=== PATIENT | male | born 1945 | race Caucasian/White ===

== ENCOUNTER 2024-02-08 08:06 | Outpatient (OUT) | payer OTHER, MEDICARE, SELFPAY ==
--- NOTE | 2024-02-08 08:25 | CT_ITS ---
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 TECHNIQUE: Multi-planar CT images were obtained without and/or with IV contrast as indicated by examination type. Axial, Coronal, and Sagittal images. Dose reduction techniques were achieved by using automated exposure control and/or adjustment of mA and/or kV according to patient size and/or use of iterative reconstruction technique. FINDINGS: LUNGS: No visible pulmonary disease. PLEURA: No mass, effusion, or pneumothorax. VASCULATURE: No abnormality. ROBBY: No mass or adenopathy. MEDIASTINUM: No mass or adenopathy. CARDIAC: Cardiomegaly. No pericardial effusion. AORTA: No aneurysm or dissection. CHEST WALL: No mass or axillary adenopathy. BONES: No bone lesion or fracture. LIMITED ABDOMEN: No suspicious findings Limited images of the upper abdomen. OTHER: Negative. CT/CT chest w con IMPRESSION: 1. No upper mediastinal mass or lymphadenopathy to contribute patient's symptoms. 2. Mild cardiomegaly. 3. Please see corresponding CT soft tissue neck study performed on 02/08/2024. Electronically authenticated by: ROGER TORRES Date: 02/08/2024 11:39
--- NOTE | 2024-02-08 08:25 | CT_ITS ---
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 Axial sections with coronal and sagittal reformats were obtained. Dose reduction techniques were achieved by using automated exposure control and/or adjustment of mA and/or kV according to patient size and/or use of iterative reconstruction technique. FINDINGS: Lymph Nodes/Soft Tissues: No extranodal soft tissue mass, abnormal enhancement, or fat stranding. No enlarged or morphologically abnormal lymph nodes. Nasopharynx: Normal. Suprahyoid Neck: Oropharynx, oral cavity, parapharyngeal, and retropharyngeal spaces are clear and symmetric. Infrahyoid Neck: Hypopharynx and supraglottic area are clear and symmetric. Enlarged right piriform sinus, medialization and thickening of the right aryepiglottic fold, and a dilated right laryngeal ventricle suggest right vocal cord paralysis. No discrete laryngeal mass or abnormal enhancement. Equivocal mild soft tissue fullness of the left vocal cord. Parotid Glands: Normal. Submandibular Glands: Normal. Thyroid: Normal. Orbits: Normal. Paranasal Sinuses: Well-aerated. Mastoid Air Cells: Trace left mastoid effusion. Skull Base: Normal. Thoracic Inlet: Visualized lung apices are clear. Please see dedicated CT chest obtained contemporaneously and reported separately. Vascular Structures: Symmetric and patent. Atherosclerotic calcifications of the carotid artery systems. Musculoskeletal: No acute osseous abnormality. Multilevel cervical spondylotic changes. CT/CT soft tissue neck w con IMPRESSION: 1. Enlarged right piriform sinus, medialization and thickening of the right aryepiglottic fold, and a dilated right laryngeal ventricle suggest right vocal cord paralysis. No discrete laryngeal mass or abnormal enhancement. Equivocal mild soft tissue fullness of the left vocal cord. 2. No discrete extranodal soft tissue mass or lymphadenopathy in the neck. Electronically authenticated by: MARIANNA FUENTES Date: 02/08/2024 11:13
[2024-02-08 08:32] LABS: Estimated GFR (African America >60 (>=60); Estimated GFR (Non-African Ame >60 (>=60)
== END 2024-02-08 08:07 | disposition home or self-care (01) ==
LOC: LAB 08:07
PROVIDERS: Visit Provider Otolaryngology
DX: J38.01 Paralysis of vocal cords and larynx, unilateral (principal)
CPT/HCPCS: 36415; 70491; 71260; 82565; Q9967

== ENCOUNTER 2024-09-19 10:16 | Outpatient (OUT) | payer OTHER, MEDICARE, SELFPAY ==
--- OUTSIDE RECORDS SUMMARY | 2024-09-18 14:23 | XMS_ITS | CCD ---
Author Organization [facility] Informat ion Partnership [facility] Care Team Providers Care Toolroom Attendant Name Role Phone Fahad Arce Attending Provider Almas Tello Primary Care Provider [phone] Chi Espinoza Attending Provider [phone] Chi Espinoza Admit Provider Betty Carter Admit Provider Betty Carter Attending Provider Almas Tello Unavailable Unavailable Unavailable Unavailable Unavailable DR FAHAD ARCE Admitting Unavailable RICHARD, DR MARIE Attending Unavailable OMER, DR AMBRIZ Primary Care Unavailable BRIAN, DR ROGER Wooten Consulting Unavailable RICHARD, DR MARIE Consulting Unavailable OMER, DR AMBRIZ Admitting Unavailable OMER, DR AMBRIZ Attending Unavailable OMER, DR AMBRIZ Primary Care Unavailable OMER, DR AMBRIZ Consulting Unavailable RIZNURISLLA, SAMEH Admitting Unavailable TATAZNURISLLA, SAMEH Attending Unavailable OMER, DR AMBRIZ Primary Care Unavailable TATAZKALLA, SAMEH Admitting Unavailable RIZNURISLLA, SAMEH Attending Unavailable OMER, DR AMBRIZ Primary Care Unavailable RIZNURISLLA, SAMEH Admitting Unavailable RIZRADHAA, SAMEH Attending Unavailable OMER, DR AMBRIZ Primary Care Unavailable Almas Tello Primary Care Unavailab Fahad Diaz II Attending Unavailable Fahad Arce II Referring Unavailable YANETH Wilkinson Attending Unavailable YANETH Wilkinson Referring Unavailable Omer [facility] Unavailab Virginia CHEW, david Tinajero Primary Care Provider Fahad Arce MD Unavailable FAHAD ARCE Attending Unavailable OMER [facility] UnavailAlmas Burris MD Primary Care Provider [phone] SHANTI OLMOS Attending Unavailable PRETTY ALVAREZ Referring Unavaila cosme TELLO [facility] UnavailSHANTI Linares Attending Unavailable OMER DAVID TINAJERO [facility] UnavailSHANTI [place]inares Attending Unavailable OMER [facility] UnavailALMAS Burris Attending Unavailable MIKA ESPINOZA Attending Unavailable PRETTY ALVAREZ Attending Unavailable ALMAS TELLO Referring Unavailable MIKA ESPINOZA Attending Unavailable MIKA ESPINOZA Attending Unavailable MIKA ESPINOZA Attending Unavailable HANG PUENTE Attending Unavailable Unavailable Unavailable Unavailable Medications Current Medications Medication Drug Class(es) Dates Sig (Normalized) Sig (Original) acetaminophen 500 mg oral tablet (2 sources) Start: 12-31-2020 take 500 mg by mouth every four hours Acetaminophen Active 500 MG PO Q4H 100 December 31, 2020 10:54am acetaminophen 325 mg / HYDROcodone bitartrate 5 mg oral tablet (5 sources) Opioid Agonist Start: 12-26-2020 End: 01-01-2021 take 1 tablet by mouth every four hours Hydrocodone-Acetami nophen Active 1 TAB PO Q4H 30 7 December 31, 2020 10:52am [id number] 200 actuat albuterol 0.09 mg/actuat metered dose inhaler (4 sources) beta2-Adrenergic Agonist Start: 12-28-2023 End: 12-27-2024 take 2 puff(s) by inhalation every four hours for wheezing albuterol HFA 90 mcg/act inhaler Indications: COPD with acute exacerbation ([facility]) Inhale 2 puffs every 4 (four) hours if needed for wheezing 18 g 0 12/28/2023 12/27/2024 Active Start: 01-01-2021 Albuterol Sulf ate HFA 108 (90 Base) MCG/ACT Inhalation Aerosol Solution Quantity: 18 Refills: 0 Ordered: 01-Jan-2021 DO Start : 01-Jan-2021 Complete Start: 12-31-2020 take 1 puff(s) by in halation every three hours Albuterol Sulfate (Ventolin Hfa) 90 mcg/actuation Hfa Aerosol Inhaler Active 2 PUFF INHALATION Every three hours 2 December 31, 2020 10:55am amoxicillin 500 mg oral capsule (2 sources) Penicillin-class Antibacterial Start: 10-21-2023 take 4 capsules by mouth every hour amoxicillin (Amoxil) 500 MG capsule Take by mouth See administration instructions TAKE 4 CAPSULES BY MOUTH 1 HOUR PRIOR TO DENTAL APPOINTMENT 0 10/21/2023 Active ascorbic acid 500 mg oral tablet (9 sources) Vitamin C Start: 12-31-2020 Ascorbic Acid (Vitamin C) (Vitamin C) 500 mg Tablet Active 250 MG PO Twice daily 60 December 31, 2020 10:50am Start: 11-03-2020 End: 01-01-2021 take 1 tablet by mouth twice daily Ascorbic Acid (Vitamin C) (Vitamin C) 250 mg Tablet Discontinued 250 MG PO Twice daily November 03, 2020 11:24am January 01, 2021 10:17am chlorhexidine gluconate 1.2 mg/ml mouthwash (6 sources) Start: 12-26-2020 End: 01-01-2021 Chlorhexidine Gluconate Acti ve 15 ML MUCOUS MEM Daily 150 December 31, 2020 10:51am Start: 11-09-2020 Chlorhexidine Gluconate 0.12 % Mouth/Throat Solution Quantity: 473 Refills: 0 Ordered: 09-Nov-2020 DO Start : 09-Nov-2020 Complete cholecalciferol 400 unt oral tablet (9 sources) Vitamin D Start: 12-31-2020 take 1 tablet by mouth once daily Cholecalciferol (Vitamin D3) (Vitamin D3) 10 mcg (400 unit) Tablet Active 10 MCG PO Daily December 31, 2020 10:51am Start: 11-03-2020 End: 01-01-2021 take 1 capsule by mouth once daily Cholecalciferol (Vitamin D3) (Vitamin D3) 10 mcg (400 unit) Capsule Discontinued 10 MCG PO Daily November 03, 2020 11:24am January 01, 2021 10:17am guaiFENesin 20 mg/ml oral solution (2 sources) Start: 12-31-2020 take 200 mg by mouth every four hours Guaifenesin Active 200 MG PO Q4H 150 December 31, 2020 10:55am melatonin 5 mg oral tablet (5 sources) Start: 12-26-2020 End: 01-01-2021 take 5 mg by mouth once daily at bedtime Melatonin Active 5 MG PO Daily at bedtime December 31, 2020 10:52am metoprolol tartrate 25 mg oral tablet (19 sources) beta-Adrenergic Barrett Start: 10-03-2023 metoprolol tartrate (Lopressor) 25 MG tablet Take 12.5 mg by mouth in the morning and 12.5 mg in the evening. 0 10/03/2023 Active Start: 06-21-2021 End: 10-03-2023 take 0.5 tablet by mouth twice daily metoprolol tartrate (Lopressor) 25 mg tablet Indications: Coronary artery disease involving [place] coronary artery of [place] heart without angina pectoris , S/P CABG (coronary artery bypass graft) Take 0.5 tablets (12.5 mg) by mouth 2 times a day. 180 tablet 3 10/03/2023 Active Start: 06-21-2021 take 0.5 tablet by m outh three times daily Metoprolol Tartrate 25 MG Oral Tablet TAKE 1/2 TABLET BY MOUTH THREE TIMES DAILY Quantity: 135 Refills: 3 Ordered: 10-Oct-2022 Fahad Arce MD Start : 21-Jun-2021 Active Start: 12-26-2020 End: 01-01-2021 take 12.5 mg by mouth three times daily Metoprolol Tartrate Active 12.5 MG PO Three times daily 90 December 31, 2020 10:53am niMODipine 30 mg oral capsule (3 sources) Dihydropyridine Calcium Channel Barrett Start: 02-20-2024 End: 03-21-2024 take 1 capsule by mouth three times daily niMODipine (Nimotop) 30 mg capsule Indications: Vocal cord paralysis Take 1 capsule (30 mg) by mouth 3 times a day. 90 capsule 02/20/2024 Active [place]-3 Fatty Acids-Fish Oil (Fish Oil) 340-1,000 mg Capsule (2 sources) Start: 12-31-2020 take 1 capsule by mouth once daily [place]-3 Fatty Acids-Fish Oil (Fish Oil) 340-1,000 mg Capsule Active 1000 MG PO Daily December 31, 2020 10:53am povidone-iodine 0.1 mg/mg topical ointment (10 sources) Antiseptic Start: 12-26-2020 End: 01-01-2021 Povidone-Iodine Active 1 APPLIC TOPICAL PRN December 31, 2020 10:53am Start: 12-26-2020 End: 01-01-2021 Povidone-Iodine Active 1 BENJAMIN LIC TOPICAL Daily December 31, 2020 10:53am pravastatin sodium 40 mg oral tablet (9 sources) HMG-CoA Reductase Inhibitor Start: 11-03-2020 End: 01-01-2021 take 40 mg by mouth once daily at bedtime Pravastatin Active 40 MG PO Daily at bedtime December 31, 2020 10:54am predniSONE 10 mg oral tablet (1 source) Start: 12-28-2023 predniSONE (Deltasone) 10 MG tablet Indications: COPD with acute exacerbation (CMS/HCC) Every 2 day tapering dose; 5,5,4,4,3,3,2,2,1,1, 0.5,0.5 31 tablet 0 12/28/2023 Active rosuvastatin calcium 20 mg oral tablet (14 sources) HMG-CoA Reductase Inhibitor Start: 09-20-2021 End: 10-03-2023 take 1 tablet by mouth once daily rosuvastatin (Crestor) 20 mg tablet Indications: Mixed hyperlipidemia Take 1 tablet (20 mg) by mouth once daily. 90 tablet 3 10/03/2023 Active Sennosides (Senna Lax) 8.6 mg Tablet (2 sources) Start: 12-31-2020 take 2 tablets by mouth once daily Sennosides (Senna Lax) 8.6 mg Tablet Active 17.2 MG PO DAILY@12 60 December 31, 2020 10:56am Spacer/Aero-Holding Chambers (BreatheRite Raghu Spacer Adult) misc (1 source) Start: 12-28-2023 Spacer/Aero-Ho lding Chambers (BreatheRite Raghu Spacer Adult) misc Indications: COPD with acute exacerbation (CMS/HCC) 2 puffs 4 (four) times a day as needed (sob and cough) 1 each 0 12/28/2023 Active thiamine 100 mg oral tablet (5 sources) Start: 12-26-2020 End: 01-01-2021 take 100 mg by mouth twice daily Thiamine Hcl (Vitamin B1) Active 100 MG PO Twice daily 60 December 31, 2020 10:54am zinc gluconate 50 mg oral tablet (2 sources) Start: 12-31-2020 take 50 mg by mouth once daily Zinc Gluconate Active 50 MG PO Daily December 31, 2020 10:54am Completed/Discontinued Medications Medication Drug Class(es) Dates Sig (Normalized) Sig (Original) acetaminophen 325 mg / oxyCODONE hydrochloride 5 mg oral tablet (1 source) Opioid Agonist Start: 03-22-2021 take 1-2 tablets by mouth every four to six hours as needed for pain oxyCODONE-Acetami nophen 5-325 MG Oral Tablet TAKE 1-2 TABLETS EVERY 4-6 HOURS NEEDED FOR SEVERE PAIN Quantity: 60 Refills: 0 Ordered: 22-Mar-2021 DO Start : 22-Mar-2021 Complete ALPRAZolam 0.25 mg oral tablet (2 sources) Benzodiazepine Start: 11-09-2020 ALPRAZolam 0.25 MG Oral Tablet Quantity: 21 Refills: 0 Ordered: 09-Nov-2020 DO Start : 09-Nov-2020 Complete End: 12-28-2023 take 1 tablet by mouth three times daily as needed for anxiety ALPRAZolam (Xanax) 0.25 MG tablet Take 0.25 mg by mouth 3 (three) times a day as needed for anxiety. 0 12/28/2023 Discontinued (Therapy completed) aspirin 81 mg delayed release oral tablet (20 sources) Platelet Aggregation Inhibitor, Nonsteroidal Anti-inflammatory Drug Start: 04-06-2021 take 1 tablet by mouth twice daily Aspirin Adult Low Strength 81 MG Oral Tablet Delayed Release TAKE ONE TABLET BY MOUTH TWICE A DAY Quantity: 28 Refills: 0 Ordered: 06-Apr-2021 DO Start : 06-Apr-2021 Complete Start: 12-26-2020 End: 01-01-2021 take 81 mg by mouth once daily Aspirin Discontinued 81 MG PO Daily December 26, 2020 4:23pm January 01, 2021 10:17am take 1 tablet by carolyn th once daily aspirin 81 mg EC tablet Take 1 tablet (81 mg) by mouth once daily. Active atenolol 25 mg oral tablet (8 sources) beta-Adrenergic Barrett Start: 11-03-2020 End: 12-28-2023 take 25 mg by mouth once daily Atenolol Discontinued 25 MG PO Daily November 03, 2020 11:24am December 26, 2020 12:07pm betamethasone 0.5 mg/ml / clotrimazole 10 mg/ml topical cream (1 source) Azole Antifungal, Corticosteroid Start: 11-05-2020 Clotrimazole-Betamet hasone 1-0.05 % External Cream Quantity: 15 Refills: 0 Ordered: 05-Nov-2020 DO Start : 05-Nov-2020 Complete cefuroxime 500 mg oral tablet (1 source) Cephalosporin Antibacterial Start: 12-20-2023 End: 12-28-2023 take 1 tablet by mouth in the morning cefuroxime (Ceftin) 500 MG tablet Indications: Acute non-recurrent maxillary sinusitis Take 1 tablet (500 mg) by mouth in the morning and 1 tablet (500 mg) before bedtime. Do all this for 10 days. 14 tablet 0 12/20/2023 12/28/2023 Discontinued (Therapy completed) celecoxib 200 mg oral capsule (1 source) Nonsteroidal Anti-inflammatory Drug Start: 03-22-2021 take 1 capsule by mouth twice daily after mealtime Celecoxib 200 MG Oral Capsule TAKE ONE CAPSULE BY MOUTH TWICE A DAY AFTER MEALS Quantity: 60 Refills: 0 Ordered: 22-Mar-2021 DO Start : 22-Mar-2021 Complete cephalexin 500 mg oral capsule (1 source) Cephalosporin Antibacterial Start: 10-05-2023 End: 12-20-2023 take 1 capsule by mouth twice daily cephalexin (Keflex) 500 MG capsule Indications: Basal cell carcinoma (BCC) of right rastafarian region Take 1 capsule, by mouth, bid x 7 days 14 capsule 0 10/05/2023 12/20/2023 Discontinued (Therapy completed) chlordiazePOXIDE hydrochloride 25 mg oral capsule (3 sources) Benzodiazepine Start: 12-26-2020 End: 01-01-2021 take 25 mg by mouth twice daily Chlordiazepoxide Hcl Discontinued 25 MG PO Twice daily December 26, 2020 11:52am January 01, 2021 10:17am chondroitin sulfates 200 mg / glucosamine hydrochloride 250 mg oral tablet (7 sources) Start: 11-03-2020 End: 01-01-2021 take 2 tablets by mouth once daily Glucosamine-Chondroi tin (Osteo Bi-Flex) 250-200 mg Tablet Discontinued 2 TAB PO Daily November 03, 2020 11:24am January 01, 2021 10:17am clopidogrel 75 mg oral tablet (1 source) P2Y12 Platelet Inhibitor End: 12-28-2023 take 1 tablet by mouth in the morning clopidogrel (Plavix) 75 MG tablet Take 75 mg by mouth in the morning. 0 12/28/2023 Discontinued (Therapy completed) docusate sodium 100 mg oral capsule (6 sources) Start: 03-22-2021 take 1 capsule by mouth twice daily Docusate Sodium 100 MG Oral Capsule TAKE ONE CAPSULE BY MOUTH TWICE A DAY Quantity: 20 Refills: 0 Ordered: 22-Mar-2021 DO Start : 22-Mar-2021 Complete Start: 12-26-2020 End: 01-01-2021 take 1 capsule by mouth twice daily Docusate Sodium (Dok) 100 mg Capsule Active 100 MG PO Twice daily 60 December 31, 2020 10:55am DULoxetine 30 mg delayed release oral capsule (1 source) Serotonin and Norepinephrine Reuptake Inhibitor Start: 03-22-2021 take 1 capsule by mouth once daily DULoxetine HCl - 30 MG Oral Capsule Delayed Release Particles TAKE ONE CAPSULE BY MOUTH DAILY Quantity: 30 Refills: 0 Ordered: 22-Mar-2021 DO Start : 22-Mar-2021 Complete famotidine 20 mg oral tablet (6 sources) Histamine-2 Receptor Antagonist Start: 01-01-2021 Famotidine 20 MG Oral Tablet Quantity: 60 Refills: 0 Ordered: 01-Jan-2021 DO Start : 01-Jan-2021 Complete Start: 12-26-2020 End: 01-01-2021 take 20 mg by mouth twice daily Famotidine Active 20 M G PO Twice daily 60 December 31, 2020 10:52am fluticasone propionate 0.05 mg/actuat metered dose nasal spray (1 source) Corticosteroid End: 12-28-2023 take 2 spray(s) nasal route in the morning fluticasone (Flonase) 50 MCG/ACT nasal spray Administer 2 sprays into each nostril in the morning. 0 12/28/2023 Discontinued (Therapy completed) folic acid 1 mg oral tablet (6 sources) Start: 01-01-2021 Folic Acid 1 M G Oral Tablet Quantity: 30 Refills: 0 Ordered: 01-Jan-2021 DO Start : 01-Jan-2021 Complete Start: 12-26-2020 End: 01-01-2021 take 1 mg by mouth once daily Folic Acid Active 1 MG P O Daily December 31, 2020 10:52am Gentle Laxative 5 MG Oral Tablet Delayed Release (1 source) Start: 03-22-2021 take 2 tablets by mouth once daily Gentle Laxative 5 MG Oral Tablet Delayed Release TAKE TWO TABLETS BY MOUTH DAILY Quantity: 25 Refills: 0 Ordered: 22-Mar-2021 DO Start : 22-Mar-2021 Complete glucosamine/fitz dr elvin Fajardo sod (OSTEO BI-FLEX ORAL) (1 source) End: 10-03-2023 take 2 tablets by mouth once daily glucosamine/chond loan Fajardo sod (OSTEO BI-FLEX ORAL) Take 2 tablets by mouth once daily. 0 10/03/2023 Discontinued (Other) 1 ml haloperidol 5 mg/ml injection (3 sources) Typical Antipsychotic Start: 12-26-2020 End: 01-01-2021 inject 2 mg by intramuscular injection every six hours Haloperidol Lactate Discontinued 2 MG IM Q6H 0 December 26, 2020 11:53am January 01, 2021 10:17am heparin sodium, porcine 5000 unt/ml injectable solution (3 sources) Unfractionated Heparin, Anti-coagulant Start: 12-26-2020 End: 01-01-2021 inject 5000 [IU] by subcutaneous injection every twelve hours Heparin (Porcine) Discontinued 5000 UNIT SUBCUT Every 12 hours December 26, 2020 11:53am January 01, 2021 10:17am losartan potassium 25 mg oral tablet (7 sources) Angiotensin 2 Receptor Barrett Start: 11-03-2020 End: 12-26-2020 take 25 mg by mouth once daily Losartan Discontinued 25 MG PO Daily November 03, 2020 11:24am December 26, 2020 12:07pm Nirmatrelvir&Rit onavir 300/100 (Paxlovid, 300/100,) 20 x 150 MG & 10 x 100MG tablet therapy pack (1 source) Start: 11-30-2023 End: 12-20-2023 take 3 tablets by mouth in the morning Nirmatrelvir&Clovis navir 300/100 (Paxlovid, 300/100,) 20 x 150 MG & 10 x 100MG tablet therapy pack Indications: Infection caused by 2019 Novel Coronavirus Take 3 tablets by mouth in the morning and 3 tablets before bedtime. 1 each 0 11/30/2023 12/20/2023 Discontinued (Therapy completed) [place] 8-Vgm-Vyc-Fish Oil (Fish Oil) 1,000 mg (120 mg-180 mg) Capsule (7 sources) Start: 11-03-2020 End: 01-01-2021 take 1 capsule by mouth once daily [place] 2-Ipy-Dey-Fish Oil (Fish Oil) 1,000 mg (120 mg-180 mg) Capsule Discontinued 1 CAP PO Daily November 03, 2020 11:24am January 01, 2021 10:17am Start: 11-03-2020 take 1 capsule by mo [facility] once daily [place] 4-Wbr-Asn-Fish Oil (Fish Oil) 1,000 mg (120 mg-180 mg) Capsule Active 1 CAP PO Daily November 03, 2020 11:24am ondansetron 8 mg disintegrating oral tablet (1 source) Serotonin-3 Receptor Antagonist Start: 03-22-2021 take 1 tablet by mouth every six hours Ondansetron 8 MG Oral Tablet Disintegrating DISSOLVE ONE TABLET BY MOUTH EVERY 6 HOURS Quantity: 20 Refills: 0 Ordered: 22-Mar-2021 DO Start : 22-Mar-2021 Complete Osteo Bi-Flex Joint Shield Oral Tablet (5 sources) take 2 tablets by mouth once daily Osteo Bi-Flex Joint Shield Oral Tablet TAKE 2 TABLET Daily Quantity: 0 Refills: 0 Ordered: 20-Sep-2021 DO Active pantoprazole 20 mg delayed release oral tablet (2 sources) Proton Pump Inhibitor Start: 04-20-2021 take 1 tablet by mouth once daily Pantoprazole Sodium 20 MG Oral Tablet Delayed Release TAKE ONE TABLET BY MOUTH DAILY FOR 14 DAYS Quantity: 14 Refills: 0 Ordered: 20-Apr-2021 DO Start : 20-Apr-2021 Complete Start: 03-22-2021 take 1 tablet by [facility] once daily Pantoprazole Sodium 40 MG Oral Tablet Delayed Release TAKE ONE TABLET BY MOUTH DAILY Quantity: 30 Refills: 0 Ordered: 22-Mar-2021 DO Start : 22-Mar-2021 Complete polyethylene glycol 3350 12303 mg powder for oral solution (1 source) Osmotic Laxative Start: 01-06-2021 take 1 dose by mouth once daily ClearLax 17 GM/SCOOP Oral Powder USE 1 DOSE BY MOUTH DAILY FOR 30 DAYS Quantity: 510 Refills: 0 Ordered: 29-Mar-2021 DO Start : 06-Jan-2021 Complete Zinc (7 sources) Start: 11-03-2020 End: 01-01-2021 take 50 mg by mouth once daily Zinc Discontinued 50 MG PO Daily November 03, 2020 11:24am January 01, 2021 10:17am Start: 11-03-2020 take 50 mg by mouth once daily Zinc Active 50 MG PO Daily November 03, 2020 11:24am ziprasidone 20 mg oral capsule (10 sources) Atypical Antipsychotic Start: 01-01-2021 Ziprasi done HCl - 20 MG Oral Capsule Quantity: 30 Refills: 0 Ordered: 01-Jan-2021 DO Start : 01-Jan-2021 Complete Start: 12-31-2020 take 10 mg by mouth twice vinicius y Ziprasidone Hcl Active 10 MG PO Twice daily January 01, 2021 10:12am Start: 12-26-2020 End: 01-01-2021 take 20 mg by mouth three times daily Ziprasidone Hcl Active 20 MG PO Three times daily December 31, 2020 10:54am Problems Active Problems Problem Classification Problem Date Documented Da te Episodic/Chronic Acute cerebrovascular disease (3 sources) Hematoma of subdural space of neuraxis; Translations: [Subdural hematoma] Chronic Administrative/social admission (4 sources) Other reduced mobility; Translations: [Non-smoker] Episodic Alcohol-related disorders (8 sources) Alcohol dependence with withdrawal, unspecified; Translations: [Alcohol withdrawal syndrome] Chronic Chronic obstructive pulmonary disease and bronchiectasis (10 sources) Chronic obstructive lung disease; Translations: [Chronic obstructive pulmonary disease, unspecified] Onset: 12-19-2023 12-19-2023 Chronic Complications of surgical procedures or medical care (6 sources) Postprocedural respiratory failure; Translations: [Acute postprocedural respiratory failure] Episodic Coronary atherosclerosis and other heart disease (20 sources) Coronary arteriosclerosis; Translations: [Atherosclerotic heart disease of [place] coronary artery without angina pectoris] Onset: 04-15-2021 Chronic Coronary atherosclerosis and other heart disease (17 sources) History of coronary artery bypass grafting; Translations: [Presence of aortocoronary bypass graft] Onset: 01-13-2021 Episodic Deficiency and other anemia (2 sources) Anemia, unspecified; 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] Episodic Deficiency and other anemia (2 sources) Anemia; Translations: [Anemia following surgery] Episodic Diseases of white blood cells (4 sources) Elevated white blood cell count, unspecified; Translations: [Leukocytosis] Chronic Disorders of lipid metabolism (20 sources) Hyperlipidemia; Translations: [Other and unspecified hyperlipidemia] Onset: 04-22-2021 10-03-2023 Chronic Essential hypertension (11 sources) Hypertensive disorder; Translations: [Essential (primary) hypertension] Onset: 04-22-2021 Chronic Hypertension with complications and secondary hypertension (4 sources) Hypertensive chronic kidney disease with stage 1 through stage 4 chronic kidney disease, or unspecified chronic kidney disease; Translations: [HTN CKD W/STAGE 1-4 CKD/UNS CKD] Onset: 12-24-2021 Chronic Malaise and fatigue (4 sources) Lack of stamina; Translations: [Full-term ] Episodic Osteoarthritis (12 sources) Arthritis; Translations: [Unspecified osteoarthritis, unspecified site] Onset: 12-19-2023 12-19-2023 Chronic Other gastrointestinal disorders (2 sources) Dysphagia, unspecified; Translations: [Swallowing disorder] Episodic Other gastrointestinal disorders (2 sources) Dysphagia; Translations: [Dysphagia] Episodic Other lower respiratory disease (2 sources) Cough; Translations: [Cough] Episodic Other lower respiratory disease (2 sources) Cough; Translations: [Cough with frothy sputum] Episodic Other lower respiratory disease (2 sources) Hypoxia; Translations: [Nocturnal hypoxia] Episodic Other nervous system disorders (2 sources) Other acute postprocedural pain; Translations: [Acute postoperative pain of abdomen] Episodic Other nervous system disorders (2 sources) Postoperative pain ; Translations: [Postoperative pain] Episodic Other upper respiratory disease (3 sources) Vocal cord paralysis; Translations: [Paralysis of vocal cords and larynx, unspecified] 02-23-2024 Chronic Other upper respiratory disease (2 sources) Paralysis of vocal cords and larynx, unspecified; Translations: [Paralysis of vocal cords and larynx, unspecified] Onset: 02-20-2024 Chronic Other upper respiratory disease (4 sources) Dysphonia; Translations: [Dysphonia] Onset: 02-20-2024 02-23-2024 Episodic Other upper respiratory disease (1 source) Dysphonia; Translations: [Dysphonia] Onset: 02-20-2024 Episodic Other upper respiratory infections (2 sources) Laryngitis; Translations: [Acute laryngitis] 12-20-2023 Episodic Residual codes; unclassified (2 sources) Idiopathic sleep related nonobstructive alveolar hypoventilation; Translations: [Sleep-related hypoxia] Chronic Residual codes; unclassified (10 sources) H/O: surgery; Translations: [History of brain surgery] Episodic Residual codes; unclassified (5 sources) Disorientation, unspecified; Translations: [Unresponsiveness] Episodic Residual codes; unclassified (3 sources) Delirium; Translations: [Delirium] Episodic Residual codes; unclassified (10 sources) Body mass index 20-24 - normal; Translations: [Body Mass Index between 19-24, adult] Onset: 12-20-2023 12-20-2023 Episodic Screening and history of mental health and substance abuse codes (8 sources) Ex-smoker; Translations: [Personal history of tobacco use] Onset: 04-22-2021 Episodic Comment on above: QUIT 1999; Syncope (6 sources) Syncope; Translations: [Syncope and collapse] Episodic Viral infection (4 sources) Other specified viral infection; Translations: [Severe acute respiratory syndrome coronavirus 2 (SARS-CoV-2) detected] Episodic Past or Other Problems Problem Classification Problem Date Documented Date Episodic/Chronic Conditions associated with dizziness or vertigo (9 sources) Dizziness; Translations: [Dizziness and giddiness] Onset: 10-02-2023 10-02-2023 Episodic Other screening for suspected conditions (not mental disorders or infectious disease) (20 sources) Cardiovascular stress test abnormal; Translations: [Abnormal result of other cardiovascular function study] Onset: 04-22-2021 10-02-2023 Episodic Residual codes; unclassified (6 sources) Other specified postprocedural states; Translations: [History of lingual frenulectomy] Unclassified (4 sources) Onset: 10-03-2023 Resolved: 04-02-2024 10-03-2023 Results Test Name Value Interpretation Reference Range Facility Laryngoscopyon 04-02-2024 Shanti Olmos MD 2023 10:00 AM Laryngoscopy Date/Time: 04/02/2024 9:58 AM Performed by: Shanti Olmos MD Authorized by: Shanti Olmos MD [facility] Work Phone: Laryngoscopyon 02-20-2024 Shanti Olmos MD 02/22 2:39 PM Laryngoscopy Date/Time: 02/20/2024 2:35 PM Performed by: Shanti Olmos MD Authorized by: Shanti Olmos MD [facility] Work Phone: Office Visit (Cardiology)on 09-27-2022 Follow-up visit Diagnoses/Problems Assessed CAD (coronary artery disease) (414.00) (I25.10) Hyperlipidemia (272.4) (E78.5) S/P CABG (coronary artery bypass graft) (V45.81) (Z95.1) History of PTCA (V45.82) (Z98.61) Body mass index (BMI) of 24.0 to 24.9 in adult (V85.1) (Z68.24) Former smoker (V15.82) (Z87.891) QUIT 2000 Orders CAD (coronary artery disease), Hyperlipidemia, S/P CABG (coronary artery bypass graft) Renew: Rosuvastatin Calcium 20 MG Oral Tablet; TAKE 1 TABLET DAILY SocHx: Former smoker Tobacco Use Screening; Status:Complete; Done: 27Sep2022 Patient Instructions Please bring all medicines, vitamins, and herbal supplements with you when you come to the office. Prescriptions will not be filled unless you are compliant with your follow up appointments or have a follow up appointment scheduled as per instruction of your physician. Refills should be requested at the time of your visit Follow up in 1 year. Chief Complaint STAN MCDONALD is being seen for an annual follow-up of. History of Present Illness Patient returns in follow-up of problems as noted. He is doing well. I cannot elicit any manifestations or symptoms of coronary disease such as that that preceded his diagnosis and subsequent PTCA and/or angioplasty. Control of risk factors including lipids and blood pressure is good and because of this we believe all risk factors are not checked. His body mass index is also ideal and he was congratulated on his diet and continued exercise and/or activity level. Current Meds Medication NameInstruction Aspirin 81 MG Oral Tablet Delayed ReleaseTAKE 1 TABLET DAILY. Metoprolol Tartrate 25 MG Oral Tablet1/2 tablet three times daily Rosuvastatin Calcium 20 MG Oral TabletTAKE 1 TABLET DAILY. Allergies Medication No Known Drug Allergies Recorded By: Socorro Mancera; 07/17/2018 11:11:05 AM Social History Problems Alcohol consumption of one to four drinks per day (V69.8) (Z78.9) Daily caffeine consumption, 2-3 servings a day Former smoker (V15.82) (Z87.891) QUIT 1999 No illicit drug use Review of Systems Constitutional: not feeling tired. Eyes: no eyesight problems. ENT: no hearing loss and no nosebleeds. Cardiovascular: no intermittent leg claudication and as noted in HPI. Respiratory: no chronic cough and no shortness of breath. Gastrointestinal: no change in bowel habits and no blood in stools. Genitourinary: no urinary frequency and no hematuria. Skin: no skin rashes. Neurological: no seizures and no frequent falls. Psychiatric: no depression and not suicidal. All other systems have been reviewed and are negative for complaint. Vitals Vital Signs Recorded: 27Sep2022 10:01AM Heart Rate44, L Radial Tuxglqvu368, LUE, Sitting Qxezcsdat39, LUE, Sitting Height5 ft 8 in Bcrofo848 lb BMI Dtcrmmiwlv31.63 kg/m2 BSA Calculated1.87 Tobacco Useb) No PHQ-2 #1. Over the last 2 weeks have you felt down, depressed or hopeless? (If yes, answer PHQ-9 below)No PHQ-2 #2. Over the last 2 weeks have you felt little interest or pleasure in doing things? (If yes, answer PHQ-9 below)No Falls Screening (Age 18+)a) No falls within the last year Physical Exam Constitutional: alert and in no acute distress. Eyes: no erythema, swelling or discharge from the eye . Neck: neck is supple, symmetric, trachea midline, no masses and no thyromegaly . Pulmonary: no increased work of breathing or signs of respiratory distress and lungs clear to auscultation. Cardiovascular: carotid pulses 2+ bilaterally with no bruit , JVP was normal, no thrills , regular rhythm, normal S1 and S2, no murmurs , pedal pulses 2+ bilaterally and no edema . Abdomen: abdomen non-tender, no masses and no hepatomegaly . Skin: skin warm and dry, normal skin turgor . Psychiatric judgment and insight is normal and oriented to person, place and time . Signatures Electronically signed by : Fahad Arce MD; Sep 27 2022 4:12PM EST (Author) Normal [employer] Tobacco Screening.on 022 Adult depression screening assessment No [facility] [employer] [employer] DO Work Phone: Fall risk assessment a) No falls within the last year [facility] DO Work Phone: Tobacco use status CP b) No M [facility] [employer] DO Work Phone: LIPID PROFILEon 12-24-2021 CHOL-HDL RATIO NORM SEE BELOW Normal [facility] Comment on above: Result Comment: 3.3 - 4.4 LOW RISK 4.4 - 7.1 AVERAGE RISK 7.1 - 11.0 MODERATE RISK >11.0 HIGH RISK Performed By: #### L IPID, CMP #### [facility] [address] [place] [address] Dr. Sage Corbett Cholesterol [Mass/Vol] 178 mg/dL Normal <=200 Th [facility] Comment on above: Performed By: #### L IPID, CMP #### [facility] [address] [address] [address] Sage Corbett Cholesterol in HDL [Mass/Vol] 72 mg/dL Normal [facility] Comment on above: Performed By: #### L IPID, CMP #### [facility] [address] [address] [address] Sage Corbett Cholesterol in LDL [Mass/Vol] 90.8 mg/dL Normal [facility] Comment on above: Performed By: #### L IPID, CMP #### [facility] [address] [address] [address] Sage Corbett Cholesterol.total/Tarah sterol in HDL [Mass ratio] 2.5 {ratio} Normal [facility] Comment on above: Performed By: #### L IPID, CMP #### [facility] [address] [address] [address] Sage Corbett HDL NORMAL > or = 60 mg/dl - LO W CARDIOVASCULAR RISK <40 mg/dl - HIGH CARDIOVASCULAR RISK Normal [facility] Comment on above: Performed By: #### L IPID, CMP #### [facility] [address] [place] [address] Dr. Sage Corbett LDL CALC NORMAL SEE BELOW Normal [facility] Comment on above: Result Comment: <100 mg/dl OPTIMAL 100 - 129 mg/dl NEAR OR ABOVE OPTIMAL 130 - 159 mg/dl BORDERLINE HIGH 160 - 189 mg/dl HIGH >190 mg/dl VERY HIGH Performed By: #### L IPID, CMP #### [facility] [address] [place] [address] Dr. Sage Corbett Triglyceride [Mass/Vol] 76 mg/dL Normal <=150 T [facility] Comment on above: Performed By: #### L IPID, CMP #### [facility] [address] [place] [address] Dr. Sage Corbett VLDL CALC 15.2 mg/dL Normal [facility] Comment on above: Performed By: #### L IPID, CMP #### [facility] [address] [place] [address] Dr. Sage Corbett PROF 14(COMP METB)on 022 Albumin [Mass/Vol] 3.9 g/dL Normal 3.5-5.0 [facility] Comment on above: Performed By: #### L IPID, CMP #### [facility] [address] [place] [address] Dr. Sage Corbett Albumin/Globulin [Mass ratio] 1.1 {ratio} Normal [facility] Comment on above: Performed By: #### L IPID, CMP #### [facility] [address] [place] [address] Dr. Sage Corbett ALP [Catalytic activity/Vol] 47 U/L Normal 38-126 [facility] Comment on above: Performed By: #### L IPID, CMP #### [facility] [address] [place] [address] Dr. Sage Corbett ALT [Catalytic activity/Vol] 30 U/L Normal 21-72 [facility] Comment on above: Performed By: #### L IPID, CMP #### [facility] [address] [place] [address] Dr. Sage Corbett Anion gap [Moles/Vol] 11.1 mmol/L Normal Th e [facility] Comment on above: Performed By: #### L IPID, CMP #### [facility] [address] [place] [address] Dr. Sage Corbett AST [Catalytic activity/Vol] 23 U/L Normal 17-59 [facility] Comment on above: Performed By: #### L IPID, CMP #### [facility] [address] [place] [address] Dr. Sage Corbett Bilirubin [Mass/Vol] 0.4 mg/dL Normal 0.2-1.3 [facility] Comment on above: Performed By: #### L IPID, CMP #### [facility] [address] [place] [address] Dr. Sage Corbett Calcium [Mass/Vol] 9.5 mg/dL Normal 8.4-10.2 [facility] Comment on above: Performed By: #### L IPID, CMP #### [facility] [address] [place] [address] Dr. Sage Corbett Chloride [Moles/Vol] 106 mmol/L Normal 98-107 [facility] Comment on above: Performed By: #### L IPID, CMP #### [facility] [address] [place] [address] Dr. Sage Corbett CO2 [Moles/Vol] 28.1 mmol/L Normal 22.0-30.0 [facility] Comment on above: Performed By: #### L IPID, CMP #### [facility] [address] [place] [address] Dr. Sage Corbett Creatinine [Mass/Vol] 0.68 mg/dL Normal 0.66-1.25 [facility] Comment on above: Performed By: #### L IPID, CMP #### [facility] [address] [place] [address] Dr. Sage Corbett EGFR-AF UGANDAN >60 Normal >=60 [facility] Comment on above: Performed By: #### L IPID, CMP #### [facility] [address] [place], [place] [id number] Dr. Sage Corbett EGFR-NON AF UGANDAN >60 Normal >=60 [facility] Comment on above: Performed By: #### L IPID, CMP #### [facility] [address] [place] [address] Dr. Sage Corbett Globulin (S) [Mass/Vol] 3.4 g/dL Normal T [facility] Comment on above: Performed By: #### L IPID, CMP #### [facility] [address] [place] [address] Dr. Sage Corbett Glucose [Mass/Vol] 81 mg/dL Normal 74-106 [facility] Comment on above: Performed By: #### L IPID, CMP #### [facility] [address] [place] [address] Dr. Sage Corbett Potassium [Moles/Vol] 4.2 mmol/L Normal 3.4-5.0 [facility] Comment on above: Performed By: #### L IPID, CMP #### [facility] [address] [place] [address] Dr. Sage Corbett Protein [Mass/Vol] 7.3 g/dL Normal 6.1-8.2 [facility] Comment on above: Performed By: #### L IPID, CMP #### [facility] [address] [place] [address] Dr. Sage Corbett Sodium [Moles/Vol] 141 mmol/L Normal 137-145 [facility] Comment on above: Performed By: #### L IPID, CMP #### [facility] [address] [place] [address] Dr. Sage Corbett Urea nitrogen [Mass/Vol] 14.0 mg/dL Normal 9.0-20.0 [facility] Comment on above: Performed By: #### L IPID, CMP #### [facility] [address] [place] [address] Dr. Sage Corbett Urea nitrogen/Creatinine [Mass ratio] 20.6 mg/mg Normal [facility] Comment on above: Performed By: #### L IPID, CMP #### [facility] [address] [address] [address] Sage Corbett Falls Risk Screeningon 09-20 Fall risk assessment a) No falls within the last year [facility] DO Work Phone: Tobacco use status CPHS b) No M [facility] DO Work Phone: US ABD AORTA SCREENINGon US ABD AORTA SCREENING EXAM: US ABD AORT A SCREENING HISTORY: Atherosclerosis of coronary artery without angina pectoris. TECHNIQUE: Ultrasound was performed of the abdominal aorta. COMPARISON: None. FINDINGS: AORTA: Maximum diameter 3.3 cm; no aneurysm. Moderate plaque throughout without significant stenosis. Duplex Doppler demonstrates normal flow and waveform. OTHER: Maximum diameter of the right and left iliac arteries is 1.5 cm. IMPRESSION: 1. Moderate atherosclerotic disease. 2. No aortic aneurysm. Electronically authenticated by: ROGER TORRES Date: 2021-04-15 10:56 Normal [facility] Coding Summary.on 03-29-2021 Coding Summary. CD:[id number] Gh0bWw +PGhlYWQ+LR8BQRRlT06fnPCxd J3CF6uBPB7OJMWHKIFIZM0YFL7 liAV1YPxbX3AjlgMk RjeyqZHkVI92YVt8QTY4jGfzKL aupQ0htFKxN8t3IxMhPR24bQ54 AOhiANGbPkD3BkSxgqllcGHq Y4prHtReqFJaJjt+PHRhYmxlIH jlGCYfGTpfXNCdMdDbyRsaQK4z Ah5qQWVuYBKagYthkMEhMaSk q4xrGCHqSTknQZ5ayQzdL4GvwI Q9EUUas9w9Rl63rIR+PHRkIHN0 wZxjPOdza755CgNtk5vnDAT6 aJDwZFabZKM8P41zn8O0EOXsUW IvNXU6yBW2nW3eaShtlaxyN4Pw fPElEwW4QMQ9mVCrkP8dmNbg ogmvsG0oGso+P19CGP1FFNAACS 4NEoe4P0IbMdtvsYE+TK21BATt MN11dBDevEOvr4pcgMw0OaIf GXZsBUF0rDccZEjux6UpMGMgO3 4ylQSyf9X9JRGesYcqeZWlEtEc pIM8uJ0oYXjkectgi4gzqzar Upptk9bhhn04hK95P56gGJcrOH WbUJI9CZXaGPOjxRlzbc8fjI5o Ii8+BFqxb2muc1sedGh3DxPc MFVjsaTlbBboFXY1k6DmVa22T6 GcpRxtj8IrJgw9xd19oVCqx2Y8 iYI7ZQugUUWfmW4gLDynWrQ1 OLXxLoZfpT07oGFyPWydRh3xcL zriQstMG4cJJAakbafHAEfjI5q RMAslCMpzRcmQU8eWMPheipi y730NyFxXWE5YTUqpPOwH7ZckI 4nFvSfEDYvRVDqR4KahNNsYHkk Z229MDrwWcV2NUEyajLkT8Cx RPRtxXduPsJ5s8J5Lw8Es7Ccyq ymFXD0WWijCGI7CfOgDjRmVuS9 N2WgSyl0RDRabGtzYP5lZ1Qb KNHgiybmcyudoZD7CQFeXTMaxO 23nANrSCurUe4tw1B4h814ROLz HNDtrQ90Yx9mkWsgAFIduOFS iG2jwaror1syubdhSyVfSYXgAV f7UAx1VBIzrFyxJwHhEPG9AkW9 EBX0dJApkT8hwVzqbdaluG0o Oyc+W20jjL5pYSF4GEW3kvmnDP YxajIqSL10FR71H4FlWlanwUHq bGU+YECzesFmjEibBM4fCcNl o5ugm7PkBPlbG1TsJXOhDUkbHb c3SMXiAGW0kTF2oL0kOBRzYCns y8N8lCM2K1MjbtIije1sw7tt RRHlUJwdA25yxIRns5W8XFKsjF F7AIVghVfzQvGzuC45Tci+PGNv pOmxj4LlOtttu8pes7cgnOp0 DpGzEDIpykFkfAivWIO6k4FhGm 94D00jXHrrSTSgDFZfFRCeEBRd cKanmx3dfD0fXa9+PGNvbCB3 fYR9jP4dMAZwQzA5XOaaM963Vy FjsSXfDrhtz4wca8lvqYm2BmUv LICkvsPedTtuADD0j2RfAf52 W77hHYcqTJOmANAkLPUeBKYttB vqjt1azM3kKd6+KE5zq1uhlo41 qA80bHZ+JAOuUFS7zWmsLYyi WECglB4jCTttOaT2HHQkTvOruZ 69zBJfQLbnBb8hpHmgeBqsEJ6b IJRzvikxs810IjLyu0sbNDTt dHJvMDqsCRM6A34jw6Z8ELZkFU LkIKP4fCP2kR3qhSajjkdxbOBs rAnqoaKevZpmHDfoQFhqV691 IHRvcDsnPlBhdGllbnQgTmFtZT h2F6OeOyw6FUIgvUftZU3ffMJt XKbbDw4enNjrkZtqIW2tMZQg pihwu408YiQpk7qiLEVlbQFpMS xtIDD4T46mw3O3KJUaTFHxOMC8 uIK0eJ8zoLtmwyoqsMNwxTfl qkZmyFavEBvvDAnhX461XHHffU wsBvIwvqSuRBKynEM3CM23QZ15 hDXrd0M3cZC1W7RxGHCflubg xnlhaKJ3THQuMWZeuH65Tj7mkQ elIg2oGAPhRBF8DGBbgNIvN4Mc gH6lKaHrVEHpISBjW9SrxLSn PBygL841CPozOqG1VAMuknHrJ6 EeABFzwBclEkF5j4M1Xe5DK6M0 YB30II03uNKmi3O4xRO1P9Ov SVVbbmfptepwoOL4ITJeIGUlrR 60Rw8enUtxBp0sXGBbOWJ0CWRy hXZvN8DyrC4rKkYsLHItRHDa W0KwqMNdCFvgA238COvcXnJ3EF EkbiZnD0ZtGPSvqJomHqS4k0K2 Hy6NHCd0GZ81TL74iFJoa2Q3 wQV4X0IuVZWtwilhpxpiiRT8YF PuRBGbrK60Up7shSfeGr5oMIQt IIQ5IWMaeBNoR9HliO0kNwKt UKGvWLJcH7UlxUAuXIsxW439LN esIvW3GEXhtfJpU1GsAJRpeVms YvM3n9U5Jc0TRTPsST21GKL0 iPK4ZE31OK43T8KwJtvvrCJvaV U+PHRhYmxlIHdpZHRoPScxMDAl HpSmuTgzAY5yDe3sDPOhYTLm bNyvkILvZxYju8srFQYzYIhzOU 3hhVreF2MxeOQ3SMBfw4x9Mi48 H20xB8DymNY+CKIziTM8sML0 cT1eUuYxXhL4JBtrA990UnTzdB WbXwmms0poq1zrpJi7UlE7VGAp gdMzlSmnVJG1f3VdWs21M59w IHdpZHRoPSIxNSUiIHZhbGlnbj 3zxR6eLe8+LFUiuXW4tTR2qR5n KsEmKsU3DCtfW470VlXlwNYk Bebkz2soq6zmjXu2OuEtESKpkv RgrRcwYZM3t1GwJh55T6EpcCuv o0YlYif5kk35bHQcn1Q9aGO7 Q8PaVMSlczsqcIVvtRbiFR8sRY WwwbiiBXMdcE4pGKVvS9g6KiQa QxL3GBczK3OuwlF5EUUyrKZa QFgiLPE7F89nw9E7YLAqVAOaGM K1fWT3gY7xtZfubvkhuNZhiNwf tiGacQaxOFbkZYktZ036KARu jSgpHDGcqH5vSOBvkNRotIisWD 9hORXiwxbnFkpXL4pVQDxRPous Vg8MBUSZXW71DY50wEVwj6A0 gVL9J3IkIPZzuecdwyyceLJ4OP DlMOFnwZ26kNQgVMjqNw1zm4B7 i555TWThWTSegK16Ns9xpCix CSTtvUJUoB1guysff0arjamcIa NiMWEuUDk2NJv5MQZrrHvbXiPl UEN1NgU4ZOK5qEIzbB4siBpt liiciK5jWmn+ERYgYXWpSOg7Fy wvdGQ+HUXvAOA8vJlzPAscUIRw lU0dXQQlV1q2NzKtAeJ2AMwm M8EhWLVwsuntVy10bV1oCiSkVf R6MLcpK5AkjmM6DCTjrMPoIZkt YJO9J13le9K3NNInPUGtRFZ0 jIG8cA7cjCvsqkgnpYDkxAyiej CbkKntNByyYQsgR972FBDruPmz Pjr5SBzhDOZeKO29EA76rDCf j3V7iWN9T3SbWYWmbftznzxjfP E2ZNJzWZClrA37rIRdCMdgFw5s h6Y8t373QCDsKIEiqX63Ci5x fRuyUVWpjTHOxI1hequso0ubuf skAuAjDYGgHVi9DUe3XFJbiYsw BwDkKOW9CsZ1XRA9pBVmjQ1c jFqranluvJ0lJum+TWFsZTwvdG Q+TMTbIUK8zSniXWcyVPXnfC0q YBMtT1r1NqHxNkZ7OOvpM1Mw YYSckrnmFd06mZ0mJjTdUeU0GV qmQ9QchqM4XHKjhUEzGShiTTR7 I30nt3Z2UXEoFSArNVO6jSZ0 iJ2hbCgdfgfcpJQyvInrusFgwX reJNheFJvtR334SQUryCxhWhvt sAR0mRRojVrfjGL+QR87hs83 E0ScWmntIoc5FNOpCVF9uYS7xO 9vSDOnHNcdy4G8qBD3Q0VgspZu kh8ja8pkLYLnCMcwR99fwXLz b5A3NYEcaMK2EWVciWbsLdQizU 93Oyc+LTIwkUkqj6MvTgchk3yr g1qfjZb2LvTsDTPjboNfkOph XMV4i8DlKq46O50tQBzkOAXeHS WeSTNyFMSehSkoig5skH2jMb5+ IRTagRJ8aWG4dL2oVqOeCoX6 BLbiS401XwJkuUYpKjjva0bvz8 vorFt1GtOxJJLoauDzhAgrJMX6 g2BxMf65T7PyiFuui3YnVlv2 ym99fHNcs2P2tCP7B3CrUMKuyi fkuHJwjRyvIO6oMOOnwvqyPUYj nN8cGUMnE1e4PnNpDzG5BPvd E4UnznJ3SYMdzTSdQMLqdTMYkS 8kdfdig1cltbskEdKlNJJbQHn0 SJy2LBPknTxnEtNuMEQ1WpX1 UXO4nNFirR0scOkqyxqpfU9uIg c+NGy1o9umaPTuOO4miZN3QM19 TZ65fHBge9Q3hWB9Q7GzTZLz vijhywjytWG0TEPgBKItrQ29Or 8fiUhmGm5iMYGmTDS4PLUpjJNm N2HpuE9mIaXzWNXmMIUsB0Bv qFGeTVouX284WIpgQnV1ITYltk VrJ3CbOSQdxPquXrV0s5Y7Cn8I EV48CH79YN58xSZyt4H1hPX9 N2DqLFClbhzxtyrhfKH4QAJqCN BjbG09Hb4xgHfgWp1fSZDdZZJ8 IFQwdNDbJ5AqpP8iWhJdGBWo SDYiX7XaaLNfLVnvB194MMjrMp B7GFPvxnOjX1FqUVOmzVwiMuC2 f7Q6Fa9HRq67UH73LW75eGZz d7O7zHU0W0YmUCOjlwwqqspomA M0CMEeAYTfiW38Zz0adUvkBx6r EOGrUXA8PBVujQMaW5MjpS9t EjYmDMVjBDTgF8FhlVNiMSngH7 73ZMkoOaU1DTLiuvTyU4UsARUh mRudBpW8q7M9Ax5VRYbanhx4 V8RjOsfmxMF+EK92FEVoRO76kD JqqBAck8rkkOu8ZfHtKXRxGSV5 nRpcXAfat0ZiXXAsA08szQCk c2U6 (more content not included)... Normal [facility] IntraOperative Documentson 0 03-26-2021 IntraOperative Documents [id number]:127 Normal [facility] Operative Reporton Operative Report Date of Surgery: 03/22/2021 SURGEON: Lm Espino M.D. OPERATION: Right ultrasound guided single shot adductor canal block ANESTHESIA: 2 mg of Versed PROCEDURE: The patient was interviewed and examined. Anesthetic options for postoperative pain control were discussed in great detail. After a lengthy discussion encompassing risks, benefits and alternatives of the procedure the patient elected to undergo the procedure. In the block room the patient was placed on routine monitors, vitals signs were reviewed, landmarks reviewed and the site was prepped in a sterile fashion. Visualization of the adductor canal was very good and a 21 gauge 100 mg Pajunk needle was advanced with excellent ultrasound visualization and under direct ultrasound visualization 18 cc of a 0.25% Naropin solution was injected in divided doses with frequent aspiration. There were no signs of intraneural or intravascular injection and the patient tolerated the procedure very well. Within several minutes the patient began to show signs and symptoms of successful blockade and the patient was then transported back to the Operating Room and underwent general anesthesia for the planned procedure. Lm Espino M.D. lkr Dictated: 03/26/2021 #[id number] Typed: 03/26/2021 #[id number] cc: Lm Espino M.D. [facility] Comment on above: Result Comment: Elec tronically Signed By: Lm Espino MD\.br\Date and Time Signed: 03/26/21 17:50 EDT Progress Note-Physicianon Progress Note-Physician Patient: STAN STAFFORD Age: 75 years Sex: Male : 1945 Associated Diagnoses: None Author: Lm Espino MD Postoperative Information Post Operative Note: Post Anesthesia Care Unit. Anesthetic utilized: General. Health Status Allergies: Allergic Reactions (All) No Known Allergies Problem list: No problem items selected or recorded. Physical Examination Intake and Output adequate hydration Vital Signs 03/22/2021 10:40 EDT Heart Rate Monitored 91 bpm Respiratory Rate Monitored 13 br/min Systolic Blood Pressure 133 mmHg Diastolic Blood Pressure 66 mmHg Blood Pressure Location Right arm SpO2 94 % 03/22/2021 10:35 EDT Heart Rate Monitored 89 bpm Respiratory Rate Monitored 9 br/min Systolic Blood Pressure 159 mmHg HI Diastolic Blood Pressure 84 mmHg Blood Pressure Location Right arm SpO2 98 % 03/22/2021 10:29 EDT Temperature Temporal Artery 36.3 DegC Heart Rate Monitored 88 bpm Respiratory Rate Monitored 12 br/min Systolic Blood Pressure 160 mmHg HI Diastolic Blood Pressure 85 mmHg Blood Pressure Location Right arm SpO2 98 % Pain assessment: Self-reports no pain. General: Alert and oriented, No acute distress. HENT: Oral mucosa is moist, dentition unchanged. Respiratory: Respirations: Are within normal limits. Pattern: Regular. Cardiovascular: Normal rate. Neurologic: Alert, Oriented. Review / Management Lines and Tubes: Peripheral catheter. ECG interpretation: Within normal limits. Condition: Stable. Assessment Anesthetic outcome No anesthetic complications noted. Adequate pain relief. No Complaint of nausea and vomiting. Plan Transfer/ Discharge: Patient can be discharged from PACU when criteria met, Patient can be discharged from anesthesia care. Condition stable. Normal [facility] Comment on above: Result Comment: Elec tronically Signed By: Srinivas CHEW, Bell.br\Date and Time Signed: 03/25/21 16:51 EDT Auto Diffon 03-23-2021 Basophils/100 WBC (Bld) 0.1 % Normal 0.0-2.[address] [facility] Comment on above: Order Comment: Order Added by Discern Expert. Performed By: #### 2 [id number] ####[facility] [id number] [place] [address] Basophils/Leukocytes Auto (Bld) [Pure # fraction] 0.0 E9/L Normal 0.0-0.2 [facility] Comment on above: Order Comment: Order Added by Discern Expert. Performed By: #### 2 [id number] ####[facility] [id number] [place] [address] Eosinophils/100 WBC (Bld) 0.3 % Normal 0.0-8.0 [facility] Comment on above: Order Comment: Order Added by Discern Expert. Performed By: #### 2 [id number], [id number], 4438452, 7332216, [id number], [id number] ####[facility] [address] [place] [address] Eosinophils/Leukocytes Auto (Bld) [Pure # fraction] 0.0 E9/L Normal 0.0-0.5 [facility] Comment on above: Order Comment: Order Added by Discern Expert. Performed By: #### 2 204297, 8416128, 8283057, 8121230, [id number], [id number] ####[address] [place] [address] Lymphocytes/100 WBC (Bld) 13.5 % Low 14.0-50.0 [facility] Comment on above: Order Comment: Order Added by Discern Expert. Performed By: #### 2 315826, 6223980, 2374777, 6182611, [id number], [id number] ####[facility] [address] [place] [address] Lymphocytes/Leukocytes Auto (Bld) [Pure # fraction] 1.4 E9/L Normal 1.0-4.0 [facility] Comment on above: Order Comment: Order Added by Discern Expert. Performed By: #### 2 663615, 9045842, 4768335, 3538980, 51035792, 6647545 ####[facility] [address] [place] [address] Monocytes/100 WBC (Bld) 14.2 % High 4.0-14.0 [facility] Comment on above: Order Comment: Order Added by Discern Expert. Performed By: #### 2 670647, 7751472, 5734918, 0473409, 82959182, 9461843 ####[facility] [address] [place] [address] Monocytes/Leukocytes Auto (Bld) [Pure # fraction] 1.5 E9/L High 0.2-1.0 [facility] Comment on above: Order Comment: Order Added by Discern Expert. Performed By: #### 2 785220, 9290874, 3291057, 2941649, [id number], 8986816 ####[facility] [address] [place] [address] Neutrophils/100 WBC (Bld) 71.9 % Normal 36.0-75.0 [facility] Comment on above: Order Comment: Order Added by Discern Expert. Performed By: #### 2 274055, 6227992, 9737792, 0286143, 93292845, 6893269 ####[facility] [address] [place] [address] Neutrophils/Leukocytes Auto (Bld) [Pure # fraction] 7.6 E9/L High 2.0-7.5 [facility] Comment on above: Order Comment: Order Added by Discern Expert. Performed By: #### 2 732856, 6639919, 4260018, 6973868, 36496895, 6048802 ####[facility] [address] [place] [address] BUNon 03-23-2021 Urea nitrogen [Mass/Vol] 19 mg/dL Normal 5-21 [facility] Comment on above: Performed By: #### 2 870863, 6594193, 0827327, 1808152, 07794602, 6734058 #### [facility] [address] [place] [address] CBC w/ Auto Diffon Erythrocyte distribution width (RBC) [Ratio] 14.8 % High 10.9-14.2 [facility] Comment on above: Performed By: #### 2 693799, 9635086, 7418031, 5420904, 49747801, 5857065 ####[facility] [address] [place] [address] Hematocrit (Bld) [Volume fraction] 33.0 % Low 37.7-49.0 [facility] Comment on above: Performed By: #### 2 204392, 5814404, 8421479, 9743644, 19546414, 4803265 ####[facility] [address] [place] [address] Hemoglobin (Bld) [Mass/Vol] 11.3 g/dL Low 13.5-17.5 [facility] Comment on above: Performed By: #### 2 251876, 9055475, 2128673, 8859458, 71131993, 2297671 ####[facility] [address] [place] [address] MCH (RBC) [Entitic mass] 30.9 pg Normal 27.0-34.0 [facility] Comment on above: Performed By: #### 2 366397, 6258520, 8984799, 8868753, 43801612, 5695571 ####[facility] [address] [place] [address] MCHC (RBC) [Mass/Vol] 34.2 g/dL Normal 31.4-36.0 [facility] Comment on above: Performed By: #### 2 788607, 9490100, 1959707, 3984064, 57848099, 2869828 ####[facility] [address] [place] 5114857 MCV (RBC) [Entitic vol] 90.4 fL Normal 80.0-100.[address] [facility] Comment on above: Performed By: #### 2 315680, 4659037, 3689195, 1996786, 81310447, 6191458 ####[address] [address] Platelet mean volume (Bld) [Entitic vol] 8.3 fL Normal 6.4-10.8 [facility] Comment on above: Performed By: #### 2 755885, 4245727, 9695757, 0992902, 48403693, 5357820 ####[address] [address] Platelets (Bld) [#/Vol] 193.0 E9/L Normal 150. 0-500. 0 [facility] Comment on above: Performed By: #### 2 466052, 5352527, 9751891, 9717147, 28051831, 9167992 ####[address] [address] RBC (Bld) [#/Vol] 3.7 E12/L Low 4.3-5.9 [facility] Comment on above: Performed By: #### 2 170976, 9406245, 7011291, 5621198, 76364564, 6440904 ####[address] [address] WBC corrected for nucl RBC Auto (Bld) [#/Vol] 10.6 E9/L Normal 4.0-11.0 [facility] Comment on above: Performed By: #### 2 391148, 2684682, 0935259, 7320023, 36367356, 5628559 ####[facility] [address] [place] [address] Consent for Anesthesiaon Consent for Anesthesia [id number]#[id number]:127 Normal [facility] Creatinineon 03-23-2021 Creatinine [Mass/Vol] 0.9 mg/dL Normal 0.5-1.3 [facility] Comment on above: Performed By: #### 2 315227, 9297914, 8384469, 1631898, 35076876, 9014476 #### [facility] [address] [place] [address] Discharge Instructionson Discharge Instructions [id number]#[id number]:127 Normal [facility] Inpatient Clinical Summaryon 03-23-2021 Inpatient Clinical Summary [address] [address] Clinical Summary Person Information: Name: STAN MCDONALD Age: 75 Years : 1945 Sex: Male PCP: ALMAS TELLO MD Marital Status: Race: White Ethnicity: Non- or Language: Cameroonian Visit Id: Visit Reason: RIGHT KNEE OA Speciality: Acuity: Enc Type: Inpatient Med Service: Surgery Arrival: 03/22/2021 05:56:03 Discharge: Dispo Type: Address: [address] [place] [address] [phone] Provider Notes: Diagnosis: 2:HTN (hypertension); 3:HLD (hyperlipidemia); 4:DVT prophylaxis Problems No Problems Documented Smoking Status: Functional Status: Sensory Deficits: History of Falls: Mobility Assistance Prior to Admission: ADLs: Current Level of Assistance for Self-Care/Mobility: Cognitive Status: Allergies No Known Allergies Measurements: Height: Weight: Blood Pressure: 149 mmHg / 72 mmHg BMI: Procedures Arthroplasty of knee (03/22/2021) Immunizations No Immunizations Documented This Visit Final Med List: acetaminophen (Tylenol Extra Strength 500 mg oral tablet) 2 Tablets By Mouth every 6 hours as needed as needed for pain. acetaminophen-oxycodone (Percocet 5 mg-325 mg oral tablet) 1 Tablets By Mouth every 6 hours as needed severe pain. 1-2 tabs PO q4-6 hours prn severe pain. Refills: 0. aspirin (aspirin 81 mg Chew Tab) 1 Tablets By Mouth 2 times a day. Refills: 0. celecoxib (CeleBREX 200 mg Cap) 1 Capsules By Mouth twice a day (after meals). Refills: 0. chondroitin-glucosamine (Osteo Bi-Flex) 2 Tablets By Mouth every day. docusate (Colace 100 mg Cap) 1 Capsules By Mouth 2 times a day. Refills: 0. duloxetine (Cymbalta 30 mg Cap-EC) 1 Capsules By Mouth every day. (do not crush or chew). Refills: 0. metoprolol (Metoprolol tartrate 25 mg Tab) 0.5 Tablets By Mouth 3 times a day. ondansetron (Zofran ODT 8 mg Tab-Dis) 1 Tablets By Mouth every 6 hours. Refills: 0. pantoprazole (Pantoprazole [address] Tab) 1 Tablets By Mouth every day. Refills: 0. pravastatin (pravastatin 40 mg Tab) 1 Tablets By Mouth every day. Care Team Members: Attending Physician: George Bustamante DO Consulting Physician: Kia PAIGE MD Referring Physician: George Bustamante DO Follow up: With: Address: When: George Bustamante [address] [place], [place] [id number] [phone] Business (1) 04/13/2021 10:00 AM Comments: Keep scheduled appointment Patient Education Information: Normal [facility] Inpatient Patient Summaryon 03-23-2021 Inpatient Patient Summary [place] [id number] Patient Discharge Instructions PERSON INFORMATION Name: STAN MCDONALD Date of : 1945 Current Date: 03/23/2021 10:08:55 PHYSICIANS Admitting Physician: George Bustamante DO Primary Care Physician: ALMAS TELLO MD PCP Comment: Discharge Diagnosis: 2:HTN (hypertension); 3:HLD (hyperlipidemia); 4:DVT prophylaxis Condition at Discharge: LORAINELUDASTAN Rinaldi has been given the following list of follow-up instructions, prescriptions, and patient education materials: PATIENT FOLLOW-UP INFORMATION Diet: Regular Discharge Activity: Expect mild pain, Expect minimal amount of drainage and/or bleeding, Activity as tolerated Discharge Restrictions: No driving, Do not operate machinery or tools, Do not make important decisions for 24 hours, Do not drink alcoholic beverages for 24 hours Wound Care Instructions: Remove dressing as instructed Remove Your Dressing In 3 Days Call Your Doctor For: Persistent or heavy bleeding, Temperature above 101.5 degrees, Redness, swelling, or pus at operative site, Severe pain at the operative site, Persistent vomiting IF UNABLE TO CONTACT YOUR PHYSICIAN AND YOU FEEL IT IS AN EMERGENCY, GO TO THE NEAREST EMERGENCY ROOM OR CALL 911 Home Treatment: Devices/Equipment: Cane, Elevated toilet seat, Shower chair, Walker - front wheeled Special Services: Additional Instructions: Discharge Instructions-OUTPT Entered On: 03/22/2021 7:11 EDT Performed On: 03/22/2021 7:09 EDT by George Bustamante DO Discharge Instructions Discharge Diet(s) : Regular Discharge Activity : Expect mild pain, Expect minimal amount of drainage and/or bleeding, Activity as tolerated Discharge Restrictions : No driving, Do not operate machinery or tools, Do not make important decisions for 24 hours, Do not drink alcoholic beverages for 24 hours Call Your Doctor For : Persistent or heavy bleeding, Temperature above 101.5 degrees, Redness, swelling, or pus at operative site, Severe pain at the operative site, Persistent vomiting Wound Care : Remove dressing as instructed Remove Dressing On : 3 Discharge Instructions Freetext : Ice and elevate the right lower extremity feet above the level of heart. Knee immobilizer at night. Dressing will be changed by physical therapy removing the Matt wrap and overlying dressings in 72 hours maintain the adhesive bandage for 7 days postop George Bustamante DO - 03/22/2021 7:09 EDT Primary Care Physician to provide the following pending test results: Follow up: With: Address: When: George Zavaleta Brandon Burroughs, [address] [address] [phone] Business () 04/13/2021 10:00 AM Comments: Keep scheduled appointment In the event that this physician does not participate in your insurance network, please consult with your insurance company to find a nearby participating provider. Comment: ISANJAY ROBERT, have received the attached patient education materials/instructions and have verbalized understanding: Patient Signature __ Date Clinican/Nurse Signature Date HERE ARE THE MEDICATION CHANGES THAT OCCURRED DURING YOUR HOSPITAL STAY New Medications [facility], [address] [facility] [place], [place] [phone], [phone] acetaminophen-oxycodone (Percocet 5 mg-325 mg oral tablet) 1 Tablets By Mouth every 6 hours as needed severe pain. 1-2 tabs PO q4-6 hours prn severe pain. Refills: 0. Last Dose: N ext Dose: celecoxib (CeleBREX 200 mg Cap) 1 Capsules By Mouth twice a day (after meals). Refills: 0. Last Dose: N ext Dose: docusate (Colace 100 mg Cap) 1 Capsules By Mouth 2 times a day. Refills: 0. Last Dose: N ext Dose: duloxetine (Cymbalta 30 mg Cap-EC) 1 Capsules By Mouth every day. (do not crush or chew). Refills: 0. Last Dose: N ext Dose: ondansetron (Zofran ODT 8 mg Tab-Dis) 1 Tablets By Mouth every 6 hours. Refills: 0. Last Dose: N ext Dose: pantoprazole (Pantoprazole [address] Tab) 1 Tablets By Mouth every day. Refills: 0. Last Dose: N ext Dose: Medications to Continue Taking That Have Changed [facility], [address] [place], [place] [phone], [phone] START: aspirin (aspirin 81 mg Chew Tab) 1 Tablets By Mouth 2 times a day. Refills: 0. Last Dose: N ext Dose: Medications to Continue with No Changes Other Medications acetaminophen (Tylenol Extra Strength 500 mg oral tablet) 2 Tablets By Mouth every 6 hours as needed as needed for pain. Last Dose:____ (more content not included)... [facility] Interdisciplinary Note - Carmela paola 03-23-2021 Interdisciplinary Note - Nursing Jennifer RN updated pts spouse Erma Normal [facility] Interdisciplinary Note - Peg n 03-23-2021 Interdisciplinary Note - OT OT six clicks score 24 = HH services. Pt reports ortho 360 following up at home. Pt has all bathroom dme in place at home and is now knowledgeable about adapted techniques and dme to improve I w/ LE self care. DC inpt OT services, no further OT needs a this time. Normal [facility] IntraOperative Documentson 0 03-23-2021 IntraOperative Documents [id number]#[id number]:127 Normal [facility] IntraOperative Documents [id number]#[id number]:127 Normal [facility] Lyteson 03-23-2021 Anion gap [Moles/Vol] 9 mmol/L Normal 6-16 [facility] Comment on above: Performed By: #### 2 742520, 5112889, 4250345, 3681145, 11522998, 9877015 ####[facility] [address] [place] [address] Chloride [Moles/Vol] 104 mmol/L Normal 101-111 [facility] Comment on above: Performed By: #### 2 819509, 3337552, 3133070, 6726072, 82126321, 6513455 ####[facility] [address] [place] [address] CO2 [Moles/Vol] 26 mmol/L Normal 21-31 [facility] Comment on above: Performed By: #### 2 786262, 2771494, 6352010, 1643317, 56759221, 4151969 ####[facility] [address] [place] [address] Potassium [Moles/Vol] 3.9 mmol/L Normal 3.5-5.3 [facility] Comment on above: Performed By: #### 2 002997, 7974662, 3804032, 1240619, 11089078, 3918966 ####[facility] [address] [place] [address] Sodium [Moles/Vol] 135 mmol/L Normal 135-145 [facility] Comment on above: Performed By: #### 2 563154, 0183744, 3224637, 6644871, 13881507, 5309615 ####[facility] [address] [place] [address] Patient Education - Texton 0 03-23-2021 Patient Education - Text Normal [facility] Preoperative Documentson Preoperative Documents [id number]#[id number]:127 Normal [facility] Preoperative Documents [id number]#[id number]:127 Normal [facility] Progress Note-Physicianon Progress Note-Physician Assessment/Plan 75-year-old male with past medical history of hypertension, hyperlipidemia presented for right knee elective surgery by Dr. George Bustamante. Patient tolerated the surgery well and is being seen by hospitalist service for medical management. 1. Osteoarthritis of right knee joint (M17.11: Unilateral primary osteoarthritis, right knee) Postop day #1 Okay for discharge later today Went over patient regarding post discharge planning with pain medication, incentive spirometer, DVT prophylaxis Ordered: Initial IP Consult New/Estab Pt Straight Fwd 40 Min 20623 2. HTN (hypertension) (I10: Essential (primary) hypertension) Continue with metoprolol Ordered: Initial IP Consult New/Estab Pt Straight Fwd 40 Min 38588 3. HLD (hyperlipidemia) (E78.5: Hyperlipidemia, unspecified) Pravastatin 4. DVT prophylaxis (Z29.9: Encounter for prophylactic measures, unspecified) Aspirin 81 mg twice a day for 30 days Orders: albuterol-ipratropium, 3 mL, Soln-Inh, Inhalation, QID PRN Shortness of breath or wheezing, Routine, Start date 03/22/21 12:27:00 EDT Incentive Spirometry Plan discussed with patient at bedside Thank you for allowing us to participate in this patient's care. Please call us with any questions This report was transcribed using voice recognition software. Every effort was made to ensure accuracy, however, inadvertently computerized credit administration specialist mistakes may be present. Estuardo Menendez Hospitalist Subjective Doing well. No significant pain. Talked about post discharge planning with taking incentive spirometer home and DVT prophylaxis Review of Systems No complaints. Pain is well controlled Objective Vitals & Measurements T: 36.7 ?C (Oral) TMIN: 36.5 ?C (Oral) TMAX: 36.7 ?C (Oral) HR: 65(Apical) RR: 16 BP: 149/72 SpO2: 98% Intake & Output This visit (24 hour periods starting at 07:00 EDT) 03/23/21 * 03/22/21 03/21/21 Total Summary Intake mL -- 1,580 115.75 Output mL -- 325 -- Fluid Balance -- 1,255 115.75 Intake (14) Dextrose 5% in Water, cefazolin mL -- 100 -- Generic Diluent, tranexamic acid mL -- 100 115.75 Lactated Ringers Injection mL -- 1,300 -- Lactated Ringers Injection 1,000 mL mL -- 50 -- Oral Intake mL -- -- -- dexamethasone mL -- 1 -- ephedrine mL -- 1 -- fentanyl mL -- 2 -- hydromorphone mL -- 2 -- ketorolac mL -- 3 -- lidocaine mL -- 2 -- midazolam mL -- 2 -- ondansetron mL -- 2 -- propofol mL -- 15 -- Total -- 1,580 115.75 Output (4) EBL Surgery mL -- 5 -- Urine Catheter mL -- 20 -- Urine Count mL -- 100 -- Urine Voided mL -- 200 -- Total -- 325 -- Counts (2) Urine Count -- -- -- Urine Count mL -- 100 -- * This column has not completed the indicated time period. Physical Exam General: alert, no acute distress ENMT: TM's clear, oral mucosa moist, no pharyngeal erythema or exudate Cardiovascular: regular rate and rhythm, normal peripheral perfusion Respiratory: Lungs CTA, respirations non labored Abdomen: Soft, nontender, without rebound or rigidity, positive bowel sounds Extremities: Ice covering the knee joint with a dry dressing Neurological: oriented x 4, LOC appropriate for age, CN II-XII intact, motor strength equal & normal bilaterally, sensation equal & normal bilaterally, speech normal Lab Results WBC: 10.6 E9/L (03/23/21 04:43:00) RBC: 3.7 E12/L Low (03/23/21 04:43:00) Hgb: 11.3 gm/dL Low (03/23/21 04:43:00) Hct: 33 % Low (03/23/21 04:43:00) MCV: 90.4 fL (03/23/21 04:43:00) MCH: 30.9 pg (03/23/21 04:43:00) MCHC: 34.2 gm/dL (03/23/21 04:43:00) RDW: 14.8 % High (03/23/21 04:43:00) Platelet: 193 E9/L (03/23/21 04:43:00) MPV: 8.3 fL (03/23/21 04:43:00) Neutro Auto: 71.9 % (03/23/21 04:43:00) Lymph Auto: 13.5 % Low (03/23/21 04:43:00) Borden Auto: 14.2 % High (03/23/21 04:43:00) Eos Auto: 0.3 % (03/23/21 04:43:00) Basophil Auto: 0.1 % (03/23/21 04:43:00) Neutro Absolute: 7.6 E9/L High (03/23/21 04:43:00) Lymph Absolute: 1.4 E9/L (03/23/21 04:43:00) Borden Absolute: 1.5 E9/L High (03/23/21 04:43:00) Eos Absolute: 0 E9/L (03/23/21 04:43:00) Basophil Absolute: 0 E9/L (03/23/21 04:43:00) BUN: 19 mg/dL (03/23/21 04:43:00) Creatinine: 0.9 mg/dL (03/23/21 04:43:00) eGFR: >60 (03/23/21 04:43:00) eGFR AA: >60 (03/23/21 04:43:00) Sodium Lvl: 135 mmol/L (03/23/21 04:43:00) Potassium Lvl: 3.9 mmol/L (03/23/21 04:43:00) Chloride: 104 mmol/L (03/23/21 04:43:00) CO2: 26 mmol/L (03/23/21 04:43:00) AGAP: 9 mEq/L (03/23/21 04:43:00) Problem List/Past Medical History Ongoing No qualifying data Historical No qualifying data Medications Inpatient aspirin 81 mg Chew Tab, 81 mg= 1 tab(s), Chewed, BIDWM Colace 100 mg Cap, 100 mg= 1 cap(s), Oral, BID Cymbalta 30 mg Cap-DR, 30 mg= 1 cap(s), Oral, Daily Dulcolax 5 mg Tab-EC, 1 (more content not included)... Normal [facility] Comment on above: Result Comment: Elec tronically Signed By: Estuardo MENENDEZ MD\.br\Date and Time Signed: 03/23/21 11:13 EDT Progress Note-Physician Patient: STAN STAFFORD Age: 75 years Sex: Male : 1945 Associated Diagnoses: None Author: George Bustamante DO Subjective Patient reports that his pain is well controlled. He has been happy so far with his recovery. Denies fevers, chills, nausea or vomiting. Denies Chest pain or sob. No other acute complaints. Review of Systems Constitutional: Negative. Respiratory: Negative. Cardiovascular: Negative. Gastrointestinal: Negative. Genitourinary: Negative. Musculoskeletal: see hpi. Neurologic: Negative. Health Status Allergies: Allergic Reactions (Selected) No Known Allergies Current medications: Home Medications (11) Active aspirin 81 mg Chew Tab 81 mg = 1 tab(s), Oral, BID CeleBREX 200 mg Cap 200 mg = 1 cap(s), Oral, BIDPC Colace 100 mg Cap 100 mg = 1 cap(s), Oral, BID Cymbalta 30 mg Cap-EC 30 mg = 1 cap(s), Oral, Daily Metoprolol tartrate 25 mg Tab 12.5 mg = 0.5 tab(s), Oral, TID Osteo Bi-Flex 2 tab(s), Oral, Daily Pantoprazole [address] Tab 40 mg = 1 tab(s), Oral, Daily Percocet 5 mg-325 mg oral tablet 1 tab(s), PRN, Oral, q6hr pravastatin 40 mg Tab 40 mg = 1 tab(s), Oral, Daily Tylenol Extra Strength 500 mg oral tablet 1,000 mg = 2 tab(s), PRN, Oral, q6hr Zofran ODT 8 mg Tab-Dis 8 mg = 1 tab(s), Oral, q6hr , Medications (17) Active Scheduled: (9) acetaminophen 325 mg Tab UD [F] 975 mg 3 tab(s), Oral, q6hr aspirin 81 mg Chew Tab [F] 81 mg 1 tab(s), Chewed, BIDWM ceFAZolin + Dextrose 5% Premix Diluent 50 mL 2 gram 50 mL, IV Piggyback, q8hr docusate sodium 100 mg Cap [F] 100 mg 1 cap(s), Oral, BID DULoxetine 30 mg Cap-DR [F] 30 mg 1 cap(s), Oral, Daily ketorolac 15 mg/mL Inj [F] 15 mg 1 mL, IV Push, q6hr metoprolol 25 mg Tab [F] 12.5 mg 0.5 tab(s), Oral, TID pantoprazole [address] Tab [F] 40 mg 1 tab(s), Oral, Daily pravastatin 40 mg Tab [F] 40 mg 1 tab(s), Oral, Daily Continuous: (1) Lactated Ringers 1,000 mL 1,000 mL, IV, 80 mL/hr PRN: (7) albuterol-ipratropium 2.5 mg-0.5 mg/3 mL SOLN [F] 3 mL, Inhalation, QID bisacodyl 5 mg Oral EC Tab [F] 10 mg 2 tab(s), Oral, Daily magnesium hydroxide 8% Oral Susp 30 mL [F] 30 mL, Oral, BID morphine 2 mg/mL preservative-free SOLN [F] 2 mg 1 mL, IV, q4hr ondansetron 2 mg/mL Inj [F] 4 mg 2 mL, IV Push, q6hr oxyCODONE 5 mg Tab UD [F] 5 mg 1 tab(s), Oral, q4hr oxyCODONE 5 mg Tab UD [F] 10 mg 2 tab(s), Oral, q4hr Problem list: No problem items selected or recorded. Histories Past Medical History: No active or resolved past medical history items have been selected or recorded. Family History: No family history items have been selected or recorded. Procedure history: Arthroplasty of knee ([id number]) on 03/22/2021 at 75 Years. CABG >5 - Coronary artery bypass grafts greater than five ([id number]) on 12/15/2020 at 75 Years. Prostatectomy ([id number]). Hernia repair (95253644). Subdural hematoma evacuation (549624737). Social History Social & Psychosocial Habits Alcohol 03/04/2021 Use: Current Type: Beer, Liquor Frequency: Daily Substance Abuse 03/04/2021 Risk Assessment: Denies Substance Abuse Tobacco 03/04/2021 Risk Assessment: Denies Tobacco Use . Objective Vital Signs (last 24 hrs) Last Charted Temp Oral 36.5 DegC (MAR 22 20:06) Heart Rate Apical 68 bpm (MAR 22 21:29) Resp Rate 10 br/min (MAR 22 11:00) SBP 118 mmHg (MAR 22:) DBP 67 mmHg (MAR 22:) SpO2 99 % (MAR 23 04:15) General: Alert and oriented, No acute distress. Respiratory: regular and unlabored respirations. Cardiovascular: pulses palpable distally, brisk capillary refill. Gastrointestinal: Soft, Non-tender, Non-distended, no rebounding or guarding. Musculoskeletal Dressing clear, dry and intact. Compartments soft and compressible. Calves soft nontender no edema.. Integumentary: Warm. Neurologic: Alert, Oriented, distally neurologically intact. Review / Management Results review: Lab results 03/23/2021 4:43 EDT WBC 10.6 E9/L RBC 3.7 E12/L LOW Hgb 11.3 gm/dL LOW Hct 33.0 % LOW MCV 90.4 fL MCH 30.9 pg MCHC 34.2 gm/dL RDW 14.8 % HI Platelet 193.0 E9/L MPV 8.3 fL Neutro Auto 71.9 % Lymph Auto 13.5 % LOW Borden Auto 14.2 % HI Eos Auto 0.3 % Basophil Auto 0.1 % Neutro Absolute 7.6 E9/L HI Lymph Absolute 1.4 E9/L Borden Absolute 1.5 E9/L HI Eos Absolute 0.0 E9/L Basophil Absolute 0.0 E9/L BUN 19 mg/dL Creatinine 0.9 mg/dL eGFR >60 mL/min/1.73 m2 eGFR AA >60 mL/min/1.73 m2 Sodium Lvl 135 mmol/L Potassium Lvl 3.9 mmol/L Chloride 104 mmol/L CO2 26 mmol/L AGAP 9 mEq/L 03/22/2021 8:21 EDT UA Spec Desc Cano UA Color Yellow UA Clarity Clear UA Spec Grav 1.020 UA pH 6.0 UA Protein Negative UA Glucose Negative UA Ketones Negative UA Bili Negative UA Blood Negative UA Nitrite Negative UA Urobilinogen 0.2 EU/dL UA Leuk Est Negative UA RBC 0-3 /HPF UA Squam Epithelial 0-2 /HPF UA WBC (more content not included)... Normal [facility] Comment on above: Result Comment: Elec tronically Signed By: George Bustamante DO\.br\Date and Time Signed: 03/23/21 07:39 EDT eGFRon 03-23-2021 GFR/1.73 sq M.predicted among blacks MDRD (S/P/Bld) [Vol rate/Area] mL/min/{1.73_m2} Normal >=59 [facility] Comment on above: Order Comment: Order added by Discern Expert. Result Comment: eGFR is race adjusted. AA=. Performed By: #### 2 345751, 4125953, 8765636, 8956430, 51847952, 1729542 ####[facility] [address] [place] [address] GFR/1.73 sq M.predicted among non-blacks MDRD (S/P/Bld) [Vol rate/Area] mL/min/{1.73_m2} Normal >=59 [facility] Comment on above: Order Comment: Order added by Discern Expert. Result Comment: Home Comfort Advisor krzysztof kidney disease could be indicated at eGFR's of less than 60 mL/min/1.73m2. Kidney failure is indicated at less than 15 mL/min/1.73m2. Performed By: #### 2 723219, 8350540, 8091783, 6241482, 35714175, 9244588 ####[facility] [address] [place] [address] ABO/Rhon 03-22-2021 ABO/Rh Negative Invalid Interpretation Code [facility] Comment on above: Performed By: #### 2 358372, [id number], [id number], [id number] ####[facility] [address] [place] [address] ABO/Rh History Checkon 03-22 ABO/Rh History Check Verified Hx Blood Type Normal [facility] Comment on above: Performed By: #### 2 802498, [id number], 07533305, [id number] ####[facility] [address] [place] [address] ABSCon 03-22-2021 ABSC Gel Interp Negative Normal [facility] Comment on above: Performed By: #### 2 095116, 48861802, 14602711, [id number] ####[address] [address] [address] Blood Bank ID#on 03-22-2021 BBID# [id number] Invalid Interpretation Code [facility] Comment on above: Performed By: #### 2 [id number] ####[facility] [address] [place] [address] Blood Bank Slipon 03-22-2021 Blood Bank Slip [id number]:127 Normal [facility] Consent for Procedure/Surger yon 03-22-2021 Consent for Procedure/Surgery [id number]#[id number]:127 Normal [facility] H&P Updateon 03-22-2021 H&P Update [id number]#[id number]:127 Normal [facility] Main OR Intraoperative Recor don 03-22-2021 Main OR Intraoperative Record IntraOp Document Type FT Summary Primary Physician: George Bustamante DO Finalized Date/Time: 03/24/21 14:32:42 Pt. Name: STAN MCDONALD/Sex: 1945 Male Med Rec #: [id number] Physician: George Bustamante DO Financial #: [id number] Pt. Type: I Room/Bed: N318/01 Admit/Disch: 03/22/21 05:56:03 - 03/23/21 11:00:00 Institution: Case Times FT Entry 1 Patient Times In Room 03/22/21 07:34:00 Out Room 03/22/21 10:27:00 Procedure Times Start 03/22/21 08:11:00 Stop 03/22/21 10:23:00 Anesthesia Times Start 03/22/21 07:34:00 Stop 03/22/21 10:27:00 Block Timeout w/ 03/22/21 07:05:00 Anesthesia Last Modified By: Tavia RN, Hafsa Martinez 03/22/21 10:27:04 General Comments: 0703 PATIENT TRANSPORTED VIA CART ALL RAILS UP TO BLOCK ROOM BY CHANDU ROMO. 0705 BLOCK TIMEOUT PERFORMED WITH DR ESPINO AND CHANDU ROMO PRESENT. HR 62 SPO2 98% ON ROOM AIR. 0706 START OF BLOCK. 0711 END OF BLOCK. PATIENT TOLERATED WELL. 0715 PATIENT TRANSPORTED VIA CART ALL RAILS UP BACK TO ASU BY CHANDU ROMO. CHANDU LOZANO 03/24/2021 Chart opened to review and send charges. Tricia MAIL READER. Case Attendance FT Entry 1 Entry 2 Entry 3 Case Attendee Asif Weiss CRNA, DO, Nicholas K. Hills PA-C, Todd D Role Performed Anesthesiologist Surgeon - Primary PA/TRANSMISSION REPAIRER Bakery Worker Time In 03/22/21 07:34:00 03/22/21 07:34:00 03/22/21 07:34:00 Time Out 03/22/21 10:27:00 03/22/21 10:27:00 03/22/21 10:27:00 Procedure KNEE TOTAL KNEE TOTAL KNEE TOTAL ARTHROPLASTY(Right) ARTHROPLASTY(Right) ARTHROPLASTY(Right) Comments DR ESPINO SUPERVISING Last Modified By: Tavia RN, Hafsa Squires RN, Hafsa Maldonado RN 03/22/21 10:27:05 03/22/21 10:27:05 03/22/21 10:27:05 Entry 4 Entry 5 Entry 6 Case Attendee Monique MAIL READER, Wesley Adams MAIL READER, Hafsa Squires RN, Hafsa Martinez Role Performed Scrub - Primary Scrub - Primary Precision Lens Generator - Primary Time In 03/22/21 07:34:00 03/22/21 07:34:00 03/22/21 07:34:00 Time Out 03/22/21 10:27:00 03/22/21 10:27:00 03/22/21 10:27:00 Procedure KNEE TOTAL KNEE TOTAL KNEE TOTAL ARTHROPLASTY(Right) ARTHROPLASTY(Right) ARTHROPLASTY(Right) Comments Last Modified By: Tavia RN, Hafsa Squires RN, Hafsa Maldonado RN 03/22/21 10:27:05 03/22/21 10:27:05 03/22/21 10:27:05 Entry 7 Entry 8 Case Attendee Jan RN, Lona Oliveira MAIL READER, Sergio Pérez Role Performed Staff - Other Staff - Other Time In 03/22/21 07:34:00 03/22/21 07:45:00 Time Out 03/22/21 07:50:00 03/22/21 08:00:00 Procedure KNEE TOTAL KNEE TOTAL ARTHROPLASTY(Right) ARTHROPLASTY(Right) Comments ASSISTING WITH BLOCK ASSISTING WITH START AND START AND OUTSIDE CIRCULATING Last Modified By: Tavia RN, Hafsa Maldonado RN 03/22/21 10:27:05 03/22/21 10:27:05 General Comments: PUSHPA LOZANO, beef tagger Protocols FT Pre-Care Text: Implements protective measures prior to operative or invasive procedure, confirms identity before the operative or invasive procedure, verifies operative procedure, surgical site, and laterality Entry 1 Procedure(s) KNEE TOTAL Patient Identity Birthday, Blood Band, ARTHROPLASTY(Right) Verified (select at ID Band Check, Patient least 2): Participation Consents / H and P Anesthesia Consent, Operative Site Present Verified HandP, Surgery/Procedure Marking Verified Consent, Transfusion Consent Surgical Site Yes Laterality Verified Yes Verified Procedure Verified Yes Correct Patient Yes Position Verified Availability Equipment, Implant, Prep Dry Yes Verified (If Medication Applicable) PreOp Antibiotic Yes Time Out Asif Weiss CRNA, Given Participants George Bustamante DO, Caro GARNER, Destin D, Monique MAIL READER, Wesley WAngie MAIL READER, Tavia De La Rosa RN, Kimberly Y Time Out Complete 03/22/21 08:10:00 Outcomes Met? Yes Last Modified By: Hafsa Squires RN 03/22/21 08:44:18 Post-Care Text: The patient is free from signs and symptoms of injury caused by extraneous objects Allergy Information FT Pre-Care Text: Verifies allergies Entry 1 Allergies Reviewed? Yes Allergies Reviewed Self/Patient With Outcomes Met? Yes Last Modified By: Hafsa Squires RN 03/22/21 08:44:38 Post-Care Text: The patient received appropriate medication(s) safely administered during the perioperative period Surgical Procedures FT Entry 1 Procedure Description Procedure KNEE TOTAL ARTHROPLASTY Modifiers Right Surgeon Description RIGHT KNEE ARTHROPLASTY Primary Procedure Yes Primary Surgeon George Bustamante DO Start 03/22/21 08:11:00 Stop 03/22/21 10:23:00 Anesthesia Type General Surgical Service Orthopedics Wound Class 1 - Clean Last Modified By: Hafsa Squires RN 03/22/21 10:23:40 General Case Data FT Pre-Care Text: Classifies surgical wound, implements aseptic technique, initiates traffic control Entry 1 Case Information OR OR 7 FT Case Level Level 6 W (more content not included)... Normal [facility] Main OR PACU I Recordon 02-26 Main OR PACU I Record PACU Phase I Docum ent Type FT Summary Primary Physician: George Bustamante DO Finalized Date/Time: 03/22/21 11:24:40 Pt. Name: STAN MCDONALD/Sex: 1945 Male Med Rec #: [id number] Physician: George Bustamante DO Financial #: [id number] Pt. Type: I Room/Bed: [place] [address] Admit/Disch: 03/22/21 05:56:03 - Institution: Case Times PACU I FT Pre-Care Text: Identifies barriers to communication and implements measures to provide psychological support Develops individualized plan of care, and ensures continuity of care Maintains patient's dignity and privacy, and maintains patient confidentiality Identifies and reports philosophical, cultural, and spiritual beliefs and values Identifies individual values and wishes concerning care Implements aseptic technique, and administers prescribed antibiotic therapy and immunizing agents as ordered Evaluates postoperative tissue perfusion Implements thermoregulation measures, and monitors body temperature Evaluates postoperative respiratory status Evaluates postoperative cardiac status Evaluates postoperative neurological status Assesses pain control, collaborated in initiating patient-controlled analgesia and implements alternative methods of pain control Verifies allergies, administers prescribed medications and solutions, evaluates response to medications Entry 1 In PACU I 03/22/21 10:29:00 Discharge from PACU 03/22/21 11:05:00 I Outcomes Met? Yes Last Modified By: Mai Gan RN 03/22/21 11:24:17 Post-Care Text: The patient demonstrates knowledge of the expected response to the operative or invasive procedure The patient's care is consistent with the individualized perioperative plan of care The patient's right to privacy is maintained The patient's value system, lifestyle, ethnicity, and culture are considered, respected, and incorporated into the perioperative plan of care The patient participates in decisions affecting his or her perioperative plan of care The patient is free from signs and symptoms of infection The patient has wound/tissue perfusion consistent with or improved from baseline levels established preoperatively The patient is at or returning to normothermia at the conclusion of the immediate postoperative period The patient's respiratory function is consistent with or improved from baseline levels established preoperatively The patient's cardiovascular status is consistent with or improved from baseline levels established preoperatively The patient's cardiovascular status is consistent with or improved from baseline levels established preoperatively The patient demonstrates and/or reports adequate pain control throughout the perioperative period The patient received appropriate medication(s), safely administered during the perioperative period Acuity Level PACU I FT Entry 1 Start Time 03/22/21 10:29:00 Stop Time 03/22/21 11:05:00 Acuity Level Acuity Level I Last Modified By: Mai Gan RN 03/22/21 11:24:36 Finalized By: Mai Gan RN Document Signatures Signed By: Mai Gan RN 03/22/21 11:24 Normal [facility] Main OR Preoperative Recordo n 03-22-2021 Main OR Preoperative Record PreOp Document Type FT Summary Primary Physician: George Bustamante DO Finalized Date/Time: 03/22/21 08:29:04 Pt. Name: STAN MCDONALD/Sex: 1945 Male Med Rec #: [id number] Physician: George Bustamante DO Financial #: [id number] Pt. Type: A Room/Bed: [facility]/ Admit/Disch: 03/22/21 05:56:03 - Institution: Case Times PreOp FT Pre-Care Text: Verifies consent for planned procedure, identifies individual values and wishes concerning care, includes family members in perioperative teaching Entry 1 Patient Times. In Pre Surgery 03/22/21 06:00:00 Out Pre Surgery 03/22/21 07:32:00 Outcomes Met? Yes Last Modified By: Hafsa Squires RN 03/22/21 08:29:00 Post-Care Text: The patient participates in decisions affecting his or her perioperative plan of care Finalized By: Hafsa Squires RN Document Signatures Signed By: Hafsa Squires RN 03/22/21 08:29 Normal [facility] Message from Medicareon 02-26 Message from Medicare [id number]#[id number]:12 7 Normal [facility] Monitor Recordon 03-22-2021 Monitor Record [id number]#[id number]:127 Normal [facility] Operative Reporton Operative Report Patient: STAN MCDONALD Age: 75 years Sex: Male : 1945 Associated Diagnoses: None Author: George Bustamante DO DATE OF PROCEDURE: 03/22/2021 PREOPERATIVE DIAGNOSIS: Degenerative joint disease, right knee secondary osteoarthritis POSTOPERATIVE DIAGNOSIS: Degenerative joint disease, right knee secondary osteoarthritis PROCEDURE: Primary, caliper-measured kinematically aligned, right total knee arthroplasty utilizing the Medacta GMK sphere total knee arthroplasty system and conventional kinematic alignment instrumentation. IMPLANTS: Femur: 4+ Tibia: 5 Patella: 3 Polyethylene Insert: 11 Fixation: Vancomycin 1 g added to Spectrum GV Bone Cement 2 units SURGEON: George Bustamante DO ANESTHESIA: General with abductor canal block PREOPERATIVE ANTIBIOTICS: 2 g Ancef INTRAOPERATIVE INPUTS AND OUTPUTS: Ins: 1. Lactated Ringers: 1200 mL Outs: 1. Estimated Blood Loss: 5 mL 2. Urine Output: 100 mL DRAINS: None INTRAOPERATIVE SOFT TISSUE INJECTION: Standard periarticular cocktail injection was used with Toradol, please see OR nursing notes for specific medications and dosages. TOURNIQUET: 300 mmHg for a total of 91 minutes FINDINGS: Bone/cartilage: Osteophytes were present, bone cysts were present, eburnated bone was present and bone loss was noted. The preoperative alignment was 8.4 degrees of varus Flexion contracture of 15 degrees was present INDICATIONS: This is a 75-year-old male well-known to my outpatient orthopedic practice. The patient has failed previous conservative/nonoperative treatment. Due to the nature of the patient's persistent symptoms, surgery is recommended. The alternatives as well as the risks and benefits of surgery were discussed in detail with the patient. Patient verbalized their understanding of the risks as well as the alternatives to surgery. The patient wished to proceed with operative intervention. A signed and witnessed informed consent was then obtained and placed on the chart. PROCEDURE: Patient Positioning: The patient was taken into the operative suite and placed supine on the operating table. All bony prominences were well-padded and the patient was securely fastened to the bed. After induction of suitable and adequate anesthesia a well-padded tourniquet was placed on the upper thigh of the operative extremity and the patient is positioned supine with operative lower extremity prepped and draped using a standard prep. At this point a surgical pause/timeout was performed with everyone in the room in agreement with the correct patient the correct procedure and the correct side for the procedure. The extremity was exsanguinated and the tourniquet was inflated. Incision Type: A midline incision to the knee was carried out and taken down through the skin and subcutaneous tissues to the level of the extensor mechanism. A medial parapatellar arthrotomy was performed. The medial soft tissue sleeve is elevated directly from the proximal tibia, including excision of the anterior portion of the medial meniscus and elevation of the deep medial collateral and meniscocapsular ligament. The posterior two thirds of the retropatellar fat pad were excised as well. Instruments and Methods: The knee was flexed and access was gained to the intramedullary canal the femur the appropriate kinematic alignment distal femoral resection guide was chosen in position. The position implant cuts were checked with an shelly wing prior to any cuts being made to ensure accuracy. The distal femoral resection was carried out with goal of replacing 9 mm of distal bone and cartilage with 9 mm of metal thickness of the implant. Once the distal cut was made used caliper to carefully measure the resections and made any necessary adjustments to ensure we are replacing same amount of bone and cartilage medially and laterally with her implant which insert ensures a reestablishment of the prearthritic and [place] joint line and joint angle. Attention was then turned the completion of the distal femoral preparation. Sizing accomplished with using a standard posterior condylar sizing jig and the appropriate size 4-in-1 cutting blocks chosen. The rotation the femur is set to match the patient's [place] femoral rotation taking a total of 8 mm of bone and cartilage both posterior medially and posterior laterally. Then a caliper was used to carefully measure the posterior sections and make any necessary adjustments to ensure accurate bone resections and [place] of [place] femoral rotation. The appropriately sized 4-in-1 cutting block was then used to complete the remaining posterior chamfer anterior chamfer and anterior femoral bone cuts. All resected bony fracture were removed. The proximal tibia was then exposed with a posterior and lateral Donte and the medial collateral ligament was protected with a microplasty smooth curve retractor. The extra-medullary tibial cutting guide was then positioned. The goal of the tibia (more content not included)... Normal [facility] Comment on above: Result Comment: Elec tronically Signed By: George Bustamante DO\.br\Date and Time Signed: 03/22/21 10:13 EDT Operative Report Patient: STAN MCDONALD Age: 75 years Sex: Male : 1945 Associated Diagnoses: None Author: George Bustamante DO Postoperative Information Procedure: Right Total Knee Arthroplasty Date/ Time: 03/22/2021 09:58:00 Preoperative Diagnosis: Osteoarthritis of right knee joint (NFB90-RK M17.11, Final, Medical), M17.11. Postoperative Diagnosis: Osteoarthritis of right knee joint (QFR92-ZV M17.11, Final, Medical), M17.11. Performed by: George Bustamante DO. Bakery Worker: Destin Elizondo PA-C Findings: Degenerative osteoarthrosis of the right knee. Specimens Removed: Bone and synovial tissue. Prosthesis: See implant records from nurse notes. . Estimated Blood Loss: 5 ml. Intake and Output: LR 1200 mL, Urine 100 mL. Medications: intra-articular injection please see nursing notes for details. Complications: None. Notes: Tourniquet time 91 minutes 300 mmHg. Anesthesia type: General, adductor canal block. Special techniques: Warming device. Normal [facility] Comment on above: Result Comment: Elec tronically Signed By: George Bustamante DO\.br\Date and Time Signed: 03/22/21 09:59 EDT Outpatient Surgery Discharge Instructionon 03-22-2021 Outpatient Surgery Discharge Instruction [place] [id number] Patient Discharge Instructions PERSON INFORMATION Name: STAN MCDONALD Date of : 1945 Current Date: 03/22/2021 07:11:51 PHYSICIANS Admitting Physician: George Bustamante DO Discharge Diagnosis: Osteoarthritis of right knee STAN MCDONALD has been given the following list of follow-up instructions, prescriptions, and patient education materials: PATIENT FOLLOW-UP INFORMATION Diet: Regular Discharge Activity: Expect mild pain, Expect minimal amount of drainage and/or bleeding, Activity as tolerated Discharge Restrictions: No driving, Do not operate machinery or tools, Do not make important decisions for 24 hours, Do not drink alcoholic beverages for 24 hours Call Your Doctor For: Persistent or heavy bleeding, Temperature above 101.5 degrees, Redness, swelling, or pus at operative site, Severe pain at the operative site, Persistent vomiting Wound Care Instructions: Remove dressing as instructed Remove Your Dressing In 3 Days Additional Instructions: Ice and elevate the right lower extremity feet above the level of heart. Knee immobilizer at night. Dressing will be changed by physical therapy removing the Matt wrap and overlying dressings in 72 hours maintain the adhesive bandage for 7 days postop IF UNABLE TO CONTACT YOUR PHYSICIAN AND YOU FEEL IT IS AN EMERGENCY, GO TO THE NEAREST EMERGENCY ROOM OR CALL 911 SANJAY Harper ROBERT, have received the attached patient education materials/instructions and have verbalized understanding: May we do a follow up call? Yes No I was present when discharge instructions were given ____ Patient Signature _ Date Clinican/Nurse Signature Date Follow up: With: Address: When: George Bustamante [facility] Brandon Burroughs, [address] [address] [phone] Business (1) 04/13/2021 10:00 AM Comments: Keep scheduled appointment Pharmacy Information: You may receive a survey from [employer] asking you to rate your care experience. Your feedback is important and will help us understand what we do well and how we can improve the quality of care we provide to you, your loved ones and our community. It?s an honor to serve you. Thank you for choosing [facility] HERE ARE THE MEDICATION CHANGES THAT OCCURRED DURING YOUR HOSPITAL STAY Medications to Continue with No Changes Other Medications acetaminophen (Tylenol Extra Strength 500 mg oral tablet) 2 Tablets By Mouth every 6 hours as needed as needed for pain. aspirin (aspirin 81 mg Oral EC Tab) 1 Tablets By Mouth every day. chondroitin-glucosamine (Osteo Bi-Flex) 2 Tablets By Mouth every day. metoprolol (metoprolol 25 mg ER Tab) 0.5 Tablets By Mouth 3 times a day. pravastatin (pravastatin 40 mg Tab) 1 Tablets By Mouth every day. PATIENT EDUCATION INFORMATION Instructions: [facility] Outside Recordson 03-22-2021 Outside Records [id number]:127 Normal [facility] Progress Note - Corrugated Fastener Driver on 03-22-2021 Progress Note - Corrugated Fastener Driver CRM spoke with patient and in room. patient is alert and oriented .Patient had rt total knee sx today, states feels good. Patient lives with and has a FWW at home already. Patient verified PCP, insurance and DME. Patient will have Ortho 360 at discharge. patient denies any concerns at this time. Reviewed Medicare rights with patent, he denies any questions and signs form. Patient given copy. discussed anticipate will discharge home tomorrow. Normal [facility] Progress Note-Physicianon Progress Note-Physician Patient: STAN STAFFORD Age: 75 years Sex: Male : 1945 Associated Diagnoses: None Author: George Bustamante DO Subjective Patient reports that his pain is controlled recovery unit. Denies fevers, chills, nausea or vomiting. Denies Chest pain or sob. No other acute complaints. Review of Systems Constitutional: Negative. Respiratory: Negative. Cardiovascular: Negative. Gastrointestinal: Negative. Genitourinary: Negative. Musculoskeletal: see hpi. Neurologic: Negative. Health Status Allergies: Allergic Reactions (Selected) No Known Allergies Current medications: Home Medications (12) Active aspirin 81 mg Chew Tab 81 mg = 1 tab(s), Oral, BID aspirin 81 mg Oral EC Tab 81 mg = 1 tab(s), Oral, Daily CeleBREX 200 mg Cap 200 mg = 1 cap(s), Oral, BIDPC Colace 100 mg Cap 100 mg = 1 cap(s), Oral, BID Cymbalta 30 mg Cap-EC 30 mg = 1 cap(s), Oral, Daily Metoprolol tartrate 25 mg Tab 12.5 mg = 0.5 tab(s), Oral, TID Osteo Bi-Flex 2 tab(s), Oral, Daily Pantoprazole [address] Tab 40 mg = 1 tab(s), Oral, Daily Percocet 5 mg-325 mg oral tablet 1 tab(s), PRN, Oral, q6hr pravastatin 40 mg Tab 40 mg = 1 tab(s), Oral, Daily Tylenol Extra Strength 500 mg oral tablet 1,000 mg = 2 tab(s), PRN, Oral, q6hr Zofran ODT 8 mg Tab-Dis 8 mg = 1 tab(s), Oral, q6hr , Medications (17) Active Scheduled: (9) acetaminophen 325 mg Tab UD [F] 975 mg 3 tab(s), Oral, q6hr aspirin 81 mg Chew Tab [F] 81 mg 1 tab(s), Chewed, BIDWM ceFAZolin + Dextrose 5% Premix Diluent 50 mL 2 gram 50 mL, IV Piggyback, q8hr docusate sodium 100 mg Cap [F] 100 mg 1 cap(s), Oral, BID DULoxetine 30 mg Cap-DR [F] 30 mg 1 cap(s), Oral, Daily ketorolac 15 mg/mL Inj [F] 15 mg 1 mL, IV Push, q6hr metoprolol 25 mg Tab [F] 12.5 mg 0.5 tab(s), Oral, TID pantoprazole [address] Tab [F] 40 mg 1 tab(s), Oral, Daily pravastatin 40 mg Tab [F] 40 mg 1 tab(s), Oral, Daily Continuous: (1) Lactated Ringers 1,000 mL 1,000 mL, IV, 80 mL/hr PRN: (7) albuterol-ipratropium 2.5 mg-0.5 mg/3 mL SOLN [F] 3 mL, Inhalation, QID bisacodyl 5 mg Oral EC Tab [F] 10 mg 2 tab(s), Oral, Daily magnesium hydroxide 8% Oral Susp 30 mL [F] 30 mL, Oral, BID morphine 2 mg/mL preservative-free SOLN [F] 2 mg 1 mL, IV, q4hr ondansetron 2 mg/mL Inj [F] 4 mg 2 mL, IV Push, q6hr oxyCODONE 5 mg Tab UD [F] 5 mg 1 tab(s), Oral, q4hr oxyCODONE 5 mg Tab UD [F] 10 mg 2 tab(s), Oral, q4hr Problem list: No problem items selected or recorded. Histories Past Medical History: No active or resolved past medical history items have been selected or recorded. Family History: No family history items have been selected or recorded. Procedure history: CABG >5 - Coronary artery bypass grafts greater than five ([id number]) on 12/15/2020 at 75 Years. Prostatectomy ([id number]). Hernia repair ([id number]). Subdural hematoma evacuation ([id number]). Social History Social & Psychosocial Habits Alcohol 03/04/2021 Use: Current Type: Beer, Liquor Frequency: Daily Substance Abuse 03/04/2021 Risk Assessment: Denies Substance Abuse Tobacco 03/04/2021 Risk Assessment: Denies Tobacco Use . Objective Vital Signs (last 24 hrs) Last Charted Temp Oral 36.7 DegC (MAR 22 11:23) Heart Rate Apical 68 bpm (MAR 22 06:15) Resp Rate 11 br/min (MAR 22 10:50) SBP H 142mmHg (MAR 22 11:23) DBP 75 mmHg (MAR 22 11:23) SpO2 100 % (MAR 22 11:23) General: Alert and oriented, No acute distress. Respiratory: regular and unlabored respirations. Cardiovascular: pulses palpable distally, brisk capillary refill. Gastrointestinal: Soft, Non-tender, Non-distended, no rebounding or guarding. Musculoskeletal Dressing clear, dry and intact. Compartments soft and compressible. Calves soft nontender no edema.. Integumentary: Warm. Neurologic: Alert, Oriented, distally neurologically intact. Review / Management Results review: Lab results 03/22/2021 8:21 EDT UA Spec Desc [place] UA Color Yellow UA Clarity Clear UA Spec Grav 1.020 UA pH 6.0 UA Protein Negative UA Glucose Negative UA Ketones Negative UA Bili Negative UA Blood Negative UA Nitrite Negative UA Urobilinogen 0.2 EU/dL UA Leuk Est Negative UA RBC 0-3 /HPF UA Squam Epithelial 0-2 /HPF UA WBC 0-5 /HPF 03/22/2021 6:28 EDT ABO/Rh Interp A NEG ABSC Gel Interp Negative . Radiology results: Xrays show postop TKA. Implant in good position, no periprosthetic fractures.. Impression and Plan Impression and Plan Education and Follow-up: Counseled. POD#0 right TKA Pain controlled Return to preop after recovery in PACU SCDs bilateral LE and aspirin 81mg BID prophylaxis ICE to the affected knee and elevate feet above the level of the heart Ancef standard perioperative antibiotic regimen PT/OT WBAT up OOB when medically stable Will be keeping overnight for monitoring his medical progress and pain control Likely DC home tomorrow (more content not included)... Normal [facility] Comment on above: Result Comment: Elec tronically Signed By: George Bustamante DO.br\Date and Time Signed: 03/22/21 12:36 EDT Progress Note-Physician Patient: STAN STAFFORD Age: 75 years Sex: Male : 1945 Associated Diagnoses: None Author: Lm Espino MD Preoperative Information Anesthesia history: Patient History: No personal or Family history of problems with anesthesia. Re-eval prior to induction: Inital eval reviewed: No significant interval change. Review of Systems Constitutional: Negative. Cardiovascular: Cardiovascular risk stratafacation reviewed, 1 FOS without difficulty, No chest pain. Respiratory: No SOB. Hematology/Lymphatics: Negative. Gastrointestinal: Negative. Musculoskeletal: OTHER. Neurologic: Negative. Psychiatric: Negative. Health Status Allergies: Allergic Reactions (Selected) No Known Allergies Current medications: (Selected) Inpatient Medications Ordered Lactated Ringers IV Gracy 1000 mL 1,000 mL: 1,000 mL, IV, 150 mL/hr, Routine, Start date 03/22/21 6:00:00 EDT, 6.7 hour(s), Total volume (mL): 1,000, 73.4 kg, 1.88, m2 cefazolin additive + Premix Dextrose 5% Diluent 50 mL: 2 gram = 50 mL, Soln-IV, IV Piggyback, PREOP, Routine, Start date 03/22/21 6:00:00 EDT, 100 mL/hr, Infuse over 30 minute(s) tranexamic acid additive + premix generic diluent 100 mL: 1,000 mg = 100 mL, Soln-IV, IV Piggyback, PREOP for 1 dose(s), Routine, Start date 03/22/21 6:00:00 EDT, 400 mL/hr, Infuse over 15 minute(s) Documented Medications Documented Osteo Bi-Flex: 2 tab(s), Oral, Daily, Refill(s) 0, Prophylaxis aspirin 81 mg Oral EC Tab: 81 mg = 1 tab(s), Oral, Daily, Refills(s) 0, Blood Thinner metoprolol 25 mg ER Tab: 12.5 mg = 0.5 tab(s), Oral, TID, Refills(s) 0, High blood pressure pravastatin 40 mg Tab: 40 mg = 1 tab(s), Oral, Daily, Refills(s) 0, High cholesterol Problem list: No problem items selected or recorded. Histories Past Medical History: No active or resolved past medical history items have been selected or recorded. Procedure history: CABG >5 - Coronary artery bypass grafts greater than five ([id number]) on 12/15/2020 at 75 Years. Prostatectomy ([id number]). Hernia repair ([id number]). Subdural hematoma evacuation ([id number]). Social History Social & Psychosocial Habits Alcohol 03/04/2021 Use: Current Type: Beer, Liquor Frequency: Daily Substance Abuse 03/04/2021 Risk Assessment: Denies Substance Abuse Tobacco 03/04/2021 Risk Assessment: Denies Tobacco Use . Physical Examination Pain assessment: Self-reports no pain. Airway: Mallampati classification: II (soft palate, fauces, uvula visible). Distance: Adequate. Mouth: Adequate opening. Neck: Full range of motion. Respiratory: Respirations are non-labored. Cardiovascular: Regular rhythm. Neurologic: Alert, Oriented. Review / Management Results review: No qualifying data available . Plan [place] [employer] of Anesthesiologists (ASA) physical status classification: Class III. Anesthetic Preoperative Plan Anesthesia: General. , Regional block for post op pain control.. Anesthetic plan, risks, benefits, and alternatives discussed with the patient and/or family. Patient verbalized understanding. Pt agrees with anesthetic plan and accepts all risks including but not limited to; Bleeding, infection(including Covid-19), nerve injury, dental injury, eye injury, headache, low blood pressure, serious problems with the heart and lungs, allergic reactions, failed block and .. Normal [facility] Comment on above: Result Comment: Elec tronically Signed By: Srinivas CHEW, Lm\.br\Date and Time Signed: 03/22/21 07:51 EDT UA With Cult Reflexon 2020 Bilirubin Ql (U) Negative Normal Negative [facility] Comment on above: Performed By: #### 1 [id number] #### [facility] [address] [place] [address] Clarity (U) CLEAR Normal Clear [facility] Comment on above: Performed By: #### 1 [id number] #### [facility] [address] [place] [address] Color (U) YELLOW Normal Yellow [facility] Comment on above: Performed By: #### 1 [id number] #### [facility] [address] [place] [address] Epithelial cells.squamous LM.HPF (Urine sed) [#/Area] 0-2 Normal 0-2 [facility] Comment on above: Performed By: #### 1 [id number] #### [facility] [address] [place] [address] Glucose Test strip (U) [Mass/Vol] Negative Normal Negative [facility] Comment on above: Performed By: #### 1 [id number] #### [facility] [address] [place] [address] Hemoglobin Ql (U) Negative Normal Negative [facility] Comment on above: Performed By: #### 1 [id number] #### [facility] [address] [place] [address] Ketones (U) [Mass/Vol] Negative Normal Negative [facility] Comment on above: Performed By: #### 1 [id number] #### [facility] [address] [place] [address] [place].plasma/[place]. RBC (Bld) [Mass ratio] 0-3 Normal 0-3 [facility] Comment on above: Performed By: #### 1 [id number] #### [facility] [address] [place] [address] Nitrite Ql (U) Negative Normal Negative [facility] Comment on above: Performed By: #### 1 [id number] #### [facility] [address] [place] [address] pH (U) 6.0 [pH] Invalid Interpretation Code 5.0-9.0 [facility] Comment on above: Performed By: #### 1 [id number] #### [facility] [address] [place] [address] Protein (U) [Mass/Vol] Negative Normal Negative [facility] Comment on above: Performed By: #### 1 [id number] #### [facility] [address] [place] [address] Specific gravity (U) [Rel density] 1.020 Invalid Interpretation Code 1.005-1.03 0 [facility] Comment on above: Performed By: #### 1 [id number] #### [facility] [address] [place] [address] Type of Urine collection method Cano Normal [facility] Comment on above: Performed By: #### 1 [id number] #### [facility] [address] [place] [address] Urobilinogen Qn (U) 0.2 {Kayli'U}/dL Normal 0.0-1.0 [facility] Comment on above: Performed By: #### 1 [id number] #### [facility] [address] [place] [address] WBC Auto Ql (U) Negative Normal Negative [facility] Comment on above: Performed By: #### 1 [id number] #### [facility] [address] [place], [place] [address] WBC LM.HPF (Urine sed) [#/Area] 0-5 Normal 0-5 [facility] Comment on above: Performed By: #### 1 [id number] #### [facility] [address] [place] [address] XR Knee 1 or 2 Views Righton 03-22-2021 XR Knee 1 or 2 Views Right Exam Date/Time: 03/22/2021 10:50 EDT Reason for Exam: Post-op evaluation;Other (please specify) Report IMPRESSION: STATUS POST COMPLETE RIGHT KNEE REPLACEMENT. CLINICAL HISTORY: Post-op evaluation COMPARISON: NONE. FINDINGS: 2 views of the right knee demonstrate the patient to be status post complete joint replacement. The bones are in anatomic alignment. There is no acute fracture or subluxation. There are expected postoperative changes including air in the subcutaneous soft tissues. FINAL REPORT Dictated: 03/22/2021 11:24 am Balaji Hooks MD, V. Signed (Electronic Signature): 03/22/2021 11:24 am Signed by: Balaji Hooks MD, V. Transcribed by: HAROON Technologist: JUAN JOSE [facility] Consent for Procedure/Surger yon 03-19-2021 Consent for Procedure/Surgery [id number]#[id number]:127 [facility] Outside Recordson 03-19-2021 Outside Records [id number]#[id number]:127 [facility] Coding Summary.on 03-09-2021 Coding Summary. 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 However, the narrative phrase printed from the coding software may appear abbreviated, or result in slightly different terminology. Coded By: Tessie Mcrae CphT Date Saved: 03/09/2021 05:57 am [facility] XR bonelength lower extremit yon 03-09-2021 XR bonelength lower extremity [facility] Main [place] [address] [place], [place] [id number] XRay Report Signed Patient: Stan Mcdonald MR#: [id number] : 1945 Acct:[id number] Age/Sex: 75 / M ADM Date: 03/09/21 Loc: ICXD Room: Type: REG CLI Attending Dr: George Bustamante DO Ordering Provider: George Bustamante DO Date of Service: 03/09/21 XR/XR bonelength lower extremity: M17.0 BILAT PRIOMARY OSTEOARTHRITIS Copies to: George Bustamante DO LOWER EXTREMITY BONE LENGTH STUDY - 5 images CLINICAL DATA: Preoperative planning for right knee arthroplasty. Osteoarthritis. COMPARISON: None AP views of the pelvis, femur, knees and tib-fib were obtained. There is also a long cassettes image with visualization from the top of the iliac crest down to the talar dome. The bony structures are intact. No fractures or dislocation are seen. The hip joint spaces are symmetric. There is mild narrowing of the tibiofemoral compartments bilaterally, greater medially. There is mild tibiofemoral marginal spurring on both sides. There is subtle dextroscoliotic curvature and endplate spurring at the lower imaged lumbar spine. There are several hemostasis clips along the pelvic sidewalls bilaterally. There are also hemostasis clips at the medial right lower leg. Atherosclerotic disease is seen. XR/XR bonelength lower extremity IMPRESSION: DEGENERATIVE CHANGES AT THE KNEES. Impression dictated by: Lona Rashid M.D.03/09/2021 11:47 AM Dictation Location: [place] [address] Transcribed By: [facility] 03/09/21 1147 Dictated By: Lona Rashid MD 03/09/21 1138 Signed By: 03/09/21 1147 [facility] Pre-Certification Formon Pre-Certification Form [id number]#[id number]:127 Normal [facility] Outside Radiologyon 03-05-20 Outside Radiology [id number]#[id number]:127 Normal [facility] ABO/Rh Retypeon 03-04-2021 ABO/Rh Retype Interp Negative Invalid Interpretation Code [facility] Comment on above: Performed By: #### 1 [id number] ####[facility] [address] [place] [address] BUNon 03-04-2021 Urea nitrogen [Mass/Vol] 16 mg/dL Normal 5-21 [facility] Comment on above: Performed By: #### 2 099445, 3041881, 27250557, 5137195, 9314560, 5987261 ####[facility] [address] [place] [address] CBC w/Indiceson 03-04-2021 Erythrocyte distribution width (RBC) [Ratio] 14.8 % High 10.9-14.2 [facility] Comment on above: Performed By: #### 2 888292, 8514599, 20100782, 4296382, 3309460, 3665795 ####[facility] [address] [place] [address] Hematocrit (Bld) [Volume fraction] 40.0 % Normal 37.7-49.0 [facility] Comment on above: Performed By: #### 2 415265, 8542920, 96211407, 9292222, 0881081, 5408104 ####[facility] [address] [place] [address] Hemoglobin (Bld) [Mass/Vol] 13.2 g/dL Low 13.5-17.5 [facility] Comment on above: Performed By: #### 2 828961, 3376178, 18075707, 2896134, 1483678, 7576885 ####[address] [address] MCH (RBC) [Entitic mass] 30.0 pg Normal 27.0-34.0 [facility] Comment on above: Performed By: #### 2 438942, 4310532, 97428491, 4531854, 0292098, 7727403 ####[place] [address] [place] [address] MCHC (RBC) [Mass/Vol] 32.9 g/dL Normal 31.4-36.0 [facility] Comment on above: Performed By: #### 2 791863, 9092046, 90562545, 0361076, 3013503, 0924223 ####[facility] [address] [place] [address] MCV (RBC) [Entitic vol] 91.2 fL Normal 80.0-100.[address] [facility] Comment on above: Performed By: #### 2 626790, 4997100, 25740982, 9045930, 9168326, 8377976 ####[facility] [address] [place] [address] Platelet mean volume (Bld) [Entitic vol] 8.5 fL Normal 6.4-10.8 [facility] Comment on above: Performed By: #### 2 562357, 1846025, 74832271, 7768709, 0933563, 4643063 ####[place] [address] [place] [address] Platelets (Bld) [#/Vol] 197.0 E9/L Normal 150. 0-500. 0 [facility] Comment on above: Performed By: #### 2 472633, 6300460, 38259504, 3859528, 7009089, 0971938 ####[address] [address] RBC (Bld) [#/Vol] 4.4 E12/L Normal 4.3-5.9 [facility] Comment on above: Performed By: #### 2 873568, 1343114, 76005347, 3602511, 1163422, 0976131 ####[address] [address] WBC corrected for nucl RBC Auto (Bld) [#/Vol] 7.3 E9/L Normal 4.0-11.0 [facility] Comment on above: Performed By: #### 2 798001, 3677171, 65334059, 7185033, 7534845, 5295006 ####[place] [place] [address] Consent for Treatmenton 0 Consent for Treatment [id number]#[id number]:127 Normal [facility] Creatinineon 03-04-2021 Creatinine [Mass/Vol] 0.8 mg/dL Normal 0.5-1.3 [facility] Comment on above: Performed By: #### 2 330372, 3378080, 71332925, 5133322, 7738283, 6234144 ####[facility] [address] [place] [address] Glucoseon 03-04-2021 Glucose [Mass/Vol] 103 mg/dL Normal 55-199 [facility] Comment on above: Performed By: #### 2 677109, 0190153, 00949395, 1966036, 1359090, 0807641 ####[facility] [address] [place] [address] Lyteson 03-04-2021 Anion gap [Moles/Vol] 11 mmol/L Normal 6-16 [facility] Comment on above: Performed By: #### 2 962183, 6118163, 54538483, 6276127, 6950463, 9099234 ####[facility] [address] [place] [address] Chloride [Moles/Vol] 104 mmol/L Normal 101-111 [facility] Comment on above: Performed By: #### 2 404346, 2964170, 16834172, 1907771, 3262234, 8384099 ####[facility] [address] [place] [address] CO2 [Moles/Vol] 26 mmol/L Normal 21-31 [facility] Comment on above: Performed By: #### 2 228353, 5492557, 75564670, 9672340, 9152750, 5949078 ####[facility] [address] [place] [address] Potassium [Moles/Vol] 4.1 mmol/L Normal 3.5-5.3 [facility] Comment on above: Performed By: #### 2 966064, 5720071, 69904956, 5246705, 9329540, 1596310 ####[facility] [address] [place] [address] Sodium [Moles/Vol] 137 mmol/L Normal 135-145 [facility] Comment on above: Performed By: #### 2 699719, 5663815, 99248897, 4486226, 9841020, 5860456 ####[facility] [address] [place] [address] eGFRon 03-04-2021 GFR/1.73 sq M.predicted among blacks MDRD (S/P/Bld) [Vol rate/Area] mL/min/{1.73_m2} Normal >=59 [facility] Comment on above: Order Comment: Order added by Discern Expert. Result Comment: eGFR is race adjusted. AA=. Performed By: #### 2 375300, 7828789, 58482345, 3291032, 0716945, 5081262 ####[facility] [address] [place] [address] GFR/1.73 sq M.predicted among non-blacks MDRD (S/P/Bld) [Vol rate/Area] mL/min/{1.73_m2} Normal >=59 [facility] Comment on above: Order Comment: Order added by Discern Expert. Result Comment: Home Comfort Advisor krzysztof kidney disease could be indicated at eGFR's of less than 60 mL/min/1.73m2. Kidney failure is indicated at less than 15 mL/min/1.73m2. Performed By: #### 2 937394, 6935289, 60530184, 1282526, 4129334, 4721881 ####[facility] [address] [place] [address] Physician Orderon 02-22-2021 Physician Order [id number]#[id number]:127 Normal [facility] Automated basophil %on 01-07 Basophils/100 WBC (Bld) 0.1 % [facility] Automated basophil counton 0 01-07-2021 Basophils (Bld) [#/Vol] 0.0 10*3/uL 0.0-0.2 [facility] Automated blood lymphocyte c ount (number/volume)on 01-07-2021 Lymphocytes (Bld) [#/Vol] 1.3 10*3/uL 1.00-4.8 [facility] Automated blood lymphocyte c ount as percentage of total leukocyteson 01-07-2021 Lymphocytes/100 WBC (Bld) 12.1 % [facility] Automated blood monocyte cou nton 01-07-2021 Monocytes (Bld) [#/Vol] 1.3 10*3/uL 0.0-0.8 [facility] Automated blood platelet cou nt (count/volume)on 01-07-2021 Platelets (Bld) [#/Vol] 332 10*3/uL 150-450 [facility] Automated blood platelet darrius n volume measurementon 01-07-2021 Platelet mean volume (Bld) [Entitic vol] 8.0 fL 6.6-10.1 [facility] Automated eosinophil %on Eosinophils/100 WBC (Bld) 1.6 % [facility] Automated eosinophil counton 01-07-2021 Eosinophils (Bld) [#/Vol] 0.2 10*3/uL 0.0-0.45 [facility] Automated erythrocyte distri bution width ratioon 01-07-2021 Erythrocyte distribution width (RBC) [Ratio] 15.3 % 12.0-14.8 [facility] Automated erythrocyte mean c orpuscular hemoglobin (mass per erythrocyte)on 01-07-2021 MCH (RBC) [Entitic mass] 31.8 pg 27.5-35.2 [facility] Automated erythrocyte mean c orpuscular hemoglobin concentration measurement (mass/volon 01-07-2021 MCHC (RBC) [Mass/Vol] 34.5 g/dL 32.5-35.6 [facility] Automated erythrocyte mean c orpuscular volumeon 01-07-2021 MCV (RBC) [Entitic vol] 92.2 fL 83.5-101 [facility] Automated monocyte %on 01-07 Monocytes/100 WBC (Bld) 12.1 % [facility] Automated neutrophil %on Neutrophils/100 WBC (Bld) 74.1 % [facility] Blood erythrocytes automated count (number/volume)on 01-07-2021 RBC (Bld) [#/Vol] 3.77 10*6/uL 3.90-5.60 [facility] Blood hemoglobin measurement (mass/volume)on 01-07-2021 Hemoglobin (Bld) [Mass/Vol] 12.0 g/dL 13.0-17.0 [facility] Blood leukocytes automated c ount (number/volume)on 01-07-2021 WBC (Bld) [#/Vol] 10.6 10*3/uL 4.1-10.5 [facility] Blood neutrophil count by au tomated method (number/volume)on 01-07-2021 Neutrophils (Bld) [#/Vol] 7.9 10*3/uL 1.8-7.7 [facility] Estimated glomerular filtrat ion rate (GFR) non- Americanon 01-07-2021 GFR/1.73 sq M predicted among non-blacks MDRD (S/P/Bld) [Vol rate/Area] mL/min/{1.73_m2} [facility] Hematocrit [Volume Fraction] of Blood by Automated counton 01-07-2021 Hematocrit (Bld) [Volume fraction] 34.8 % 38.8-50.0 [facility] Metabolic Panelon 01-07-2021 Magnesium [Mass/Vol] 1.8 mg/dL 1.6-2.6 [facility] Otheron 01-07-2021 GFR/1.73 sq M.predicted MDRD (S/P/Bld) [Vol rate/Area] mL/min/{1.73_m2} [facility] Comment on above: GFR estimated refere nce range: According to KDOQI guidelines, <60 ml/min/1.73m2 is sufficient to diagnose a patient with chronic kidney disease. Nucleated RBC/100 WBC (Bld) [Ratio] 0.1 % 0-0.5 [facility] Creatinine Clearance (Chem N/A [facility] Serum or plasma calcium jordan urement (mass/volume)on 01-07-2021 Calcium [Mass/Vol] 9.8 mg/dL 8.2-10.2 [facility] Serum or plasma chloride darrius surement (moles/volume)on 01-07-2021 Chloride [Moles/Vol] 97 mmol/L 95-114 [facility] Serum or plasma creatinine m easurement with calculation of estimated glomerular filtron 01-07-2021 Creatinine [Mass/Vol] 0.67 mg/dL 0.64-1.27 [facility] Serum or plasma glucose jordan urement (mass/volume)on 01-07-2021 Glucose [Mass/Vol] 109 mg/dL 70-100 [facility] Comment on above: ADA recommended refe rence rangeRandom Glucose Reference Range is dependent on time and content of last meal. Glucose of more than 200 mg/dL in a nonstressed, ambulatory subject supports the diagnosis of Diabetes Mellitus. Serum or plasma potassium me asurement (moles/volume)on 01-07-2021 Potassium [Moles/Vol] 4.5 mmol/L 3.5-5.1 [facility] Serum or plasma sodium measu rement (moles/volume)on 01-07-2021 Sodium [Moles/Vol] 134 mmol/L 136-146 [facility] Serum or plasma total carbon dioxide measurement (moles/volume)on 01-07-2021 CO2 [Moles/Vol] 25.7 mmol/L 22.0-30.0 [facility] Serum or plasma urea nitroge n measurement (mass/volume)on 01-07-2021 Urea nitrogen [Mass/Vol] 11 mg/dL 9-23 [facility] Automated basophil %on 01-01 Basophils/100 WBC (Bld) 1.2 % [facility] Automated basophil counton 0 01-01-2021 Basophils (Bld) [#/Vol] 0.1 10*3/uL 0.0-0.2 [facility] Automated blood lymphocyte c ount (number/volume)on 01-01-2021 Lymphocytes (Bld) [#/Vol] 1.4 10*3/uL 1.00-4.8 [facility] Automated blood lymphocyte c ount as percentage of total leukocyteson 01-01-2021 Lymphocytes/100 WBC (Bld) 17.5 % [facility] Automated blood monocyte cou nton 01-01-2021 Monocytes (Bld) [#/Vol] 0.9 10*3/uL 0.0-0.8 [facility] Automated blood platelet cou nt (count/volume)on 01-01-2021 Platelets (Bld) [#/Vol] 384 10*3/uL 150-450 [facility] Automated blood platelet darrius n volume measurementon 01-01-2021 Platelet mean volume (Bld) [Entitic vol] 8.4 fL 6.6-10.1 [facility] Automated eosinophil %on Eosinophils/100 WBC (Bld) 3.6 % [facility] Automated eosinophil counton 01-01-2021 Eosinophils (Bld) [#/Vol] 0.3 10*3/uL 0.0-0.45 [facility] Automated erythrocyte distri bution width ratioon 01-01-2021 Erythrocyte distribution width (RBC) [Ratio] 15.4 % 12.0-14.8 [facility] Automated erythrocyte mean c orpuscular hemoglobin (mass per erythrocyte)on 01-01-2021 MCH (RBC) [Entitic mass] 31.1 pg 27.5-35.2 [facility] Automated erythrocyte mean c orpuscular hemoglobin concentration measurement (mass/volon 01-01-2021 MCHC (RBC) [Mass/Vol] 33.6 g/dL 32.5-35.6 [facility] Automated erythrocyte mean c orpuscular volumeon 01-01-2021 MCV (RBC) [Entitic vol] 92.4 fL 83.5-101 [facility] Automated monocyte %on 01-01 Monocytes/100 WBC (Bld) 11.7 % [facility] Automated neutrophil %on Neutrophils/100 WBC (Bld) 66.0 % [facility] Blood erythrocytes automated count (number/volume)on 01-01-2021 RBC (Bld) [#/Vol] 3.14 10*6/uL 3.90-5.60 [facility] Blood hemoglobin measurement (mass/volume)on 01-01-2021 Hemoglobin (Bld) [Mass/Vol] 9.8 g/dL 13.0-17.0 [facility] Blood leukocytes automated c ount (number/volume)on 01-01-2021 WBC (Bld) [#/Vol] 8.0 10*3/uL 4.5-11.0 [facility] Blood neutrophil count by au tomated method (number/volume)on 01-01-2021 Neutrophils (Bld) [#/Vol] 5.3 10*3/uL 1.8-7.7 [facility] [place] Estimated glomerular filtrat ion rate (GFR) non- Americanon 01-01-2021 GFR/1.73 sq M predicted among non-blacks MDRD (S/P/Bld) [Vol rate/Area] mL/min/{1.73_m2} [facility] [place] Hematocrit [Volume Fraction] of Blood by Automated counton 01-01-2021 Hematocrit (Bld) [Volume fraction] 29.0 % 38.8-50.0 [facility] [place] Metabolic Panelon 01-01-2021 Magnesium [Mass/Vol] 2.0 mg/dL 1.6-2.6 [facility] Otheron 01-01-2021 GFR/1.73 sq M.predicted MDRD (S/P/Bld) [Vol rate/Area] mL/min/{1.73_m2} [facility] [place] Comment on above: GFR estimated refere nce range: According to KDOQI guidelines, <60 ml/min/1.73m2 is sufficient to diagnose a patient with chronic kidney disease. Nucleated RBC/100 WBC (Bld) [Ratio] 0.0 % 0-0.5 [facility] [place] [facility] Creatinine Clearance (Chem 79.78 [facility] [place] Serum or plasma calcium jordan urement (mass/volume)on 01-01-2021 Calcium [Mass/Vol] 9.0 mg/dL 8.2-10.2 [facility] Serum or plasma chloride darrius surement (moles/volume)on 01-01-2021 Chloride [Moles/Vol] 106 mmol/L 95-114 [facility] Serum or plasma creatinine m easurement with calculation of estimated glomerular filtron 01-01-2021 Creatinine [Mass/Vol] 0.71 mg/dL 0.64-1.27 [facility] Serum or plasma glucose jordan urement (mass/volume)on 01-01-2021 Glucose [Mass/Vol] 88 mg/dL 70-100 [facility] Comment on above: ADA recommended refe rence rangeRandom Glucose Reference Range is dependent on time and content of last meal. Glucose of more than 200 mg/dL in a nonstressed, ambulatory subject supports the diagnosis of Diabetes Mellitus. Serum or plasma potassium me asurement (moles/volume)on 01-01-2021 Potassium [Moles/Vol] 3.8 mmol/L 3.5-5.1 [facility] Serum or plasma sodium measu rement (moles/volume)on 01-01-2021 Sodium [Moles/Vol] 140 mmol/L 136-146 [facility] Serum or plasma total carbon dioxide measurement (moles/volume)on 01-01-2021 CO2 [Moles/Vol] 25.6 mmol/L 22.0-30.0 [facility] Serum or plasma urea nitroge n measurement (mass/volume)on 01-01-2021 Urea nitrogen [Mass/Vol] 14 mg/dL 9-23 [facility] [place] Albumin [Mass/volume] in Ser um or Plasmaon 12-27-2020 Albumin [Mass/Vol] 3.4 g/dL 3.2-5.5 [facility] Automated erythrocytes count in urine sediment (number/area)on 12-27-2020 RBC Auto (Urine sed) [#/Area] 3-4 [HPF] [facility] [place] Automated leukocytes count i n urine sediment (number/area)on 12-27-2020 WBC Auto (Urine sed) [#/Area] 0-1 [HPF] [facility] [place] Automated urine color determ inationon 12-27-2020 Color (U) Yellow Yellow [facility] [place] Blood anisocytosis detection on 12-27-2020 Anisocytosis Ql (Bld) Slight [facility] Folate [Mass/volume] in Seru m or Plasmaon 12-27-2020 Folate [Mass/Vol] 13.2 ng/mL [facility] Comment on above: Folate reference ran ge: >5.9 ng/mlThe WHO technical consultation on folate and vitamin [id number] has determined that folate concentrations lessthan 4 ng/ml are considered deficient. Hematologyon 12-27-2020 Platelets (Bld) [#/Vol] Normal Normal [facility] Otheron 12-27-2020 Cobalamin (Vitamin B12) [Mass/Vol] 535 pg/mL 180-914 [facility] [place] Platelet Morphology Comment Normal Normal [facility] [place] Protein [Mass/volume] in Ser um or Plasmaon 12-27-2020 Protein [Mass/Vol] 6.1 g/dL 6.1-7.9 [facility] RBC morphologyon 12-27-2020 RBC morphology finding Nom (Bld) N/A [facility] [place] Serum globulin measurement b y calculation (mass/volume)on 12-27-2020 Globulin (S) [Mass/Vol] 2.7 g/dL [facility] Serum or plasma alanine clark otransferase measurement without P-5'-P (enzymatic activion 12-27-2020 ALT No additional P-5'-P [Catalytic activity/Vol] 38 U/L 10-60 [facility] [place] Serum or plasma albumin/glob ulin mass ratioon 12-27-2020 Albumin/Globulin [Mass ratio] 1.3 {ratio} [facility] [place] Serum or plasma alkaline matt sphatase measurement (enzymatic activity/volume)on 12-27-2020 ALP [Catalytic activity/Vol] 62 U/L 32-92 [facility] [place] Serum or plasma aspartate am inotransferase measurement (enzymatic activity/volume)on 12-27-2020 AST [Catalytic activity/Vol] 30 U/L 10-42 [facility] [place] Serum or plasma prealbumin m easurement (mass/volume)on 12-27-2020 Prealbumin [Mass/Vol] 17.2 mg/dL 18.0-38.0 [facility] Serum or plasma total biliru bin measurement (mass/volume)on 12-27-2020 Bilirubin [Mass/Vol] 1.0 mg/dL 0.3-1.2 [facility] Specific gravity of Urine by Automated test stripon 12-27-2020 Specific gravity (U) [Rel density] 1.019 1.001-1.03 0 [facility] [place] Squamous epithelial cells de tection in urine sediment by light microscopyon 12-27-2020 Epithelial cells.squamous LM Ql (Urine sed) 0-1 [HPF] [facility] [place] Urinalysison 12-27-2020 Hyaline casts LM Ql (Urine sed) 0-8 [LPF] [facility] [place] Urine bacteria detection by automated methodon 12-27-2020 Bacteria Auto Ql (U) None seen None Seen [facility] Urine clarity by refractomet ry automatedon 12-27-2020 Clarity Refractometry automated (U) Clear Clear [facility] [place] Urine glucose measurement by automated test strip (mass/volume)on 12-27-2020 Glucose Auto test strip (U) [Mass/Vol] Normal mg/dL Normal [facility] [place] Urine hemoglobin detection b y automated test stripon 12-27-2020 Hemoglobin Auto test strip Ql (U) Negative Negative [facility] [place] Urine ketones measurement by automated test strip (mass/volume)on 12-27-2020 Ketones (U) [Mass/Vol] Trace Negative [facility] Urine leukocyte esterase det ection by automated test stripon 12-27-2020 Leukocyte esterase Auto test strip Ql (U) 1+ Negative [facility] [place] Urine nitrite detection by t est stripon 12-27-2020 Nitrite Ql (U) Negative Negative [facility] [place] Urine pH measurement by auto mated test stripon 12-27-2020 pH (U) 7.5 [pH] 5.0-9.0 [facility] [place] Urine protein measurement by automated test strip (mass/volume)on 12-27-2020 Protein (U) [Mass/Vol] Negative Negative [facility] Urine total bilirubin detect ion by test stripon 12-27-2020 Bilirubin Ql (U) Negative Negative [facility] Urine urobilinogen measureme nt by automated test strip (mass/volume)on 12-27-2020 Urobilinogen (U) [Mass/Vol] Normal mg/dL Normal [facility] [place] Automated basophil %on 12-26 Basophils/100 WBC (Bld) 0.4 % [facility] Automated basophil counton 0 12-26-2020 Basophils (Bld) [#/Vol] 0.0 10*3/uL 0.0-0.2 [facility] [place] Automated blood lymphocyte c ount (number/volume)on 12-26-2020 Lymphocytes (Bld) [#/Vol] 1.6 10*3/uL 1.00-4.8 [facility] [place] Automated blood lymphocyte c ount as percentage of total leukocyteson 12-26-2020 Lymphocytes/100 WBC (Bld) 16.1 % [facility] [place] Automated blood monocyte cou nton 12-26-2020 Monocytes (Bld) [#/Vol] 1.3 10*3/uL 0.0-0.8 [facility] [place] Automated blood platelet cou nt (count/volume)on 12-26-2020 Platelets (Bld) [#/Vol] 353 10*3/uL 150-450 [facility] [place] Automated blood platelet darrius n volume measurementon 12-26-2020 Platelet mean volume (Bld) [Entitic vol] 7.9 fL 6.6-10.1 [facility] [place] Automated eosinophil %on Eosinophils/100 WBC (Bld) 4.1 % [facility] [place] Automated eosinophil counton 12-26-2020 Eosinophils (Bld) [#/Vol] 0.4 10*3/uL 0.0-0.45 [facility] [place] Automated erythrocyte distri bution width ratioon 12-26-2020 Erythrocyte distribution width (RBC) [Ratio] 15.3 % 12.0-14.8 [facility] [place] Automated erythrocyte mean c orpuscular hemoglobin (mass per erythrocyte)on 12-26-2020 MCH (RBC) [Entitic mass] 30.6 pg 27.5-35.2 [facility] [place] Automated erythrocyte mean c orpuscular hemoglobin concentration measurement (mass/volon 12-26-2020 MCHC (RBC) [Mass/Vol] 33.3 g/dL 32.5-35.6 [facility] Automated erythrocyte mean c orpuscular volumeon 12-26-2020 MCV (RBC) [Entitic vol] 92.0 fL 83.5-101 [facility] Automated monocyte %on 12-26 Monocytes/100 WBC (Bld) 13.1 % [facility] Automated neutrophil %on Neutrophils/100 WBC (Bld) 66.3 % [facility] [place] Blood erythrocytes automated count (number/volume)on 12-26-2020 RBC (Bld) [#/Vol] 3.35 10*6/uL 3.90-5.60 [facility] Blood hemoglobin measurement (mass/volume)on 12-26-2020 Hemoglobin (Bld) [Mass/Vol] 10.3 g/dL 13.0-17.0 [facility] [place] Blood leukocytes automated c ount (number/volume)on 12-26-2020 WBC (Bld) [#/Vol] 9.7 10*3/uL 4.1-10.5 [facility] Blood neutrophil count by au tomated method (number/volume)on 12-26-2020 Neutrophils (Bld) [#/Vol] 6.4 10*3/uL 1.8-7.7 [facility] [place] Estimated glomerular filtrat ion rate (GFR) non- Americanon 12-26-2020 GFR/1.73 sq M predicted among non-blacks MDRD (S/P/Bld) [Vol rate/Area] mL/min/{1.73_m2} [facility] [place] Hematocrit [Volume Fraction] of Blood by Automated counton 12-26-2020 Hematocrit (Bld) [Volume fraction] 30.8 % 38.8-50.0 [facility] [place] Metabolic Panelon 12-26-2020 Magnesium [Mass/Vol] 2.4 mg/dL 1.6-2.6 [facility] Otheron 12-26-2020 GFR/1.73 sq M.predicted MDRD (S/P/Bld) [Vol rate/Area] mL/min/{1.73_m2} [facility] [place] Comment on above: GFR estimated refere nce range: According to KDOQI guidelines, <60 ml/min/1.73m2 is sufficient to diagnose a patient with chronic kidney disease. Nucleated RBC/100 WBC (Bld) [Ratio] 0.0 % 0-0.5 [facility] [place] [facility] Creatinine Clearance (Chem 76.23 [facility] [place] Serum or plasma calcium jordan urement (mass/volume)on 12-26-2020 Calcium [Mass/Vol] 8.9 mg/dL 8.2-10.2 [facility] Serum or plasma chloride darrius surement (moles/volume)on 12-26-2020 Chloride [Moles/Vol] 103 mmol/L 95-114 [facility] Serum or plasma creatinine m easurement with calculation of estimated glomerular filtron 12-26-2020 Creatinine [Mass/Vol] 0.81 mg/dL 0.64-1.27 [facility] Serum or plasma glucose jordan urement (mass/volume)on 12-26-2020 Glucose [Mass/Vol] 109 mg/dL 70-100 [facility] Comment on above: ADA recommended refe rence rangeRandom Glucose Reference Range is dependent on time and content of last meal. Glucose of more than 200 mg/dL in a nonstressed, ambulatory subject supports the diagnosis of Diabetes Mellitus. Serum or plasma potassium me asurement (moles/volume)on 12-26-2020 Potassium [Moles/Vol] 4.0 mmol/L 3.5-5.1 [facility] Serum or plasma sodium measu rement (moles/volume)on 12-26-2020 Sodium [Moles/Vol] 139 mmol/L 136-146 [facility] Serum or plasma total carbon dioxide measurement (moles/volume)on 12-26-2020 CO2 [Moles/Vol] 26.6 mmol/L 22.0-30.0 [facility] Serum or plasma urea nitroge n measurement (mass/volume)on 12-26-2020 Urea nitrogen [Mass/Vol] 11 mg/dL 9-23 [facility] [place] Blood thiamine measurement ( moles/volume)on 12-24-2020 Thiamine (Bld) [Moles/Vol] 80.0 nmol/L [facility] [place] Comment on above: Performed at: [address] [id number] Director: Genesis David MD, Phone: [phone] Body fluid albumin measureme nt (mass/volume)on 12-24-2020 Albumin (Body fld) [Mass/Vol] 3.4 g/dL 3.2-5.5 [facility] [place] Capillary blood glucose jordan urement by glucometer (mass/volume)on 12-24-2020 Glucose [Mass/Vol] 94 mg/dL [facility] Comment on above: Random Glucose Refer ence Range is dependent on time and content of last meal. Glucose of more than 200 mg/dL in a nonstressed, ambulatory subject supports the diagnosis of Diabetes Mellitus. Folate [Mass/volume] in Seru m or Plasmaon 12-24-2020 Folate [Mass/Vol] 7.9 ng/mL [facility] Comment on above: Folate reference ran ge: >5.9 ng/mlThe WHO technical consultation on folate and vitamin [id number] has determined that folate concentrations lessthan 4 ng/ml are considered deficient. Metabolic Panelon 12-24-2020 Glucose [Mass/Vol] Glu2: cleaned meter [facility] [place] Otheron 12-24-2020 Cobalamin (Vitamin B12) [Mass/Vol] 443 pg/mL 180-914 [facility] [place] Protein [Mass/volume] in Ser um or Plasmaon 12-24-2020 Protein [Mass/Vol] 6.2 g/dL 6.1-7.9 [facility] Serum globulin measurement b y calculation (mass/volume)on 12-24-2020 Globulin (S) [Mass/Vol] 2.8 g/dL [facility] Serum or plasma alanine clark otransferase measurement without P-5'-P (enzymatic activion 12-24-2020 ALT No additional P-5'-P [Catalytic activity/Vol] 38 U/L 10-60 [facility] [place] Serum or plasma albumin/glob ulin mass ratioon 12-24-2020 Albumin/Globulin [Mass ratio] 1.2 {ratio} [facility] [place] Serum or plasma alkaline matt sphatase measurement (enzymatic activity/volume)on 12-24-2020 ALP [Catalytic activity/Vol] 51 U/L 32-92 [facility] [place] Serum or plasma aspartate am inotransferase measurement (enzymatic activity/volume)on 12-24-2020 AST [Catalytic activity/Vol] 43 U/L 10-42 [facility] [place] Serum or plasma thyroid stim ulating hormone (TSH) measurement by high sensitivity meton 12-24-2020 TSH Qn 3.59 u[iU]/mL 0.45-5.33 [facility] [place] Serum or plasma total biliru bin measurement (mass/volume)on 12-24-2020 Bilirubin [Mass/Vol] 0.8 mg/dL 0.3-1.2 [facility] Monocyte %on 12-18-2020 Monocytes/100 WBC (Bld) 19 umol/L 11-35 [facility] Creatine kinase [Enzymatic a ctivity/volume] in Serum or Plasmaon 12-17-2020 CK [Catalytic activity/Vol] 1788 U/L 22-269 [facility] [place] Otheron 12-17-2020 Arterial Blood Base Excess 2.5 mmol/L -3.0-3.0 [facility] [place] Arterial Blood HCO3 26.0 mmol/L 23.0-29.0 [facility] Arterial Blood Oxygen Content 6.3 mmol/L 6.6-9.7 [facility] [place] Arterial Blood Oxygen Saturation 98.8 % 95.0-100.0 [facility] [place] Arterial Blood Partial Pressure CO2 35.7 mm[Hg] 35.0-45.0 [facility] [place] Arterial Blood Partial Pressure O2 143.5 mm[Hg] 80.0-100.0 [facility] [place] Arterial Blood pH 7.48 7.35-7.45 [facility] Arterial Blood Total CO2 27.1 mmol/L 23.0-27.0 [facility] [place] Blood Gas Critical Value See comment [facility] [place] Comment on above: Critical Value mckinley d on: 12/17/2020 at 04:21 Blood Gas PEEP 5 cmH2O [facility] [place] Blood Gas Sample Site Artline [facility] Blood Gas Set Respiration Rate 14 [facility] [place] Blood Gas Tidal Volume 500 mL [facility] FiO2 40 % [facility] [place] Phosphate [Mass/volume] in S brandee or Plasmaon 12-17-2020 Phosphate [Mass/Vol] 4.1 mg/dL 2.5-4.6 [facility] Serum or plasma creatine kin ase MB (CKMB)/total creatine kinase (CK) ratio by calculaon 12-17-2020 CK.MB Calc [Catalytic fraction] 2.5 0.00-2.50 [facility] [place] Serum or plasma creatine kin ase MB measurement (mass/volume)on 12-17-2020 CK.MB [Mass/Vol] 45.2 ng/mL 0.6-6.3 [facility] Activated partial thrombopla stin time (aPTT) in platelet poor plasma by coagulation aon 12-16-2020 aPTT Coag (PPP) [Time] 32.6 s 23.0-35.0 [facility] Alpha angle parameter of thr omboelastogram (TEG)on 12-16-2020 Clot angle TEG (Bld) [Angle] 48.4 deg 53-72 [facility] [place] Arterial blood standard base excess determination by calculationon 12-16-2020 Base excess standard Calc (BldA) [Moles/Vol] 3 mmol/L -2-3 [facility] Blood activated clotting anuja e by coagulation assayon 12-16-2020 ACT Coag (Bld) 103 s 90-139 [facility] [place] Comment on above: Reference Range: 90- 139 (Non-heparinized) Blood carbon dioxide, total measurement by calculation (moles/volume)on 12-16-2020 CO2 Calc (Bld) [Moles/Vol] 28 mmol/L 23-29 [facility] [place] Blood coagulation index dete rmination by thromboelastographyon 12-16-2020 Coagulation index TEG Qn (Bld) -11.4 -3.0-3.0 [facility] [place] Blood hemoglobin measurement by calculation (mass/volume)on 12-16-2020 Hemoglobin (Bld) [Mass/Vol] 9.5 g/dL 12.0-17.[address] [facility] [place] [address] biopsyon 12-16-2020 Hematocrit (Bld) [Volume fraction] 28.0 % 38.0-51.0 [facility] [place] Capillary blood glucose jordan urement by glucometer (mass/volume)on 12-16-2020 Glucose [Mass/Vol] 108 mg/dL 70-105 [facility] Determination of maximum amp litude of thromboelastography curveon 01-20-2021 Maximum clot firmness TEG (Bld) [Length] 53.7 mm 50-70 [facility] [place] Fibrinogen measurement in pl atelet poor plasma by coagulation assay (mass/volume)on 12-16-2020 Fibrinogen Coag (PPP) [Mass/Vol] 157 mg/dL 150-400 [facility] [place] Hematologyon 12-16-2020 PT Coag (PPP) [Time] 16.9 s 9.0-12.9 [facility] Monocyte %on 12-16-2020 Monocytes/100 WBC (Bld) 40.6 mm[Hg] 35-51 [facility] [place] Monocytes/100 WBC (Bld) 468 mm[Hg] 80-105 [facility] Platelet poor plasma interna tional normalized ratio (INR) by coagulation assay (relaton 12-16-2020 INR Coag (PPP) [Relative time] 1.5 {INR} [facility] [place] Comment on above: INR Therapeutic Rang e A) Pre- and Peroperative OAT started two weeks before surgery. NOT HIP SURGERY: 1.5 - 2.5 HIP SURGERY: 2 - 3B) Primary and secondary prevention of venous THROMBOSIS: 2 - 3C) Active venous thrombosis, pulmonary embolismand prevention of recurrent venous thrombosis: 2 - 3D) Prevention of arterial thromboembolismincluding patients with mechanical heart valves: 3 - 4.5 R time measurement by thromb oelastography (TEG)on 12-16-2020 Clotting time TEG (Bld) 19.5 min 5-10 [facility] Clotting time TEG (Bld) 3.1 min 1-3 [facility] Whole blood bicarbonate jordan urementon 12-16-2020 HCO3 (Bld) [Moles/Vol] 27.0 mmol/L 22.0-28.0 [facility] Whole blood ionized calcium measurement (moles/volume)on 12-16-2020 Calcium.ionized (Bld) [Moles/Vol] 1140 mmol/L 1.12-1.32 [facility] [place] Whole blood oxygen saturatio n measurementon 12-16-2020 Oxygen saturation in Blood 100 % 95-98 [facility] [place] Comment on above: Reference ranges ref lect baseline specimens only Whole blood pHon 12-16-2020 pH (Bld) 7.431 Units 7.31-7.45 [facility] [place] Whole blood potassium measur ementon 12-16-2020 Potassium [Moles/Vol] 3.7 mmol/L 3.5-4.9 [facility] Whole blood sodium measureme nton 12-16-2020 Sodium [Moles/Vol] 140 mmol/L 138-146 [facility] Activated partial thrombopla stin time (aPTT) in platelet poor plasma by coagulation aon 12-14-2020 aPTT Coag (PPP) [Time] 28.7 s 23.0-35.0 [facility] Automated basophil %on 12-14 Basophils/100 WBC (Bld) 0.2 % [facility] Automated basophil counton 0 12-14-2020 Basophils (Bld) [#/Vol] 0.0 10*3/uL 0.0-0.2 [facility] [place] Automated blood lymphocyte c ount (number/volume)on 12-14-2020 Lymphocytes (Bld) [#/Vol] 1.6 10*3/uL 1.00-4.8 [facility] [place] Automated blood lymphocyte c ount as percentage of total leukocyteson 12-14-2020 Lymphocytes/100 WBC (Bld) 17.4 % [facility] [place] Automated blood monocyte cou nton 12-14-2020 Monocytes (Bld) [#/Vol] 0.9 10*3/uL 0.0-0.8 [facility] [place] Automated blood platelet cou nt (count/volume)on 12-14-2020 Platelets (Bld) [#/Vol] 208 10*3/uL 150-450 [facility] [place] Automated blood platelet darrius n volume measurementon 12-14-2020 Platelet mean volume (Bld) [Entitic vol] 7.8 fL 6.6-10.1 [facility] [place] Automated eosinophil %on Eosinophils/100 WBC (Bld) 1.3 % [facility] [place] Automated eosinophil counton 12-14-2020 Eosinophils (Bld) [#/Vol] 0.1 10*3/uL 0.0-0.45 [facility] [place] Automated erythrocyte distri bution width ratioon 12-14-2020 Erythrocyte distribution width (RBC) [Ratio] 13.7 % 12.0-14.8 [facility] [place] Automated erythrocyte mean c orpuscular hemoglobin (mass per erythrocyte)on 12-14-2020 MCH (RBC) [Entitic mass] 32.0 pg 27.5-35.2 [facility] [place] Automated erythrocyte mean c orpuscular hemoglobin concentration measurement (mass/volon 12-14-2020 MCHC (RBC) [Mass/Vol] 33.9 g/dL 32.5-35.6 [facility] Automated erythrocyte mean c orpuscular volumeon 12-14-2020 MCV (RBC) [Entitic vol] 94.4 fL 83.5-101 [facility] Automated monocyte %on 12-14 Monocytes/100 WBC (Bld) 9.9 % [facility] Automated neutrophil %on Neutrophils/100 WBC (Bld) 71.2 % [facility] [place] Automated urine color determ inationon 12-14-2020 Color (U) Yellow Yellow [facility] [place] Blood erythrocytes automated count (number/volume)on 12-14-2020 RBC (Bld) [#/Vol] 4.17 10*6/uL 3.90-5.60 [facility] Blood hemoglobin measurement (mass/volume)on 12-14-2020 Hemoglobin (Bld) [Mass/Vol] 13.3 g/dL 13.0-17.0 [facility] [place] Blood leukocytes automated c ount (number/volume)on 12-14-2020 WBC (Bld) [#/Vol] 9.0 10*3/uL 4.5-11.0 [facility] Blood neutrophil count by au tomated method (number/volume)on 12-14-2020 Neutrophils (Bld) [#/Vol] 6.5 10*3/uL 1.8-7.7 [facility] [place] Body fluid albumin measureme nt (mass/volume)on 12-14-2020 Albumin (Body fld) [Mass/Vol] 4.6 g/dL 3.2-5.5 [facility] [place] Estimated glomerular filtrat ion rate (GFR) non- Americanon 12-14-2020 GFR/1.73 sq M predicted among non-blacks MDRD (S/P/Bld) [Vol rate/Area] mL/min/{1.73_m2} [facility] [place] Fibrinogen measurement in pl atelet poor plasma by coagulation assay (mass/volume)on 12-14-2020 Fibrinogen Coag (PPP) [Mass/Vol] 218 mg/dL 150-400 [facility] [place] Hematocrit [Volume Fraction] of Blood by Automated counton 12-14-2020 Hematocrit (Bld) [Volume fraction] 39.4 % 38.8-50.0 [facility] [place] Hematologyon 12-14-2020 PT Coag (PPP) [Time] 10.7 s 9.0-12.9 [facility] Otheron 12-14-2020 GFR/1.73 sq M.predicted MDRD (S/P/Bld) [Vol rate/Area] mL/min/{1.73_m2} [facility] [place] Comment on above: GFR estimated refere nce range: According to KDOQI guidelines, <60 ml/min/1.73m2 is sufficient to diagnose a patient with chronic kidney disease. Nucleated RBC/100 WBC (Bld) [Ratio] 0.1 % 0-0.5 [facility] [place] [facility] Creatinine Clearance (Chem N/A [facility] [place] Platelet poor plasma interna tional normalized ratio (INR) by coagulation assay (relaton 12-14-2020 INR Coag (PPP) [Relative time] 1.0 {INR} [facility] [place] Comment on above: INR Therapeutic Rang e A) Pre- and Peroperative OAT started two weeks before surgery. NOT HIP SURGERY: 1.5 - 2.5 HIP SURGERY: 2 - 3B) Primary and secondary prevention of venous THROMBOSIS: 2 - 3C) Active venous thrombosis, pulmonary embolismand prevention of recurrent venous thrombosis: 2 - 3D) Prevention of arterial thromboembolismincluding patients with mechanical heart valves: 3 - 4.5 Protein [Mass/volume] in Ser um or Plasmaon 12-14-2020 Protein [Mass/Vol] 7.2 g/dL 6.1-7.9 [facility] Serum globulin measurement b y calculation (mass/volume)on 12-14-2020 Globulin (S) [Mass/Vol] 2.6 g/dL [facility] Serum or plasma alanine clark otransferase measurement without P-5'-P (enzymatic activion 12-14-2020 ALT No additional P-5'-P [Catalytic activity/Vol] 20 U/L 10-60 [facility] [place] Serum or plasma albumin/glob ulin mass ratioon 12-14-2020 Albumin/Globulin [Mass ratio] 1.8 {ratio} [facility] [place] Serum or plasma alkaline matt sphatase measurement (enzymatic activity/volume)on 12-14-2020 ALP [Catalytic activity/Vol] 45 U/L 32-92 [facility] [place] Serum or plasma aspartate am inotransferase measurement (enzymatic activity/volume)on 12-14-2020 AST [Catalytic activity/Vol] 25 U/L 10-42 [facility] Serum or plasma calcium jordan urement (mass/volume)on 12-14-2020 Calcium [Mass/Vol] 9.9 mg/dL 8.2-10.2 [facility] Serum or plasma chloride darrius surement (moles/volume)on 12-14-2020 Chloride [Moles/Vol] 95 mmol/L 95-114 [facility] Serum or plasma creatinine m easurement with calculation of estimated glomerular filtron 12-14-2020 Creatinine [Mass/Vol] 0.78 mg/dL 0.64-1.27 [facility] Serum or plasma glucose jordan urement (mass/volume)on 12-14-2020 Glucose [Mass/Vol] 90 mg/dL 70-100 [facility] Comment on above: ADA recommended refe rence rangeRandom Glucose Reference Range is dependent on time and content of last meal. Glucose of more than 200 mg/dL in a nonstressed, ambulatory subject supports the diagnosis of Diabetes Mellitus. Serum or plasma potassium me asurement (moles/volume)on 12-14-2020 Potassium [Moles/Vol] 4.3 mmol/L 3.5-5.1 [facility] Serum or plasma sodium measu rement (moles/volume)on 12-14-2020 Sodium [Moles/Vol] 136 mmol/L 136-146 [facility] Serum or plasma total biliru bin measurement (mass/volume)on 12-14-2020 Bilirubin [Mass/Vol] 0.7 mg/dL 0.3-1.2 [facility] Serum or plasma total carbon dioxide measurement (moles/volume)on 12-14-2020 CO2 [Moles/Vol] 26.4 mmol/L 22.0-30.0 [facility] Serum or plasma urea nitroge n measurement (mass/volume)on 12-14-2020 Urea nitrogen [Mass/Vol] 15 mg/dL 9-23 [facility] Specific gravity of Urine by Automated test stripon 12-14-2020 Specific gravity (U) [Rel density] 1.011 1.001-1.03 0 [facility] Urine clarity by refractomet ry automatedon 12-14-2020 Clarity Refractometry automated (U) Clear Clear [facility] Urine culture routineon 11-27 Bacteria identified Cx Nom (U) No Growth 2 Days [facility] Urine glucose measurement by automated test strip (mass/volume)on 12-14-2020 Glucose Auto test strip (U) [Mass/Vol] Normal mg/dL Normal [facility] Urine hemoglobin detection b y automated test stripon 12-14-2020 Hemoglobin Auto test strip Ql (U) Negative Negative [facility] Urine ketones measurement by automated test strip (mass/volume)on 12-14-2020 Ketones (U) [Mass/Vol] Negative Negative [facility] Urine leukocyte esterase det ection by automated test stripon 12-14-2020 Leukocyte esterase Auto test strip Ql (U) Negative Negative [facility] Urine nitrite detection by t est stripon 12-14-2020 Nitrite Ql (U) Negative Negative [facility] Urine pH measurement by auto mated test stripon 12-14-2020 pH (U) 7.0 [pH] 5.0-9.0 [facility] Urine protein measurement by automated test strip (mass/volume)on 12-14-2020 Protein (U) [Mass/Vol] Negative Negative [facility] Urine total bilirubin detect ion by test stripon 12-14-2020 Bilirubin Ql (U) Negative Negative [facility] Urine urobilinogen measureme nt by automated test strip (mass/volume)on 12-14-2020 Urobilinogen (U) [Mass/Vol] Normal mg/dL Normal [facility] COVID-19 Positive/Negativeon 11-26-2020 COVID-19 Positive/Negative Positive Negative [facility] Comment on above: Testing for SARS-CoV -2 by RT-PCRThis test was developed and its performance characteristics determined by [employer] ([employer]) and validated at the [facility]. This test has not been FDA cleared or approved. This test has been authorized by FDA under an Emergency Use Authorization (EUA). This test has been validated in accordance with the FDA's Guidance Document (Policy for Diagnostics Testing in Laboratories Certified to Perform High Complexity Testing under CLIA prior to Emergency Use Authorization for Coronavirus Disease-2019 during the Public Health Emergency) issued on February 27, 2020. This test is only authorized for the duration of time the declaration that circumstances exist justifying the authorization of the emergency use of in vitro diagnostic tests for detection of SARS-CoV-2 virus and/or diagnosis of COVID-19 infection under section 564(b)(1) of the Act, 21 U.S.C. 360bbb-3(b)(1), unless the authorization is terminated or revoked sooner. Otheron 11-26-2020 Coronavirus 2019 PCR Interp N/A [facility] Urine culture routineon 10-28 Bacteria identified Cx Nom (U) No Growth 2 Days [facility] Activated partial thrombopla stin time (aPTT) in platelet poor plasma by coagulation aon 11-17-2020 aPTT Coag (PPP) [Time] 25.9 s 23.0-35.0 Fi relaReplaced by [facility] Albumin [Mass/volume] in Ser um or Plasmaon 11-17-2020 Albumin [Mass/Vol] 4.3 g/dL 3.2-5.5 [facility] Automated basophil %on 11-17 Basophils/100 WBC (Bld) 0.4 % [facility] Automated basophil counton 1 01-18-2020 Basophils (Bld) [#/Vol] 0.0 10*3/uL 0.0-0.2 [facility] Automated blood lymphocyte c ount (number/volume)on 11-17-2020 Lymphocytes (Bld) [#/Vol] 1.3 10*3/uL 1.00-4.8 [facility] Automated blood lymphocyte c ount as percentage of total leukocyteson 11-17-2020 Lymphocytes/100 WBC (Bld) 17.5 % [facility] Automated blood monocyte cou nton 11-17-2020 Monocytes (Bld) [#/Vol] 0.8 10*3/uL 0.0-0.8 [facility] Automated blood platelet cou nt (count/volume)on 11-17-2020 Platelets (Bld) [#/Vol] 182 10*3/uL 150-450 [facility] Automated blood platelet darrius n volume measurementon 11-17-2020 Platelet mean volume (Bld) [Entitic vol] 8.1 fL 6.6-10.1 [facility] Automated eosinophil %on Eosinophils/100 WBC (Bld) 2.0 % [facility] Automated eosinophil counton 11-17-2020 Eosinophils (Bld) [#/Vol] 0.1 10*3/uL 0.0-0.45 [facility] Automated erythrocyte distri bution width ratioon 11-17-2020 Erythrocyte distribution width (RBC) [Ratio] 13.8 % 12.0-14.8 [facility] Automated erythrocyte mean c orpuscular hemoglobin (mass per erythrocyte)on 11-17-2020 MCH (RBC) [Entitic mass] 32.9 pg 27.5-35.2 [facility] Automated erythrocyte mean c orpuscular hemoglobin concentration measurement (mass/volon 11-17-2020 MCHC (RBC) [Mass/Vol] 34.7 g/dL 32.5-35.6 [facility] Automated erythrocyte mean c orpuscular volumeon 11-17-2020 MCV (RBC) [Entitic vol] 94.9 fL 83.5-101 [facility] Automated erythrocytes count in urine sediment (number/area)on 11-17-2020 RBC Auto (Urine sed) [#/Area] 3-4 [HPF] [facility] Automated leukocytes count i n urine sediment (number/area)on 11-17-2020 WBC Auto (Urine sed) [#/Area] 1-2 [HPF] [facility] Automated monocyte %on 11-17 Monocytes/100 WBC (Bld) 11.5 % [facility] Automated neutrophil %on Neutrophils/100 WBC (Bld) 68.6 % [facility] Automated urine color determ inationon 11-17-2020 Color (U) Yellow Yellow [facility] Automated urine hyaline cast s count (number/volume)on 11-17-2020 Hyaline casts Auto (U) [#/Vol] 50-100 [LPF] [facility] Blood erythrocytes automated count (number/volume)on 11-17-2020 RBC (Bld) [#/Vol] 3.99 10*6/uL 3.90-5.60 [facility] Blood hemoglobin measurement (mass/volume)on 11-17-2020 Hemoglobin (Bld) [Mass/Vol] 13.1 g/dL 13.0-17.0 [facility] Blood leukocytes automated c ount (number/volume)on 11-17-2020 WBC (Bld) [#/Vol] 7.3 10*3/uL 4.1-10.5 [facility] Blood neutrophil count by au tomated method (number/volume)on 11-17-2020 Neutrophils (Bld) [#/Vol] 5.0 10*3/uL 1.8-7.7 [facility] COVID-19 Positive/Negativeon 11-17-2020 COVID-19 Positive/Negative Negative Negative [facility] Comment on above: Testing for SARS-CoV -2 by RT-PCRThis test was developed and its performance characteristics determined by [employer] and validated at the [facility]. This test has not been FDA cleared or approved. This test has been authorized by FDA under an Emergency Use Authorization (EUA). This test has been validated in accordance with the FDA's Guidance Document (Policy for Diagnostics Testing in Laboratories Certified to Perform High Complexity Testing under CLIA prior to Emergency Use Authorization for Coronavirus Disease-2019 during the Public Health Emergency) issued on February 27, 2020. This test is only authorized for the duration of time the declaration that circumstances exist justifying the authorization of the emergency use of in vitro diagnostic tests for detection of SARS-CoV-2 virus and/or diagnosis of COVID-19 infection under section 564(b)(1) of the Act, 21 U.S.C. 360bbb-3(b)(1), unless the authorization is terminated or revoked sooner. Casts typing in urine sedime nt by light microscopyon 11-17-2020 Casts LM Nom (Urine sed) None seen [LPF] None Seen [facility] Estimated glomerular filtrat ion rate (GFR) non- Americanon 11-17-2020 GFR/1.73 sq M predicted among non-blacks MDRD (S/P/Bld) [Vol rate/Area] mL/min/{1.73_m2} [facility] Fibrinogen measurement in pl atelet poor plasma by coagulation assay (mass/volume)on 11-17-2020 Fibrinogen Coag (PPP) [Mass/Vol] 197 mg/dL 150-400 [facility] Hematocrit [Volume Fraction] of Blood by Automated counton 11-17-2020 Hematocrit (Bld) [Volume fraction] 37.9 % 38.8-50.0 [facility] Hematologyon 11-17-2020 PT Coag (PPP) [Time] 10.4 s 9.0-12.9 [facility] Otheron 11-17-2020 GFR/1.73 sq M.predicted MDRD (S/P/Bld) [Vol rate/Area] mL/min/{1.73_m2} [facility] Comment on above: GFR estimated refere nce range: According to KDOQI guidelines, <60 ml/min/1.73m2 is sufficient to diagnose a patient with chronic kidney disease. Nucleated RBC/100 WBC (Bld) [Ratio] 0.1 % 0-0.5 [facility] Creatinine Clearance (Chem N/A [facility] Coronavirus 2019 PCR Interp N/A [facility] Platelet poor plasma interna tional normalized ratio (INR) by coagulation assay (relaton 11-17-2020 INR Coag (PPP) [Relative time] 0.9 {INR} [facility] Comment on above: INR Therapeutic Rang e A) Pre- and Peroperative OAT started two weeks before surgery. NOT HIP SURGERY: 1.5 - 2.5 HIP SURGERY: 2 - 3B) Primary and secondary prevention of venous THROMBOSIS: 2 - 3C) Active venous thrombosis, pulmonary embolismand prevention of recurrent venous thrombosis: 2 - 3D) Prevention of arterial thromboembolismincluding patients with mechanical heart valves: 3 - 4.5 Protein [Mass/volume] in Ser um or Plasmaon 11-17-2020 Protein [Mass/Vol] 6.7 g/dL 6.1-7.9 [facility] Serum globulin measurement b y calculation (mass/volume)on 11-17-2020 Globulin (S) [Mass/Vol] 2.4 g/dL [facility] Serum or plasma alanine clark otransferase measurement without P-5'-P (enzymatic activion 11-17-2020 ALT No additional P-5'-P [Catalytic activity/Vol] 22 U/L 10-60 [facility] Serum or plasma albumin/glob ulin mass ratioon 11-17-2020 Albumin/Globulin [Mass ratio] 1.8 {ratio} [facility] Serum or plasma alkaline matt sphatase measurement (enzymatic activity/volume)on 11-17-2020 ALP [Catalytic activity/Vol] 47 U/L 32-92 [facility] Serum or plasma aspartate am inotransferase measurement (enzymatic activity/volume)on 11-17-2020 AST [Catalytic activity/Vol] 25 U/L 10-42 [facility] Serum or plasma calcium jordan urement (mass/volume)on 11-17-2020 Calcium [Mass/Vol] 10.0 mg/dL 8.2-10.2 [facility] Serum or plasma chloride darrius surement (moles/volume)on 11-17-2020 Chloride [Moles/Vol] 99 mmol/L 95-114 [facility] Serum or plasma creatinine m easurement with calculation of estimated glomerular filtron 11-17-2020 Creatinine [Mass/Vol] 0.97 mg/dL 0.64-1.27 [facility] Serum or plasma glucose jordan urement (mass/volume)on 11-17-2020 Glucose [Mass/Vol] 95 mg/dL 70-100 [facility] Comment on above: ADA recommended refe rence rangeRandom Glucose Reference Range is dependent on time and content of last meal. Glucose of more than 200 mg/dL in a nonstressed, ambulatory subject supports the diagnosis of Diabetes Mellitus. Serum or plasma potassium me asurement (moles/volume)on 11-17-2020 Potassium [Moles/Vol] 4.3 mmol/L 3.5-5.1 [facility] Serum or plasma sodium measu rement (moles/volume)on 11-17-2020 Sodium [Moles/Vol] 136 mmol/L 136-146 [facility] Serum or plasma total biliru bin measurement (mass/volume)on 11-17-2020 Bilirubin [Mass/Vol] 0.8 mg/dL 0.3-1.2 [facility] Serum or plasma total carbon dioxide measurement (moles/volume)on 11-17-2020 CO2 [Moles/Vol] 24.0 mmol/L 22.0-30.0 [facility] Serum or plasma urea nitroge n measurement (mass/volume)on 11-17-2020 Urea nitrogen [Mass/Vol] 17 mg/dL 08-19 [facility] Specific gravity of Urine by Automated test stripon 11-17-2020 Specific gravity (U) [Rel density] 1.019 1.001-1.03 0 [facility] Squamous epithelial cells de tection in urine sediment by light microscopyon 11-17-2020 Epithelial cells.squamous LM Ql (Urine sed) 0-1 [HPF] [facility] Urine bacteria detection by automated methodon 11-17-2020 Bacteria Auto Ql (U) None seen None Seen [facility] Urine clarity by refractomet ry automatedon 11-17-2020 Clarity Refractometry automated (U) Clear Clear [facility] Urine culture routineon 10-28 Bacteria identified Cx Nom (U) 2 Days [facility] Urine glucose measurement by automated test strip (mass/volume)on 11-17-2020 Glucose Auto test strip (U) [Mass/Vol] Normal mg/dL Normal [facility] Urine hemoglobin detection b y automated test stripon 11-17-2020 Hemoglobin Auto test strip Ql (U) Negative Negative [facility] Urine ketones measurement by automated test strip (mass/volume)on 11-17-2020 Ketones (U) [Mass/Vol] Trace Negative [facility] Urine leukocyte esterase det ection by automated test stripon 11-17-2020 Leukocyte esterase Auto test strip Ql (U) Negative Negative [facility] Urine nitrite detection by t est stripon 11-17-2020 Nitrite Ql (U) Negative Negative [facility] Urine pH measurement by auto mated test stripon 11-17-2020 pH (U) 5.5 [pH] 5.0-9.0 [facility] Urine protein measurement by automated test strip (mass/volume)on 11-17-2020 Protein (U) [Mass/Vol] Trace mg/dL Negative [facility] Urine total bilirubin detect ion by test stripon 11-17-2020 Bilirubin Ql (U) Negative Negative [facility] Urine urobilinogen measureme nt by automated test strip (mass/volume)on 11-17-2020 Urobilinogen (U) [Mass/Vol] Normal mg/dL Normal [facility] Activated partial thrombopla stin time (aPTT) in platelet poor plasma by coagulation aon 11-03-2020 aPTT Coag (PPP) [Time] 26.1 s 23.0-35.0 Fi relaReplaced by [facility] Automated basophil %on 11-03 Basophils/100 WBC (Bld) 0.7 % [facility] Automated basophil counton 1 01-04-2020 Basophils (Bld) [#/Vol] 0.1 10*3/uL 0.0-0.2 [facility] Automated blood lymphocyte c ount (number/volume)on 11-03-2020 Lymphocytes (Bld) [#/Vol] 1.5 10*3/uL 1.00-4.8 [facility] Automated blood lymphocyte c ount as percentage of total leukocyteson 11-03-2020 Lymphocytes/100 WBC (Bld) 22.6 % [facility] Automated blood monocyte cou nton 11-03-2020 Monocytes (Bld) [#/Vol] 0.8 10*3/uL 0.0-0.8 [facility] Automated blood platelet cou nt (count/volume)on 11-03-2020 Platelets (Bld) [#/Vol] 196 10*3/uL 150-450 [facility] Automated blood platelet darrius n volume measurementon 11-03-2020 Platelet mean volume (Bld) [Entitic vol] 8.0 fL 6.6-10.1 [facility] Automated eosinophil %on Eosinophils/100 WBC (Bld) 3.1 % [facility] Automated eosinophil counton 11-03-2020 Eosinophils (Bld) [#/Vol] 0.2 10*3/uL 0.0-0.45 [facility] Automated erythrocyte distri bution width ratioon 11-03-2020 Erythrocyte distribution width (RBC) [Ratio] 13.6 % 12.0-14.8 [facility] Automated erythrocyte mean c orpuscular hemoglobin (mass per erythrocyte)on 11-03-2020 MCH (RBC) [Entitic mass] 32.1 pg 27.5-35.2 [facility] Automated erythrocyte mean c orpuscular hemoglobin concentration measurement (mass/volon 11-03-2020 MCHC (RBC) [Mass/Vol] 33.8 g/dL 32.5-35.6 [facility] Automated erythrocyte mean c orpuscular volumeon 11-03-2020 MCV (RBC) [Entitic vol] 95.1 fL 83.5-101 [facility] Automated monocyte %on 11-03 Monocytes/100 WBC (Bld) 11.2 % [facility] Automated neutrophil %on Neutrophils/100 WBC (Bld) 62.4 % [facility] Blood erythrocytes automated count (number/volume)on 11-03-2020 RBC (Bld) [#/Vol] 4.24 10*6/uL 3.90-5.60 [facility] Blood hemoglobin measurement (mass/volume)on 11-03-2020 Hemoglobin (Bld) [Mass/Vol] 13.6 g/dL 13.0-17.0 [facility] Blood leukocytes automated c ount (number/volume)on 11-03-2020 WBC (Bld) [#/Vol] 6.9 10*3/uL 4.1-10.5 [facility] Blood neutrophil count by au tomated method (number/volume)on 11-03-2020 Neutrophils (Bld) [#/Vol] 4.3 10*3/uL 1.8-7.7 [facility] Cholesterol [Mass/volume] in Serum or Plasmaon 11-03-2020 Cholesterol [Mass/Vol] 249 mg/dL 140-200 [facility] Comment on above: Chol less than 200 m g/dl low riskChol 201-239 mg/dl borderline riskChol 240 mg/dl and greater high risk Cholesterol in LDL [Mass/vol ume] in Serum or Plasma by calculationon 11-03-2020 Cholesterol in LDL [Mass/Vol] 152 mg/dL 0-100 [facility] Comment on above: LDL ATP III CLASSIFI CATIONLDL less than 100 mg/dL OptimalLDL 100-129 mg/dL Near or above optimalLDL 130-159 mg/dL Borderline highLDL 160-189 mg/dL HighLDL greater than 189 mg/dL Very high Cholesterol in VLDL [Mass/vo lume] in Serum or Plasma by calculationon 11-03-2020 Cholesterol in VLDL [Mass/Vol] 13 mg/dL [facility] Estimated glomerular filtrat ion rate (GFR) non- Americanon 11-03-2020 GFR/1.73 sq M predicted among non-blacks MDRD (S/P/Bld) [Vol rate/Area] mL/min/{1.73_m2} [facility] Hematocrit [Volume Fraction] of Blood by Automated counton 11-03-2020 Hematocrit (Bld) [Volume fraction] 40.3 % 38.8-50.0 [facility] Hematologyon 11-03-2020 PT Coag (PPP) [Time] 11.2 s 9.0-12.9 [facility] Otheron 11-03-2020 GFR/1.73 sq M.predicted MDRD (S/P/Bld) [Vol rate/Area] mL/min/{1.73_m2} [facility] Comment on above: GFR estimated refere nce range: According to KDOQI guidelines, <60 ml/min/1.73m2 is sufficient to diagnose a patient with chronic kidney disease. Nucleated RBC/100 WBC (Bld) [Ratio] 0.0 % 0-0.5 [facility] Creatinine Clearance (Chem 78.38 [facility] Platelet poor plasma interna tional normalized ratio (INR) by coagulation assay (relaton 11-03-2020 INR Coag (PPP) [Relative time] 1.0 {INR} [facility] Comment on above: INR Therapeutic Rang e A) Pre- and Peroperative OAT started two weeks before surgery. NOT HIP SURGERY: 1.5 - 2.5 HIP SURGERY: 2 - 3B) Primary and secondary prevention of venous THROMBOSIS: 2 - 3C) Active venous thrombosis, pulmonary embolismand prevention of recurrent venous thrombosis: 2 - 3D) Prevention of arterial thromboembolismincluding patients with mechanical heart valves: 3 - 4.5 Serum or plasma chloride darrius surement (moles/volume)on 11-03-2020 Chloride [Moles/Vol] 102 mmol/L 95-114 [facility] Serum or plasma creatinine m easurement with calculation of estimated glomerular filtron 11-03-2020 Creatinine [Mass/Vol] 0.68 mg/dL 0.64-1.27 [facility] Serum or plasma high density lipoprotein (HDL) cholesterol measurementon 11-03-2020 Cholesterol in HDL [Mass/Vol] 83 mg/dL 29-71 [facility] Comment on above: HDL CHOL ATP-III CLA SSIFICATION Cardiovascular RiskHDL > or equal to 60 mg/dL LOWHDL < 40 mg/dL HIGH Serum or plasma potassium me asurement (moles/volume)on 11-03-2020 Potassium [Moles/Vol] 3.8 mmol/L 3.5-5.1 [facility] Serum or plasma sodium measu rement (moles/volume)on 11-03-2020 Sodium [Moles/Vol] 138 mmol/L 136-146 [facility] Serum or plasma total carbon dioxide measurement (moles/volume)on 11-03-2020 CO2 [Moles/Vol] 22.4 mmol/L 22.0-30.0 [facility] Serum or plasma total choles terol/high density lipoprotein (HDL) cholesterol mass romy 11-03-2020 Cholesterol.total/Tarah sterol in HDL [Mass ratio] 3.0 {ratio} [facility] Serum or plasma urea nitroge n measurement (mass/volume)on 11-03-2020 Urea nitrogen [Mass/Vol] 12 mg/dL 9- [facility] Triglyceride [Mass/volume] i n Serum or Plasmaon 11-03-2020 Triglyceride [Mass/Vol] 68 mg/dL 35-149 [facility] Comment on above: TRIG ATP III CLASSIF ICATIONTRIG less than 150 mg/dL NormalTRIG 150-199 mg/dL Borderline highTRIG 200-500 mg/dL High TRIG greater than 500 mg/dL Very highStandard traceable to the Center for Disease Conrtrol and Prevention (CDC) test method. [facility] CARDIAC STRESS/REST ([facility]OUIE CARDIAL PERFUSION/MIBI)on 10-27-2020 [facility] C[facility] STRESS/REST (MYOCARDIAL PERFUSION/MIBI) Patient Name: STAN MCDONALD STUDY: MYOCARDIAL PERFUSION STRESS TEST WITH LEXISCAN Performing facility: [facility], [address] [place] [address], [address], [place] [address] [facility] Provider: WP ARCE PCP: Dr. Taurus ZABALA SURGEON: DR Kraig POTTER Supervising provider: WP ARCE INDICATION: HX PTCA CAD HYPER LIPID Pre-operative risk assessment for KNEE scheduled at [facility] on [facility]. HISTORY: Gender: M; Age: 74 y/o ; Height: 172.72 cm; Weight: 75.7355222 kg. HTN High Cholesterol; CAD RBBB Family HX CAD; Quit smoking REMOTE years ago. PTCA on 2008. COMPARISON: Previous nuclear testing completed at [facility]. ACCESSION NUMBER(S): [id number] ORDERING CLINICIAN: FAHAD ARCE TECHNIQUE: ONE DAY protocol. Stress injection: Date:10/27/2020, 32.2 mCi of Myoview IV 20 seconds after rapid injection of Lexiscan. Rest injection: Date: 10/27/2020, 10.6 mCi of Myoview IV at rest. The patient had a rapid injection of 0.4 mg of Lexiscan IV over 10 seconds. Imaging was performed by gated tomographic technique. Reason for Lexiscan: hip/knee pain STRESS TEST DATA: Resting heart rate was 66 BPM. Resting blood pressure was 172/90 mmHg. Peak blood pressure was 140/82 mmHg. Peak heart rate was 75 BPM. TEST TERMINATED DUE TO: Protocol completed FINDINGS: STRESS TEST RESULTS: Resting electrocardiogram revealed normal sinus rhythm with right bundle branch block. There were no significant ischemic ECG changes or dysrhythmias. The patient did not have chest pains/symptoms during procedure. There was a normal recovery phase. IMAGING RESULTS: Image quality was good. Rest and stress tomographic images were reviewed and revealed abnormal perfusion. There was evidence of perfusion abnormality with small area of mild/moderate/severe which is reversible on rest images consistent with inferolateral ischemia. There was no evidence of myocardial infarction. There was not left ventricular dilatation with stress. Overall left ventricular systolic function appeared to be normal. With normal wall motion. LVEF was 67%. TID is 1.04 and is normal. There were evidence of inferolateral attenuation artifact. IMPRESSION: Abnormal Lexiscan Myoview cardiac perfusion stress test. Mild inferolateral myocardial ischemia by perfusion imaging. No myocardial infarction by perfusion imaging. Normal left ventricular systolic function. Left ventricular ejection fraction 67 %. No change when compared to prior study 10 years earlier. Electronically signed by: ROB MERCHANT MD Normal [facility] CARDIAC STRESS/REST INJE CTIONon 10-27-2020 [facility] CARDIAC STRESS/REST INJECTION Patient Name: STAN MCDONALD STUDY: MYOCARDIAL PERFUSION STRESS TEST WITH LEXISCAN Performing facility: [facility], [address] [place] [address], [address], [address] Provider: WP ARCE PCP: Dr. Taurus ZABALA SURGEON: DR Kraig POTTER Supervising provider: WP ARCE INDICATION: HX PTCA CAD HYPER LIPID Pre-operative risk assessment for KNEE scheduled at [facility] on [facility]. HISTORY: Gender: M; Age: 74 y/o ; Height: 172.72 cm; Weight: 75.9293224 kg. HTN High Cholesterol; CAD RBBB Family HX CAD; Quit smoking REMOTE years ago. PTCA on 2008. COMPARISON: Previous nuclear testing completed at [facility]. ACCESSION NUMBER(S): [id number] ORDERING CLINICIAN: FAHAD ARCE TECHNIQUE: ONE DAY protocol. Stress injection: Date:10/27/2020, 32.2 mCi of Myoview IV 20 seconds after rapid injection of Lexiscan. Rest injection: Date: 10/27/2020, 10.6 mCi of Myoview IV at rest. The patient had a rapid injection of 0.4 mg of Lexiscan IV over 10 seconds. Imaging was performed by gated tomographic technique. Reason for Lexiscan: hip/knee pain STRESS TEST DATA: Resting heart rate was 66 BPM. Resting blood pressure was 172/90 mmHg. Peak blood pressure was 140/82 mmHg. Peak heart rate was 75 BPM. TEST TERMINATED DUE TO: Protocol completed FINDINGS: STRESS TEST RESULTS: Resting electrocardiogram revealed normal sinus rhythm with right bundle branch block. There were no significant ischemic ECG changes or dysrhythmias. The patient did not have chest pains/symptoms during procedure. There was a normal recovery phase. IMAGING RESULTS: Image quality was good. Rest and stress tomographic images were reviewed and revealed abnormal perfusion. There was evidence of perfusion abnormality with small area of mild/moderate/severe which is reversible on rest images consistent with inferolateral ischemia. There was no evidence of myocardial infarction. There was not left ventricular dilatation with stress. Overall left ventricular systolic function appeared to be normal. With normal wall motion. LVEF was 67%. TID is 1.04 and is normal. There were evidence of inferolateral attenuation artifact. IMPRESSION: Abnormal Lexiscan Myoview cardiac perfusion stress test. Mild inferolateral myocardial ischemia by perfusion imaging. No myocardial infarction by perfusion imaging. Normal left ventricular systolic function. Left ventricular ejection fraction 67 %. No change when compared to prior study 10 years earlier. Electronically signed by: ROB MERCHANT MD [facility] PART 2 STRESS OR REST (N O CHARGE)on 10-27-2020 [facility] PART 2 STRESS OR REST (NO CHARGE) Patient Name: STAN MCDONALD STUDY: MYOCARDIAL PERFUSION STRESS TEST WITH LEXISCAN Performing facility: [facility], [address] [place] [address], [address], [address] Provider: WP ARCE PCP: Dr. Taurus ZABALA SURGEON: DR Kraig POTTER Supervising provider: WP ARCE INDICATION: HX PTCA CAD HYPER LIPID Pre-operative risk assessment for KNEE scheduled at [facility] on [facility]. HISTORY: Gender: M; Age: 74 y/o ; Height: 172.72 cm; Weight: 75.5127498 kg. HTN High Cholesterol; CAD RBBB Family HX CAD; Quit smoking REMOTE years ago. PTCA on 2008. COMPARISON: Previous nuclear testing completed at [facility]. ACCESSION NUMBER(S): [id number] ORDERING CLINICIAN: FAHAD ARCE TECHNIQUE: ONE DAY protocol. Stress injection: Date:10/27/2020, 32.2 mCi of Myoview IV 20 seconds after rapid injection of Lexiscan. Rest injection: Date: 10/27/2020, 10.6 mCi of Myoview IV at rest. The patient had a rapid injection of 0.4 mg of Lexiscan IV over 10 seconds. Imaging was performed by gated tomographic technique. Reason for Lexiscan: hip/knee pain STRESS TEST DATA: Resting heart rate was 66 BPM. Resting blood pressure was 172/90 mmHg. Peak blood pressure was 140/82 mmHg. Peak heart rate was 75 BPM. TEST TERMINATED DUE TO: Protocol completed FINDINGS: STRESS TEST RESULTS: Resting electrocardiogram revealed normal sinus rhythm with right bundle branch block. There were no significant ischemic ECG changes or dysrhythmias. The patient did not have chest pains/symptoms during procedure. There was a normal recovery phase. IMAGING RESULTS: Image quality was good. Rest and stress tomographic images were reviewed and revealed abnormal perfusion. There was evidence of perfusion abnormality with small area of mild/moderate/severe which is reversible on rest images consistent with inferolateral ischemia. There was no evidence of myocardial infarction. There was not left ventricular dilatation with stress. Overall left ventricular systolic function appeared to be normal. With normal wall motion. LVEF was 67%. TID is 1.04 and is normal. There were evidence of inferolateral attenuation artifact. IMPRESSION: Abnormal Lexiscan Myoview cardiac perfusion stress test. Mild inferolateral myocardial ischemia by perfusion imaging. No myocardial infarction by perfusion imaging. Normal left ventricular systolic function. Left ventricular ejection fraction 67 %. No change when compared to prior study 10 years earlier. Electronically signed by: ROB MERCHANT MD [facility] Vital Signs Date Time Vital Sign Value Performing Clinician Facility 04-02-2024 09:34-0400 Body height 172.7 cm Shanti Olmos MD Work Phone: [facility] 04-02-2024 09:34-0400 Body mass index (BMI) [Ratio] 23.73 kg/m2 Shanti Olmos MD Work Phone: [facility] 04-02-2024 09:34-0400 Body temperature 96.6 [degF] Shanti Olmos MD Work Phone: [facility] 04-02-2024 09:34-0400 Body weight 70.8 kg Shanti Olmos MD Work Phone: [facility] 02-20-2024 09:17-0400 Body height 172.7 cm Shanti Olmos MD Work Phone: [facility] 02-20-2024 09:17-0400 Body mass index (BMI) [Ratio] 23.72 kg/m2 Shanti Olmos MD Work Phone: [facility] 02-20-2024 09:17-0400 Body temperature 96.4 [degF] Shanti Olmos MD Work Phone: [facility] 02-20-2024 09:17-0400 Body weight 70.76 kg Shanti Olmos MD Work Phone: [facility] 12-20-2023 15:01-0500 Body height 172.7 cm Almas Tello MD Work Phone: [facility] 12-20-2023 15:01-0500 Body mass index (BMI) [Ratio] 23.57 kg/m2 Almas Tello MD Work Phone: [facility] 12-20-2023 15:01-0500 Body weight 70.31 kg Almas Tello MD Work Phone: [facility] 10-03-2023 09:40-0500 Body height 172.7 cm Fahad Arce MD Work Phone: [facility] 10-03-2023 09:40-0500 Body mass index (BMI) [Ratio] 23.84 kg/m2 Fahad Arce MD Work Phone: [facility] 10-03-2023 09:40-0500 Body weight 71.12 kg Fahad Arce MD Work Phone: [facility] 10-03-2023 09:40-0500 Diastolic blood pressure 88 mm[Hg] Fahad Arce MD Work Phone: [facility] 10-03-2023 09:40-0500 Heart rate 52 /min Fahad Arce MD Work Phone: [facility] 10-03-2023 09:40-0500 Systolic blood pressure 142 mm[Hg] Fahad Arce MD Work Phone: [facility] 09-27-2022 10:01-0400 Body height 172.72 cm Almas Tello Work Phone: [facility] DO Work Phone: 09-27-2022 10:01-0400 Body mass index (BMI) [Ratio] 24.63 kg/m2 Almas Tello Work Phone: [facility] DO Work Phone: 09-27-2022 10:01-0400 Body surface area Derived from formula 1.87 m2 Almas Tello Work Phone: [facility] DO Work Phone: 09-27-2022 10:01-0400 Body weight 73.48 kg Almas Tello Work Phone: [facility] DO Work Phone: 09-27-2022 10:01-0400 Diastolic blood pressure 60 mm[Hg] Almas Tello Work Phone: [facility] DO Work Phone: 09-27-2022 10:01-0400 Heart rate 44 /min Almas Tello Work Phone: [facility] DO Work Phone: 09-27-2022 10:01-0400 Systolic blood pressure 138 mm[Hg] Almas Tello Work Phone: [facility] DO Work Phone: 11-17-2021 13:51-0500 Body height 172.72 cm Almas Tello Work Phone: [facility] DO Work Phone: 11-17-2021 13:51-0500 Body mass index (BMI) [Ratio] 24.78 kg/m2 Almas Deanyer Work Phone: [facility] DO Work Phone: 11-17-2021 13:51-0500 Body surface area Derived from formula 1.87 m2 Eddavid Deanyer Work Phone: [facility] DO Work Phone: 11-17-2021 13:51-0500 Body weight 73.94 kg Eddavid Deanyer Work Phone: [facility] DO Work Phone: 11-17-2021 13:51-0500 Diastolic blood pressure 84 mm[Hg] Almas Deanyer Work Phone: [facility] DO Work Phone: 11-17-2021 13:51-0500 Heart rate 56 /min Eddavid Deanyer Work Phone: [facility] DO Work Phone: 11-17-2021 13:51-0500 Systolic blood pressure 172 mm[Hg] Almas Deanyer Work Phone: [facility] DO Work Phone: 11-17-2021 13:45-0500 Body height 20.32 cm Almas Deanyer Work Phone: [facility] DO Work Phone: 11-17-2021 13:45-0500 Body mass index (BMI) [Ratio] 1790.67 kg/m2 Almas Deanyer Work Phone: [facility] DO Work Phone: 11-17-2021 13:45-0500 Body surface area Derived from formula 0.4 m2 Eddavid Deanyer Work Phone: [facility] DO Work Phone: 11-17-2021 13:45-0500 Body weight 73.94 kg Eddavid J Hemeyer Work Phone: [facility] DO Work Phone: 11-17-2021 13:45-0500 Diastolic blood pressure 84 mm[Hg] Edward J Hemeyer Work Phone: [facility] DO Work Phone: 11-17-2021 13:45-0500 Heart rate 56 /min Edward J Hemeyer Work Phone: [facility] DO Work Phone: 11-17-2021 13:45-0500 Systolic blood pressure 172 mm[Hg] Edward J Hemeyer Work Phone: [facility] DO Work Phone: 11-17-2021 13:40-0500 Diastolic blood pressure 78 mm[Hg] Edward J Hemeyer Work Phone: [facility] DO Work Phone: 11-17-2021 13:40-0500 Diastolic blood pressure 84 mm[Hg] Edward J Hemeyer Work Phone: [facility] DO Work Phone: 11-17-2021 13:40-0500 Diastolic blood pressure 76 mm[Hg] Edward J Hemeyer Work Phone: [facility] DO Work Phone: 11-17-2021 13:40-0500 Systolic blood pressure 162 mm[Hg] Edward J Hemeyer Work Phone: [facility] DO Work Phone: 11-17-2021 13:40-0500 Systolic blood pressure 172 mm[Hg] Almas Deanyer Work Phone: [facility] DO Work Phone: 11-17-2021 13:40-0500 56 1 Almas Deanyer Work Phone: [facility] DO Work Phone: Comment on above: PUL[employer]Ly PUL[employer]Sit 09-20-2021 08:24-0400 Body height 172.72 cm Eddavid Deanyer Work Phone: [facility] DO Work Phone: 09-20-2021 08:24-0400 Body mass index (BMI) [Ratio] 24.94 kg/m2 Almas Deanyer Work Phone: [facility] DO Work Phone: 09-20-2021 08:24-0400 Body surface area Derived from formula 1.88 m2 Almas Deanyer Work Phone: [facility] DO Work Phone: 09-20-2021 08:24-0400 Body weight 74.39 kg Almas Deanyer Work Phone: [facility] DO Work Phone: 09-20-2021 08:24-0400 Diastolic blood pressure 60 mm[Hg] Eddavid Ruiz Hemeyer Work Phone: [facility] DO Work Phone: 09-20-2021 08:24-0400 Heart rate 52 /min Almas Ruiz Hemeyer Work Phone: [facility] DO Work Phone: 09-20-2021 08:24-0400 Systolic blood pressure 130 mm[Hg] Eddavid Ruiz Hemeyer Work Phone: -[facility] DO Work Phone: 01-01-2021 11:21-0500 Body Temperature 98.1 [degF] [facility] 01-01-2021 11:21-0500 Pulse (Heart Rate) 79 /min [facility] 01-01-2021 11:21-0500 Pulse Oximetry 96 % [facility] 01-01-2021 11:21-0500 Respiratory Rate 16 /min [facility] 01-01-2021 04:24-0500 BP Diastolic 80 mm[Hg] [facility] 01-01-2021 04:24-0500 BP Systolic 147 mm[Hg] [facility] 12-28-2020 12:10-0500 Height 175.[address] [facility] 12-27-2020 04:15-0500 Body weight 75.[address] [facility] 12-26-2020 16:15-0500 BMI (Body Mass Index) 24.9 kg/m2 [facility] 12-26-2020 11:46-0500 Pulse (Heart Rate) 101 /min [facility] 12-26-2020 11:46-0500 Respiratory Rate 20 /min [facility] 12-26-2020 11:21-0500 Body Temperature 98.3 [degF] [facility] 12-26-2020 11:21-0500 BP Diastolic 76 mm[Hg] [facility] 12-26-2020 11:21-0500 BP Systolic 146 mm[Hg] [facility] 12-26-2020 11:21-0500 Pulse Oximetry 93 % [facility] 12-26-2020 05:46-0500 Body weight 76.[address] [facility] 12-24-2020 12:05-0500 Height 172.72 cm [facility] 12-17-2020 20:00-0500 Inhaled oxygen concentration 30 % [facility] 12-16-2020 11:47-0500 BMI (Body Mass Index) 25 kg/m2 [facility] 11-03-2020 15:18-0500 BP Diastolic 90 mm[Hg] [facility] 11-03-2020 15:18-0500 BP Systolic 156 mm[Hg] [facility] 11-03-2020 15:18-0500 Pulse (Heart Rate) 62 /min [facility] 11-03-2020 15:18-0500 Pulse Oximetry 100 % [facility] 11-03-2020 15:18-0500 Respiratory Rate 18 /min [facility] 11-03-2020 11:11-0500 BMI (Body Mass Index) 25.4 kg/m2 [facility] 11-03-2020 11:11-0500 Body Temperature 97.9 [degF] [facility] 11-03-2020 11:11-0500 Body weight 75.74 kg [facility] 11-03-2020 11:11-0500 Height 172.72 cm [facility] Encounters Encounter Date Encounter Type Care Provider Facility Start: 08-08-2024 End: 08-08-2024 ambulatory HANG PUENTE Not Available Start: 07-16-2024 End: 07-16-2024 ambulatory MIKA A PETITTI Not Available Start: 05-28-2024 End: 05-28-2024 ambulatory MIKA A PETITTI Not Available Start: 04-02-2024 End: 04-02-2024 ambulatory MIKA A PETITTI Not Available Start: 04-02-2024 End: 04-03-2024 ambulatory SHANTI OLMOS [facility] Start: 04-02-2024 End: 04-02-2024 Office outpatient visit 25 minutes Shanti Olmos MD Work Phone: [facility] Comment on above: Dysphonia (Primary D x); Vocal cord paralysis Start: 03-05-2024 End: 03-05-2024 Phys/qhp telephone evaluation 21-30 min Shanti Olmos MD Work Phone: [facility] Comment on above: Dysphonia (Primary D x); Vocal cord paralysis Start: 03-05-2024 End: 03-06-2024 ambulatory SHANTI OLMOS [facility] Start: 02-20-2024 End: 02-21-2024 ambulatory SHANTI OLMOS [facility] Start: 02-20-2024 End: 02-20-2024 Office outpatient new 45 minutes Shanti Olmos MD Work Phone: [facility] Comment on above: Dysphonia (Primary D x); Vocal cord paralysis Start: 01-24-2024 End: 01-24-2024 ambulatory PRETTY PORRASGentry Not Available Start: 12-28-2023 Telephone encounter February Xochitl JEFFERSS S Comment on above: Care Coordination Start: 12-20-2023 End: 12-20-2023 Office outpatient visit 15 minutes Almas Tello MD Work Phone: [facility] Comment on above: Acute non-recurrent maxillary sinusitis (Primary Dx); Laryngitis; Body mass index (BMI) 23.0-23.9, adult Start: 12-20-2023 End: 12-20-2023 ambulatory ALMAS TELLO Not Available Start: 10-12-2023 End: 10-12-2023 ambulatory MIKA ESPINOZA Not Available Start: 10-03-2023 End: 10-03-2023 ambulatory FAHAD ARCE [facility] Start: 10-03-2023 End: 10-03-2023 Office outpatient visit 25 minutes Fahad Arce MD Work Phone: [facility] Comment on above: Coronary artery dise ase involving [place] coronary artery of [place] heart without angina pectoris (Primary Dx); History of PTCA; S/P CABG (coronary artery bypass graft); Mixed hyperlipidemia Start: 10-10-2022 Rx Renewal Eddavid Draper er Work Phone: [facility] DO Work Phone: Start: 09-27-2022 Office outpatient vi sit 25 minutes Eddavid Tello Work Phone: [facility] DO Work Phone: Start: 09-27-2022 ambulatory Almas Deaneda Facility: Start: 12-24-2021 End: 12-25-[address] ALMAS TELLO Facility:[facility] Start: 11-17-2021 EKG, Provider: JESSICA BARTHOLOMEW BARIATRIC PROGRAM COORDINATOR 1,[id number], Status: Pen, Time: 1:30 PM Almas Deaneda Work Phone: [facility] DO Work Phone: Start: 11-17-2021 NURSEVST, Provider: JESSICA BARTHOLOMEW BARIATRIC PROGRAM COORDINATOR 1,[id number], Status: Pen, Time: 1:15 PM Eddavid Ruiz Omer Work Phone: [facility] DO Work Phone: Start: 11-17-2021 Office outpatient vi sit 5 minutes Eddavid Tello Work Phone: [facility] DO Work Phone: Start: 11-17-2021 ambulatory SOCIAL SCIENCE PROFESSOR Barbara Wilkinson Sharon y: Start: 11-16-2021 Patient encounter procedure Eddavid Tello Work Phone: [facility] DO Work Phone: Start: 10-11-2021 Rx Renewal Eddavid Deany er Work Phone: [facility] DO Work Phone: Start: 09-20-2021 Office outpatient vi sit 25 minutes Edward J Hemeyer Work Phone: -[facility] DO Work Phone: Start: 04-15-2021 End: 04-16-[address] FAHAD ARCE Facility:[facility] Start: 01-13-2021 End: 07-14-2021 ambulatory BETTY MCGEENURISJAMIE Facility:[facility] Start: 01-07-2021 End: 01-07-2021 Patient encounter procedure Fahad Arce -[facility] Start: 01-07-2021 [facility] Start: 12-26-2020 End: 01-01-2021 Evaluation and management of inpatient Fahad Arce -5 [facility] Start: 12-16-2020 End: 12-26-2020 Evaluation and management of inpatient Fahad Arce -4 [facility] Start: 12-14-2020 End: 12-14-2020 Patient encounter procedure Fahad Arce -Electrodiagnostics Start: 11-26-2020 End: 11-26-2020 Patient encounter procedure Fahad Arce -Pre-Surgical Testing Start: 11-23-2020 End: 11-23-2020 Patient encounter procedure Fahad Arce -Lab [facility] Start: 11-17-2020 End: 11-17-2020 Patient encounter procedure Fahad Arce -Pre-Surgical Testing Start: 11-03-2020 End: 11-03-2020 Admission to day surgery Fahad Arce -Encephalographer Procedures Date Procedure Procedure Detail Performing Clinician Start: 04-02-2024 LARYNGOSCOPY SHANTI OLMOS Start: 04-02-2024 ONCBCN CLINIC APPOINTMENT REQUEST SHANTI OLMOS Start: 04-02-2024 LARYNGOSCOPY Shanti Olmos MD Work Phone: Start: 02-20-2024 LARYNGOSCOPY SHANTI OLMOS Start: 02-20-2024 LARYNGOSCOPY Shanti Olmos MD Work Phone: Start: 10-02-2023 History of coronary artery bypass grafting S/P CABG (coronary artery bypass graft) Fahad Arce MD Work Phone: Start: 10-02-2023 History of percutaneous transluminal coronary angioplasty History of PTCA Fahad Arce MD Work Phone: Start: 01-07-2021 Plain chest X-ray Fahad Beytim Start: 01-01-2021 Plain chest X-ray Fahad Beytim Start: 12-31-2020 Plain chest X-ray Fahad Beytim Start: 12-28-2020 Plain chest X-ray Fahad Beytim Start: 12-27-2020 Plain chest X-ray Fahad Beytim Start: 12-26-2020 Plain chest X-ray Fahad Anguianopb Start: 12-25-2020 Plain chest X-ray Fahad Beytim Start: 12-24-2020 Plain chest X-ray Fahad Beytim Start: 12-23-2020 Plain chest X-ray Fahad Beytim Start: 12-22-2020 Plain chest X-ray Fahad Beytim Start: 12-21-2020 End: 12-21-2020 Plain chest X-ray Fahad Beytim Start: 12-20-2020 End: 12-20-2020 Plain chest X-ray Fahad Anguianopb Start: 12-19-2020 Plain chest X-ray Fahad Beytim Start: 12-18-2020 Plain chest X-ray Fahad Beytim Start: 12-17-2020 Plain chest X-ray Fahad Beytim Start: 12-16-2020 Plain chest X-ray Fahad Beytim Start: 12-16-2020 Coronary artery bypass graft Fahad cortezmichael Start: 12-16-2020 CT head/brain wo con Fahad Beytim Start: 12-14-2020 Bacteria identified Cx Nom (U) Fahad Pérez Olivia Start: 12-14-2020 Urine culture Fahad Anguianopb Start: 12-14-2020 Plain chest X-ray Fahad Anguianopb Start: 11-23-2020 Bacteria identified Cx Nom (U) Fahad Pérez Olivia Start: 11-23-2020 Urine culture Fahad Silviopb Start: 11-17-2020 Bacteria identified Cx Nom (U) Fahad Pérez Olivia Start: 11-17-2020 Urine culture Fahad Anguianopb Start: 11-17-2020 CT chest wo con Fahad Beytim Start: 11-17-2020 Doppler ultrasonography of bilateral carotid arteries Fahad Silviopb Start: 11-17-2020 Plain chest X-ray Fahad Silviopb Start: 11-17-2020 Pulse volume recorder pneumoplethysmography Fahad Arce Start: 11-17-2020 Ultrasound peripheral vascular flow study Fahad Arce Start: 11-03-2020 CL LHC & COR Angio Fahad Arce Cardiac catheterization Edwa maximo Ruiz Dianneeda Work Phone: [facility] Almas Tello Work Phone: Coronary artery bypass graft Almas Tello Work Phone: Hernia repair Almas Draper er Work Phone: History of coronary artery bypass grafting S/P CABG (coronary artery bypass graft) Almas Tello Work Phone: History of coronary artery bypass grafting S/P CABG (coronary artery bypass graft) Fahad Arce MD Work Phone: History of percutane ous transluminal coronary angioplasty History of PTCA Almas Tello Work Phone: History of percutane ous transluminal coronary angioplasty History of PTCA Fahad Arce MD Work Phone: Operation on brain Almas Tello Work Phone: Procedure on prostate Almas Ruiz Dianneeda Work Phone: Plan of Treatment Date Care Activity Detail Author Start: 10-01-2024 End: 10-01-2024 Patient encounter procedure 10/01/2024 9:50 AM EST Office Visit [facility] [address] [facility] [address] [place] [address] Fahad Arce MD [address] [facility] [address] [place] [address] [facility] Start: 07-28-2024 Influenza vaccination Influenza Vaccine (Season Ended) [facility] Start: 04-02-2024 End: 04-02-2024 Patient encounter procedure 04/02/2024 9:30 AM EDT Office Visit [facility] [address] [facility] [address] [place] [address] [place] [address] Department [place] [address] [facility] Start: 03-05-2024 End: 03-05-2024 Telemedicine consultation with patient 03/05/2024 3:30 PM EDT Telemedicine [facility] [address] [facility] [address] [place] [address] [place] [address] [address] Department [place] [address] [facility] Start: 02-20-2024 End: 02-20-2024 Patient encounter procedure 02/20/2024 9:15 AM EDT Office Visit [facility] [address] [place] [address] Mika Espinoza MD [address] [place] [address] [facility] Start: 10-03-2023 FUV, Provider: Fahad Arce, Status: Pen, Time: 9:30 AM FUV, Provider: Fahad Arce, Status: Pen, Time: 9:[address] [facility] DO Work Phone: Start: 07-28-2023 COVID-19 Vaccine ( season) COVID-19 Vaccine ( season) [facility] Start: 07-28-2023 Influenza vaccination Influenza Vaccine (#1) [facility] Start: 09-27-2022 FUV, Provider: Fahad Arce, Status: Pen, Time: 9:40 AM FUV, Provider: Fahad Arce, Status: Pen, Time: 9:[address] [facility] DO Work Phone: Start: 10-08-2021 Pneumococcal Vaccine: 65+ Years (2 - PCV) Pneumococcal Vaccine: 65+ Years (2 - PCV) [facility] Start: 10-08-2021 Pneumococcal Vaccine: 65+ Years (2 of 2 - PCV) Pneumococcal Vaccine: 65+ Years (2 of 2 - PCV) [facility] Start: 04-22-2021 COVID-19 Vaccine (3 - Pfizer series) COVID-19 Vaccine (3 - Pfizer series) [facility] Start: 2005 RSV patients and/or patients aged 60+ years (1 - 1-dose 60+ series) RSV patients and/or patients aged 60+ years (1 - 1-dose 60+ series) [facility] Start: 1995 Zoster Vaccines (1 of 2) Zoster Vaccines (1 of 2) [facility] Start: 1967 DTaP/Tdap/Td Vaccines (1 - Tdap) DTaP/Tdap/Td Vaccines (1 - Tdap) [facility] Start: 1963 Hepatitis C screening Hepatitis C Screening [facility] Start: 1945 Lipid panel Lipid Panel [facility] Start: 1945 Yearly Adult Physical Yearly Adult Physical [facility] Patient Education Soft Diet (DC) Abuse of Alcohol (DC) CABG (Coronary Artery Bypass Graft) (DC) [facility] Patient referral [facility] Immunizations Immunization Date Immunization Notes Care Provider Fa cilibradly 09-09-2022 Seasonal trivalent influenza vaccine, adjuvanted, preservative free Almas Tello Work Phone: [facility] 250 DO Work Phone: 09-09-2022 influenza virus vacc ine, unspecified formulation Fahad Arce MD Work Phone: [facility] Work Phone: 09-14-2021 Seasonal trivalent influenza vaccine, adjuvanted, preservative free Almas Tello Work Phone: [facility] 250 DO Work Phone: 02-25-2021 [employer] COVI D-19 Vacc 30 MCG/0.3ML Intramuscular Suspension Almas Ruiz Omer Work Phone: [facility] 250 DO Work Phone: 02-04-2021 Pfizer-BioNTech COVI D-19 Vacc 30 MCG/0.3ML Intramuscular Suspension Almas Ruiz Dianneyer Work Phone: [facility] 250 DO Work Phone: 10-08-2020 pneumococcal polysaccharide vaccine, 23 valsue Arce MD Work Phone: [facility] Work Phone: 10-02-2020 pneumococcal polysaccharide vaccine, 23 valent Almas Ruiz Dianneyer Work Phone: [facility] 250 DO Work Phone: 08-21-2020 Seasonal trivalent influenza vaccine, adjuvanted, preservative free Almas Ruiz Dianneyer Work Phone: [place] [id number] DO Work Phone: 07-28-2020 influenza, seasonal, injectable Almas Joseph Dianneyer Work Phone: [place] [address] DO Work Phone: Payers Date Payer Category Payer Medicare [id number] 2008 Managed Care HMO (unspecified) [employer]ET[employer] AETNA [id number] 2008-Present [address] [place] [address] HMO [id number] 2008 Private Health Insurance AETNA Scotty [facility] [id number] 2008-Present [address] [place] [address] [id number] 1959 Medicare [id number] 1959 [facility] Health Insurance [facility] [id number] 1945 Unknown [id number] 2.16.840.1.913111.3.579. 2.593 1945 Unknown [id number] 2.16.840.1.767071.3.579. 2.593 1945 Unknown [id number] 2.16.840.1.189383.3.579. 2.593 1945 Unknown [id number] 2.16.840.1.425047.3.579. 2.593 1945 Unknown [id number] 2.16.840.1.357004.3.579. 2.593 1945 Unknown [id number] 2.16.840.1.492996.3.579. 2.356 1945 Unknown [id number] 2.16.840.1.002686.3.579. 2.356 1945 Unknown [id number] 2.16.840.1.598043.3.579. 2.1244 1945 Unknown [id number] 2.16.840.1.212579.3.579. 2.1245 1945 Unknown [id number] 2.16.840.1.309743.3.579. 2.1245 1945 Unknown [id number] 2.16.840.1.469443.3.579. 2.1245 1945 Unknown [id number] 2.16.840.1.470496.3.579. 2.1259 1945 Unknown [id number] 2.16.840.1.005119.3.579. 2.1259 1945 Unknown [id number] 2.16.840.1.655990.3.579. 2.1259 1945 Unknown [id number] 2.16.840.1.557122.3.579. 2.1259 1945 Unknown [id number] 2.16.840.1.002464.3.579. 2.1259 1945 Unknown [id number] 2.16.840.1.808384.3.579. 2.1259 1945 Unknown [id number] 2.16.840.1.800679.3.579. 2.1259 Self-pay Self Pay [id number] Unknown [employer] Social History Date Type Detail Facility Start: 11-17-2020 End: 10-03-2023 Tobacco smoking status NHIS Ex-smoker (finding) [facility] Start: 1945 Sex Assigned At Male [facility] Start: 10-03-2023 End: 04-02-2024 Alcohol consumption of one to four drinks per day Alcohol consumption of one to four drinks per day [facility] Comment on above: QUIT 1999; History of tobacco use Current smoker [facility] Work Phone: History of tobacco use Cigarette Smoker [facility] Work Phone: Start: 10-03-2023 End: 10-12-2023 Tobacco use and exposure Smokeless tobacco non-user [facility] Work Phone: Start: 10-03-2023 End: 04-02-2024 Alcohol intake Current drinker of alcohol (finding) [facility] Work Phone: Start: 10-03-2023 End: 04-02-2024 Tobacco use panel [facility] Start: 1945 Sex Assigned At Not on file [facility] Work Phone: Start: 09-23-2023 End: 04-02-2024 Exposure to SARS-CoV-2 (event) Not sure [facility] History of tobacco use Passive smoker [facility] Start: 08-09-2023 Alcohol Comment caffeine:3-4 c ups per day [facility] Start: 02-24-2024 End: 03-05-2024 Exposure to SARS-CoV-2 (event) Unable to assess [facility] Goals Date Patient Goal Desired Activity /State Functional Status Date Assessment Result Facility 01-01-2021 Functional status Patient at Baseline [facility] 12-26-2020 Functional status Patient is Pro gressing Toward Baseline [facility] Mental Status Date Assessment Result Facility 01-01-2021 Cognitive function Cognitive Sta tus Patient at Baseline [facility] 12-26-2020 Cognitive function Cognitive Sta tus Patient is Progressing Toward Baseline [facility] Clinical Notes 03-19-2021 to 04-02-2024 Shanti Olmos MD - 04/02/2024 9:30 AM Marcelo Olmos MD - 03/05/2024 3:30 PM Marcelo Olmos MD - 02/20/2024 9:30 AM EDTTelephone Encounter - Almas Tello MD - 12/28/2023 4:28 PM EST Note Date & Type Note Facility 04-02-2024 History of Present illness Narrative Associated Order(s): Laryngoscopy Post-Procedure Diagnose(s): Vocal cord paralysis; Dysphonia Patient: Stan Mcdonald Date of : 1945 Sex: male Age: 78 y.o. Date of Service: 04/02/2024 ASSESSMENT AND PLAN I discussed the findings with Stan Mcdonald and have recommended the followin. 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 CT 01/2024 without masses or lesions. We discussed injection but this would likely narrow his airway given his contralateral hypomobility, so I do not recommend it at this time. - follow-up in person re-examination in 4 months CHIEF COMPLAINT Chief Complaint Patient presents with Follow-up HISTORY OF PRESENT ILLNESS Stan Mcdonald is a very kind 78 y.o. 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 The patient has a history of COPD, CAD s/p CABG. Hoarse since COVID infection in November. Last seen in office 02/20/24, recommended to consider nimodipine, which he decided not to start. He feels as though his voice may be a little better. No coughing or choking. Swallowing well. No dyspnea ADDITIONAL HISTORY Past Medical History He has no past medical history on file. Surgical History He has a past surgical history that includes Other surgical history (07/17/2018); Other surgical history (08/12/2021); Other surgical history (08/12/2021); Other surgical history (08/12/2021); Other surgical history (08/12/2021); and Other surgical history (08/12/2021). Social History He reports that he has quit smoking. His smoking use included cigarettes. He has never used smokeless tobacco. He reports current alcohol use. He reports that he does not use drugs. Allergies Patient has no known allergies. Family History Family History Problem Relation Name Age of Onset COPD Father REVIEW OF SYSTEMS All 10 systems were reviewed and negative except for above. PHYSICAL EXAM ENT Physical Exam GENERAL: Well-nourished and developed, alert and appropriate, no distress, voice [id number] RESPIRATORY: Breathing quietly, no stridor EYES: Pupils reactive, sclera clear, external ocular muscles intact, no nystagmus. EARS: Pinnae normal. External auditory canals clear and tympanic membranes intact. NOSE: No anterior lesions, masses or polyps. ORAL CAVITY/OROPHARYNX: Buccal mucosa is moist without lesions or masses, tongue midline and palate elevates symmetrically. NECK: Soft. There is no lymphadenopathy or thyromegaly. NEUROLOGIC: Cranial nerves II-XII grossly intact. Last Recorded Vitals Temperature 35.9 C (96.6 F), height 1.727 m (5' 8 ), weight 70.8 kg (156 lb 1.4 oz). RESULTS Patient Reported Outcome Measures N/A Laboratory, Radiology, and Pathology I personally reviewed the following results, with the following interpretation: CT neck with contrast, CT chest from 02/08/24 -no visualized masses or lesions -right arytenoid prolapse PROCEDURES Laryngoscopy Date/Time: 04/02/2024 9:58 AM Performed by: Shanti Olmos MD Authorized by: Shanti Olmos MD Flexible Fiberoptic Laryngoscopy Patient failed a mirror exam due to limitations of equipment and the need for laryngoscopy to assess laryngeal anatomy and function PREOPERATIVE DIAGNOSIS: dysphonia, vocal fold paralysis POSTOPERATIVE DIAGNOSIS: Same PROCEDURE: Transnasal videolaryngoscopy ANESTHESIA: Topical COMPLICATIONS: None SPECIMENS: None PROCEDURE IN DETAIL: The patient was brought into the endoscopy suite, placed in the upright position. The nasal cavity was topically decongested anesthetized. The distal chip video laryngoscope was passed through the nasal cavity. The nasal cavity and nasopharynx were within normal limits except noted below. The following findings on laryngoscopy were noted: Tongue Base: no masses or lesions Left vocal fold mobility: hypomobile Right vocal fold mobility: immobile, right arytenoid prolapse Glottal closure: complete Laryngeal muscle tension: abnormal Symmetry: symmetric Vocal fold free edge: no masses or lesions Other: mild pooled secretions left pyriform The patient tolerated the procedure well. ------ Shanti Olmos MD, MAEd [employer] [facility] Department of Otolaryngology - Head and Neck Surgery [facility] The total time I spent in care of this patient today (excluding time spent on other billable services) is as follows: Time Spent Prep time on day of patient encounter: 5 minutes Time spent directly with patient, family or caregiver: 15 minutes Additional Time Spent on Patient Care Activities: 5 minutes Documentation Time: 5 minutes Other Time Spent: 0 minutes Total: 30 minutes documented in this encounter [facility] Work Phone: 03-05-2024 History of Present illness Narrative Patient: Stan Mcdonald Date of : 1945 Sex: male Age: 78 y.o. Date of Service: 03/05/2024 ASSESSMENT AND PLAN I discussed the findings with Stan Mcdonald and have recommended the followin. 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 We discussed injection but this would likely narrow his airway given his contralateral hypomobility, so I do not recommend it at this time. We had discussed trialing nimodipine, which he picked up but did not start secondary to concern about side effects. Given that his voice feels improved, I do not feel like there is an urgent need to start the medication. He would like to consider. - if he does take the medication, check blood pressures daily and please call my office to set up a phone visit in 1 week after starting to assess tolerance and consider uptitrating to 60mg TID - follow-up in person re-examination in 3 months CHIEF COMPLAINT Follow-up dysphonia HISTORY OF PRESENT ILLNESS Stan Mcdonald is a very kind 78 y.o. 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 The patient has a history of COPD, CAD s/p CABG. Hoarse since COVID infection in November, . ADDITIONAL HISTORY Past Medical History He has no past medical history on file. Surgical History He has a past surgical history that includes Other surgical history (07/17/2018); Other surgical history (08/12/2021); Other surgical history (08/12/2021); Other surgical history (08/12/2021); Other surgical history (08/12/2021); and Other surgical history (08/12/2021). Social History He reports that he has quit smoking. His smoking use included cigarettes. He has never used smokeless tobacco. He reports current alcohol use. He reports that he does not use drugs. Allergies Patient has no known allergies. Family History Family History Problem Relation Name Age of Onset COPD Father REVIEW OF SYSTEMS All 10 systems were reviewed and negative except for above. PHYSICAL EXAM ENT Physical Exam GENERAL: Well-nourished and developed, alert and appropriate, no distress, voice [id number] RESPIRATORY: Breathing quietly, no stridor Last Recorded Vitals There were no vitals taken for this visit. RESULTS Patient Reported Outcome Measures N/A Laboratory, Radiology, and Pathology I personally reviewed the following results, with the following interpretation: CT neck with contrast, CT chest from 02/08/24 -no visualized masses or lesions -right arytenoid prolapse PROCEDURES Procedures none ------ Shanti Olmos MD, MAEd [employer] [facility] Department of Otolaryngology - Head and Neck Surgery [facility] The total time I spent in care of this patient today (excluding time spent on other billable services) is as follows: Time Spent Prep time on day of patient encounter: 10 minutes Time spent directly with patient, family or caregiver: 15 minutes Additional Time Spent on Patient Care Activities: 5 minutes Documentation Time: 10 minutes Other Time Spent: 0 minutes Total: 40 minutes documented in this encounter [facility] Work Phone: 02-20-2024 History of Present illness Narrative Associated Order(s): Laryngoscopy Post-Procedure Diagnose(s): Vocal cord paralysis; Dysphonia Patient: Stan Mcdonald Date of : 1945 Sex: male Age: 78 y.o. Date of Service: 02/20/2024 ASSESSMENT AND PLAN I discussed the findings with Stan Mcdonald and have recommended the followin. 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 We discussed injection but this would likely narrow his airway given his contralateral hypomobility, so I do not recommend it at this time. - will trial nimodipine 30 TID, patient to check BPs at home and stop medication if too low or if symptomatic - virtual follow up in 1 week to assess tolerance to medications, consider uptitrating to 60mg TID - re-examination in 3 months CHIEF COMPLAINT Chief Complaint Patient presents with Dysphonia HISTORY OF PRESENT ILLNESS Stan Mcdonald is a 78 y.o. male referred by Dr. Alvarez, Pretty Oswald* for evaluation of dysphonia and vocal fold paralysis. The patient has a history of COPD, CAD s/p CABG. Hoarse since COVID infection in November, which did not require hospitalization. Saw Dr. Alvarez and found to have right vocal fold immobility. CT ordered showed no neoplastic mass, however some fullness along the right ventricle suspicious for vocal cord paresis. He says since he had covid, he has had voice changes that have not changed, but over the last few weeks he is noting improvement. He reports no coughing when eating or drinking, dyspnea, dysphagia, unexplained weight loss, or chronic cough. He does not have neck pain or vocal fatigue. No recent intubations. ADDITIONAL HISTORY Past Medical History He has no past medical history on file. Surgical History He has a past surgical history that includes Other surgical history (07/17/2018); Other surgical history (08/12/2021); Other surgical history (08/12/2021); Other surgical history (08/12/2021); Other surgical history (08/12/2021); and Other surgical history (08/12/2021). Social History He reports that he has quit smoking. His smoking use included cigarettes. He has never used smokeless tobacco. He reports current alcohol use. He reports that he does not use drugs. Allergies Patient has no known allergies. Family History Family History Problem Relation Name Age of Onset COPD Father REVIEW OF SYSTEMS All 10 systems were reviewed and negative except for above. PHYSICAL EXAM ENT Physical Exam GENERAL: Well-nourished and developed, alert and appropriate, no distress, voice [id number] RESPIRATORY: Breathing quietly, mild stridor on deep inspiration HEAD: Normocephalic atraumatic NEURO: CN 2-12 grossly intact and symmetric bilaterally FACE: Symmetric, no masses or lesions EYES: Pupils reactive, sclera clear, external ocular muscles intact, no nystagmus. EARS: Pinnae normal. External auditory canals with some cerumen and tympanic membranes intact. NOSE: No anterior lesions, masses or polyps. ORAL CAVITY/OROPHARYNX: Buccal mucosa is moist without lesions or masses, tongue midline and palate elevates symmetrically. Tongue mobility intact. NECK: Soft. There is no lymphadenopathy or thyromegaly. NEUROLOGIC: Cranial nerves II-XII grossly intact. Last Recorded Vitals Temperature 35.8 C (96.4 F), height 1.727 m (5' 8 ), weight 70.8 kg (156 lb). RESULTS Patient Reported Outcome Measures N/A Laboratory, Radiology, and Pathology I personally reviewed the following results, with the following interpretation: CT neck with contrast, CT chest from 02/08/24 -no visualized masses or lesions -right arytenoid prolapse PROCEDURES Laryngoscopy Date/Time: 02/20/2024 2:35 PM Performed by: Shanti Olmos MD Authorized by: Shanti Olmos MD Procedure Note: Flexible Nasolaryngoscopy Verbal informed consent was obtained from the patient/patient's guardian. 4% lidocaine mixed with phenylephrine was prepared and dripped into the nose. It was placed in the right nares. Following an appropriate amount of time to allow for adequate anesthesia, a flexible fiberoptic nasolaryngoscope was placed into the patient's right naris. The nasal cavity, nasopharynx, oropharynx, hypopharynx, and all endolaryngeal structures were visualized and were normal except as listed below. Significant findings included: -no visualized masses or lesions -right vocal cord immobile in the paramedian position with arytenoid prolapse and hooding -left vocal fold hypomobility, but with good tone ------ Shanti Olmos MD, MAEd [employer] [facility] Department of Otolaryngology - Head and Neck Surgery [facility] The total time I spent in care of this patient today (excluding time spent on other billable services) is as follows: Time Spent Prep time on day of patient encounter: 10 minutes Time spent directly with patient, family or caregiver: 20 minutes Additional Time Spent on Patient Care Activities: 5 minutes Documentation Time: 10 minutes Other Time Spent: 0 minutes Total: 45 minutes I saw and evaluated the patient, participating in the nobles elements of the service. I discussed the findings, assessment and plan with the resident and agree with resident s findings and plan as documented in the resident s note. I was present and actively participated for the entirety of the procedure(s). documented in this encounter [facility] Work Phone: 12-28-2023 Telephone encounter Note I did see him informally. His voice is somewhat raspy but easily heard. Auscultation of the lungs demonstrated some diffuse decreased but symmetrical breath sounds. Breath sounds some cells were significantly coarse in nature. No rhonchi or rales were appreciated. He is speaking full sentences and there is no increased work of breathing. Exacerbation of COPD I did discuss with him and he has had the previous COPD diagnosis. We're going to treat him with prednisone and albuterol. I discussed with him how to use the spacer and if he wasn't sure at the pharmacy to ask the pharmacist to demonstrate. He is to contact us back if he is not better after treatment. [facility] 12-28-2023 Miscellaneous Notes I did see him informally. His voice is somewhat raspy but easily heard. Auscultation of the lungs demonstrated some diffuse decreased but symmetrical breath sounds. Breath sounds some cells were significantly coarse in nature. No rhonchi or rales were appreciated. He is speaking full sentences and there is no increased work of breathing. Exacerbation of COPD I did discuss with him and he has had the previous COPD diagnosis. We're going to treat him with prednisone and albuterol. I discussed with him how to use the spacer and if he wasn't sure at the pharmacy to ask the pharmacist to demonstrate. He is to contact us back if he is not better after treatment. He is going to come up here in about 20 minutes. I'll leave note open in case you need it to rx Pt called and stated in VM he wanted to know if he could talk to . He states the antibiotic he put him on has helped some but not much and he wanted to know what to do from here. documented in this encounter [facility] 12-28-2023 Telephone encounter Note He is going to come up here in about 20 minutes. I'll leave note open in case you need it to rx [facility] 12-28-2023 Telephone encounter Note Pt called and stated in VM he wanted to know if he could talk to [facility]. He states the antibiotic he put him on has helped some but not much and he wanted to know what to do from here. [facility] 12-20-2023 History of Present illness Narrative Patient ID: Stan Mcdonald is a 78 y.o. male who presents for: Upper Respiratory Infection Patient complains of symptoms of a URI, laryngitis . Symptoms include laryngitis . Onset of symptoms was 2 weeks ago, and has been stable since that time. Treatment to date: none. He states he had Covid back at the beginning of the year and this had started shortly after. Review of Systems Constitutional: Negative for chills and fever. HENT: Positive for congestion and voice change. Negative for ear pain, sinus pressure, sinus pain, sore throat and trouble swallowing. Respiratory: Negative for cough, shortness of breath and wheezing. Neurological: Negative for light-headedness and headaches. Objective In general the patient is pleasant and in no acute distress. Bilateral ears, canals are within normal limits. TMs are transparent and somewhat retracted. No fluid layer. Bilateral nares demonstrate inflamed mucosa. Mildly tender over the maxillary sinuses Oropharynx has moist mucosa there is no specific evidence of thrush. There is mild erythema of the pharynx. The patient has a soft and raspy voice. There is some grayish postnasal drip. Shoddy bilateral anterior cervical adenopathy. No signs of respiratory distress. Patient is speaking full sentences. There are symmetrical breath sounds. No rhonchi or rales are appreciated. No wheezes. Skin is warm and dry No Known Allergies Current Outpatient Medications Medication Instructions ALPRAZolam (XANAX) 0.25 mg, Oral, 3 times daily PRN amoxicillin (Amoxil) 500 MG capsule Oral, See admin instructions, TAKE 4 CAPSULES BY MOUTH 1 HOUR PRIOR TO DENTAL APPOINTMENT aspirin 81 mg, Oral, Daily RT atenolol (TENORMIN) 25 mg, Oral, Daily clopidogrel (PLAVIX) 75 mg, Oral, Daily fluticasone (Flonase) 50 MCG/ACT nasal spray 2 sprays, Each Nostril, Daily metoprolol tartrate (LOPRESSOR) 12.5 mg, Oral, 2 times daily rosuvastatin (CRESTOR) 20 mg, Oral, Daily RT Assessment/Plan Diagnoses and all orders for this visit: Acute non-recurrent maxillary sinusitis Acute problem. I suspect this is a secondary bacterial infection from when he was sick previously. I suspect the postnasal drip is creating some inflammation of the vocal cords causing the laryngitis. We have mutually agreed to trial of treatment for the sinusitis. He understands that the laryngitis with then theoretically over several weeks improve. Laryngitis Acute problem. Treatment of above, salt water gargles and saline nasal rinses, and voice rest. Body mass index (BMI) 23.0-23.9, adult documented in this encounter [facility] 10-03-2023 History of Present illness Narrative Subjective Stan Mcdonald is a 77 y.o. male Chief Complaint Annual Exam [place] Patient returns in follow-up of problems as noted. He is doing well. He has none of the symptoms of coronary disease that preceded his previous diagnosis and revascularization by surgery and/or PTCA. He is doing well in all regards. Risk factor modification was discussed in detail and he is happy to continue to comply with medical therapy as before. The merits of diet and weight loss were advocated. Review of Systems All other systems reviewed and are negative. Visit Vitals BP 142/88 (BP Location: Right arm, Patient Position: Sitting) Pulse 52 Ht 1.727 m (5' 8 ) Wt 71.1 kg (156 lb 12.8 oz) BMI 23.84 kg/m Smoking Status Former BSA 1.85 m Objective Physical Exam Constitutional: Appearance: Normal appearance. He is normal weight. HENT: Nose: Nose normal. Neck: Vascular: No carotid bruit. Cardiovascular: Rate and Rhythm: Normal rate. Pulses: Normal pulses. Heart sounds: Normal heart sounds. Pulmonary: Effort: Pulmonary effort is normal. Abdominal: General: Bowel sounds are normal. Palpations: Abdomen is soft. Genitourinary: Rectum: Normal. Musculoskeletal: General: Normal range of motion. Cervical back: Normal range of motion. Right lower leg: No edema. Left lower leg: No edema. Skin: General: Skin is warm and dry. Neurological: General: No focal deficit present. Mental Status: He is alert. Psychiatric: Mood and Affect: Mood normal. Behavior: Behavior normal. Thought Content: Thought content normal. Judgment: Judgment normal. Current Medications Current Outpatient Medications: aspirin 81 mg EC tablet, Take 1 tablet (81 mg) by mouth once daily., Disp: , Rfl: metoprolol tartrate (Lopressor) 25 mg tablet, Take 0.5 tablets (12.5 mg) by mouth 2 times a day., Disp: , Rfl: rosuvastatin (Crestor) 20 mg tablet, Take 1 tablet (20 mg) by mouth once daily., Disp: , Rfl: Assessment/Plan 1. Coronary artery disease involving [place] coronary artery of [place] heart without angina pectoris Asymptomatic ever since revascularization. No signs symptoms or manifestations of progression. Surgery was several years ago and he is stable. 2. History of PTCA No recurrence of coronary symptomatology since revascularization 3. S/P CABG (coronary artery bypass graft) As above 4. Mixed hyperlipidemia Well-controlled on current therapy. documented in this encounter [facility] Work Phone: 10-03-2023 Instructions Jesus Evans MA - 10/03/2023 9:30 AM EST Please bring all medicines, vitamins, and herbal supplements with you when you come to the office. Prescriptions will not be filled unless you are compliant with your follow up appointments or have a follow up appointment scheduled as per instruction of your physician. Refills should be requested at the time of your visit. documented in this encounter [facility] Work Phone: 03-23-2021 Note Rounds at this time with CRM Dr Kimberli Mayer. Patient is alert & involved in plan of care. Labs & diagnostics reviewed. Contact information provided with white board updated. Patient will discharge home with [facility] & he has a FWW at home already. From home with family who can transport at discharge. Anticipated discharge home 03/23 pending therapy evaluations. CRM to follow. [facility] Comment on above: Result Comment: Elec tronically Signed By: Shayy SCHOFIELD, Leyla Fajardo\.br\Date and Time Signed: 03/23/21 09:24 EDT 03-22-2021 Note PT Evaluation comple dora with an AMPAC score of 17/24. Pt functioning at a CGA level and able to ambulate 32 feet with FWW. Will follow daily. Will provide recommendation on POD # 1 [facility] 03-22-2021 Note Reason for Consultat ion Medical management History of Present Illness 75-year-old male with past medical history of hypertension, hyperlipidemia presented for right knee elective surgery by Dr. George Bustamante. Patient tolerated the surgery well and is being seen by hospitalist service for medical management. Review of Systems Constitutional: no fever, no chills, no sweats, no weakness Respiratory: no shortness of breath, no cough, no orthopnea, no wheezing Cardiovascular: no chest pain, no palpitations, no edema Additional ROS info: Except as noted in the above Review of Systems and in the History of Present Illness all other systems have been reviewed and are negative or noncontributory Physical Exam Vitals & Measurements T: 36.7 ?C (Oral) TMIN: 36.3 ?C (Temporal Artery) TMAX: 36.7 ?C (Oral) HR: 70(Monitored) RR: 20 BP: 142/75 SpO2: 100% General: alert, no acute distress ENMT: TM's clear, oral mucosa moist, no pharyngeal erythema or exudate Cardiovascular: regular rate and rhythm, normal peripheral perfusion Respiratory: Lungs CTA, respirations non labored Abdomen: Soft, nontender, without rebound or rigidity, positive bowel sounds Extremities: Right knee joint replacement with ice packing and dressing noted. Neurological: oriented x 4, LOC appropriate for age, CN II-XII intact, motor strength equal & normal bilaterally, sensation equal & normal bilaterally, speech normal Images XR Knee 1 or 2 Views Right 03/22/21 11:27:25 IMPRESSION: STATUS POST COMPLETE RIGHT KNEE REPLACEMENT. CLINICAL HISTORY: Post-op evaluation COMPARISON: NONE. FINDINGS: 2 views of the right knee demonstrate the patient to be status post complete joint replacement. The bones are in anatomic alignment. There is no acute fracture or subluxation. There are expected postoperative changes including air in the subcutaneous soft tissues. Signed By: Balaji Hooks MD, V. Assessment/Plan 75-year-old male with past medical history of hypertension, hyperlipidemia presented for right knee elective surgery by Dr. George Bustamante. Patient tolerated the surgery well and is being seen by hospitalist service for medical management. 1. Osteoarthritis of right knee joint (M17.11: Unilateral primary osteoarthritis, right knee) Postop day #0 Management as per orthopedic surgeon Talked about side effects of narcotics with patient and educated on prevention of pneumonia, constipation, opioid overdose Incentive spirometry Breathing treatment PT OT DVT prophylaxis as per orthopedic surgeon 2. HTN (hypertension) (I10: Essential (primary) hypertension) Continue with metoprolol 3. HLD (hyperlipidemia) (E78.5: Hyperlipidemia, unspecified) Pravastatin 4. DVT prophylaxis (Z29.9: Encounter for prophylactic measures, unspecified) As per orthopedic surgeon Orders: albuterol-ipratropium, 3 mL, Soln-Inh, Inhalation, QID PRN Shortness of breath or wheezing, Routine, Start date 03/22/21 12:27:00 EDT Incentive Spirometry Plan discussed with patient at bedside along with significant other. Thank you for allowing us to participate in this patient's care. Please call us with any questions. This report was transcribed using voice recognition software. Every effort was made to ensure accuracy, however, inadvertently computerized credit administration specialist mistakes may be present. Estuardo Menendez Hospitalist Problem List/Past Medical History Ongoing No qualifying data Historical No qualifying data Procedure/Surgical History CABG >5 - Coronary artery bypass grafts greater than five (12/15/2020), Hernia repair, Prostatectomy, Subdural hematoma evacuation. Medications Inpatient acetaminophen 325 mg Tab, 975 mg= 3 tab(s), Oral, q6hr aspirin 81 mg Chew Tab, 81 mg= 1 tab(s), Chewed, BIDWM cefazolin additive + Premix Dextrose 5% Diluent 50 mL Colace 100 mg Cap, 100 mg= 1 cap(s), Oral, BID Cymbalta 30 mg Cap-DR, 30 mg= 1 cap(s), Oral, Daily Dulcolax 5 mg Tab-EC, 10 mg= 2 tab(s), Oral, Daily, PRN DuoNeb 2.5 mg-0.5 mg/3 mL Soln-Inh, 3 mL, Inhalation, QID, PRN ketorolac 15 mg/mL Inj, 15 mg= 1 mL, IV Push, q6hr Lactated Ringers IV Gracy 1000 mL 1,000 mL, 1000 mL, IV Metoprolol tartrate 25 mg Tab, 12.5 mg= 0.5 tab(s), Oral, TID Milk of Magnesia 8% Susp-Oral, 30 mL, Oral, BID, PRN morphine 2 mg/mL Inj, 2 mg= 1 mL, IV, q4hr, PRN oxyCODONE 5 mg Tab, 5 mg= 1 tab(s), Oral, q4hr, PRN oxyCODONE 5 mg Tab, 10 mg= 2 tab(s), Oral, q4hr, PRN Pantoprazole [address] Tab, 40 mg= 1 tab(s), Oral, Daily pravastatin 40 mg Tab, 40 mg= 1 tab(s), Oral, Daily Zofran 4 mg/2 mL Injection, 4 mg= 2 mL, IV Push, q6hr, PRN Home aspirin 81 mg Chew Tab, 81 mg= 1 tab(s), Oral, BID aspirin 81 mg Oral EC Tab, 81 mg= 1 tab(s), Oral, Daily CeleBREX 200 mg Cap, 200 mg= 1 cap(s), Oral, BIDPC Colace 100 mg Cap, 100 mg= 1 cap(s), Oral, BID Cymbalta 30 mg Cap-EC, 30 mg= 1 cap(s), Oral, Daily Metoprolol tartrate 25 mg Tab, 12.5 mg= 0.5 tab(s), Oral, TID Osteo Bi-Flex, 2 (more content not included)... [facility] Comment on above: Result Comment: Elec tronically Signed By: Estuardo MENENDEZ MD\.cyndy\Date and Time Signed: 03/22/21 12:31 EDT 03-19-2021 Note [id number] [facility] Evaluation note Diagnosis Coronary artery disease involving [place] coronary artery of [place] heart without angina pectoris- Primary History of PTCA Postsurgical percutaneous transluminal coronary angioplasty status S/P CABG (coronary artery bypass graft) Postsurgical aortocoronary bypass status Mixed hyperlipidemia documented in this encounter [facility] Work Phone: Evaluation note* Diagnosis Acute non-recurrent maxillary sinusitis- Primary Laryngitis Acute laryngitis, without mention of obstruction Body mass index (BMI) 23.0-23.9, adult [facility] Diagnosis Dysphonia- Primary Vocal cord paralysis Unspecified paralysis of vocal cords or larynx documented in this encounter [facility] Work Phone: Evaluation note* Diagnosis Dysphonia- Primary Vocal cord paralysis Unspecified paralysis of vocal cords or larynx documented in this encounter [facility] Work Phone: Evaluation note* Diagnosis Dysphonia- Primary Vocal cord paralysis Unspecified paralysis of vocal cords or larynx documented in this encounter [facility] Work Phone: History of Present illness NarrativePatient returns in follow-up of problems as noted. He is done well. He eventually underwent his orthopedic procedure with another provider, Dr. Bustamante. He had no cardiac problems perioperatively. He has no angina CHF or arrhythmia symptomatology. We discussed, though, the significant coronary disease that occurred despite his compliance with therapy. He is a non-smoker nondiabetic with normotensive status. The only area for improvement would be improvement of lipid management. Because of thiswe recommend changing from pravastatin to rosuvastatin and labs in several months. I propose follow-up in a year unless he has symptoms problems or we have difficulties with lipid management. The merits of diet lifestyle modification and weight maintenance were discussed.-[facility] [address] DO Work Phone: History of Present illness NarrativePatient returns in follow-up of problems as noted. He is doing well. I cannot elicit any manifestations or symptoms of coronary disease such as that that preceded his diagnosis and subsequent PTCA and/or angioplasty. Control of risk factors including lipids and blood pressure is good and because ofthis we believe all risk factors are not checked. His body mass index is also ideal and he was congr atulated on his diet and continued exercise and/or activity level.-[facility] [address] DO Work Phone: Reason for referral (narrative)* Consultation (Routine) - Authorized Specialty Diagnoses / Procedures Referred By Contac t Referred To Contact Cardiology Diagnoses Coronary artery disease involving [place] coronary artery of [place] heart without angina pectoris History of PTCA S/P CABG (coronary artery bypass graft) Procedures Follow Up In Cardiology Fahad Arce MD [address] [place] [address], [address] [address] Fahad Arce MD [address] [place] [address], [address] [address] Referral ID Status Reason Start Date Expiration Date V isits Requested Visits Authorized [id number] Authorized 10/03/2023 10/02/2024 1 1 [facility] Work Phone: Summary Purpose Family History No Family History Records Found Relationship Condition Age at Onset Recorded Date/T fazal father Pulmonary emphysema Unknown Myocardial infarction Unknown brother Atrial fibrillation Unknown Relationship Condition Age at Onset Recorded Date/T fazal father Pulmonary emphysema Unknown Myocardial infarction Unknown brother Atrial fibrillation Unknown Not Specified Myocardial infarction Unknown Unknown Family Member Name Dates Details Family history of chronic ob structive pulmonary disease: Father(V17.6, Z82.5) Status:Active Unknown Family Member Name Dates Details Family history of chronic ob structive pulmonary disease: Father(V17.6, Z82.5) Status:Active Unknown Family Member Name Dates Details Family history of chronic ob structive pulmonary disease: Father(V17.6, Z82.5) Status:Active Unknown Family Member Name Dates Details Family history of chronic ob structive pulmonary disease: Father(V17.6, Z82.5) Status:Active Unknown Family Member Name Dates Details Family history of chronic ob structive pulmonary disease: Father(V17.6, Z82.5) Status:Active Unknown Family Member Name Dates Details Family history of chronic ob structive pulmonary disease: Father(V17.6, Z82.5) Status:Active Unknown Family Member Name Dates Details Family history of chronic ob structive pulmonary disease: Father(V17.6, Z82.5) Status:Active Advance Directives No Advanced Directives Records Found Advance Directive Response Recorded Date/ Time Advance Directives No October 29, 2020 9:34am Documents on File Type Date Recorded 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 Advance Directives and Living Will 01/25/2022 2016-02-23 Power Of Health Specialist Advance Directives and Living Will 01/25/2022 2016-02-23 Living Wi ll Chief Complaint and Reason for Visit Chief Complaint CAD,POS,Chest pain,A bnormal stress Coronary Artery Disease Chief Complaint CAD,POS,Chest pain,A bnormal stress Coronary Artery Disease pre cabg Chief Complaint CAD,POS,Chest pain,A bnormal stress Coronary Artery Disease pre cabg add on Chief Complaint CAD,POS,Chest pain,A bnormal stress Coronary Artery Disease pre cabg add on Coronary Artery Disease Coronary Artery Disease Reason for Visit Abnormal stress test Alcohol withdrawal Arthritis CAD (coronary artery disease) COPD (chronic obstructive pulmonary disease) Delirium H/O brain surgery History of prostate surgery HTN (hypertension) Respiratory failure, post-operative S/P CABG x 6 Syncope Chief Complaint CAD,POS,Chest pain,A bnormal stress Coronary Artery Disease pre cabg add on Coronary Artery Disease Coronary Artery Disease CABG Reason for Visit Abnormal stress test Alcohol withdrawal CAD (coronary artery disease) Delirium H/O brain surgery History of prostate surgery Respiratory failure, post-operative S/P CABG x 6 Syncope Arthritis COPD (chronic obstructive pulmonary disease) HTN (hypertension) Alcohol withdrawal CAD (coronary artery disease) Cough Delirium Dysphagia Impaired endurance Impaired mobility and ADLs Lab test positive for detection of COVID-19 virus Leukocytosis Nocturnal hypoxia Postoperative anemia Postoperative pain S/P CABG x 6 Arthritis COPD (chronic obstructive pulmonary disease) HTN (hypertension) Chief Complaint CAD,POS,Chest pain,A bnormal stress Coronary Artery Disease pre cabg add on Coronary Artery Disease Coronary Artery Disease CABG s/p CABG Reason for Visit Abnormal stress test Alcohol withdrawal CAD (coronary artery disease) Delirium H/O brain surgery History of prostate surgery Respiratory failure, post-operative S/P CABG x 6 Syncope Arthritis COPD (chronic obstructive pulmonary disease) HTN (hypertension) Alcohol withdrawal CAD (coronary artery disease) Cough Delirium Dysphagia Impaired endurance Impaired mobility and ADLs Lab test positive for detection of COVID-19 virus Leukocytosis Nocturnal hypoxia Postoperative anemia Postoperative pain S/P CABG x 6 Arthritis COPD (chronic obstructive pulmonary disease) HTN (hypertension) Chief Complaint CAD,POS,Chest pain,A bnormal stress Coronary Artery Disease pre cabg add on Coronary Artery Disease Assessments Diagnosis Onset Date Resolution Status Abnormal stress test acute Alcohol withdrawal acute Arthritis acute CAD (coronary artery disease) acute COPD (chronic obstructive pulmonary disease) acute Delirium acute H/O brain surgery acute History of prostate surgery acute HTN (hypertension) acute Respiratory failure, post-operative acute S/P CABG x 6 acute Syncope acute Diagnosis Onset Date Resolution Status Abnormal stress test acute Alcohol withdrawal acute CAD (coronary artery disease) acute Delirium acute H/O brain surgery acute History of prostate surgery acute Respiratory failure, post-operative acute S/P CABG x 6 acute Syncope acute Arthritis chronic COPD (chronic obstructive pulmonary disease) chronic HTN (hypertension) chronic Cough acute Dysphagia acute Impaired endurance acute Impaired mobility and ADLs a cute Lab test positive for detection of COVID-19 virus acute Leukocytosis acute Nocturnal hypoxia acute Postoperative anemia acute Postoperative pain acute Discharge Instructions Additional Instructions No lifting over 5-10 lbs. No driving. Daily betasept shower followed by dressing of sternum with Betadine ointment. Dress legs with sterile 4x4 gauze. Continue peredex TID. Patient had syncopal episode. Maintain fall precautions and caution with starting antihypertensive. Psychiatry or hospitalist to wean encephalopathy medications (Geodon, PRN IM Haldol, PO Librium). Monday and Monday; CBC, BMP, Mag, Chest x-ray PA and Lateral. Additional Instructions -Full Code -Activity: ambulate as tolerated, may shower, no lifting over 5-10 pounds, no driving. -Diet: Dental soft solids, chopped meats, thin liquids. -Follow feeding strategies: sitting upright 90 degrees, chin tuck, effortful swallow, alternate liquids/solids, no straws, throat clear and re-swallow -Take pills whole one at a time with applesauce -Boost supplement three times a day -Per the psychiatrist physician, continue with the Geodon 10mg PO twice daily until your upcoming follow up appointment with your Primary Care Provider, who will then determine if you can stop or taper this medication further at that time. Chief Complaint STAN MCDONALD is being seen for a 4-6M month follow-up of.* Patient here for blood pressure check order by Barbara Franco NP due to dizziness. Patient phoned into office that he has been occasionally having dizziness. No other cardiac complaints. Verbally reviewed medications with patients. BP discussed with Mray SCHOFIELD prior to discharge. * to Dr. Fahad Arce MD for review * to Barbara Franco NP for review. * Patient here for blood pressure check order by Barbara Franco NP due to dizziness. Patient phoned into office that he has been occasionally having dizziness. No other cardiac complaints. Verbally reviewed medications with patients. BP discussed with Mary SCHOFIELD prior to discharge. * to Dr. Fahad Arce MD for review * to Barbara Franco NP for review. STAN MCDONALD is being seen for an annual follow-up of. Reason for Referral Specialty Diagnoses / Procedures Referred By [place] [employer] Referred To Contact Diagnoses Vocal cord paralysis Dysphonia [place] [address] Department [place] [address] Referral ID Status Reason Start Date Expiration Date V isits Requested Visits Authorized [id number] Pending Review 02/23/2024 02/22/2025 1 1 Referral ID Status Reason Start Date Expiration Date V isits Requested Visits Authorized [id number] Pending Review 04/02/2024 04/02/2025 1 1 Additional Source Comments (unrecognized sect ion and content) No Status Records FoundNo Status Records FoundNo Status Records FoundNo Status Records FoundNo Status Records FoundNo Status Records FoundNo Status Records FoundNo Status Records FoundNo Status Records Found INFORMATION SOURCE (unrecogn ized section and content) DATE CREATED AUTHOR 10/28/2020 [facility] DATE CREATED AUTHOR AUTHOR'S ORGANIZ ATION 03/29/2021 [facility] DATE CREATED AUTHOR AUTHOR'S ORGANIZ ATION 12/29/2021 Pernell Feng [facility] DATE CREATED AUTHOR AUTHOR'S ORGANIZ ATION 01/20/2022 [facility] DATE CREATED AUTHOR AUTHOR'S ORGANIZ ATION 09/28/2022 [facility] DATE CREATED AUTHOR AUTHOR'S ORGANIZ ATION 09/28/2022 [facility] DATE CREATED AUTHOR AUTHOR'S ORGANIZ ATION 10/04/2023 [facility] DATE CREATED AUTHOR AUTHOR'S ORGANIZ ATION 04/08/2024 [facility] DATE CREATED AUTHOR AUTHOR'S ORGANIZ ATION 08/10/2024 [facility] EPIC Reason for Visit (unrecogniz ed section and content) Reason Comments Annual Exam 1yr Reason Onset Date Comments Care Coordination 12/28/2023 Reason Comments Dysphonia Reason Comments Follow-up Care Teams (unrecognized sec tion and content) Toolroom Attendant Relationship Specialty Start Date End Date Almas Tello MD [address] [place] [address] PCP - General 10/27/20 Fahad Arce MD [address] [facility] [address] [place] [address] PCP - MSSP ACO Attributed Provider 11/27/22 Toolroom Attendant Relationship Specialty Start Date End Date Almas Tello MD [address] [place] [address] (Fax) PCP - General Family Medicine 04/04/23 Toolroom Attendant Relationship Specialty Start Date End Date Almas Tello MD [address] [place] [address] (Fax) PCP - General Family Medicine 04/04/23 Toolroom Attendant Relationship Specialty Start Date End Date Almas Tello MD [address] [place] [address] PCP - General 10/27/20 Toolroom Attendant Relationship Specialty Start Date End Date Almas Tello MD [address] [place] [address] PCP - General 10/27/20 Toolroom Attendant Relationship Specialty Start Date End Date Almas Tello MD [address] [place] [address] PCP - General 10/27/20 FOR RECORDS PERTAINING TO PATIENTS WHO ARE OR HAVE BEEN ENROLLED IN A CHEMICAL DEPENDENCY/SUBSTANCEABUSE PROGRAM, SOME INFORMATION MAY BE OMITTED. This clinical summary was aggregated from multiple sources. Caution should be exercised in using it in the provision of clinical care. This summary normalizes information from multiple sources, and as a consequence, information in this document may materially change the coding, format and clinical context of patient data. In addition, data may be omitted in some cases. CLINICAL DECISIONS SHOULD BE BASED ON THE PRIMARY CLINICAL RECORDS. [facility] [employer] [facility]. provides no warranty or guarantee of the accuracy or completeness of information in this document.
[2024-09-19 08:21] LABS: Basophils Percent Auto 0.4 % (0.2-2.0); Eosinophils Absolute Auto 0.2 10^3/uL (0.0-0.7); Eosinophils Percent Auto 2.7 % (0.9-7.0); Hematocrit 40.2 % (42.0-54.0); Hemoglobin 13.4 g/dL (14.0-18.0); Immature Granulocytes Abs Auto 0.06 10^3/uL (0.00-0.03); Immature Granulocytes Pct Auto 0.7 % (0.0-0.5); Lymphocytes Percent Auto 24.1 % (20.5-60.0); Mean Corpuscular HGB Conc 33.3 g/dL (29.9-35.2); Mean Corpuscular Hemoglobin 31.5 pg (25.9-34.0); Mean Corpuscular Volume 94.6 fL (80.0-94.0); Mean Platelet Volume 9.4 fL (9.5-13.5); Monocytes Absolute Auto 1.1 10^3/uL (0.3-0.8); Monocytes Percent Auto 13.2 % (1.7-12.0); Neutrophils Absolute Auto 4.8 10^3/uL (1.4-6.5); Neutrophils Percent Auto 58.9 % (43.0-75.0); Platelet Count 219 10^3/uL (150-450); Red Blood Count 4.25 10^6/uL (4.70-6.10); Red Cell Distribution Width 14.4 % (11.0-15.0); White Blood Count 8.1 10^3/uL (4.0-11.0)
[2024-09-19 09:04] LABS: Alanine Aminotransferase 18 U/L (16-63); Albumin Globulin Ratio 0.9; Albumin Level 3.5 g/dL (3.4-5.0); Alkaline Phosphatase 59 U/L (46-116); Anion Gap 14.5; Aspartate Amino Transferase 22 U/L (15-37); Bilirubin Total 0.4 mg/dL (0.2-1.0); Calcium 9.2 mg/dL (8.5-10.1); Carbon Dioxide 29.9 mmol/L (21.0-32.0); Chloride 101 mmol/L (98-107); Chol HDL Ratio 2.9; Cholesterol 258 mg/dL (<=200); Estimated GFR (African America >60 (>=60 mL/min/1.73m^2); Estimated GFR (Non-African Ame >60 (>=60 mL/min/1.73m^2); Globulin 3.7 g/dL; Glucose 78 mg/dL (74-106); HDL Cholesterol 90 mg/dL (40-60); Potassium 4.4 mmol/L (3.5-5.1); Sodium 141 mmol/L (136-145); Total Protein 7.2 g/dL (6.4-8.2); Triglycerides 97 mg/dL (<=150); VLDL CHOLESTEROL 19.4 mg/dL
--- OUTSIDE RECORDS SUMMARY | 2024-09-24 10:30 | XMS_ITS | CCD ---
Author Organization [facility] ion [facility] Care Team Providers Care Plumbing Engineer Name Role Phone Fahad Arce Attending Provider Almas Tello Primary Care Provider Chi Espinoza Attending Provider [phone] Chi Espinoza Admit Provider Betty Carter Admit Provider Betty Carter Attending Provider Almas Tello Unavailable Unavailable Unavailable Unavailable Unavailable DR FAHAD ARCE Admitting Unavailable YAZMIN, DR MARIE Attending Unavailable OMER, DR AMBRIZ Primary Care Unavailable BRIAN, DR ROGER Wooten Consulting Unavailable YAZMIN, DR MARIE Consulting Unavailable OMER, DR AMBRIZ Admitting Unavailable OMER, DR AMBRIZ Attending Unavailable OMER, DR AMBRIZ Primary Care Unavailable OMER, DR AMBRIZ Consulting Unavailable RIZKALLA, SAMEH Admitting Unavailable RIZKALLA, SAMEH Attending Unavailable OMER, DR AMBRIZ Primary Care Unavailable RIZKALLA, SAMEH Admitting Unavailable RIZKALLA, SAMEH Attending Unavailable OMER, DR AMBRIZ Primary Care Unavailable RIZKALLA, SAMEH Admitting Unavailable RIZKALLA, SAMEH Attending Unavailable OMER, DR AMBRIZ Primary Care Unavailable Almas Tello Primary Care Unavailab Fahad Diaz II Attending Unavailable Fahad Arce II Referring Unavailable YANETH Wilkinson Attending Unavailable YANETH Wilkinson Referring Unavailable Almas Tello Primary Care UnavailAlmas Burris MD Primary Care Provider Fahad Arce MD Unavailable [phone] FAHAD ARCE Attending Unavailable ALMAS TELLO [facility] Care UnavailAlmas Burris MD Primary Care Provider [phone] SHANTI OLMOS Attending Unavailable PRETTY ALVAREZ Referring Unavaila ble OMER DAVID REIS [facility] Unavailab SHANTI Mckeon Attending Unavailable ALMAS TELLO [facility] Care Unavailab SHANTI Mckeon Attending Unavailable ALMAS TELLO [facility] Care UnavailALMAS Burris Attending Unavailable MIKA ESPINOZA Attending Unavailable PRETTY ALVAREZ Attending Unavailable ALMAS TELLO Referring Unavailable PETMIKA DELGADO Attending Unavailable MIKA ESPINOZA Attending Unavailable MIKA ESPINOZA Attending Unavailable HANG PUENTE Attending Unavailable Mika Espinoza MD Unavailable Jennifer Arce MD Unavailable Almas Tello MD Unavailable Unavailable Unavailable Unavailable Medications Current Medications [...] Q4H 30 7 December 31, 2020 10:52am [id number] actuat albuterol 0.09 mg/actuat metered dose inhaler (5 sources) beta2-Adrenergic Agonist Start: 12-28-2023 End: 12-27-2024 take 2 puff(s) by inhalation every four hours for wheezing albuterol HFA 90 mcg/act inhaler Indications: COPD with acute exacerbation ([facility]) Inhale 2 puffs every 4 (four) hours if needed for wheezing 18 g 12/28/2023 12/27/2024 Active Start: 01-01-2021 Albuterol Sulf [...] 2020 10:55am amoxicillin 500 mg oral capsule (3 sources) Penicillin-class Antibacterial Start: 10-21-2023 take 4 capsules by mouth every hour amoxicillin (Amoxil) 500 MG capsule Take by mouth See administration instructions TAKE 4 CAPSULES BY MOUTH 1 HOUR PRIOR TO DENTAL APPOINTMENT 10/21/2023 Active ascorbic acid 500 mg oral [...] unit) Tablet Active 10 MCG PO Daily 30 December 31, 2020 10:51am Start: 11-03-2020 End: 01-01-2021 take 1 capsule by mouth once daily Cholecalciferol (Vitamin D3) (Vitamin D3) 10 mcg (400 unit) Capsule Discontinued 10 MCG PO Daily November 03, 2020 11:24am January 01, 2021 10:17am fluorouracil 50 mg/ml topical cream (1 source) Nucleoside Metabolic Inhibitor Start: 04-02-2024 fluorouracil (Efudex) 5 % cream Indications: Actinic keratosis Apply to directed areas on the scalp and sides of face twice a day x 14 days. Dispense 30 day supply but only use for 14 days. 40 g 04/02/2024 Active guaiFENesin 20 mg/ml oral solution (2 sources) [...] 10:52am metoprolol tartrate 25 mg oral tablet (20 sources) beta-Adrenergic Barrett Start: 10-03-2023 metoprolol tartrate (Lopressor) 25 MG tablet Take 12.5 mg by mouth in the morning and 12.5 mg in the evening. 10/03/2023 Active Start: 06-21-2021 End: 10-03-2023 take 0.5 tablet by mouth twice daily metoprolol tartrate (Lopressor) 25 mg tablet Indications: Coronary artery disease involving [place] coronary artery of [place] heart without angina pectoris , S/P CABG [...] Dihydropyridine Calcium Channel Barrett Start: 02-20-2024 End: 04-25-2024 take 1 capsule by mouth three times daily niMODipine (Nimotop) 30 mg capsule Indications: Vocal cord paralysis Take 1 capsule (30 mg) by mouth 3 times a day. 90 capsule 02/20/2024 Active Chamberlain-3 Fatty Acids-Fish Oil (Fish Oil) 340-1,000 mg Capsule (2 sources) Start: 12-31-2020 take 1 capsule by mouth once daily Chamberlain-3 Fatty Acids-Fish Oil (Fish Oil) 340-1,000 mg [...] 2020 10:54am predniSONE 10 mg oral tablet (2 sources) Start: 12-28-2023 predniSONE (Deltasone) 10 MG tablet Indications: COPD with acute exacerbation (CMS/HCC) Every 2 day tapering dose; 5,5,4,4,3,3,2,2,1,1 ,0.5,0.5 31 tablet 12/28/2023 Active rosuvastatin calcium 20 mg oral tablet (15 sources) HMG-CoA Reductase Inhibitor Start: 09-20-2021 End: 10-03-2023 take 1 tablet by mouth in the morning rosuvastatin (Crestor) 20 MG tablet Take 20 mg by mouth in the morning. 10/03/2023 Active Sennosides (Senna Lax) 8.6 mg Tablet (2 sources) Start: 12-31-2020 take 2 tablets by mouth once daily Sennosides (Senna Lax) 8.6 mg Tablet Active 17.2 MG PO DAILY@12 60 December 31, 2020 10:56am Spacer/Aero-Holding Chambers (BreatheRite Raghu Spacer Adult) misc (2 sources) Start: 12-28-2023 Spacer/Aero-Ho lding Chambers (BreatheRite Raghu Spacer Adult) misc Indications: COPD with acute exacerbation (CMS/HCC) 2 puffs 4 (four) times a day as needed (sob and cough) 1 each 12/28/2023 Active Start: 12-28-2023 Spacer/Aero-Ho lding Chambers (BreatheRite Raghu Spacer Adult) misc Indications: COPD with acute exacerbation (CMS/HCC) 2 puffs 4 (four) times a day as needed (sob and cough) 1 each 0 12/28/2023 Active thiamine 100 mg oral tablet (5 sources) Start: 12-26-2020 End: 01-01-2021 take 100 mg by mouth twice daily Thiamine Hcl (Vitamin B1) Active 100 MG PO Twice daily December 31, 2020 10:54am zinc gluconate 50 [...] 2021 10:17am take 1 tablet by carolyn once daily aspirin 81 mg EC tablet [...] Indications: Basal cell carcinoma (BCC) of right episcopalian region Take 1 capsule, by mouth, bid x 7 days 14 capsule 0 10/05/2023 12/20/2023 Discontinued (Therapy completed) chlordiazePOXIDE hydrochloride 25 mg oral capsule (3 sources) Benzodiazepine Start: 12-26-2020 End: 01-01-2021 take 25 mg by mouth twice daily Chlordiazepoxide Hcl Discontinued 25 MG PO Twice daily 30 December 26, 2020 11:52am January 01, 2021 [...] Capsule Active 100 MG PO Twice daily December 31, 2020 10:55am DULoxetine 30 mg [...] Active 20 M G PO Twice daily December 31, 2020 10:52am fluticasone propionate 0.05 [...] Start : 22-Mar-2021 Complete glucosamine/fitz dr elvin A sod (OSTEO BI-FLEX ORAL) (1 source) End: 10-03-2023 take 2 tablets by mouth once daily glucosamine/chond r elvin A sod (OSTEO BI-FLEX ORAL) Take 2 tablets [...] each 0 11/30/2023 12/20/2023 Discontinued (Therapy completed) Chamberlain 5-Ynt-Jnj-Fish Oil (Fish Oil) 1,000 mg (120 mg-180 mg) Capsule (7 sources) Start: 11-03-2020 End: 01-01-2021 take 1 capsule by mouth once daily Chamberlain 2-Msu-Zhk-Fish Oil (Fish Oil) 1,000 mg (120 mg-180 mg) Capsule Discontinued 1 CAP PO Daily November 03, 2020 11:24am January 01, 2021 10:17am Start: 11-03-2020 take 1 capsule by [facility] once daily Chamberlain 0-Zlu-Zkg-Fish Oil (Fish Oil) 1,000 mg (120 mg-180 [...] Complete Start: 03-22-2021 take 1 tablet by carolyn th once daily Pantoprazole Sodium 40 MG Oral Tablet Delayed Release TAKE ONE TABLET BY MOUTH DAILY Quantity: 30 Refills: 0 Ordered: 22-Mar-2021 DO Start : 22-Mar-2021 Complete polyethylene glycol 3350 48518 mg powder for oral solution (1 source) [...] Chronic Chronic obstructive pulmonary disease and bronchiectasis (11 sources) Chronic obstructive lung disease; Translations: [Chronic obstructive pulmonary disease, unspecified] Onset: 12-19-2023 12-19-2023 Chronic Complications of surgical procedures or medical care (6 sources) Postprocedural respiratory failure; Translations: [Acute postprocedural respiratory failure] Episodic Coronary atherosclerosis and other heart disease (20 sources) Coronary arteriosclerosis; Translations: [Atherosclerotic heart disease of [place] coronary artery without angina pectoris] Onset: 04-15-2021 [...] of stamina; Translations: [Full-term ] Episodic Osteoarthritis (13 sources) Arthritis; Translations: [Unspecified osteoarthritis, unspecified site] [...] unclassified (3 sources) Delirium; Translations: [Delirium] Episodic Screening and history of mental health [...] Onset: 04-22-2021 10-02-2023 Episodic Residual codes; unclassified (11 sources) Body mass index 20-24 - normal; Translations: [Body Mass Index between 19-24, adult] Onset: 12-20-2023 12-20-2023 Episodic Residual codes; unclassified (6 sources) Other specified postprocedural states; Translations: [History of lingual frenulectomy] Unclassified (4 sources) Onset: 10-03-2023 Resolved: 04-02-2024 10-03-2023 Results Test Name Value Interpretation Reference Range Facility ALL CBC WITH AUTO DIFFon BASOPHILS ABSOLUTE AUTO 0 [facility] Basophils/100 WBC (Bld) 0.4 % 0.2 - 2.0 % [facility] Eosinophils/100 WBC (Bld) 2.7 % 0.9 - 7.0 % [facility] Erythrocyte distribution width (RBC) [Ratio] 14.4 % 11.0 - 15.0 % [facility] Hematocrit (Bld) [Volume fraction] 40.2 % Low 42.0 - 54.0 % [facility] Hemoglobin (Bld) [Mass/Vol] 13.4 g/dL Low 14.0 - 18.0 g/dL [facility] IMMATURE GRANULOCYTES ABS AUTO 0.06 High [facility] Immature granulocytes/100 WBC (Bld) 0.7 % High 0.0 - 0.5 % [facility] Interpretation and review of laboratory results Abnormal [facility] LYMPHOCYTES ABSOLUTE AUTO 2 [facility] Lymphocytes/100 WBC (Bld) 24.1 % 20.5 - 60.0 % [facility] MCH (RBC) [Entitic mass] 31.5 pg 25.9 - 34.0 pg [facility] MCHC (RBC) [Mass/Vol] 33.3 g/dL 29.9 - 35.2 g/dL [facility] MCV (RBC) [Entitic vol] 94.6 fL High 80.0 - 94.0 fL [facility] MONOCYTES ABSOLUTE AUTO 1.1 High N [facility] Monocytes/100 WBC (Bld) 13.2 % High 1.7 - 12.0 % [facility] NEUTROPHILS ABSOLUTE AUTO 4.8 [facility] Neutrophils/100 WBC (Bld) 58.9 % 43.0 - 75.0 % [facility] Platelet mean volume (Bld) [Entitic vol] 9.4 fL Low 9.5 - 13.5 fL [facility] TB EO # 0.2 [facility] PLT 219 [facility] RBC 4.25 Low [facility] TBH WBC 8.1 [facility] ALL LIPID PROFILE (FASTING)o n 09-19-2024 CHOL HDL RATIO 2.9 [facility] Comment on above: 3.3 - 4.4 LOW RISK 4.4 - 7.1 AVERAGE RISK 7.1 - 11.0 MODERATE RISK >11.0 HIGH RISK Cholesterol [Mass/Vol] 258 mg/dL High NINF - 200 mg/dL [facility] Cholesterol in HDL [Mass/Vol] 90 mg/dL High 40 - 60 mg/dL [facility] Comment on above: > or =60 mg/dl - LOW CARDIOVASCULAR RISK <40 mg/dl - HIGH CARDIOVASCULAR RISK Interpretation and review of laboratory results Abnormal [facility] Magnesium [Mass/Vol] 149 mg/dL [facility] Comment on above: <100 mg/dl OPTIMAL 100-129 mg/dl NEAR OR ABOVE OPTIMAL 130-159 mg/dl BORDERLINE HIGH 160-189 mg/dl HIGH >190 mg/dl VERY HIGH Magnesium [Mass/Vol] 19.4 mg/dL [facility] Triglyceride [Mass/Vol] 97 mg/dL NINF - 150 mg/dL [facility] CMP (CMP) (FOR REMOTE FH C USE)on 09-19-2024 Albumin [Mass/Vol] 3.5 g/dL 3.4 - 5.0 g/dL [facility] ALBUMIN GLOBULIN RATIO 0.9 [facility] ALP [Catalytic activity/Vol] 59 U/L 46 - 116 U/L [facility] ALT [Catalytic activity/Vol] 18 U/L 16 - 63 U/L [facility] Anion gap [Moles/Vol] 14.5 mmol/L NO [facility] AST [Catalytic activity/Vol] 22 U/L 15 - 37 U/L [facility] Bilirubin [Mass/Vol] 0.4 mg/dL 0.2 - 1 .0 mg/dL [facility] Calcium [Mass/Vol] 9.2 mg/dL 8.5 - 10. 1 mg/dL [facility] Chloride [Moles/Vol] 101 mmol/L 98 - 10 7 mmol/L [facility] CO2 [Moles/Vol] 29.9 mmol/L 21.0 - 32.0 mmol/L [facility] Creatinine [Mass/Vol] 0.92 mg/dL 0.70 - 1.30 mg/dL [facility] GFR/1.73 sq M.predicted CKD-EPI (S/P/Bld) [Vol rate/Area] >60 >=60 mL/min/1.7 3m 2 [facility] Globulin (S) [Mass/Vol] 3.7 g/dL N [facility] Glucose [Mass/Vol] 78 mg/dL 74 - 106 mg/dL [facility] Potassium [Moles/Vol] 4.4 mmol/L 3.5 - 5.1 mmol/L [facility] Protein [Mass/Vol] 7.2 g/dL 6.4 - 8.2 g/dL [facility] Sodium [Moles/Vol] 141 mmol/L 136 - 145 mmol/L [facility] TBH EGFR-NON AF BOLIVIAN >60 >=60 mL/min/1.7 3m 2 [facility] Urea nitrogen [Mass/Vol] 11 mg/dL 7.0 - 18.0 mg/dL [facility] Urea nitrogen/Creatinine [Mass ratio] 12 mg/mg [facility] No Panel Informationon 09-19 [facility] Laryngoscopyon 04-02-2024 Shanti Olmos MD 2023 10:00 AM Laryngoscopy Date/Time: 04/02/2024 9:58 AM Performed by: Shanti Olmos MD Authorized by: Shanti Olmos MD [facility] Work Phone: Laryngoscopyon 02-20-2024 Shanti Olmos MD 02/22 2:39 PM Laryngoscopy Date/Time: 02/20/2024 2:35 PM Performed by: Shanti Olmos MD Authorized by: Shanti Olmos MD [facility] Work Phone: Office Visit (Cardiology)on 09-27-2022 Follow-up visit Diagnoses/Problems Assessed CAD (coronary artery disease) (414.00) (I25.10) Hyperlipidemia (272.4) (E78.5) S/P CABG (coronary artery bypass graft) (V45.81) (Z95.1) History of PTCA (V45.82) (Z98.61) Body mass index (BMI) of 24.0 to 24.9 in adult (V85.1) (Z68.24) Former smoker (V15.82) (Z87.891) QUIT 1999 Orders CAD (coronary artery disease), Hyperlipidemia, S/P [...] Recorded: 27Sep2022 10:01AM Heart Rate44, L Radial Ybngsohk592, LUE, Sitting Tfltbpvwp52, LUE, Sitting Height5 ft 8 in Ciujnw253 lb BMI Kmhhreepcq49.63 kg/m2 BSA Calculated1.87 Tobacco Useb) No PHQ-2 [...] Sep 27 2022 4:12PM EST (Author) Normal [employer] Tobacco Screening.on 022 Adult depression screening assessment No [facility] [employer] 250 DO Work Phone: Fall risk assessment a) No falls within the last year [facility] [employer] 250 DO Work Phone: Tobacco use status [facility] b) No [facility] [employer] 250 DO Work Phone: LIPID PROFILEon 12-24-2021 CHOL-HDL RATIO NORM SEE BELOW Normal [facility] Comment on above: Result Comment: 3.3 - 4.4 LOW RISK 4.4 - 7.1 AVERAGE RISK 7.1 - 11.0 MODERATE RISK >11.0 HIGH RISK Performed By: #### L IPID, CMP #### [facility] [address] [address] [address] Sage Corbett Cholesterol [Mass/Vol] 178 mg/dL Normal <=200 Th [facility] Comment on above: Performed By: #### L IPID, CMP #### [facility] [address] [address] [address] Sage Corbett Cholesterol in HDL [Mass/Vol] 72 mg/dL Normal [facility] Comment on above: Performed By: #### L IPID, CMP #### [facility] [address] [address] [address] Sage Corbett Cholesterol in LDL [Mass/Vol] 90.8 mg/dL Normal [facility] Comment on above: Performed By: #### L IPID, CMP #### [facility] [address] [address] [address] Sage Corbett Cholesterol.total/Tarah sterol in HDL [Mass ratio] 2.5 {ratio} Normal [facility] Comment on above: Performed By: #### L IPID, CMP #### [facility] [address] [address] [address] Sage Corbett HDL NORMAL > or = 60 mg/dl - LO W CARDIOVASCULAR RISK <40 mg/dl - HIGH CARDIOVASCULAR RISK Normal [facility] Comment on above: Performed By: #### L IPID, CMP #### [facility] [address] [place] [address] Dr. Sage Corbett LDL CALC NORMAL SEE BELOW Normal [facility] Comment on above: Result Comment: <100 mg/dl OPTIMAL 100 - 129 mg/dl NEAR OR ABOVE OPTIMAL 130 - 159 mg/dl BORDERLINE HIGH 160 - 189 mg/dl HIGH >190 mg/dl VERY HIGH Performed By: #### L IPID, CMP #### [facility] [address] [place] [address] Dr. Sage Corbett Triglyceride [Mass/Vol] 76 mg/dL Normal <=[address] [facility] Comment on above: Performed By: #### L IPID, CMP #### [facility] [address] [address] [address] Sage Corbett VLDL CALC 15.2 mg/dL Normal [facility] Comment on above: Performed By: #### L IPID, CMP #### [facility] [address] [place] [address] Dr. Sage Corbett PROF 14(COMP METB)on 022 Albumin [Mass/Vol] 3.9 g/dL Normal 3.5-5.0 [facility] Comment on above: Performed By: #### L IPID, CMP #### [facility] [address] [place] [address] Dr. Sage Corbett Albumin/Globulin [Mass ratio] 1.1 {ratio} Normal [facility] Comment on above: Performed By: #### L IPID, CMP #### [facility] [address] [place] [address] Dr. Sage Corbett ALP [Catalytic activity/Vol] 47 U/L Normal 38-126 [facility] Comment on above: Performed By: #### L IPID, CMP #### [facility] [address] [place] [address] Dr. Sage Corbett ALT [Catalytic activity/Vol] 30 U/L Normal 21-72 [facility] Comment on above: Performed By: #### L IPID, CMP #### [facility] [address] [place] [address] Dr. Sage Corbett Anion gap [Moles/Vol] 11.1 mmol/L Normal [facility] Comment on above: Performed By: #### L IPID, CMP #### [facility] [address] [place] [address] Dr. Sage Corbett AST [Catalytic activity/Vol] 23 U/L Normal 17-59 [facility] Comment on above: Performed By: #### L IPID, CMP #### [facility] [address] [place] [address] Dr. Sage Corbett Bilirubin [Mass/Vol] 0.4 mg/dL Normal 0.2-1.3 [facility] Comment on above: Performed By: #### L IPID, CMP #### [facility] [address] [place] [address] Dr. Sage Corbett Calcium [Mass/Vol] 9.5 mg/dL Normal 8.4-10.2 [facility] Comment on above: Performed By: #### L IPID, CMP #### [facility] [address] [place] [address] Dr. Sage Corbett Chloride [Moles/Vol] 106 mmol/L Normal 98-107 [facility] Comment on above: Performed By: #### L IPID, CMP #### [facility] [address] [place] [address] Dr. Sage Corbett CO2 [Moles/Vol] 28.1 mmol/L Normal 22.0-30.0 [facility] Comment on above: Performed By: #### L IPID, CMP #### [facility] [address] [place] [address] Dr. Sage Corbett Creatinine [Mass/Vol] 0.68 mg/dL Normal 0.66-1.25 [facility] Comment on above: Performed By: #### L IPID, CMP #### [facility] [address] [place] [address] Dr. Sage Corbett EGFR-AF BOLIVIAN >60 Normal >=60 [facility] Comment on above: Performed By: #### L IPID, CMP #### [facility] [address] [place] [address] Dr. Sage Corbett EGFR-NON AF BOLIVIAN >60 Normal >=60 [facility] Comment on above: Performed By: #### L IPID, CMP #### [facility] [address] [place] [address] Dr. Sage Corbett Globulin (S) [Mass/Vol] 3.4 g/dL Normal [facility] Comment on above: Performed By: #### L IPID, CMP #### [facility] [address] [place] [address] Dr. Sage Corbett Glucose [Mass/Vol] 81 mg/dL Normal 74-106 [facility] Comment on above: Performed By: #### L IPID, CMP #### [facility] [address] [place] [address] Dr. Sage Corbett Potassium [Moles/Vol] 4.2 mmol/L Normal 3.4-5.0 [facility] Comment on above: Performed By: #### L IPID, CMP #### [facility] [address] [address] [address] Sage Corbett Protein [Mass/Vol] 7.3 g/dL Normal 6.1-8.2 [facility] Comment on above: Performed By: #### L IPID, CMP #### [facility] [address] [address] [address] Sage Corbett Sodium [Moles/Vol] 141 mmol/L Normal 137-145 [facility] Comment on above: Performed By: #### L IPID, CMP #### [facility] [address] [place] [address] Dr. Sage Corbett Urea nitrogen [Mass/Vol] 14.0 mg/dL Normal 9.0-20.0 [facility] Comment on above: Performed By: #### L IPID, CMP #### [facility] [address] [place] [address] Dr. Sage Corbett Urea nitrogen/Creatinine [Mass ratio] 20.6 mg/mg Normal [facility] Comment on above: Performed By: #### L IPID, CMP #### [facility] [address] [place] [address] Dr. Sage Corbett Falls Risk Screeningon 09-20 Fall risk assessment a) No falls within the last year [facility] Work Phone: Tobacco use status [facility] b) [facility] Work [facility]: US ABD AORTA [...] by: ROGER TORRES Date: 2021-04-15 10:56 Normal [facility] Coding Summary.on 03-29-2021 Coding Summary. [id number] Gh0bWw +PGhlYWQ+AI3VGFLqQ31pfFScx H8KY6mEVK6IRFBAWTGKDY0UQI6 bmKS7NQiqO4SgbaDx UqwdkTWxEM62KBy5LFU8eEndVK bwuI1mpXTzX9h5DqJtNU73vV35 PFuyVEZwFjK1IsKxgryumTWh L5hqLrBemFGkMuz+PHRhYmxlIH ogYDNkRMjyTEYjKvLlwPbvHX0f Gu5mFHDxABQzvIwhhZMqDcKr b9yrPUTbIOgeJZ8qoRveP8TyzC Q0OOJew4y1Ks98gKF+PHRkIHN0 kArnIOlio929RaDav6pbHNS8 qZFpAMpsIFB9Q57mp8R7WBJeFZ HaTUP8bYB2cO0iiXsawwyfM3Xc hFNySdN4PLM3pUGrrD8syUkv wameoL2pMie+N92ZTI0SDFJQSH 0QBmz7O0PfRxoapOU+YX82XFZb FA51qEKikFAgt4mfsGm6NvLq HJKeTUM9xDsoQCgbx3QqFUBpW8 7ijSNzm1Y3KZBvwToxcYXyLmIu iPX5xP3rRTymdiirr7zuvsvb Bzlfh3ahia80zV63A24dIDroOJ WgFFI7EWHfANIzrCupwh9xcO9u Ii8+EXmhm6ief4bcuXl5StXy CJKzajTvkLrpSPY1u4OjVb54P3 QadJhfr3LkWdr2zk93fSLdt3P3 lJE9KZidLTEdkP5xTJolBiB4 PLInJbVdmS79vNOmLGvlXd8vuH shyPdqJQ8cTGWeeqclZNFqvI2x DDLxaCCvvZmzAF3cCMZkwppp u176UvEuAVX3YILyyWCzW3ExaM 4gUaHkGFAsPABhZ0UmgDZkJMqo Y459BGmwRnF2PNXuojMiD8Vc VOTvlUfsEqZ2e6F0Gk0Ky8Smkt veELG9VDcdJII9WoGiPoPqCwB0 O5SjYcf2ZIYuuDapSS4yC7Bm TRWdmplpoyyvtOC9LSOtFJFxtO 59rLMqRWjgKg7gb4A7u754LGNj SWEvoT30Ad9goOynDCXgcINC dR1twrhmv6tkszvmHmMsXEZwLB f7MZh7AVEaqGxmLkQfFXW0BsI2 XYJ0tGXyfC3wmEzvswsvjN1i Oyc+J52rdG9dRPJ4ZVX7wcrlDQ EuzeTtSI44HF02D0QjQdvejZTs bGU+DYBaimBryRqoTK9tFgCz o2fuw5DcLRxdA4YxEWJwZJohRq w6MTXrYAC9dPK0aD4oLWLqSAmr d9U2vHJ9G3ZscwJffz7fs1sj MOQjIHljA60lgDInl9G8ATSdkA J8YYUnzTkgJgWzlS42Bzz+PGNv aAlum4XkDbuve8goc8xpgLn0 VhVsVNUldgLyyIelZQR0n5ExIl 74R96tBYhuFTJmEMYjZZRxZBCp hOrnwp6tpZ9oQj9+PGNvbCB3 uFP5aY2tMLLfBkP4QXcdO297Uc RbyQDeAlgxl9hnz9lkoVm9DnFu SUBgeyWfhCllGGK8b0IjYb14 Y25fYCqaPVAtSZUhMGUnMGYtvY htfo2vkF6yBa6+KV2pi9xaxj59 yR12aJL+DPYbGGB7sSlyYXaj CTTfoX6uYVegStN8SUIlUyQdrT 06eZTkQBxwLr6gaQvoeExyAC8e CQYmvrxaa982BoYcm8umLJRs kLRwYUvqUAG4G34ca4Q8LVLlCE IzVPF3zEY3rP7llAeeowgypDWp eMutxiJexHttUKkyAVqfP294 IHRvcDsnPlBhdGllbnQgTmFtZT q1B4TfLix1FVImxDyvTD3svXLj ADfsZx3rrWxcmFiqYW7pOQQw nfvpp207PbWjs4dtFEKopAEqVB peDZN7W90zo9K4NGObVBWfXWV4 uWZ0hP0hdAbgqopbyWUjcCci ixQgpHfiPQoqUKvqF294OBKhjD qfXxSqqkNgEUOitEH4VU89XL31 sAEpj1M4wVE4I2UsTGQuytmt belanRS9OYIjOBEqoG18Ad6lrS lmEr1fDUYgISA7FVGndAAcU5Jf zP0jObKmJQYbVMBlX7LvsLXy EEzmB528QJyoEzR7BOLbbvUuY7 OgVRRddQuqTjC8d3K8Ji3OM5X9 UG11XA01yUKjp0L9uKG6C3Cw LTPoanruqlbsrEJ0NHQoDWCvfU 93Km2vvBacGw5dNKMqUKD7ZHIm vCXgW7FnyV0oSpCiGLAqOJPe L3HcwOFzYFaiW386KPofJqK9WV ZjqtFfM4UySGWdvXtlEvT2d3P9 Xx5LBSy3FJ00AO30oKQsb7Y7 cIP6G2QkTTXbnadbafafxYD2VK WlPTNtmX90Iu8qmUbsEi6cEMFl YLO5WYOvuMZiM2QiyQ5aLyIu KOKkAYTbL2YeaFSrTQufO774XM wcJtI6VROixcXnF3DcHGUohUek UoN1r4P5Qs8BMOHmLM62SGO6 vHS3NK21GB60L3LxYwzgwRRmnA U+PHRhYmxlIHdpZHRoPScxMDAl QyDzfRgeEB5zVk9gJJUoYDCw bWrmgBUfYlQzr5pnWIJbAFisEY 8spTryW4LczSW3VWAie7z5Ht59 Z91lC3SodST+ZYCkjMU9fUY1 oI6fNpIvLrD7ROwjS919PvGxlG YzFgcfk5qkj3rrkAa5YdJ8PBBk zgWytSqrLYF3o0SgOa28O96g IHdpZHRoPSIxNSUiIHZhbGlnbj 7gpG7eOe1+ONSksUL5sRQ2uB9a AuRxVvA9YToaF383ZqVwzQGt Kizyx9vnn8tkdPp8HtAmDRLjno TzjRxoWUV2l4JdYe65Y6IshQty a7XkRdl2wa41hCHbx6B1dKQ8 N7BgREUqkxxliSGmuMrzLA4rWI XcflzcYNDgeG6qQGSvS0g7SoSo NhU6OOqxQ0EdfnA3BKGrmJCc IYwrGBO4R87so6F6JPNiMIJxOF B5jWV1zQ2afAcocprgsTVknRwk ibDrvSgpIPizRPxqX202ZZVm eZjuXOIxiV8kMJOmkXLqzIzcKH 7sBPUipnmaLopGA3kITGoUDwvy Am0NIXZKNI91ZG50rKNzg6G4 wIR3J3YuDVRjeqwwktcxfUB9YM TnZQTwdS11bOLcTRsdBa7si1S7 i245NOEvCIAboO13Oz3zhShs TEHdoMKGzL8nentzm5apcguhGb VwOINtFKb1XEi0TOQiuUlzCaCu LRP1NaP0SFK9iMNzwT3keYqa ntqhvZ1nNle+PRGrUUDpCYy4Zr wvdGQ+URXfINR2nHcmRLibOQSe jX6xZLVnX0h7JeZpRwU0RMgv Y4QfFASqqishWz45vR4wAcQkSh T1AIdoV5VgmdI5LVIzmERkSFqt MPZ8J24oy3X9IRMjTMXcPMZ8 aYD2wQ4zmWyqrfzwtFGjdPtpvv HwyZueQWhvFNmfX173HXOnzYap Rmh9NZwcJSSmPQ55TJ38yHBy w5Y5nKO0O5JaNHAholzdcziclC J8WAUxOXSuuA38gVVeQLimXe0x t1Y9j742JVHrPFHujT40Rk9n jXkuKMXybIOVbY0smehjt4rrpu kvAtZdDPHcJLj2YDi2RYZkyZhz BmBaSWB1CvM4GRM5iAGeqS1j fZhgqaiukB6sRkq+TWFsZTwvdG Q+UQZeSIO9sZnzBBktDDLhiR9v RYWyB9y9OhNrCiR2MLlrR1Eg XAWegqutBq57cT5hJqHaDtI8NM sfD8BrbdC5NULeuHWzXNoaULF3 E11eo7X8CVWnSJEuPVB0zYT1 yD3ldAjmlvrqpIAhxBeakdGhlY csBOcnSVrmQ045SFBsvXnmVvme gOY7hZApuUognGI+MU56rk35 L2QkAdywDtg9PGHdJDB5xWH0iZ 1gQKThVYjaq2H3tKV0Q4FyqfXh ib8dk5fdGVRqPSjhX15vcVKe q0M8BNZxgGK6ZJDlkFbjDbPwiF 93Oyc+GYMrwNspz1OsXjjxp4wa z3gbbUu8NoEiEBSlodKlkNxv LSR8h9HlBs96B59nYFsnYCVgDO UvORIhXEDlbUcoov2ezF3kFm6+ LSVjkSH9vFT8iU1rPjFrWiM8 ELhvG536AcObeILbWryxr0lqx7 nucLn0KwJlWMFqruCplNqqHNH0 h4VwQm47H5FjhBcfo4WrVzv5 ks09oLMly4W0eSC2F8XnOEOulc mpmLHagAafEL4xDGMojtluWMCg uK9oTTIfZ7d6PaVzStU2QExu H6JsivI6XKBcwTAeDNFpeMVCbW 4ffhnom7tkqsjwQoFfJXOnAZr1 JWg7ZWPavFfqTtPgCJT0DuM4 VRS7eWReoY5lyOxuqluuaV9mLz c+FKp1q6obnVQvUH6hqKL5JI39 FX37jLGmu8F7hHV1Z5JnWFRl pbsezqcneFU7RICjGWDvsE60Va 3xzUfkVd2yKVZdRQT8ROLtkBLa K7ByzA6gItYtJYGfSNGzH5Vx vPKvAJwjM804BUdqFyU4ULTssr XrA0QtADTayOmxRnZ5w4O9Xz9B TX67AB52HT63uEZty1K1bER3 E7QzYLBobfflkktcgUX0MGUcVL QlpL69Ti8ujXjmQb4tJOScDIX2 FZOnfURuK4LouX0tIlYuBCWn LEDsK0IizTFzQEfnU245DWigAb Y6CNRsmrTdZ5QsZALtfIfjWnD1 x8G0Yd9NJp39NG39YD18pYWx j7V7uYY1A5ZoZIOlrvdmgxheqV V9DLGlGXUbyK32Oh7tjYndVe6e ELFdLNZ0VHAhyEXfE1VqxK7i DgZpKFUqOTBqR4QqzZVeOVhjP8 29URdqJhJ8QMWqdqCxA7YqMTSo qLwbDbG1y3T8Zh1OKXqitmj3 N0UtUofwzXK+YD33PMOsIB46jW GyhITch3ejfGk3MfGyRRSzNIL7 tVsiZSsxd2XwIFQwR79dsJNy c2U6 (more content not included)... Normal [facility] IntraOperative Documentson 0 03-26-2021 IntraOperative Documents [id number]#[id number]:127 [facility] Operative Reporton Operative Report Date of Surgery: [...] for the planned procedure. Lm Espino M.D. ezekiel Dictated: 03/26/2021 #[id number] Typed: 03/26/2021 #[id number] cc: Lm Espion M.D. [facility] Comment on above: Result Comment: Elec tronically Signed By: Srinivas CHEW, Lm\.br\Date and Time Signed: 03/26/21 17:50 EDT Progress [...] discharged from anesthesia care. Condition stable. Normal [facility] Comment on above: Result Comment: Elec tronically Signed By: Srinivas CHEW, Lm\.br\Date and Time Signed: 03/25/21 16:51 EDT Auto Diffon 03-23-2021 Basophils/100 WBC (Bld) 0.1 % Normal 0.0-2.0 [facility] Comment on above: Order Comment: Order Added by Discern Expert. Performed By: #### 2 425096, 5857282, 4558275, 0803689, 32191960, 5600666 ####[address] [address] Basophils/Leukocytes Auto (Bld) [Pure # fraction] 0.0 E9/L Normal 0.0-0.2 [facility] Comment on above: Order Comment: Order Added by Discern Expert. Performed By: #### 2 143863, 7179643, 4432419, 3069729, 56918952, 2410416 ####[address] [address] Eosinophils/100 WBC (Bld) 0.3 % Normal 0.0-8.0 [facility] Comment on above: Order Comment: Order Added by Discern Expert. Performed By: #### 2 753054, 4911634, 9342698, 6089568, 48117139, 0604689 ####[address] [address] Eosinophils/Leukocytes Auto (Bld) [Pure # fraction] 0.0 E9/L Normal 0.0-0.5 [facility] Comment on above: Order Comment: Order Added by Discern Expert. Performed By: #### 2 760555, 7909405, 6554571, 2361572, 63542474, 8069335 ####[address] [address] Lymphocytes/100 WBC (Bld) 13.5 % Low 14.0-50.0 [facility] Comment on above: Order Comment: Order Added by Discern Expert. Performed By: #### 2 443688, 1019059, 1718423, 1076735, 02913715, 7019601 ####[place] [address] [place] [address] Lymphocytes/Leukocytes Auto (Bld) [Pure # fraction] 1.4 E9/L Normal 1.0-4.0 [facility] Comment on above: Order Comment: Order Added by Discern Expert. Performed By: #### 2 825618, 2414775, 1408849, 2194825, 22089018, 8540376 ####[address] [address] Monocytes/100 WBC (Bld) 14.2 % High 4.0-14.0 [facility] Comment on above: Order Comment: Order Added by Discern Expert. Performed By: #### 2 244556, 8623873, 9096789, 0581348, 21828271, 4219898 ####[facility] [address] [place] [address] Monocytes/Leukocytes Auto (Bld) [Pure # fraction] 1.5 E9/L High 0.2-1.0 [facility] Comment on above: Order Comment: Order Added by Discern Expert. Performed By: #### 2 437256, 4526637, 4282488, 9233524, 83417995, 3324893 ####[facility] [address] [place] [address] Neutrophils/100 WBC (Bld) 71.9 % Normal 36.0-75.0 [facility] Comment on above: Order Comment: Order Added by Discern Expert. Performed By: #### 2 872012, 9127743, 2585100, 3541743, 26623363, 2138030 ####[facility] [address] [place] [address] Neutrophils/Leukocytes Auto (Bld) [Pure # fraction] 7.6 E9/L High 2.0-7.5 [facility] Comment on above: Order Comment: Order Added by Discern Expert. Performed By: #### 2 053865, 5268169, 9382663, 5402800, 04818284, 6136888 ####[facility] [address] [place] [address] BUNon 03-23-2021 Urea nitrogen [Mass/Vol] 19 mg/dL Normal 5-21 [facility] Comment on above: Performed By: #### 2 880381, 3771668, 2118425, 8535840, 26026769, 9038492 #### [facility] [address] [place] [address] CBC w/ Auto Diffon Erythrocyte distribution width (RBC) [Ratio] 14.8 % High 10.9-14.2 [facility] Comment on above: Performed By: #### 2 898560, 4701406, 2464883, 7303799, 71891571, 0460469 ####[address] [place] [address] Hematocrit (Bld) [Volume fraction] 33.0 % Low 37.7-49.0 [facility] Comment on above: Performed By: #### 2 807097, 8727128, 7948913, 3319232, 01910793, 5436729 ####[address] [place] [address] Hemoglobin (Bld) [Mass/Vol] 11.3 g/dL Low 13.5-17.5 [facility] Comment on above: Performed By: #### 2 047485, 2090276, 7155227, 8500083, 84826319, 5301459 ####[place] [address] MCH (RBC) [Entitic mass] 30.9 pg Normal 27.0-34.0 [facility] Comment on above: Performed By: #### 2 379453, 0014058, 5666927, 6685631, 85831380, 2664251 ####[address] [address] MCHC (RBC) [Mass/Vol] 34.2 g/dL Normal 31.4-36.0 [facility] Comment on above: Performed By: #### 2 329920, 1342779, 1266985, 6625325, 03253323, 2074476 ####[address] [address] MCV (RBC) [Entitic vol] 90.4 fL Normal 80.0-100.0 [facility] Comment on above: Performed By: #### 2 231367, 1726158, 3338307, 2534226, 21370686, 9958122 ####[address] [place] [address] Platelet mean volume (Bld) [Entitic vol] 8.3 fL Normal 6.4-10.8 [facility] Comment on above: Performed By: #### 2 821495, 9234677, 9964951, 2561094, 25197639, 5129795 ####[facility] [address] [place] [address] Platelets (Bld) [#/Vol] 193.0 E9/L Normal 150. 0-500. 0 [facility] Comment on above: Performed By: #### 2 358915, 7179290, 4251890, 9655523, 77239008, 1801827 ####[address] [address] RBC (Bld) [#/Vol] 3.7 E12/L Low 4.3-5.9 [facility] Comment on above: Performed By: #### 2 578616, 5508018, 0414600, 1845979, 24231798, 6394300 ####[facility] [address] [place] [address] WBC corrected for nucl RBC Auto (Bld) [#/Vol] 10.6 E9/L Normal 4.0-11.0 [facility] Comment on above: Performed By: #### 2 134332, 7437582, 5436888, 0427508, 14292618, 8513669 ####[address] [place] [address] Consent for Anesthesiaon Consent for Anesthesia [id number]#1.00CD:127 Normal [facility] Creatinineon 03-23-2021 Creatinine [Mass/Vol] 0.9 mg/dL Normal 0.5-1.3 [facility] Comment on above: Performed By: #### 2 083798, 0351625, 4043054, 1050342, 79976266, 2650839 #### [facility] [address] [place] [address] Discharge Instructionson Discharge Instructions [id number]#1.00CD:127 Normal [facility] Inpatient Clinical Summaryon 03-23-2021 Inpatient Clinical Summary [address] [address] Clinical Summary Person Information: Name: STAN MCDONALD Age: 75 Years : 1945 Sex: Male PCP: ALMAS TELLO MD Marital Status: Race: White Ethnicity: Non- or Language: Chilean Visit Id: Visit Reason: RIGHT KNEE OA Speciality: Acuity: Enc Type: Inpatient Med Service: Surgery Arrival: 03/22/2021 05:56:03 Discharge: Dispo Type: Address: [address] [place] [id number] Provider Notes: Diagnosis: 2:HTN (hypertension); 3:HLD (hyperlipidemia); [...] Follow up: With: Address: When: George Bustamante [address] [place], [place] [id number] [phone] [facility] (1) 04/13/2021 10:00 AM Comments: Keep scheduled appointment Patient Education Information: Normal [facility] Inpatient Patient Summaryon 03-23-2021 Inpatient Patient Summary [place] [id number] Patient Discharge Instructions PERSON INFORMATION Name: STAN MCDONALD Date of : 1945 Current Date: 03/23/2021 10:08:55 PHYSICIANS Admitting Physician: George Bustamante DO Primary Care Physician: ALMAS TELLO MD PCP Comment: Discharge Diagnosis: 2:HTN (hypertension); 3:HLD (hyperlipidemia); 4:DVT prophylaxis Condition at Discharge: STAN MCDONALD has been given the following [...] results: Follow up: With: Address: When: George Bustamante [address] [place] [phone] Business (1) 04/13/2021 10:00 AM Comments: Keep scheduled appointment In the event that this physician does not participate in your insurance network, please consult with your insurance company to find a nearby participating provider. Comment: SANJAY Harper ROBERT, have received the attached patient education materials/instructions and have verbalized understanding: Patient Signature __ Date Clinican/Nurse Signature Date HERE ARE THE MEDICATION CHANGES THAT OCCURRED DURING YOUR HOSPITAL STAY New Medications [facility], [address] [facility] [place], [place] [phone], [phone] acetaminophen-oxycodone (Percocet 5 mg-325 mg oral tablet) [...] Have Changed [facility], [address] [facility] [place] [phone], [phone] START: aspirin (aspirin 81 mg Chew Tab) 1 Tablets By Mouth 2 times a day. Refills: 0. Last Dose: N ext Dose: Medications to Continue with No Changes Other Medications acetaminophen (Tylenol Extra Strength 500 mg oral tablet) 2 Tablets By Mouth every 6 hours as needed as needed for pain. Last Dose:____ (more content not included)... [facility] Interdisciplinary Note - Carmela singon 03-23-2021 Interdisciplinary Note - Nursing Jennifer SCHOFIELD updated pts spouse Erma Normal [facility] Interdisciplinary Note - Peg n 03-23-2021 Interdisciplinary Note - OT OT six clicks score = HH services. Pt reports ortho 360 following up at home. Pt has all bathroom dme in place at home and is now knowledgeable about adapted techniques and dme to improve I w/ LE self care. DC inpt OT services, no further OT needs a this time. Normal [facility] IntraOperative Documentson 0 03-23-2021 IntraOperative Documents [id number]#1.00CD:127 [facility] IntraOperative Documents [id number]#1.00CD:127 [facility] Lyteson 03-23-2021 Anion gap [Moles/Vol] 9 mmol/L Normal 6-16 [facility] Comment on above: Performed By: #### 2 897374, 0142196, 8030182, 9475839, 43131335, 0435747 ####[facility] [address] [place] [address] Chloride [Moles/Vol] 104 mmol/L Normal 101-111 [facility] Comment on above: Performed By: #### 2 267409, 9180522, 7135442, 3413642, 67560201, 3632164 ####[facility] [address] [place] [address] CO2 [Moles/Vol] 26 mmol/L Normal 21-31 [facility] Comment on above: Performed By: #### 2 303113, 2813739, 0107359, 5045770, 54595378, 0583131 ####[facility] [address] [place] [address] Potassium [Moles/Vol] 3.9 mmol/L Normal 3.5-5.3 [facility] Comment on above: Performed By: #### 2 472134, 3675241, 9279411, 3494012, 49068342, 2936825 ####[facility] [address] [place] [address] Sodium [Moles/Vol] 135 mmol/L Normal 135-145 [facility] Comment on above: Performed By: #### 2 096116, 3042631, 5115581, 2745649, 99278671, 1554011 ####[facility] [address] [place] [address] Patient Education - Texton 0 03-23-2021 Patient Education - Text Normal [facility] Preoperative Documentson Preoperative Documents [id number]#1.00CD:127 Normal [facility] Preoperative Documents [id number]#1.00CD:127 Normal [facility] Progress Note-Physicianon Progress Note-Physician Assessment/Plan 75-year-old [...] Consult New/Estab Pt Straight Fwd 40 Min 09096 2. HTN (hypertension) (I10: Essential (primary) hypertension) Continue with metoprolol Ordered: Initial IP Consult New/Estab Pt Straight Fwd 40 Min 92554 3. HLD (hyperlipidemia) (E78.5: Hyperlipidemia, unspecified) Pravastatin [...] made to ensure accuracy, however, inadvertently computerized office agent mistakes may be present. Estuardo Menendez Hospitalist [...] Lymph Auto: 13.5 % Low (03/23/21 04:43:00) Carroll Auto: 14.2 % High (03/23/21 04:43:00) Eos Auto: 0.3 % (03/23/21 04:43:00) Basophil Auto: 0.1 % (03/23/21 04:43:00) Neutro Absolute: 7.6 E9/L High (03/23/21 04:43:00) Lymph Absolute: 1.4 E9/L (03/23/21 04:43:00) Carroll Absolute: 1.5 E9/L High (03/23/21 04:43:00) Eos [...] Tab-EC, 1 (more content not included)... Normal [facility] Comment on above: Result Comment: Elec [...] or recorded. Procedure history: Arthroplasty of knee (90403220) on 03/22/2021 at 75 Years. CABG >5 - Coronary artery bypass grafts greater than five (864972605) on 12/15/2020 at 75 Years. Prostatectomy (488920177). Hernia repair (99794267). Subdural hematoma evacuation (811376723). Social History Social & Psychosocial Habits Alcohol [...] (MAR 22 11:00) SBP 118 mmHg (MAR 22 20:06) DBP 67 mmHg (MAR 22 20:06) SpO2 99 % (MAR 23 04:15) General: [...] 71.9 % Lymph Auto 13.5 % LOW Carroll Auto 14.2 % HI Eos Auto 0.3 % Basophil Auto 0.1 % Neutro Absolute 7.6 E9/L HI Lymph Absolute 1.4 E9/L Carroll Absolute 1.5 E9/L HI Eos Absolute 0.0 [...] UA WBC (more content not included)... Normal [facility] Comment on above: Result Comment: Elec tronically Signed By: George Bustamante DO.cyndy\Date and Time Signed: 03/23/21 07:39 EDT eGFRon 03-23-2021 GFR/1.73 sq M.predicted among blacks MDRD (S/P/Bld) [Vol rate/Area] mL/min/{1.73_m2} Normal >=59 [facility] Comment on above: Order Comment: Order added by Discern Expert. Result Comment: eGFR is race adjusted. AA=. Performed By: #### 2 892456, 7511379, 7974615, 3359989, 13756427, 0187855 ####[facility] [address] [place] [address] GFR/1.73 sq M.predicted among non-blacks MDRD (S/P/Bld) [Vol rate/Area] mL/min/{1.73_m2} Normal >=59 [facility] Comment on above: Order Comment: Order added by Discern Expert. 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 Kidney failure is indicated at less than 15 mL/min/1.73m2. Performed By: #### 2 088163, 3715353, 6073382, 4653662, 46124596, 3021825 ####[facility] [address] [place] [address] ABO/Rhon 03-22-2021 ABO/Rh Negative Invalid Interpretation Code [facility] Comment on above: Performed By: #### 2 852605, 98756885, 49171682, 18911526 ####[facility] [address] [place] [address] ABO/Rh History Checkon 03-22 ABO/Rh History Check Verified Hx Blood Type Normal [facility] Comment on above: Performed By: #### 2 575548, 98039478, 00100853, 15647112 ####[facility] [address] [place] [address] ABSCon 03-22-2021 ABSC Gel Interp Negative Normal [facility] Comment on above: Performed By: #### 2 086796, 43947794, 92077317, 12398607 ####[facility] [address] [place] [address] Blood Bank ID#on 03-22-2021 BBID# [id number] Invalid Interpretation Code [facility] Comment on above: Performed By: #### 2 953537, 21188529, 76396601, 27875943 ####[facility] [address] [place] [address] Blood Bank Slipon 03-22-2021 Blood Bank Slip [id number]#1.00CD:127 Normal [facility] Consent for Procedure/Surger yon 03-22-2021 Consent for Procedure/Surgery [id number]#1.00CD:127 Normal [facility] H&P Updateon 03-22-2021 H&P Update [id number]#1.00CD:127 Normal [facility] Main OR Intraoperative Recor don 03-22-2021 Main OR Intraoperative Record IntraOp Document Type FT Summary Primary Physician: George Bustamante DO Finalized Date/Time: 03/24/21 14:32:42 Pt. Name: STAN MCDONALD/Sex: 1945 Male Med Rec #: [id number] Physician: George Bustamante DO Financial #: [id number] Pt. Type: I Room/Bed: [place] [address] Admit/Disch: 03/22/21 05:56:03 - 03/23/21 11:00:00 Institution: Case Times FT Entry 1 Patient Times In Room 03/22/21 07:34:00 Out Room 03/22/21 10:27:00 Procedure Times Start 03/22/21 08:11:00 Stop 03/22/21 10:23:00 Anesthesia Times Start 03/22/21 07:34:00 Stop 03/22/21 10:27:00 Block Timeout w/ 03/22/21 07:05:00 Anesthesia Last Modified By: Tavia SCHOFIELD, Hafsa Martinez 03/22/21 10:27:04 General Comments: 0703 [...] opened to review and send charges. Tricia CARDIOLOGY PHYSICIAN. Case Attendance FT Entry 1 Entry 2 Entry 3 Case Attendee Abhishek CAMPOS, Asif Bustamante DO, George Elizondo PA-C, Destin Malcolm Role Performed Anesthesiologist Surgeon - Primary PA/SOCIAL WORK CASE MANAGER Tube Handler Time In 03/22/21 07:34:00 03/22/21 07:34:00 03/22/21 07:34:00 Time Out 03/22/21 10:27:00 03/22/21 10:27:00 03/22/21 10:27:00 Procedure KNEE TOTAL KNEE TOTAL KNEE TOTAL ARTHROPLASTY(Right) ARTHROPLASTY(Right) ARTHROPLASTY(Right) Comments DR ESPINO SUPERVISING Last Modified By: Tavia RN, Hafsa Squires RN, Hafsa Maldonaod RN 03/22/21 10:27:05 03/22/21 10:27:05 03/22/21 10:27:05 Entry 4 Entry 5 Entry 6 Case Attendee Monique CARDIOLOGY PHYSICIAN, Wesley Adams CARDIOLOGY PHYSICIAN, Hafsa Saavedra RN Role Performed Scrub - Primary Scrub - Primary Platform Material Handler Manager - Primary Time In 03/22/21 07:34:00 03/22/21 07:34:00 03/22/21 07:34:00 Time Out 03/22/21 10:27:00 03/22/21 10:27:00 03/22/21 10:27:00 Procedure KNEE TOTAL KNEE TOTAL KNEE TOTAL ARTHROPLASTY(Right) ARTHROPLASTY(Right) ARTHROPLASTY(Right) Comments Last Modified By: Tavia RN, Hafsa Squires RN, Hafsa Maldonado RN 03/22/21 10:27:05 03/22/21 10:27:05 03/22/21 10:27:05 Entry 7 Entry 8 Case Attendee Jan RN, Lona Oliveira CARDIOLOGY PHYSICIAN, Sergio Pérez Role Performed Staff - Other Staff - Other Time In 03/22/21 07:34:00 03/22/21 07:45:00 Time Out 03/22/21 07:50:00 03/22/21 08:00:00 Procedure KNEE TOTAL KNEE TOTAL ARTHROPLASTY(Right) ARTHROPLASTY(Right) Comments ASSISTING WITH BLOCK ASSISTING WITH START AND START AND OUTSIDE CIRCULATING Last Modified By: Hafsa Squires RN, RN, Kimberly Y 03/22/21 10:27:05 03/22/21 10:27:05 General Comments: PUSHPA LOZANO RN Perioperative Protocols FT Pre-Care Text: Implements protective measures [...] Participants George Bustamante DO, Caro GARNER, Destin Malcolm, Monique CARDIOLOGY PHYSICIAN, Wesley W, Angie CARDIOLOGY PHYSICIAN, Tavia De La Rosa RN, Kimberly Y [...] 6 W (more content not included)... Normal [facility] Main OR PACU I Recordon 04 Main OR PACU I Record PACU Phase I Docum ent Type FT Summary Primary Physician: George Bustamante DO Finalized Date/Time: 03/22/21 11:24:40 Pt. Name: LORAINERADHASTAN/Sex: 1945 Male Med Rec #: [id number] Physician: George Bustamante DO Financial #: [id number] Pt. Type: I Room/Bed: [place] [address] Admit/Disch: 03/22/21 05:56:03 - Institution: Case Times [...] Signed By: Mai Gan RN 03/22/21 11:24 [employer] Main OR Preoperative Recordo n 03-22-2021 Main OR Preoperative Record PreOp Document Type FT Summary Primary Physician: George Bustamante DO Finalized Date/Time: 03/22/21 08:29:04 Pt. Name: SANJAYSTAN/Sex: 1945 Male Med Rec #: [id number] Physician: George Bustamante DO Financial #: [id number] Pt. Type: A Room/Bed: [place] [address] Admit/Disch: 03/22/21 05:56:03 - Institution: Case Times [...] Squires RN Document Signatures Signed By: Hafsa Suqires RN 03/22/21 08:29 Normal [facility] Message from Medicareon 02-26 Message from Medicare [id number]#[id number]:12 7 Normal [facility] Monitor Recordon 03-22-2021 Monitor Record [id number]#[id number]:127 Normal [facility] Operative Reporton Operative Report Patient: STAN MCDONALD Age: 75 years Sex: Male : 1945 Associated Diagnoses: None Author: George Bustamante DO DATE OF PROCEDURE: 03/22/2021 PREOPERATIVE DIAGNOSIS: Degenerative joint disease, right knee secondary osteoarthritis POSTOPERATIVE DIAGNOSIS: Degenerative joint disease, right knee secondary osteoarthritis PROCEDURE: Primary, caliper-measured kinematically aligned, right total knee arthroplasty utilizing the [place] ShnergleK sphere total knee arthroplasty system and conventional [...] ensures a reestablishment of the prearthritic and [place] joint line and joint angle. Attention was then turned the completion of the distal femoral preparation. Sizing accomplished with using a standard posterior condylar sizing jig and the appropriate size 4-in-1 cutting blocks chosen. The rotation the femur is set to match the patient's [place] femoral rotation taking a total of 8 mm of bone and cartilage both posterior medially and posterior laterally. Then a caliper was used to carefully measure the posterior sections and make any necessary adjustments to ensure accurate bone resections and taoism of [place] femoral rotation. The appropriately sized 4-in-1 cutting [...] the tibia (more content not included)... Normal [facility] Comment on above: Result Comment: Elec tronically Signed By: George Bustamante DO\.br\Date and Time Signed: 03/22/21 10:13 EDT Operative Report Patient: STAN MCDONALD Age: 75 years Sex: Male : 1945 Associated Diagnoses: None Author: George Bustamante DO Postoperative Information Procedure: Right Total Knee Arthroplasty Date/ Time: 03/22/2021 09:58:00 Preoperative Diagnosis: Osteoarthritis of right knee joint (WEQ07-KJ M17.11, Final, Medical), M17.11. Postoperative Diagnosis: Osteoarthritis of right knee joint (CBI41-SW M17.11, Final, Medical), M17.11. Performed by: George Bustamante DO. Tube Handler: Destin Elizondo PA-C. Findings: Degenerative osteoarthrosis of the right knee. [...] canal block. Special techniques: Warming device. Normal [facility] Comment on above: Result Comment: Elec tronically Signed By: George Bustamante DO\.br\Date and Time Signed: 03/22/21 09:59 EDT Outpatient Surgery Discharge Instructionon 03-22-2021 Outpatient Surgery Discharge Instruction [place] [id number] Patient Discharge Instructions PERSON INFORMATION Name: STAN [...] Date Follow up: With: Address: When: George Burroughs[phone] [facility] (1) 04/13/2021 10:00 AM Comments: Keep scheduled appointment Pharmacy Information: You may receive a survey from [employer] asking you to rate your care experience. Your feedback is important and will help us understand what we do well and how we can improve the quality of care we provide to you, your loved ones and our community. It?s an honor to serve you. Thank you for choosing [facility] HERE ARE THE MEDICATION CHANGES THAT OCCURRED [...] Mouth every day. PATIENT EDUCATION INFORMATION Instructions: Normal [facility] Outside Recordson 03-22-2021 Outside Records [id number]#[id number]:127 Normal [facility] Progress Note - Skidder Runner on 03-22-2021 Progress Note - Skidder Runner CRM spoke with patient and in room. [...] discussed anticipate will discharge home tomorrow. Normal [facility] Progress Note-Physicianon Progress Note-Physician Patient: STAN [...] Coronary artery bypass grafts greater than five ([id number]) on 12/15/2020 at 75 Years. Prostatectomy ([id number]). Hernia repair ([id number]). Subdural hematoma evacuation ([id number]). Social History Social & Psychosocial Habits Alcohol [...] home tomorrow (more content not included)... Normal [facility] Comment on above: Result Comment: Elec tronically Signed By: George Bustamante DO\.cyndy\Date and Time Signed: 03/22/21 12:36 EDT Progress [...] Coronary artery bypass grafts greater than five ([id number]) on 12/15/2020 at 75 Years. Prostatectomy (587096681). Hernia repair (08118679). Subdural hematoma evacuation (472637963). Social History Social & Psychosocial Habits Alcohol [...] review: No qualifying data available . Plan [place] [employer] Anesthesiologists (ASA) physical status classification: [...] allergic reactions, failed block and .. Normal [facility] Comment on above: Result Comment: Elec tronically Signed By: Srinivas CHEW, Lm\.br\Date and Time Signed: 03/22/21 07:51 EDT UA With Cult Reflexon 2020 Bilirubin Ql (U) Negative Normal Negative [facility] Comment on above: Performed By: #### 1 [id number] #### [facility] Laboratory [address] [place] [address] Clarity (U) CLEAR Normal Clear [facility] Comment on above: Performed By: #### 1 [id number] #### [facility] [address] [place] [address] Color (U) YELLOW Normal Yellow [facility] Comment on above: Performed By: #### 1 [id number] #### [facility] [address] [place] [address] Epithelial cells.squamous LM.HPF (Urine sed) [#/Area] 0-2 Normal 0-2 [facility] Comment on above: Performed By: #### 1 [id number] #### [facility] [address] [place] [address] Glucose Test strip (U) [Mass/Vol] Negative Normal Negative [facility] Comment on above: Performed By: #### 1 [id number] #### [facility] [address] [place] [address] Hemoglobin Ql (U) Negative Normal Negative [facility] Comment on above: Performed By: #### 1 [id number] #### [facility] [address] [place] [address] Ketones (U) [Mass/Vol] Negative Normal Negative [facility] Comment on above: Performed By: #### 1 [id number] #### [facility] [address] [place] [address] [place].plasma/[place]. RBC (Bld) [Mass ratio] 0-3 Normal 0-3 [facility] Comment on above: Performed By: #### 1 [id number] #### [facility] [address] [place] [address] Nitrite Ql (U) Negative Normal Negative [facility] Comment on above: Performed By: #### 1 [id number] #### [facility] [address] [place] [address] pH (U) 6.0 [pH] Invalid Interpretation Code 5.0-9.0 [facility] Comment on above: Performed By: #### 1 [id number] #### [facility] [address] [place] [address] Protein (U) [Mass/Vol] Negative Normal Negative [facility] Comment on above: Performed By: #### 1 [id number] #### [facility] [address] [place] [address] Specific gravity (U) [Rel density] 1.020 Invalid Interpretation Code 1.005-1.03 0 [facility] Comment on above: Performed By: #### 1 [id number] #### [facility] [address] [place] [address] Type of Urine collection method Cano Normal [facility] Comment on above: Performed By: #### 1 [id number] #### [facility] [address] [place] [address] Urobilinogen Qn (U) 0.2 {Kayli'U}/dL Normal 0.0-1.0 [facility] Comment on above: Performed By: #### 1 [id number] #### [facility] [address] [place] [address] WBC Auto Ql (U) Negative Normal Negative [facility] Comment on above: Performed By: #### 1 [id number] #### [facility] [address] [place] [address] WBC LM.HPF (Urine sed) [#/Area] 0-5 Normal 0-5 [facility] Comment on above: Performed By: #### 1 [id number] #### [facility] [address] [place] [address] XR Knee 1 or 2 Views Righton [...] V. Transcribed by: HAROON Technologist: JUAN JOSE Normal [facility] Consent for Procedure/Surger yon 03-19-2021 Consent for Procedure/Surgery [id number]#[id number]:127 Normal [facility] Outside Recordson 03-19-2021 Outside Records [id number]#[id number]:127 Normal [facility] Coding Summary.on 03-09-2021 Coding Summary. 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 [...] Mcrae CphT Date Saved: 03/09/2021 05:57 am Normal [facility] XR bonelength lower extremit yon 03-09-2021 XR bonelength lower extremity [facility] [place] [address] XRay Report Signed Patient: Stan Mcdonald MR#: [id number] : 1945 Acct:[id number] Age/Sex: 75 / M ADM Date: 03/09/21 Loc: ICXD Room: Type: [facility] Attending Dr: George Bustamante DO Ordering Provider: [...] Lona Rashid M.D.03/09/2021 11:47 AM Dictation Location: [place] [address] Transcribed By: [facility] 03/09/21 1147 Dictated By: Lona Rashid MD 03/09/21 1138 Signed By: 03/09/21 1147 Normal [facility] Pre-Certification Formon Pre-Certification Form [id number]#[id number]:127 Normal [facility] Outside Radiologyon 03-05-20 Outside Radiology [id number]#[id number]:127 Normal [facility] ABO/Rh Retypeon 03-04-2021 ABO/Rh Retype Interp Negative Invalid Interpretation Code [facility] Comment on above: Performed By: #### 1 [id number] ####[facility] [address] [place] [address] BUNon 03-04-2021 Urea nitrogen [Mass/Vol] 16 mg/dL Normal 5-21 [facility] Comment on above: Performed By: #### 2 537188, 9814199, 63227605, 2018041, 8570277, 1895573 ####[facility] [address] [place] [address] CBC w/Indiceson 03-04-2021 Erythrocyte distribution width (RBC) [Ratio] 14.8 % High 10.9-14.2 [facility] Comment on above: Performed By: #### 2 325741, 0779499, 76645080, 2270314, 3408272, 3639844 ####[facility] [address] [place] [address] Hematocrit (Bld) [Volume fraction] 40.0 % Normal 37.7-49.0 [facility] Comment on above: Performed By: #### 2 344674, 1711051, 48312160, 8592499, 8418340, 6757559 ####[facility] [address] [place] [address] Hemoglobin (Bld) [Mass/Vol] 13.2 g/dL Low 13.5-17.5 [facility] Comment on above: Performed By: #### 2 636928, 3346764, 09203514, 1267778, 1603082, 7102414 ####[place] [address] [place] [address] MCH (RBC) [Entitic mass] 30.0 pg Normal 27.0-34.0 [facility] Comment on above: Performed By: #### 2 012686, 5565920, 34580957, 4172643, 0428424, 7760752 ####[place] 7663057 MCHC (RBC) [Mass/Vol] 32.9 g/dL Normal 31.4-36.0 [facility] Comment on above: Performed By: #### 2 938365, 4401022, 41745067, 2226100, 6434692, 4476701 ####[address] [address] MCV (RBC) [Entitic vol] 91.2 fL Normal 80.0-100.0 F [facility] Comment on above: Performed By: #### 2 815287, 7603811, 22395167, 3679344, 5744659, 6517538 ####[address] [address] Platelet mean volume (Bld) [Entitic vol] 8.5 fL Normal 6.4-10.8 [facility] Comment on above: Performed By: #### 2 622918, 2035228, 47825108, 6509025, 5331025, 4768682 ####[address] [place] [address] Platelets (Bld) [#/Vol] 197.0 E9/L Normal 150. 0-500. 0 [facility] Comment on above: Performed By: #### 2 917567, 6008366, 57702417, 6987897, 4866719, 0605646 ####[facility] [address] [place] [address] RBC (Bld) [#/Vol] 4.4 E12/L Normal 4.3-5.9 [facility] Comment on above: Performed By: #### 2 044457, 3159844, 90587226, 1276284, 8697301, 7471945 ####[address] [address] WBC corrected for nucl RBC Auto (Bld) [#/Vol] 7.3 E9/L Normal 4.0-11.0 [facility] Comment on above: Performed By: #### 2 907560, 5841594, 07680842, 9248495, 2211252, 8391284 ####[address] [address] Consent for Treatmenton Consent for Treatment [id number]#1.00CD:127 Normal [facility] Creatinineon 03-04-2021 Creatinine [Mass/Vol] 0.8 mg/dL Normal 0.5-1.3 [facility] Comment on above: Performed By: #### 2 581024, 1629694, 46278445, 0776880, 1096957, 8387991 ####[address] [address] Glucoseon 03-04-2021 Glucose [Mass/Vol] 103 mg/dL Normal 55-199 [facility] Comment on above: Performed By: #### 2 790685, 3073191, 65112797, 0303026, 5468371, 5348970 ####[facility] [address] [place] [address] Lyteson 03-04-2021 Anion gap [Moles/Vol] 11 mmol/L Normal 6-16 [facility] Comment on above: Performed By: #### 2 467748, 4456694, 07884795, 5559177, 0435937, 6652057 ####[facility] [address] [place] [address] Chloride [Moles/Vol] 104 mmol/L Normal 101-111 [facility] Comment on above: Performed By: #### 2 567448, 6188896, 10711127, 1492726, 9234722, 4308838 ####[facility] [address] [place] [address] CO2 [Moles/Vol] 26 mmol/L Normal 21-31 [facility] Comment on above: Performed By: #### 2 072070, 0820924, 85362900, 0388045, 0546139, 7770972 ####[facility] [address] [place] [address] Potassium [Moles/Vol] 4.1 mmol/L Normal 3.5-5.3 [facility] Comment on above: Performed By: #### 2 994128, 8779259, 16800283, 5402505, 2464636, 7239792 ####[facility] [address] [place] [address] Sodium [Moles/Vol] 137 mmol/L Normal 135-145 [facility] Comment on above: Performed By: #### 2 389101, 9127563, 70868648, 0271471, 6698403, 2131710 ####[facility] [address] [place] [address] eGFRon 03-04-2021 GFR/1.73 sq M.predicted among blacks MDRD (S/P/Bld) [Vol rate/Area] mL/min/{1.73_m2} Normal >=59 [facility] Comment on above: Order Comment: Order added by Discern Expert. Result Comment: eGFR is race adjusted. AA=. Performed By: #### 2 819890, 0773836, 55423325, 3383214, 7941784, 3280740 ####[facility] [address] [place] [address] GFR/1.73 sq M.predicted among non-blacks MDRD (S/P/Bld) [Vol rate/Area] mL/min/{1.73_m2} Normal >=59 [facility] Comment on above: Order Comment: Order added by Discern Expert. 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 Kidney failure is indicated at less than 15 mL/min/1.73m2. Performed By: #### 2 403638, 0094161, 14913411, 2923598, 6434045, 5149169 ####[facility] [address] [place] [address] Physician Orderon 02-22-2021 Physician Order [id number]#[id number]:127 Normal [facility] Automated basophil %on 01-07 Basophils/100 WBC (Bld) 0.1 % F [facility] Automated basophil counton 0 01-07-2021 Basophils (Bld) [#/Vol] 0.0 10*3/uL 0.0-0.2 [facility] Automated blood lymphocyte c ount (number/volume)on 01-07-2021 Lymphocytes (Bld) [#/Vol] 1.3 10*3/uL 1.00-4.8 [facility] Automated blood lymphocyte c ount as percentage of total leukocyteson 01-07-2021 Lymphocytes/100 WBC (Bld) 12.1 % [facility] Automated blood monocyte cou nton 01-07-2021 Monocytes (Bld) [#/Vol] 1.3 10*3/uL 0.0-0.8 [facility] Automated blood platelet cou nt (count/volume)on 01-07-2021 Platelets (Bld) [#/Vol] 332 10*3/uL 150-450 [facility] Automated blood platelet darrius n volume measurementon 01-07-2021 Platelet mean volume (Bld) [Entitic vol] 8.0 fL 6.6-10.1 [facility] Automated eosinophil %on Eosinophils/100 WBC (Bld) 1.6 % [facility] Automated eosinophil counton 01-07-2021 Eosinophils (Bld) [#/Vol] 0.2 10*3/uL 0.0-0.45 [facility] Automated erythrocyte distri bution width ratioon 01-07-2021 Erythrocyte distribution width (RBC) [Ratio] 15.3 % 12.0-14.8 [facility] Automated erythrocyte mean c orpuscular hemoglobin (mass per erythrocyte)on 01-07-2021 MCH (RBC) [Entitic mass] 31.8 pg 27.5-35.2 [facility] Automated erythrocyte mean c orpuscular hemoglobin concentration measurement (mass/volon 01-07-2021 MCHC (RBC) [Mass/Vol] 34.5 g/dL 32.5-35.6 [facility] Automated erythrocyte mean c orpuscular volumeon 01-07-2021 MCV (RBC) [Entitic vol] 92.2 fL 83.5-101 F [facility] Automated monocyte %on 01-07 Monocytes/100 WBC (Bld) 12.1 % F [facility] Automated neutrophil %on Neutrophils/100 WBC (Bld) 74.1 % [facility] Blood erythrocytes automated count (number/volume)on 01-07-2021 RBC (Bld) [#/Vol] 3.77 10*6/uL 3.90-5.60 [facility] Blood hemoglobin measurement (mass/volume)on 01-07-2021 Hemoglobin (Bld) [Mass/Vol] 12.0 g/dL 13.0-17.0 [facility] Blood leukocytes automated c ount (number/volume)on 01-07-2021 WBC (Bld) [#/Vol] 10.6 10*3/uL 4.1-10.5 [facility] Blood neutrophil count by au tomated method (number/volume)on 01-07-2021 Neutrophils (Bld) [#/Vol] 7.9 10*3/uL 1.8-7.7 [facility] Estimated glomerular filtrat ion rate (GFR) non- Americanon 01-07-2021 GFR/1.73 sq M predicted among non-blacks MDRD (S/P/Bld) [Vol rate/Area] mL/min/{1.73_m2} [facility] Hematocrit [Volume Fraction] of Blood by Automated counton 01-07-2021 Hematocrit (Bld) [Volume fraction] 34.8 % 38.8-50.0 [facility] Metabolic Panelon 01-07-2021 Magnesium [Mass/Vol] 1.8 mg/dL 1.6-2.6 [facility] Otheron 01-07-2021 GFR/1.73 sq M.predicted MDRD (S/P/Bld) [Vol rate/Area] mL/min/{1.73_m2} [facility] Comment on above: GFR estimated refere nce range: According to KDOQI guidelines, <60 ml/min/1.73m2 is sufficient to diagnose a patient with chronic kidney disease. Nucleated RBC/100 WBC (Bld) [Ratio] 0.1 % 0-0.5 [facility] Creatinine Clearance (Chem N/A [facility] Serum or plasma calcium jordan urement (mass/volume)on 01-07-2021 Calcium [Mass/Vol] 9.8 mg/dL 8.2-10.2 [facility] Serum or plasma chloride darrius surement (moles/volume)on 01-07-2021 Chloride [Moles/Vol] 97 mmol/L 95-114 [facility] Serum or plasma creatinine m easurement with calculation of estimated glomerular filtron 01-07-2021 Creatinine [Mass/Vol] 0.67 mg/dL 0.64-1.27 [facility] Serum or plasma glucose jordan urement (mass/volume)on 01-07-2021 Glucose [Mass/Vol] 109 mg/dL 70-100 [facility] Comment on above: ADA recommended refe rence rangeRandom Glucose Reference Range is dependent on time and content of last meal. Glucose of more than 200 mg/dL in a nonstressed, ambulatory subject supports the diagnosis of Diabetes Mellitus. Serum or plasma potassium me asurement (moles/volume)on 01-07-2021 Potassium [Moles/Vol] 4.5 mmol/L 3.5-5.1 [facility] Serum or plasma sodium measu rement (moles/volume)on 01-07-2021 Sodium [Moles/Vol] 134 mmol/L 136-146 [facility] Serum or plasma total carbon dioxide measurement (moles/volume)on 01-07-2021 CO2 [Moles/Vol] 25.7 mmol/L 22.0-30.[address] [facility] Serum or plasma urea nitroge n measurement (mass/volume)on 01-07-2021 Urea nitrogen [Mass/Vol] 11 mg/dL 9- [facility] Automated basophil %on 01-01 Basophils/100 WBC (Bld) 1.2 % [facility] Automated basophil counton 0 01-01-2021 Basophils (Bld) [#/Vol] 0.1 10*3/uL 0.0-0.2 [facility] Automated blood lymphocyte c ount (number/volume)on 01-01-2021 Lymphocytes (Bld) [#/Vol] 1.4 10*3/uL 1.00-4.8 [facility] Automated blood lymphocyte c ount as percentage of total leukocyteson 01-01-2021 Lymphocytes/100 WBC (Bld) 17.5 % [facility] Automated blood monocyte cou nton 01-01-2021 Monocytes (Bld) [#/Vol] 0.9 10*3/uL 0.0-0.8 [facility] Automated blood platelet cou nt (count/volume)on 01-01-2021 Platelets (Bld) [#/Vol] 384 10*3/uL 150-450 [facility] Automated blood platelet darrius n volume measurementon 01-01-2021 Platelet mean volume (Bld) [Entitic vol] 8.4 fL 6.6-10.1 [facility] Automated eosinophil %on Eosinophils/100 WBC (Bld) 3.6 % [facility] Automated eosinophil counton 01-01-2021 Eosinophils (Bld) [#/Vol] 0.3 10*3/uL 0.0-0.45 [facility] Automated erythrocyte distri bution width ratioon 01-01-2021 Erythrocyte distribution width (RBC) [Ratio] 15.4 % 12.0-14.8 [facility] Automated erythrocyte mean c orpuscular hemoglobin (mass per erythrocyte)on 01-01-2021 MCH (RBC) [Entitic mass] 31.1 pg 27.5-35.2 [facility] Automated erythrocyte mean c orpuscular hemoglobin concentration measurement (mass/volon 01-01-2021 MCHC (RBC) [Mass/Vol] 33.6 g/dL 32.5-35.6 [facility] Automated erythrocyte mean c orpuscular volumeon 01-01-2021 MCV (RBC) [Entitic vol] 92.4 fL 83.5-101 F [facility] Automated monocyte %on 01-01 Monocytes/100 WBC (Bld) 11.7 % F [facility] Automated neutrophil %on Neutrophils/100 WBC (Bld) 66.0 % [facility] Blood erythrocytes automated count (number/volume)on 01-01-2021 RBC (Bld) [#/Vol] 3.14 10*6/uL 3.90-5.60 [facility] Blood hemoglobin measurement (mass/volume)on 01-01-2021 Hemoglobin (Bld) [Mass/Vol] 9.8 g/dL 13.0-17.0 [facility] Blood leukocytes automated c ount (number/volume)on 01-01-2021 WBC (Bld) [#/Vol] 8.0 10*3/uL 4.5-11.0 [facility] Blood neutrophil count by au tomated method (number/volume)on 01-01-2021 Neutrophils (Bld) [#/Vol] 5.3 10*3/uL 1.8-7.7 [facility] Estimated glomerular filtrat ion rate (GFR) non- Americanon 01-01-2021 GFR/1.73 sq M predicted among non-blacks MDRD (S/P/Bld) [Vol rate/Area] mL/min/{1.73_m2} [facility] Hematocrit [Volume Fraction] of Blood by Automated counton 01-01-2021 Hematocrit (Bld) [Volume fraction] 29.0 % 38.8-50.0 [facility] Metabolic Panelon 01-01-2021 Magnesium [Mass/Vol] 2.0 mg/dL 1.6-2.6 [facility] Otheron 01-01-2021 GFR/1.73 sq M.predicted MDRD (S/P/Bld) [Vol rate/Area] mL/min/{1.73_m2} [facility] Comment on above: GFR estimated refere nce range: According to KDOQI guidelines, <60 ml/min/1.73m2 is sufficient to diagnose a patient with chronic kidney disease. Nucleated RBC/100 WBC (Bld) [Ratio] 0.0 % 0-0.5 [facility] Creatinine Clearance (Chem 79.78 [facility] Serum or plasma calcium jordan urement (mass/volume)on 01-01-2021 Calcium [Mass/Vol] 9.0 mg/dL 8.2-10.2 [facility] Serum or plasma chloride darrius surement (moles/volume)on 01-01-2021 Chloride [Moles/Vol] 106 mmol/L 95-114 [facility] Serum or plasma creatinine m easurement with calculation of estimated glomerular filtron 01-01-2021 Creatinine [Mass/Vol] 0.71 mg/dL 0.64-1.27 [facility] Serum or plasma glucose jordan urement (mass/volume)on 01-01-2021 Glucose [Mass/Vol] 88 mg/dL 70-100 [facility] Comment on above: ADA recommended refe rence rangeRandom Glucose Reference Range is dependent on time and content of last meal. Glucose of more than 200 mg/dL in a nonstressed, ambulatory subject supports the diagnosis of Diabetes Mellitus. Serum or plasma potassium me asurement (moles/volume)on 01-01-2021 Potassium [Moles/Vol] 3.8 mmol/L 3.5-5.1 [facility] Serum or plasma sodium measu rement (moles/volume)on 01-01-2021 Sodium [Moles/Vol] 140 mmol/L 136-146 [facility] Serum or plasma total carbon dioxide measurement (moles/volume)on 01-01-2021 CO2 [Moles/Vol] 25.6 mmol/L 22.0-30.[address] [facility] Serum or plasma urea nitroge n measurement (mass/volume)on 01-01-2021 Urea nitrogen [Mass/Vol] 14 mg/dL 9-23 [facility] Albumin [Mass/volume] in Ser um or Plasmaon 12-27-2020 Albumin [Mass/Vol] 3.4 g/dL 3.2-5.5 [facility] Automated erythrocytes count in urine sediment (number/area)on 12-27-2020 RBC Auto (Urine sed) [#/Area] 3-4 [HPF] [facility] Automated leukocytes count i n urine sediment (number/area)on 12-27-2020 WBC Auto (Urine sed) [#/Area] 0-1 [HPF] [facility] Automated urine color determ inationon 12-27-2020 Color (U) Yellow Yellow [facility] Blood anisocytosis detection on 12-27-2020 Anisocytosis Ql (Bld) Slight [facility] Folate [Mass/volume] in Seru m or Plasmaon 12-27-2020 Folate [Mass/Vol] 13.2 ng/mL [facility] Comment on above: Folate reference ran ge: >5.9 ng/mlThe WHO technical consultation on folate and vitamin [id number] has determined that folate concentrations lessthan 4 ng/ml are considered deficient. Hematologyon 12-27-2020 Platelets (Bld) [#/Vol] Normal Normal F [facility] Otheron 12-27-2020 Cobalamin (Vitamin B12) [Mass/Vol] 535 pg/mL 180-914 [facility] Platelet Morphology Comment Normal Normal [facility] Protein [Mass/volume] in Ser um or Plasmaon 12-27-2020 Protein [Mass/Vol] 6.1 g/dL 6.1-7.9 [facility] RBC morphologyon 12-27-2020 RBC morphology finding Nom (Bld) N/A [facility] Serum globulin measurement b y calculation (mass/volume)on 12-27-2020 Globulin (S) [Mass/Vol] 2.7 g/dL [facility] Serum or plasma alanine clark otransferase measurement without P-5'-P (enzymatic activion 12-27-2020 ALT No additional P-5'-P [Catalytic activity/Vol] 38 U/L 10-60 [facility] Serum or plasma albumin/glob ulin mass ratioon 12-27-2020 Albumin/Globulin [Mass ratio] 1.3 {ratio} [facility] Serum or plasma alkaline matt sphatase measurement (enzymatic activity/volume)on 12-27-2020 ALP [Catalytic activity/Vol] 62 U/L 32-92 [facility] Serum or plasma aspartate am inotransferase measurement (enzymatic activity/volume)on 12-27-2020 AST [Catalytic activity/Vol] 30 U/L 10-42 [facility] Serum or plasma prealbumin m easurement (mass/volume)on 12-27-2020 Prealbumin [Mass/Vol] 17.2 mg/dL 18.0-38.0 [facility] Serum or plasma total biliru bin measurement (mass/volume)on 12-27-2020 Bilirubin [Mass/Vol] 1.0 mg/dL 0.3-1.2 [facility] Specific gravity of Urine by Automated test stripon 12-27-2020 Specific gravity (U) [Rel density] 1.019 1.001-1.03 0 [facility] Squamous epithelial cells de tection in urine sediment by light microscopyon 12-27-2020 Epithelial cells.squamous LM Ql (Urine sed) 0-1 [HPF] [facility] Urinalysison 12-27-2020 Hyaline casts LM Ql (Urine sed) 0-8 [LPF] [facility] Urine bacteria detection by automated methodon 12-27-2020 Bacteria Auto Ql (U) None seen None Seen [facility] Urine clarity by refractomet ry automatedon 12-27-2020 Clarity Refractometry automated (U) Clear Clear [facility] Urine glucose measurement by automated test strip (mass/volume)on 12-27-2020 Glucose Auto test strip (U) [Mass/Vol] Normal mg/dL Normal [facility] Urine hemoglobin detection b y automated test stripon 12-27-2020 Hemoglobin Auto test strip Ql (U) Negative Negative [facility] Urine ketones measurement by automated test strip (mass/volume)on 12-27-2020 Ketones (U) [Mass/Vol] Trace Negative [facility] Urine leukocyte esterase det ection by automated test stripon 12-27-2020 Leukocyte esterase Auto test strip Ql (U) 1+ Negative [facility] Urine nitrite detection by t est stripon 12-27-2020 Nitrite Ql (U) Negative Negative [facility] Urine pH measurement by auto mated test stripon 12-27-2020 pH (U) 7.5 [pH] 5.0-9.0 [facility] Urine protein measurement by automated test strip (mass/volume)on 12-27-2020 Protein (U) [Mass/Vol] Negative Negative [facility] Urine total bilirubin detect ion by test stripon 12-27-2020 Bilirubin Ql (U) Negative Negative [facility] Urine urobilinogen measureme nt by automated test strip (mass/volume)on 12-27-2020 Urobilinogen (U) [Mass/Vol] Normal mg/dL Normal [facility] Automated basophil %on 12-26 Basophils/100 WBC (Bld) 0.4 % [facility] Automated basophil counton 0 12-26-2020 Basophils (Bld) [#/Vol] 0.0 10*3/uL 0.0-0.2 [facility] Automated blood lymphocyte c ount (number/volume)on 12-26-2020 Lymphocytes (Bld) [#/Vol] 1.6 10*3/uL 1.00-4.8 [facility] Automated blood lymphocyte c ount as percentage of total leukocyteson 12-26-2020 Lymphocytes/100 WBC (Bld) 16.1 % [facility] Automated blood monocyte cou nton 12-26-2020 Monocytes (Bld) [#/Vol] 1.3 10*3/uL 0.0-0.8 [facility] Automated blood platelet cou nt (count/volume)on 12-26-2020 Platelets (Bld) [#/Vol] 353 10*3/uL 150-450 [facility] Automated blood platelet darrius n volume measurementon 12-26-2020 Platelet mean volume (Bld) [Entitic vol] 7.9 fL 6.6-10.1 [facility] Automated eosinophil %on Eosinophils/100 WBC (Bld) 4.1 % [facility] Automated eosinophil counton 12-26-2020 Eosinophils (Bld) [#/Vol] 0.4 10*3/uL 0.0-0.45 [facility] Automated erythrocyte distri bution width ratioon 12-26-2020 Erythrocyte distribution width (RBC) [Ratio] 15.3 % 12.0-14.8 [facility] Automated erythrocyte mean c orpuscular hemoglobin (mass per erythrocyte)on 12-26-2020 MCH (RBC) [Entitic mass] 30.6 pg 27.5-35.2 [facility] Automated erythrocyte mean c orpuscular hemoglobin concentration measurement (mass/volon 12-26-2020 MCHC (RBC) [Mass/Vol] 33.3 g/dL 32.5-35.6 [facility] Automated erythrocyte mean c orpuscular volumeon 12-26-2020 MCV (RBC) [Entitic vol] 92.0 fL 83.5-101 [facility] Automated monocyte %on 12-26 Monocytes/100 WBC (Bld) 13.1 % [facility] Automated neutrophil %on Neutrophils/100 WBC (Bld) 66.3 % [facility] Blood erythrocytes automated count (number/volume)on 12-26-2020 RBC (Bld) [#/Vol] 3.35 10*6/uL 3.90-5.60 [facility] Blood hemoglobin measurement (mass/volume)on 12-26-2020 Hemoglobin (Bld) [Mass/Vol] 10.3 g/dL 13.0-17.0 [facility] Blood leukocytes automated c ount (number/volume)on 12-26-2020 WBC (Bld) [#/Vol] 9.7 10*3/uL 4.1-10.5 [facility] Blood neutrophil count by au tomated method (number/volume)on 12-26-2020 Neutrophils (Bld) [#/Vol] 6.4 10*3/uL 1.8-7.7 [facility] Estimated glomerular filtrat ion rate (GFR) non- Americanon 12-26-2020 GFR/1.73 sq M predicted among non-blacks MDRD (S/P/Bld) [Vol rate/Area] mL/min/{1.73_m2} [facility] Hematocrit [Volume Fraction] of Blood by Automated counton 12-26-2020 Hematocrit (Bld) [Volume fraction] 30.8 % 38.8-50.0 [facility] Metabolic Panelon 12-26-2020 Magnesium [Mass/Vol] 2.4 mg/dL 1.6-2.6 [facility] Otheron 12-26-2020 GFR/1.73 sq M.predicted MDRD (S/P/Bld) [Vol rate/Area] mL/min/{1.73_m2} [facility] Comment on above: GFR estimated refere nce range: According to KDOQI guidelines, <60 ml/min/1.73m2 is sufficient to diagnose a patient with chronic kidney disease. Nucleated RBC/100 WBC (Bld) [Ratio] 0.0 % 0-0.5 [facility] Creatinine Clearance (Chem 76.23 [facility] Serum or plasma calcium jordan urement (mass/volume)on 12-26-2020 Calcium [Mass/Vol] 8.9 mg/dL 8.2-10.2 [facility] Serum or plasma chloride darrius surement (moles/volume)on 12-26-2020 Chloride [Moles/Vol] 103 mmol/L 95-114 [facility] Serum or plasma creatinine m easurement with calculation of estimated glomerular filtron 12-26-2020 Creatinine [Mass/Vol] 0.81 mg/dL 0.64-1.27 [facility] Serum or plasma glucose jordan urement (mass/volume)on 12-26-2020 Glucose [Mass/Vol] 109 mg/dL 70-100 [facility] Comment on above: ADA recommended refe rence rangeRandom Glucose Reference Range is dependent on time and content of last meal. Glucose of more than 200 mg/dL in a nonstressed, ambulatory subject supports the diagnosis of Diabetes Mellitus. Serum or plasma potassium me asurement (moles/volume)on 12-26-2020 Potassium [Moles/Vol] 4.0 mmol/L 3.5-5.1 [facility] Serum or plasma sodium measu rement (moles/volume)on 12-26-2020 Sodium [Moles/Vol] 139 mmol/L 136-146 [facility] Serum or plasma total carbon dioxide measurement (moles/volume)on 12-26-2020 CO2 [Moles/Vol] 26.6 mmol/L 22.0-30.[address] [facility] Serum or plasma urea nitroge n measurement (mass/volume)on 12-26-2020 Urea nitrogen [Mass/Vol] 11 mg/dL 9-23 [facility] Blood thiamine measurement ( moles/volume)on 12-24-2020 Thiamine (Bld) [Moles/Vol] 80.0 nmol/L [facility] Comment on above: Performed at: [employer] [facility] [address] [employer] [id number] Director: Genesis David MD, Phone: [phone] Body fluid albumin measureme nt (mass/volume)on 12-24-2020 Albumin (Body fld) [Mass/Vol] 3.4 g/dL 3.2-5.5 [facility] Capillary blood glucose jordan urement by glucometer (mass/volume)on 12-24-2020 Glucose [Mass/Vol] 94 mg/dL [facility] Comment on above: Random Glucose Refer ence Range is dependent on time and content of last meal. Glucose of more than 200 mg/dL in a nonstressed, ambulatory subject supports the diagnosis of Diabetes Mellitus. Folate [Mass/volume] in Seru m or Plasmaon 12-24-2020 Folate [Mass/Vol] 7.9 ng/mL [facility] Comment on above: Folate reference ran ge: >5.9 ng/mlThe WHO technical consultation on folate and vitamin [id number] has determined that folate concentrations lessthan 4 ng/ml are considered deficient. Metabolic Panelon 12-24-2020 Glucose [Mass/Vol] Glu2: cleaned meter [facility] Otheron 12-24-2020 Cobalamin (Vitamin B12) [Mass/Vol] 443 pg/mL 180-914 [facility] Protein [Mass/volume] in Ser um or Plasmaon 12-24-2020 Protein [Mass/Vol] 6.2 g/dL 6.1-7.9 [facility] Serum globulin measurement b y calculation (mass/volume)on 12-24-2020 Globulin (S) [Mass/Vol] 2.8 g/dL [facility] Serum or plasma alanine clark otransferase measurement without P-5'-P (enzymatic activion 12-24-2020 ALT No additional P-5'-P [Catalytic activity/Vol] 38 U/L 10-60 [facility] Serum or plasma albumin/glob ulin mass ratioon 12-24-2020 Albumin/Globulin [Mass ratio] 1.2 {ratio} [facility] Serum or plasma alkaline matt sphatase measurement (enzymatic activity/volume)on 12-24-2020 ALP [Catalytic activity/Vol] 51 U/L 32-92 [facility] Serum or plasma aspartate am inotransferase measurement (enzymatic activity/volume)on 12-24-2020 AST [Catalytic activity/Vol] 43 U/L 10-42 [facility] Serum or plasma thyroid stim ulating hormone (TSH) measurement by high sensitivity meton 12-24-2020 TSH Qn 3.59 u[iU]/mL 0.45-5.33 [facility] Serum or plasma total biliru bin measurement (mass/volume)on 12-24-2020 Bilirubin [Mass/Vol] 0.8 mg/dL 0.3-1.2 [facility] Monocyte %on 12-18-2020 Monocytes/100 WBC (Bld) 19 umol/L 11-35 [facility] Creatine kinase [Enzymatic a ctivity/volume] in Serum or Plasmaon 12-17-2020 CK [Catalytic activity/Vol] 1788 U/L 22-269 [facility] Otheron 12-17-2020 Arterial Blood Base Excess 2.5 mmol/L -3.0-3.0 [facility] Arterial Blood HCO3 26.0 mmol/L 23.0-29.0 [facility] Arterial Blood Oxygen Content 6.3 mmol/L 6.6-9.7 [facility] Arterial Blood Oxygen Saturation 98.8 % 95.0-100.0 [facility] Arterial Blood Partial Pressure CO2 35.7 mm[Hg] 35.0-45.0 [facility] Arterial Blood Partial Pressure O2 143.5 mm[Hg] 80.0-100.0 [facility] Arterial Blood pH 7.48 7.35-7.45 [facility] Arterial Blood Total CO2 27.1 mmol/L 23.0-27.0 [facility] Blood Gas Critical Value See comment [facility] Comment on above: Critical Value mckinley d on: 12/17/2020 at 04:21 Blood Gas PEEP 5 cmH2O [facility] Set Respiration Rate 14 [facility] Blood Gas Tidal Volume 500 mL [facility] FiO2 40 % [facility] Phosphate [Mass/volume] in S brandee or Plasmaon 12-17-2020 Phosphate [Mass/Vol] 4.1 mg/dL 2.5-4.6 [facility] Serum or plasma creatine kin ase MB (CKMB)/total creatine kinase (CK) ratio by calculaon 12-17-2020 CK.MB Calc [Catalytic fraction] 2.5 0.00-2.50 [facility] Serum or plasma creatine kin ase MB measurement (mass/volume)on 12-17-2020 CK.MB [Mass/Vol] 45.2 ng/mL 0.6-6.[address] [facility] Activated partial thrombopla stin time (aPTT) in platelet poor plasma by coagulation aon 12-16-2020 aPTT Coag (PPP) [Time] 32.6 s 23.0-35.0 [facility] Alpha angle parameter of thr omboelastogram (TEG)on 12-16-2020 Clot angle TEG (Bld) [Angle] 48.4 deg 53-72 [facility] Arterial blood standard base excess determination by calculationon 12-16-2020 Base excess standard Calc (BldA) [Moles/Vol] 3 mmol/L -2-[address] [facility] Blood activated clotting anuja e by coagulation assayon 12-16-2020 ACT Coag (Bld) 103 s 90-139 [facility] Comment on above: Reference Range: 90- 139 (Non-heparinized) Blood carbon dioxide, total measurement by calculation (moles/volume)on 12-16-2020 CO2 Calc (Bld) [Moles/Vol] 28 mmol/L 23-29 [facility] Blood coagulation index dete rmination by thromboelastographyon 12-16-2020 Coagulation index TEG Qn (Bld) -11.4 -3.0-3.0 [facility] Blood hemoglobin measurement by calculation (mass/volume)on 12-16-2020 Hemoglobin (Bld) [Mass/Vol] 9.5 g/dL 12.0-17.[address] [facility] [address] biopsyon 12-16-2020 Hematocrit (Bld) [Volume fraction] 28.0 % 38.0-51.0 [facility] Capillary blood glucose jordan urement by glucometer (mass/volume)on 12-16-2020 Glucose [Mass/Vol] 108 mg/dL 70-105 [facility] Determination of maximum amp litude of thromboelastography curveon 12-16-2020 Maximum clot firmness TEG (Bld) [Length] 53.7 mm 50-70 [facility] Fibrinogen measurement in pl atelet poor plasma by coagulation assay (mass/volume)on 12-16-2020 Fibrinogen Coag (PPP) [Mass/Vol] 157 mg/dL 150-400 [facility] Hematologyon 12-16-2020 PT Coag (PPP) [Time] 16.9 s 9.0-12.9 [facility] Monocyte %on 12-16-2020 Monocytes/100 WBC (Bld) 40.6 mm[Hg] 35-51 [facility] Monocytes/100 WBC (Bld) 468 mm[Hg] 80-105 [facility] Platelet poor plasma interna tional normalized ratio (INR) by coagulation assay (relaton 12-16-2020 INR Coag (PPP) [Relative time] 1.5 {INR} [facility] Comment on above: INR Therapeutic Rang e [...] time TEG (Bld) 19.5 min 5-10 [facility] Clotting time TEG (Bld) 3.1 min 1-3 [facility] Whole blood bicarbonate jordan urementon 12-16-2020 HCO3 (Bld) [Moles/Vol] 27.0 mmol/L 22.0-28.0 [facility] Whole blood ionized calcium measurement (moles/volume)on 12-16-2020 Calcium.ionized (Bld) [Moles/Vol] 1140 mmol/L 1.12-1.32 [facility] Whole blood oxygen saturatio n measurementon 12-16-2020 Oxygen saturation in Blood 100 % 95-98 [facility] Comment on above: Reference ranges ref lect baseline specimens only Whole blood pHon 12-16-2020 pH (Bld) 7.431 Units 7.31-7.45 [facility] Whole blood potassium measur ementon 12-16-2020 Potassium [Moles/Vol] 3.7 mmol/L 3.5-4.9 [facility] Whole blood sodium measureme nton 12-16-2020 Sodium [Moles/Vol] 140 mmol/L 138-146 [facility] Activated partial thrombopla stin time (aPTT) in platelet poor plasma by coagulation aon 12-14-2020 aPTT Coag (PPP) [Time] 28.7 s 23.0-35.0 [facility] Automated basophil %on 12-14 Basophils/100 WBC (Bld) 0.2 % [facility] Automated basophil counton 0 12-14-2020 Basophils (Bld) [#/Vol] 0.0 10*3/uL 0.0-0.2 [facility] Automated blood lymphocyte c ount (number/volume)on 12-14-2020 Lymphocytes (Bld) [#/Vol] 1.6 10*3/uL 1.00-4.8 [facility] Automated blood lymphocyte c ount as percentage of total leukocyteson 12-14-2020 Lymphocytes/100 WBC (Bld) 17.4 % [facility] Automated blood monocyte cou nton 12-14-2020 Monocytes (Bld) [#/Vol] 0.9 10*3/uL 0.0-0.8 [facility] Automated blood platelet cou nt (count/volume)on 12-14-2020 Platelets (Bld) [#/Vol] 208 10*3/uL 150-450 [facility] Automated blood platelet darrius n volume measurementon 12-14-2020 Platelet mean volume (Bld) [Entitic vol] 7.8 fL 6.6-10.1 [facility] Automated eosinophil %on Eosinophils/100 WBC (Bld) 1.3 % [facility] Automated eosinophil counton 12-14-2020 Eosinophils (Bld) [#/Vol] 0.1 10*3/uL 0.0-0.45 [facility] Automated erythrocyte distri bution width ratioon 12-14-2020 Erythrocyte distribution width (RBC) [Ratio] 13.7 % 12.0-14.8 [facility] Automated erythrocyte mean c orpuscular hemoglobin (mass per erythrocyte)on 12-14-2020 MCH (RBC) [Entitic mass] 32.0 pg 27.5-35.2 [facility] Automated erythrocyte mean c orpuscular hemoglobin concentration measurement (mass/volon 12-14-2020 MCHC (RBC) [Mass/Vol] 33.9 g/dL 32.5-35.6 [facility] Automated erythrocyte mean c orpuscular volumeon 12-14-2020 MCV (RBC) [Entitic vol] 94.4 fL 83.5-101 [facility] Automated monocyte %on 12-14 Monocytes/100 WBC (Bld) 9.9 % [facility] Automated neutrophil %on Neutrophils/100 WBC (Bld) 71.2 % [facility] Automated urine color determ inationon 12-14-2020 Color (U) Yellow Yellow [facility] Blood erythrocytes automated count (number/volume)on 12-14-2020 RBC (Bld) [#/Vol] 4.17 10*6/uL 3.90-5.60 [facility] Blood hemoglobin measurement (mass/volume)on 12-14-2020 Hemoglobin (Bld) [Mass/Vol] 13.3 g/dL 13.0-17.0 [facility] Blood leukocytes automated c ount (number/volume)on 12-14-2020 WBC (Bld) [#/Vol] 9.0 10*3/uL 4.5-11.0 [facility] Blood neutrophil count by au tomated method (number/volume)on 12-14-2020 Neutrophils (Bld) [#/Vol] 6.5 10*3/uL 1.8-7.7 [facility] Body fluid albumin measureme nt (mass/volume)on 12-14-2020 Albumin (Body fld) [Mass/Vol] 4.6 g/dL 3.2-5.5 [facility] Estimated glomerular filtrat ion rate (GFR) non- Americanon 12-14-2020 GFR/1.73 sq M predicted among non-blacks MDRD (S/P/Bld) [Vol rate/Area] mL/min/{1.73_m2} [facility] Fibrinogen measurement in pl atelet poor plasma by coagulation assay (mass/volume)on 12-14-2020 Fibrinogen Coag (PPP) [Mass/Vol] 218 mg/dL 150-400 [facility] Hematocrit [Volume Fraction] of Blood by Automated counton 12-14-2020 Hematocrit (Bld) [Volume fraction] 39.4 % 38.8-50.0 [facility] Hematologyon 12-14-2020 PT Coag (PPP) [Time] 10.7 s 9.0-12.9 [facility] Otheron 12-14-2020 GFR/1.73 sq M.predicted MDRD (S/P/Bld) [Vol rate/Area] mL/min/{1.73_m2} [facility] Comment on above: GFR estimated refere nce range: According to KDOQI guidelines, <60 ml/min/1.73m2 is sufficient to diagnose a patient with chronic kidney disease. Nucleated RBC/100 WBC (Bld) [Ratio] 0.1 % 0-0.5 [facility] Creatinine Clearance (Chem N/A [facility] Platelet poor plasma interna tional normalized ratio (INR) by coagulation assay (relaton 12-14-2020 INR Coag (PPP) [Relative time] 1.0 {INR} [facility] Comment on above: INR Therapeutic Rang e [...] Plasmaon 12-14-2020 Protein [Mass/Vol] 7.2 g/dL 6.1-7.9 [facility] Serum globulin measurement b y calculation (mass/volume)on 12-14-2020 Globulin (S) [Mass/Vol] 2.6 g/dL [facility] Serum or plasma alanine clark otransferase measurement without P-5'-P (enzymatic activion 12-14-2020 ALT No additional P-5'-P [Catalytic activity/Vol] 20 U/L 10-60 [facility] Serum or plasma albumin/glob ulin mass ratioon 12-14-2020 Albumin/Globulin [Mass ratio] 1.8 {ratio} [facility] Serum or plasma alkaline matt sphatase measurement (enzymatic activity/volume)on 12-14-2020 ALP [Catalytic activity/Vol] 45 U/L 32-92 [facility] Serum or plasma aspartate am inotransferase measurement (enzymatic activity/volume)on 12-14-2020 AST [Catalytic activity/Vol] 25 U/L 10-42 [facility] Serum or plasma calcium jordan urement (mass/volume)on 12-14-2020 Calcium [Mass/Vol] 9.9 mg/dL 8.2-10.2 [facility] Serum or plasma chloride darrius surement (moles/volume)on 12-14-2020 Chloride [Moles/Vol] 95 mmol/L 95-114 [facility] Serum or plasma creatinine m easurement with calculation of estimated glomerular filtron 12-14-2020 Creatinine [Mass/Vol] 0.78 mg/dL 0.64-1.27 [facility] Serum or plasma glucose jordan urement (mass/volume)on 12-14-2020 Glucose [Mass/Vol] 90 mg/dL 70-100 [facility] Comment on above: ADA recommended refe rence rangeRandom Glucose Reference Range is dependent on time and content of last meal. Glucose of more than 200 mg/dL in a nonstressed, ambulatory subject supports the diagnosis of Diabetes Mellitus. Serum or plasma potassium me asurement (moles/volume)on 12-14-2020 Potassium [Moles/Vol] 4.3 mmol/L 3.5-5.1 [facility] Serum or plasma sodium measu rement (moles/volume)on 12-14-2020 Sodium [Moles/Vol] 136 mmol/L 136-146 [facility] Serum or plasma total biliru bin measurement (mass/volume)on 12-14-2020 Bilirubin [Mass/Vol] 0.7 mg/dL 0.3-1.2 [facility] Serum or plasma total carbon dioxide measurement (moles/volume)on 12-14-2020 CO2 [Moles/Vol] 26.4 mmol/L 22.0-30.[address] [facility] Serum or plasma urea nitroge n measurement (mass/volume)on 12-14-2020 Urea nitrogen [Mass/Vol] 15 mg/dL 9-23 [facility] Specific gravity of Urine by Automated test stripon 12-14-2020 Specific gravity (U) [Rel density] 1.011 1.001-1.03 0 [facility] Urine clarity by refractomet ry automatedon 12-14-2020 Clarity Refractometry automated (U) Clear Clear [facility] Urine culture routineon 11-27 Bacteria identified Cx Nom (U) No Growth 2 Days [facility] Urine glucose measurement by automated test strip (mass/volume)on 12-14-2020 Glucose Auto test strip (U) [Mass/Vol] Normal mg/dL Normal [facility] Urine hemoglobin detection b y automated test stripon 12-14-2020 Hemoglobin Auto test strip Ql (U) Negative Negative [facility] Urine ketones measurement by automated test strip (mass/volume)on 12-14-2020 Ketones (U) [Mass/Vol] Negative Negative [facility] Urine leukocyte esterase det ection by automated test stripon 12-14-2020 Leukocyte esterase Auto test strip Ql (U) Negative Negative [facility] Urine nitrite detection by t est stripon 12-14-2020 Nitrite Ql (U) Negative Negative [facility] Urine pH measurement by auto mated test stripon 12-14-2020 pH (U) 7.0 [pH] 5.0-9.0 [facility] Urine protein measurement by automated test strip (mass/volume)on 12-14-2020 Protein (U) [Mass/Vol] Negative Negative [facility] Urine total bilirubin detect ion by test stripon 12-14-2020 Bilirubin Ql (U) Negative Negative [facility] Urine urobilinogen measureme nt by automated test strip (mass/volume)on 12-14-2020 Urobilinogen (U) [Mass/Vol] Normal mg/dL Normal [facility] COVID-19 Positive/Negativeon 11-26-2020 COVID-19 Positive/Negative Positive Negative [facility] Comment on above: Testing for SARS-CoV -2 by RT-PCRThis test was developed and its performance characteristics determined by [employer] ([employer]) and validated at the [facility]. This test has not been [...] Otheron 11-26-2020 Coronavirus 2019 PCR Interp N/A [facility] Urine culture routineon 10-28 Bacteria identified Cx Nom (U) No Growth 2 Days [facility] Activated partial thrombopla stin time (aPTT) in platelet poor plasma by coagulation aon 11-17-2020 aPTT Coag (PPP) [Time] 25.9 s 23.0-35.0 [facility] Albumin [Mass/volume] in Ser um or Plasmaon 11-17-2020 Albumin [Mass/Vol] 4.3 g/dL 3.2-5.5 [facility] Automated basophil %on 11-17 Basophils/100 WBC (Bld) 0.4 % [facility] Automated basophil counton 1 01-18-2020 Basophils (Bld) [#/Vol] 0.0 10*3/uL 0.0-0.2 [facility] Automated blood lymphocyte c ount (number/volume)on 11-17-2020 Lymphocytes (Bld) [#/Vol] 1.3 10*3/uL 1.00-4.8 [facility] Automated blood lymphocyte c ount as percentage of total leukocyteson 11-17-2020 Lymphocytes/100 WBC (Bld) 17.5 % [facility] Automated blood monocyte cou nton 11-17-2020 Monocytes (Bld) [#/Vol] 0.8 10*3/uL 0.0-0.8 [facility] Automated blood platelet cou nt (count/volume)on 11-17-2020 Platelets (Bld) [#/Vol] 182 10*3/uL 150-450 [facility] [facility] blood platelet darrius n volume measurementon 11-17-2020 Platelet mean volume (Bld) [Entitic vol] 8.1 fL 6.6-10.1 [facility] Automated eosinophil %on Eosinophils/100 WBC (Bld) 2.0 % [facility] Automated eosinophil counton 11-17-2020 Eosinophils (Bld) [#/Vol] 0.1 10*3/uL 0.0-0.45 [facility] Automated erythrocyte distri bution width ratioon 11-17-2020 Erythrocyte distribution width (RBC) [Ratio] 13.8 % 12.0-14.8 [facility] Automated erythrocyte mean c orpuscular hemoglobin (mass per erythrocyte)on 11-17-2020 MCH (RBC) [Entitic mass] 32.9 pg 27.5-35.2 [facility] Automated erythrocyte mean c orpuscular hemoglobin concentration measurement (mass/volon 11-17-2020 MCHC (RBC) [Mass/Vol] 34.7 g/dL 32.5-35.6 [facility] Automated erythrocyte mean c orpuscular volumeon 11-17-2020 MCV (RBC) [Entitic vol] 94.9 fL 83.5-101 F [facility] Automated erythrocytes count in urine sediment (number/area)on 11-17-2020 RBC Auto (Urine sed) [#/Area] 3-4 [HPF] [facility] Automated leukocytes count i n urine sediment (number/area)on 11-17-2020 WBC Auto (Urine sed) [#/Area] 1-2 [HPF] [facility] Automated monocyte %on 11-17 Monocytes/100 WBC (Bld) 11.5 % [facility] Automated neutrophil %on Neutrophils/100 WBC (Bld) 68.6 % [facility] Automated urine color determ inationon 11-17-2020 Color (U) Yellow Yellow [facility] Automated urine hyaline cast s count (number/volume)on 11-17-2020 Hyaline casts Auto (U) [#/Vol] 50-100 [LPF] [facility] Blood erythrocytes automated count (number/volume)on 11-17-2020 RBC (Bld) [#/Vol] 3.99 10*6/uL 3.90-5.60 [facility] Blood hemoglobin measurement (mass/volume)on 11-17-2020 Hemoglobin (Bld) [Mass/Vol] 13.1 g/dL 13.0-17.0 [facility] Blood leukocytes automated c ount (number/volume)on 11-17-2020 WBC (Bld) [#/Vol] 7.3 10*3/uL 4.1-10.5 [facility] Blood neutrophil count by au tomated method (number/volume)on 11-17-2020 Neutrophils (Bld) [#/Vol] 5.0 10*3/uL 1.8-7.7 [facility] COVID-19 Positive/Negativeon 11-17-2020 COVID-19 Positive/Negative Negative Negative [facility] Comment on above: Testing for SARS-CoV -2 by RT-PCRThis test was developed and its performance characteristics determined by [employer] ([employer]) and validated at the [facility]. This test has not been [...] (Urine sed) None seen [LPF] None Seen [facility] Estimated glomerular filtrat ion rate (GFR) non- Americanon 11-17-2020 GFR/1.73 sq M predicted among non-blacks MDRD (S/P/Bld) [Vol rate/Area] mL/min/{1.73_m2} [facility] Fibrinogen measurement in pl atelet poor plasma by coagulation assay (mass/volume)on 11-17-2020 Fibrinogen Coag (PPP) [Mass/Vol] 197 mg/dL 150-400 [facility] Hematocrit [Volume Fraction] of Blood by Automated counton 11-17-2020 Hematocrit (Bld) [Volume fraction] 37.9 % 38.8-50.0 [facility] Hematologyon 11-17-2020 PT Coag (PPP) [Time] 10.4 s 9.0-12.9 [facility] Otheron 11-17-2020 GFR/1.73 sq M.predicted MDRD (S/P/Bld) [Vol rate/Area] mL/min/{1.73_m2} [facility] Comment on above: GFR estimated refere nce range: According to KDOQI guidelines, <60 ml/min/1.73m2 is sufficient to diagnose a patient with chronic kidney disease. Nucleated RBC/100 WBC (Bld) [Ratio] 0.1 % 0-0.5 [facility] Creatinine Clearance (Chem N/A [facility] Coronavirus 2019 PCR Interp N/A [facility] Platelet poor plasma interna tional normalized ratio (INR) by coagulation assay (relaton 11-17-2020 INR Coag (PPP) [Relative time] 0.9 {INR} [facility] Comment on above: INR Therapeutic Rang e [...] Plasmaon 11-17-2020 Protein [Mass/Vol] 6.7 g/dL 6.1-7.9 [facility] Serum globulin measurement b y calculation (mass/volume)on 11-17-2020 Globulin (S) [Mass/Vol] 2.4 g/dL [facility] Serum or plasma alanine clark otransferase measurement without P-5'-P (enzymatic activion 11-17-2020 ALT No additional P-5'-P [Catalytic activity/Vol] 22 U/L 10-60 [facility] Serum or plasma albumin/glob ulin mass ratioon 11-17-2020 Albumin/Globulin [Mass ratio] 1.8 {ratio} [facility] Serum or plasma alkaline matt sphatase measurement (enzymatic activity/volume)on 11-17-2020 ALP [Catalytic activity/Vol] 47 U/L 32-92 [facility] Serum or plasma aspartate am inotransferase measurement (enzymatic activity/volume)on 11-17-2020 AST [Catalytic activity/Vol] 25 U/L 10-42 [facility] Serum or plasma calcium jordan urement (mass/volume)on 11-17-2020 Calcium [Mass/Vol] 10.0 mg/dL 8.2-10.2 [facility] Serum or plasma chloride darrius surement (moles/volume)on 11-17-2020 Chloride [Moles/Vol] 99 mmol/L 95-114 [facility] Serum or plasma creatinine m easurement with calculation of estimated glomerular filtron 11-17-2020 Creatinine [Mass/Vol] 0.97 mg/dL 0.64-1.27 [facility] Serum or plasma glucose jordan urement (mass/volume)on 11-17-2020 Glucose [Mass/Vol] 95 mg/dL 70-100 [facility] Comment on above: ADA recommended refe rence rangeRandom Glucose Reference Range is dependent on time and content of last meal. Glucose of more than 200 mg/dL in a nonstressed, ambulatory subject supports the diagnosis of Diabetes Mellitus. Serum or plasma potassium me asurement (moles/volume)on 11-17-2020 Potassium [Moles/Vol] 4.3 mmol/L 3.5-5.1 [facility] Serum or plasma sodium measu rement (moles/volume)on 11-17-2020 Sodium [Moles/Vol] 136 mmol/L 136-146 [facility] Serum or plasma total biliru bin measurement (mass/volume)on 11-17-2020 Bilirubin [Mass/Vol] 0.8 mg/dL 0.3-1.2 [facility] Serum or plasma total carbon dioxide measurement (moles/volume)on 11-17-2020 CO2 [Moles/Vol] 24.0 mmol/L 22.0-30.[address] [facility] Serum or plasma urea nitroge n measurement (mass/volume)on 11-17-2020 Urea nitrogen [Mass/Vol] 17 mg/dL 9-23 [facility] Specific gravity of Urine by Automated test stripon 11-17-2020 Specific gravity (U) [Rel density] 1.019 1.001-1.03 0 [facility] Squamous epithelial cells de tection in urine sediment by light microscopyon 11-17-2020 Epithelial cells.squamous LM Ql (Urine sed) 0-1 [HPF] [facility] Urine bacteria detection by automated methodon 11-17-2020 Bacteria Auto Ql (U) None seen None Seen [facility] Urine clarity by refractomet ry automatedon 11-17-2020 Clarity Refractometry automated (U) Clear Clear [facility] Urine culture routineon 10-28 Bacteria identified Cx Nom (U) 2 Days [facility] Urine glucose measurement by automated test strip (mass/volume)on 11-17-2020 Glucose Auto test strip (U) [Mass/Vol] Normal mg/dL Normal [facility] Urine hemoglobin detection b y automated test stripon 11-17-2020 Hemoglobin Auto test strip Ql (U) Negative Negative [facility] Urine ketones measurement by automated test strip (mass/volume)on 11-17-2020 Ketones (U) [Mass/Vol] Trace Negative [facility] Urine leukocyte esterase det ection by automated test stripon 11-17-2020 Leukocyte esterase Auto test strip Ql (U) Negative Negative [facility] Urine nitrite detection by t est stripon 11-17-2020 Nitrite Ql (U) Negative Negative [facility] Urine pH measurement by auto mated test stripon 11-17-2020 pH (U) 5.5 [pH] 5.0-9.0 [facility] Urine protein measurement by automated test strip (mass/volume)on 11-17-2020 Protein (U) [Mass/Vol] Trace mg/dL Negative [facility] Urine total bilirubin detect ion by test stripon 11-17-2020 Bilirubin Ql (U) Negative Negative [facility] Urine urobilinogen measureme nt by automated test strip (mass/volume)on 11-17-2020 Urobilinogen (U) [Mass/Vol] Normal mg/dL Normal [facility] Activated partial thrombopla stin time (aPTT) in platelet poor plasma by coagulation aon 11-03-2020 aPTT Coag (PPP) [Time] 26.1 s 23.0-35.0 Fi relaCounts include 234 beds at the [facility] Automated basophil %on 11-03 Basophils/100 WBC (Bld) 0.7 % [facility] Automated basophil counton 1 01-04-2020 Basophils (Bld) [#/Vol] 0.1 10*3/uL 0.0-0.2 [facility] Automated blood lymphocyte c ount (number/volume)on 11-03-2020 Lymphocytes (Bld) [#/Vol] 1.5 10*3/uL 1.00-4.8 [facility] Automated blood lymphocyte c ount as percentage of total leukocyteson 11-03-2020 Lymphocytes/100 WBC (Bld) 22.6 % [facility] Automated blood monocyte cou nton 11-03-2020 Monocytes (Bld) [#/Vol] 0.8 10*3/uL 0.0-0.8 [facility] Automated blood platelet cou nt (count/volume)on 11-03-2020 Platelets (Bld) [#/Vol] 196 10*3/uL 150-450 [facility] Automated blood platelet darrius n volume measurementon 11-03-2020 Platelet mean volume (Bld) [Entitic vol] 8.0 fL 6.6-10.1 [facility] Automated eosinophil %on Eosinophils/100 WBC (Bld) 3.1 % [facility] Automated eosinophil counton 11-03-2020 Eosinophils (Bld) [#/Vol] 0.2 10*3/uL 0.0-0.45 [facility] Automated erythrocyte distri bution width ratioon 11-03-2020 Erythrocyte distribution width (RBC) [Ratio] 13.6 % 12.0-14.8 [facility] Automated erythrocyte mean c orpuscular hemoglobin (mass per erythrocyte)on 11-03-2020 MCH (RBC) [Entitic mass] 32.1 pg 27.5-35.2 [facility] Automated erythrocyte mean c orpuscular hemoglobin concentration measurement (mass/volon 11-03-2020 MCHC (RBC) [Mass/Vol] 33.8 g/dL 32.5-35.6 [facility] Automated erythrocyte mean c orpuscular volumeon 11-03-2020 MCV (RBC) [Entitic vol] 95.1 fL 83.5-101 F [facility] Automated monocyte %on 11-03 Monocytes/100 WBC (Bld) 11.2 % [facility] Automated neutrophil %on Neutrophils/100 WBC (Bld) 62.4 % [facility] Blood erythrocytes automated count (number/volume)on 11-03-2020 RBC (Bld) [#/Vol] 4.24 10*6/uL 3.90-5.60 [facility] Blood hemoglobin measurement (mass/volume)on 11-03-2020 Hemoglobin (Bld) [Mass/Vol] 13.6 g/dL 13.0-17.0 [facility] Blood leukocytes automated c ount (number/volume)on 11-03-2020 WBC (Bld) [#/Vol] 6.9 10*3/uL 4.1-10.5 [facility] Blood neutrophil count by au tomated method (number/volume)on 11-03-2020 Neutrophils (Bld) [#/Vol] 4.3 10*3/uL 1.8-7.7 [facility] Cholesterol [Mass/volume] in Serum or Plasmaon 11-03-2020 Cholesterol [Mass/Vol] 249 mg/dL 140-200 [facility] Comment on above: Chol less than 200 m g/dl low riskChol 201-239 mg/dl borderline riskChol 240 mg/dl and greater high risk Cholesterol in LDL [Mass/vol ume] in Serum or Plasma by calculationon 11-03-2020 Cholesterol in LDL [Mass/Vol] 152 mg/dL 0-100 [facility] Comment on above: LDL ATP III CLASSIFI CATIONLDL less than 100 mg/dL OptimalLDL 100-129 mg/dL Near or above optimalLDL 130-159 mg/dL Borderline highLDL 160-189 mg/dL HighLDL greater than 189 mg/dL Very high Cholesterol in VLDL [Mass/vo lume] in Serum or Plasma by calculationon 11-03-2020 Cholesterol in VLDL [Mass/Vol] 13 mg/dL [facility] Estimated glomerular filtrat ion rate (GFR) non- Americanon 11-03-2020 GFR/1.73 sq M predicted among non-blacks MDRD (S/P/Bld) [Vol rate/Area] mL/min/{1.73_m2} [facility] Hematocrit [Volume Fraction] of Blood by Automated counton 11-03-2020 Hematocrit (Bld) [Volume fraction] 40.3 % 38.8-50.0 [facility] Hematologyon 11-03-2020 PT Coag (PPP) [Time] 11.2 s 9.0-12.9 [facility] Otheron 11-03-2020 GFR/1.73 sq M.predicted MDRD (S/P/Bld) [Vol rate/Area] mL/min/{1.73_m2} [facility] Comment on above: GFR estimated refere nce range: According to KDOQI guidelines, <60 ml/min/1.73m2 is sufficient to diagnose a patient with chronic kidney disease. Nucleated RBC/100 WBC (Bld) [Ratio] 0.0 % 0-0.5 [facility] Creatinine Clearance (Chem 78.38 [facility] Platelet poor plasma interna tional normalized ratio (INR) by coagulation assay (relaton 11-03-2020 INR Coag (PPP) [Relative time] 1.0 {INR} [facility] Comment on above: INR Therapeutic Rang e [...] (moles/volume)on 11-03-2020 Chloride [Moles/Vol] 102 mmol/L 95-114 [facility] Serum or plasma creatinine m easurement with calculation of estimated glomerular filtron 11-03-2020 Creatinine [Mass/Vol] 0.68 mg/dL 0.64-1.27 [facility] Serum or plasma high density lipoprotein (HDL) cholesterol measurementon 11-03-2020 Cholesterol in HDL [Mass/Vol] 83 mg/dL 29-71 [facility] Comment on above: HDL CHOL ATP-III CLA SSIFICATION Cardiovascular RiskHDL > or equal to 60 mg/dL LOWHDL < 40 mg/dL HIGH Serum or plasma potassium me asurement (moles/volume)on 11-03-2020 Potassium [Moles/Vol] 3.8 mmol/L 3.5-5.1 [facility] Serum or plasma sodium measu rement (moles/volume)on 11-03-2020 Sodium [Moles/Vol] 138 mmol/L 136-146 [facility] Serum or plasma total carbon dioxide measurement (moles/volume)on 11-03-2020 CO2 [Moles/Vol] 22.4 mmol/L 22.0-30.[address] [facility] Serum or plasma total choles terol/high density lipoprotein (HDL) cholesterol mass romy 11-03-2020 Cholesterol.total/Tarah sterol in HDL [Mass ratio] 3.0 {ratio} [facility] Serum or plasma urea nitroge n measurement (mass/volume)on 11-03-2020 Urea nitrogen [Mass/Vol] 12 mg/dL - [facility] Triglyceride [Mass/volume] i n Serum or Plasmaon 11-03-2020 Triglyceride [Mass/Vol] 68 mg/dL 35-149 F [facility] Comment on above: TRIG ATP III CLASSIF ICATIONTRIG less than 150 mg/dL NormalTRIG 150-199 mg/dL Borderline highTRIG 200-500 mg/dL High TRIG greater than 500 mg/dL Very highStandard traceable to the Center for Disease Conrtrol and Prevention (CDC) test method. [facility] CARDIAC STRESS/REST (LOUIE CARDIAL PERFUSION/MIBI)on 10-27-2020 [facility] CARDIAC STRESS/REST (MYOCARDIAL PERFUSION/MIBI) Patient Name: STAN MCDONALD STUDY: MYOCARDIAL PERFUSION STRESS TEST WITH LEXISCAN Performing facility: [facility], [address] [place] [address], [address], [place] [address] [facility] Provider: WP ARCE PCP: Dr. Taurus ZABALA SURGEON: DR Kraig POTTER Supervising provider: WP ARCE INDICATION: HX PTCA CAD HYPER LIPID Pre-operative risk assessment for KNEE scheduled at [place] on [facility]. HISTORY: Gender: M; Age: 74 y/o ; Height: 172.72 cm; Weight: 75.5095820 kg. HTN High Cholesterol; CAD RBBB Family HX CAD; Quit smoking REMOTE years ago. PTCA on 2008. COMPARISON: Previous nuclear testing completed at [place]. ACCESSION NUMBER(S): [id number] ORDERING CLINICIAN: FAHAD ARCE TECHNIQUE: ONE DAY [...] earlier. Electronically signed by: ROB MERCHANT MD [facility] CARDIAC STRESS/REST INJE CTIONon 10-27-2020 [facility] CARDIAC STRESS/REST INJECTION Patient Name: STAN MCDONALD STUDY: MYOCARDIAL PERFUSION STRESS TEST WITH LEXISCAN Performing facility: [facility], [address] [place] [address] St, [address], [place] [address] [facility] Provider: WP ARCE PCP: Dr. Taurus ZABALA SURGEON: DR Kraig POTTER Supervising provider: WP ARCE INDICATION: HX PTCA CAD HYPER LIPID Pre-operative risk assessment for KNEE scheduled at [facility] on [facility]. HISTORY: Gender: M; Age: 74 y/o ; Height: 172.72 cm; Weight: 75.3781527 kg. HTN High Cholesterol; CAD RBBB Family HX CAD; Quit smoking REMOTE years ago. PTCA on 2008. COMPARISON: Previous nuclear testing completed at [place]. ACCESSION NUMBER(S): [id number] ORDERING CLINICIAN: FAHAD ARCE TECHNIQUE: ONE DAY [...] Electronically signed by: ROB MERCHANT MD Normal [facility] PART 2 STRESS OR REST (N O CHARGE)on 10-27-2020 [facility] PART 2 STRESS OR REST (NO CHARGE) Patient Name: STAN MCDONALD STUDY: MYOCARDIAL PERFUSION STRESS TEST WITH LEXISCAN Performing facility: [facility], [address] [place] [address], [address], [place] [address] [facility] Provider: WP ARCE PCP: Dr. Taurus ZABALA SURGEON: DR Kraig POTTER Supervising provider: WP ARCE INDICATION: HX PTCA CAD HYPER LIPID Pre-operative risk assessment for KNEE scheduled at [facility] on [facility]. HISTORY: Gender: M; Age: 74 y/o ; Height: 172.72 cm; Weight: 75.6456934 kg. HTN High Cholesterol; CAD RBBB Family HX CAD; Quit smoking REMOTE years ago. PTCA on 2008. COMPARISON: Previous nuclear testing completed at [place]. ACCESSION NUMBER(S): [id number] ORDERING CLINICIAN: FAHAD ARCE TECHNIQUE: ONE DAY [...] earlier. Electronically signed by: ROB MERCHANT MD [facility] Vital Signs Date Time Vital Sign Value Performing Clinician Facility 04-02-2024 09:34-0400 Body height 172.7 cm Shanti Olmos MD Work Phone: [facility] 04-02-2024 09:34-0400 Body mass index (BMI) [Ratio] 23.73 kg/m2 Shanti Olmos MD Work Phone: [facility] 04-02-2024 09:34-0400 Body temperature 96.6 [degF] Shanti Olmos MD Work Phone: [facility] 04-02-2024 09:34-0400 Body weight 70.8 kg Shanti Olmos MD Work Phone: [facility] 02-20-2024 09:17-0400 Body height 172.7 cm Shanti Olmos MD Work Phone: [facility] 02-20-2024 09:17-0400 Body mass index (BMI) [Ratio] 23.72 kg/m2 Shanti Olmos MD Work Phone: [facility] 02-20-2024 09:17-0400 Body temperature 96.4 [degF] Shanti Olmos MD Work Phone: [facility] 02-20-2024 09:17-0400 Body weight 70.76 kg Shanti Olmos MD Work Phone: [facility] 12-20-2023 15:01-0500 Body height 172.7 cm Almas Tello MD Work Phone: [facility] 12-20-2023 15:01-0500 Body mass index (BMI) [Ratio] 23.57 kg/m2 Almas Tello MD Work Phone: [facility] 12-20-2023 15:01-0500 Body weight 70.31 kg Almas Tello MD Work Phone: [facility] 10-03-2023 09:40-0500 Body height 172.7 cm Fahad Arce MD Work Phone: [facility] 10-03-2023 09:40-0500 Body mass index (BMI) [Ratio] 23.84 kg/m2 Fahad Arce MD Work Phone: [facility] 10-03-2023 09:40-0500 Body weight 71.12 kg Fahad Arce MD Work Phone: [facility] 10-03-2023 09:40-0500 Diastolic blood pressure 88 mm[Hg] Fahad Arce MD Work Phone: [facility] 10-03-2023 09:40-0500 Heart rate 52 /min Fahad Arce MD Work Phone: [facility] 10-03-2023 09:40-0500 Systolic blood pressure 142 mm[Hg] Fahad Arce MD Work Phone: [facility] 09-27-2022 10:01-0400 Body height 172.72 cm Almas Tello Work Phone: [facility] DO Work Phone: 09-27-2022 10:01-0400 Body mass index (BMI) [Ratio] 24.63 kg/m2 Almas Tello Work Phone: [facility] DO Work Phone: 09-27-2022 10:01-0400 Body surface area Derived from formula 1.87 m2 Almas Tello Work Phone: [facility] DO Work Phone: 09-27-2022 10:01-0400 Body weight 73.48 kg Eddavid Deanyer Work Phone: [facility] DO Work Phone: 09-27-2022 10:01-0400 Diastolic blood pressure 60 mm[Hg] Edward Joseph Hemeyer Work Phone: [facility] DO Work Phone: 09-27-2022 10:01-0400 Heart rate 44 /min Eddavid Ruiz Hemeyer Work Phone: [facility] DO Work Phone: 09-27-2022 10:01-0400 Systolic blood pressure 138 mm[Hg] Edward Joseph Hemeyer Work Phone: [facility] DO Work Phone: 11-17-2021 13:51-0500 Body height 172.72 cm Eddavid Deanyer Work Phone: [facility] DO Work Phone: 11-17-2021 13:51-0500 Body mass index (BMI) [Ratio] 24.78 kg/m2 Eddavid Ruiz Hemeyer Work Phone: [facility] DO Work Phone: 11-17-2021 13:51-0500 Body surface area Derived from formula 1.87 m2 Eddavid Ruiz Hemeyer Work Phone: [facility] DO Work Phone: 11-17-2021 13:51-0500 Body weight 73.94 kg Edward Joseph Hemeyer Work Phone: [facility] DO Work Phone: 11-17-2021 13:51-0500 Diastolic blood pressure 84 mm[Hg] Edward J Hemeyer Work Phone: [facility] DO Work Phone: 11-17-2021 13:51-0500 Heart rate 56 /min Almas Deanyer Work Phone: [facility] DO Work Phone: 11-17-2021 13:51-0500 Systolic blood pressure 172 mm[Hg] Eddavid Deanyer Work Phone: [facility] DO Work Phone: 11-17-2021 13:45-0500 Body height 20.32 cm Almas Deanyer Work Phone: [facility] DO Work Phone: 11-17-2021 13:45-0500 Body mass index (BMI) [Ratio] 1790.67 kg/m2 Almas Deanyer Work Phone: [facility] DO Work Phone: 11-17-2021 13:45-0500 Body surface area Derived from formula 0.4 m2 Almas Tello Work Phone: [facility] DO Work Phone: 11-17-2021 13:45-0500 Body weight 73.94 kg Almas Deanyer Work Phone: [facility] DO Work Phone: 11-17-2021 13:45-0500 Diastolic blood pressure 84 mm[Hg] Almas Deanyer Work Phone: [facility] DO Work Phone: 11-17-2021 13:45-0500 Heart rate 56 /min Bryandavid Deanyer Work Phone: [facility] DO Work Phone: 11-17-2021 13:45-0500 Systolic blood pressure 172 mm[Hg] Edward J Hemeyer Work Phone: [facility] DO Work Phone: 11-17-2021 13:40-0500 Diastolic blood pressure 78 mm[Hg] Edward J Hemeyer Work Phone: [facility] DO Work Phone: 11-17-2021 13:40-0500 Diastolic blood pressure 84 mm[Hg] Edward J Hemeyer Work Phone: [facility] DO Work Phone: 11-17-2021 13:40-0500 Diastolic blood pressure 76 mm[Hg] Edward J Hemeyer Work Phone: [facility] DO Work Phone: 11-17-2021 13:40-0500 Systolic blood pressure 162 mm[Hg] Edward J Hemeyer Work Phone: [facility] DO Work Phone: 11-17-2021 13:40-0500 Systolic blood pressure 172 mm[Hg] Edward J Hemeyer Work Phone: [facility] DO Work Phone: 11-17-2021 13:40-0500 56 1 Edward J Hemeyer Work Phone: [facility] DO Work Phone: Comment on above: [employer] 09-20-2021 08:24-0400 Body height 172.72 cm Eddavid J Hemeyer Work Phone: [facility] DO Work Phone: 09-20-2021 08:24-0400 Body mass index (BMI) [Ratio] 24.94 kg/m2 Almas Tello Work Phone: [facility] DO Work Phone: 09-20-2021 08:24-0400 Body surface area Derived from formula 1.88 m2 Almas Tello Work Phone: [facility] DO Work Phone: 09-20-2021 08:24-0400 Body weight 74.39 kg Almas Tello Work Phone: [facility] DO Work Phone: 09-20-2021 08:24-0400 Diastolic blood pressure 60 mm[Hg] Almas Tello Work Phone: [facility] DO Work Phone: 09-20-2021 08:24-0400 Heart rate 52 /min Almas Tello Work Phone: [facility] DO Work Phone: 09-20-2021 08:24-0400 Systolic blood pressure 130 mm[Hg] Almas Tello Work Phone: [facility] DO Work Phone: 01-01-2021 11:21-0500 Body Temperature 98.1 [degF] [facility] 01-01-2021 11:21-0500 Pulse (Heart Rate) 79 /min [facility] 01-01-2021 11:21-0500 Pulse Oximetry 96 % [facility] 01-01-2021 11:21-0500 Respiratory Rate 16 /min [facility] 01-01-2021 04:24-0500 BP Diastolic 80 mm[Hg] [facility] 01-01-2021 04:24-0500 BP Systolic 147 mm[Hg] [facility] 12-28-2020 12:10-0500 Height 175.26 cm [facility] 12-27-2020 04:15-0500 Body weight 75.6 kg [facility] 12-26-2020 16:15-0500 BMI (Body Mass Index) 24.9 kg/m2 [facility] 12-26-2020 11:46-0500 Pulse (Heart Rate) 101 /min [facility] 12-26-2020 11:46-0500 Respiratory Rate 20 /min [facility] 12-26-2020 11:21-0500 Body Temperature 98.3 [degF] [facility] 12-26-2020 11:21-0500 BP Diastolic 76 mm[Hg] [facility] 12-26-2020 11:21-0500 BP Systolic 146 mm[Hg] [facility] 12-26-2020 11:21-0500 Pulse Oximetry 93 % [facility] 12-26-2020 05:46-0500 Body weight 76.2 kg [facility] 12-24-2020 12:05-0500 Height 172.72 cm [facility] 12-17-2020 20:00-0500 Inhaled oxygen concentration 30 % [facility] 12-16-2020 11:47-0500 BMI (Body Mass Index) 25 kg/m2 [facility] 11-03-2020 15:18-0500 BP Diastolic 90 mm[Hg] [facility] 11-03-2020 15:18-0500 BP Systolic 156 mm[Hg] [facility] 11-03-2020 15:18-0500 Pulse (Heart Rate) 62 /min [facility] 11-03-2020 15:18-0500 Pulse Oximetry 100 % [facility] 11-03-2020 15:18-0500 Respiratory Rate 18 /min [facility] 11-03-2020 11:11-0500 BMI (Body Mass Index) 25.4 kg/m2 [facility] 11-03-2020 11:11-0500 Body Temperature 97.9 [degF] [facility] 11-03-2020 11:11-0500 Body weight 75.74 kg [facility] 11-03-2020 11:110500 Height 172.72 cm [facility] Encounters Encounter Date Encounter Type Care Provider Facility Start: 09-19-2024 End: 09-19-2024 Clinisync Result Encounter Almas Tello MD Work Phone: [facility] Unsolicited Start: 09-19-2024 End: 09-19-2024 Clinisync Result Encounter Almas Tello MD Work Phone: [facility] Unsolicited Start: 08-08-2024 End: 08-08-2024 ambulatory HANG PUENTE Not Available Start: 07-16-2024 End: 07-16-2024 ambulatory MIKA A PETITTI Not Available Start: 05-28-2024 End: 05-28-2024 ambulatory MIKA A PETITTI Not Available Start: 04-02-2024 End: 04-02-2024 ambulatory MIKA A PETITTI Not Available Start: 04-02-2024 End: 04-03-2024 ambulatory SHANTI OLMOS [facility] Start: 04-02-2024 End: 04-02-2024 Office outpatient visit 25 minutes hSanti Olmos MD Work Phone: [facility] Comment on above: Dysphonia (Primary D x); Vocal cord paralysis Start: 03-05-2024 End: 03-05-2024 Phys/qhp telephone evaluation 21-30 min Shanti Olmos MD Work Phone: [facility] Comment on above: Dysphonia (Primary D x); Vocal cord paralysis Start: 03-05-2024 End: 03-06-2024 ambulatory SHANTI Vargas IDALIA [facility] Start: 02-20-2024 End: 02-21-2024 ambulatory SHANTI W IDALIA [facility] Start: 02-20-2024 End: 02-20-2024 Office outpatient new 45 minutes Shanti Olmos MD Work Phone: [facility] Comment on above: Dysphonia (Primary D x); Vocal cord paralysis Start: 01-24-2024 End: 01-24-2024 ambulatory PRETTY ALVAREZ Not Available Start: 12-28-2023 Telephone encounter February Xochitl COOMBS [facility] Comment on above: Care Coordination Start: 12-20-2023 End: 12-20-2023 Office outpatient visit 15 minutes Almas Tello MD Work Phone: [facility] Comment on above: Acute non-recurrent maxillary sinusitis (Primary Dx); Laryngitis; Body mass index (BMI) 23.0-23.9, adult Start: 12-20-2023 End: 12-20-2023 ambulatory ALMAS TELLO Not Available Start: 10-12-2023 End: 10-12-2023 ambulatory MIKA A RAVIN Not Available Start: 10-03-2023 End: 10-03-2023 ambulatory FAHAD ARCE [facility] Start: 10-03-2023 End: 10-03-2023 Office outpatient visit 25 minutes Fahad Arce MD Work Phone: [facility] Comment on above: 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 (Primary Dx); History of PTCA; S/P CABG (coronary artery bypass graft); Mixed hyperlipidemia Start: 10-10-2022 Rx Renewal Almas Draper er Work Phone: [facility] [address] DO Work Phone: Start: 09-27-2022 Office outpatient vi sit 25 minutes Almas Tello Work Phone: [facility] [address] DO Work Phone: Start: 09-27-2022 ambulatory Almas Tello Facility:[id number] Start: 12-24-2021 End: 12-25-[address] ALMAS TELLO Facility:H1 Start: 11-17-2021 EKG, Provider: JESSICA BARTHOLOMEW [employer]POSITES INSPECTOR 1,[id number], Status: Pen, Time: 1:30 PM Almas Tello Work Phone: [facility] [address] DO Work Phone: Start: 11-17-2021 NURSEVST, Provider: JESSICA BARTHOLOMEW [employer]POSITES INSPECTOR 1,[id number], Status: Pen, Time: 1:15 PM Almas Tello Work Phone: [facility] [address] DO Work Phone: Start: 11-17-2021 Office outpatient vi sit 5 minutes Almas Tello Work Phone: [facility] [address] DO Work Phone: Start: 11-17-2021 ambulatory YANETH [facility] y: Start: 11-16-2021 Patient encounter procedure Almas Tello Work Phone: [facility] [address] DO Work Phone: Start: 10-11-2021 Rx Renewal Almas Draper er Work Phone: [facility] [address] DO Work Phone: Start: 09-20-2021 Office outpatient vi sit 25 minutes Almas Tello Work Phone: [facility] [address] DO Work Phone: Start: 04-15-2021 End: 04-16-[address] FAHAD ARCE Facility:H1 Start: 01-13-2021 End: 07-14-2021 ambulatory BETTY CARTER Facility:H1 Start: 01-07-2021 End: 01-07-2021 Patient encounter procedure Fahad Arce -Lab [facility] Start: 01-07-2021 ambulatory BETTY CARTER Facility :H1 Start: 12-26-2020 End: 01-01-2021 Evaluation and management of inpatient Fahad Arce -[facility] Start: 12-16-2020 End: 12-26-2020 Evaluation and management of inpatient Fahad Arce -[facility] Start: 12-14-2020 End: 12-14-2020 Patient encounter procedure Fahad Arce -Electrodiagnostics Start: 11-26-2020 End: 11-26-2020 Patient encounter procedure Fahad Arce -Pre-Surgical Testing Start: 11-23-2020 End: 11-23-2020 Patient encounter procedure Fahad Arce -Kai [facility] Start: 11-17-2020 End: 11-17-2020 Patient encounter procedure Fahad Arce -Pre-Surgical Testing Start: 11-03-2020 End: 11-03-2020 Admission to day surgery Fahad Arce -Cafe Worker Procedures Date Procedure Procedure Detail Performing Clinician Start: 09-19-2024 ALL CBC WITH AUTO DIFF Almas Tello MD Work Phone: Start: 09-19-2024 ALL LIPID PROFILE (FASTING) Almas ernandez MD Work Phone: Start: 09-19-2024 [facility] CMP (CMP) (FOR REMOTE COUNT INCLUDES THE [facility] USE) Almas Tello MD Work Phone: Start: 04-02-2024 LARYNGOSCOPY SHANTI OLMOS Start: 04-02-2024 [...] Beytim Start: 12-26-2020 Plain chest X-ray Fahad Beytim Start: 12-25-2020 Plain chest X-ray Fahad Beytim Start: 12-24-2020 Plain chest X-ray Fahad Beytim Start: 12-23-2020 Plain chest X-ray Fahad Beytim Start: 12-22-2020 Plain chest X-ray Fahad Beytim Start: 12-21-2020 End: 12-21-2020 Plain chest X-ray Fahad Beytim Start: 12-20-2020 End: 12-20-2020 Plain chest X-ray Fahad Beytim Start: 12-19-2020 Plain chest X-ray Fahad Beytim Start: 12-18-2020 Plain chest X-ray Fahad Beytim Start: 12-17-2020 Plain chest X-ray Fahad Beytim Start: 12-16-2020 Plain chest X-ray Fahad Beytim Start: 12-16-2020 Coronary artery bypass graft Fahad cortezmichael Start: 12-16-2020 CT head/brain wo con Fahad Beytim Start: 12-14-2020 Bacteria identified Cx Nom (U) Fahad Pérez Olivia Start: 12-14-2020 Urine culture Fahad Beytim Start: 12-14-2020 Plain chest X-ray Fahad Anguianopb Start: 11-23-2020 Bacteria identified Cx Nom (U) Fahad Pérez Olivia Start: 11-23-2020 Urine culture Fahad Anguianopb Start: 11-17-2020 Bacteria identified Cx Nom (U) Fahad Pérez Olivia Start: 11-17-2020 Urine culture Fahad Beytim Start: 11-17-2020 CT chest wo con Fahad Beytim Start: 11-17-2020 Doppler ultrasonography of bilateral carotid arteries Fahad Silviopb Start: 11-17-2020 Plain chest X-ray Fahad Anguianopb Start: 11-17-2020 Pulse volume recorder pneumoplethysmography Fahad Arce Start: 11-17-2020 Ultrasound peripheral vascular flow study Fahad Yazmin Start: 11-03-2020 CL [facility] & COR Angio Fahad Arce Cardiac catheterization Edwa maximo Tello Work Phone: Cornea Keratomileusis Right Eye Almas Tello Work Phone: Coronary artery bypass graft Almas Tello Work Phone: Hernia repair Bryandavid Ruiz Diannejuan er Work Phone: History of coronary artery bypass grafting S/P CABG (coronary artery bypass graft) Almas Tello Work Phone: History of coronary artery bypass grafting S/P CABG (coronary artery bypass graft) Fahad Arce MD Work Phone: History of percutane ous transluminal coronary angioplasty History of PTCA Almas Joseph Deaneda Work Phone: History of percutane ous transluminal coronary angioplasty History of PTCA Fahad Arce MD Work Phone: Operation on brain Almas Ruiz Dianneeda Work Phone: Procedure on prostate Almas Ruiz Dianneeda Work Phone: Plan of Treatment Date Care Activity Detail Author Start: 05-29-2025 End: 05-29-2025 Patient encounter procedure 05/29/2025 8:30 AM EDT Office Visit [facility] [address] [place] [address] Mika Espinoza MD [address] [place] [address] [facility] Start: 01-14-2025 End: 01-14-2025 Patient encounter procedure 01/14/2025 8:50 AM EST Office Visit [facility] [address] [place] [address] Mika Espinoza MD [address] [place] [address] [facility] Start: 10-01-2024 End: 10-01-2024 Patient encounter procedure 10/01/2024 9:50 AM EST Office Visit [facility] [address] [facility] [address] [place] [address] Fahad Arce MD [address] [facility] [place] [address] [facility] Start: 07-28-2024 Influenza vaccination [facility] Start: 04-02-2024 End: 04-02-2024 Patient encounter procedure 04/02/2024 9:30 AM EDT Office Visit [facility] [address] [facility] [address] [place] [id number] [place] [address] [facility] Department of Otolaryngology [place], [place] [id number] [facility] Start: 03-05-2024 End: 03-05-2024 Telemedicine consultation with patient 03/05/2024 3:30 PM EDT Telemedicine [facility] [address] [facility] [address] [place] [address] [place] [address] [facility] of [place] [address] [facility] Start: 02-20-2024 End: 02-20-2024 Patient encounter procedure 02/20/2024 9:15 AM EDT Office Visit [facility] [address] [place] [address] Mika Espinoza MD [address] [place], [place] [id number] [facility] Start: 10-03-2023 FUV, Provider: Fahad Arce, Status: Pen, Time: 9:30 AM FUV, Provider: Fahad Arce, Status: Pen, Time: 9:30 AM [facility] [address] DO Work Phone: Start: 07-28-2023 COVID-19 Vaccine ( season) COVID-19 Vaccine ( season) [facility] Start: 07-28-2023 Influenza vaccination Influenza Vaccine (#1) [facility] Start: 09-27-2022 FUV, Provider: Fahad Arce, Status: Pen, Time: 9:40 AM FUV, Provider: Fahad Arce, Status: Pen, Time: 9:[address] Work Phone: Start: 10-08-2021 Pneumococcal Vaccine: 65+ Years (2 - PCV) Pneumococcal Vaccine: 65+ Years (2 - PCV) [facility] Start: 10-08-2021 Pneumococcal Vaccine: 65+ Years (2 of 2 - PCV) Pneumococcal Vaccine: 65+ Years (2 of 2 - PCV) [facility] Start: 04-22-2021 COVID-19 Vaccine (3 - Pfizer series) COVID-19 Vaccine (3 - Pfizer series) [facility] Start: 2005 RSV patients and/or patients aged 60+ years (1 - 1-dose 60+ series) RSV patients and/or patients aged 60+ years (1 - 1-dose 60+ series) [facility] Start: 1995 Zoster Vaccines (1 of 2) Zoster Vaccines (1 of 2) [facility] Start: 1967 DTaP/Tdap/Td Vaccines (1 - Tdap) DTaP/Tdap/Td Vaccines (1 - Tdap) [facility] Start: 1963 Hepatitis C screening Hepatitis C Screening [facility] Start: 1945 Lipid panel Lipid Panel [facility] Start: 1945 Yearly Adult Physical Yearly Adult Physical [facility] Patient Education Soft Diet (DC) Abuse of Alcohol (DC) CABG (Coronary Artery Bypass Graft) (DC) [facility] Patient referral [facility] Immunizations Immunization Date Immunization Notes Care Provider Fa delicia 09-09-2022 Seasonal trivalent influenza vaccine, adjuvanted, preservative free Almas Tello Work Phone: [place] [address] DO Work Phone: 09-09-2022 influenza virus vacc ine, unspecified formulation Fahad Arce MD Work Phone: [facility] Work Phone: 09-14-2021 Seasonal trivalent influenza vaccine, adjuvanted, preservative free Almas Tello Work Phone: [place] [address] DO Work Phone: 02-25-2021 Pfizer-BioNTech COVI D-19 Vacc 30 MCG/0.3ML Intramuscular Suspension Almas Tello Work Phone: [place] [address] DO Work Phone: 02-04-2021 Pfizer-BioNTech COVI D-19 Vacc 30 MCG/0.3ML Intramuscular Suspension Almas Tello Work Phone: [place] [address] DO Work Phone: 10-08-2020 pneumococcal polysaccharide vaccine, 23 valent Fahad Arce MD Work Phone: [facility] Work Phone: 10-02-2020 pneumococcal polysaccharide vaccine, 23 valent Almas Tello Work Phone: [place] [address] DO Work Phone: 08-21-2020 Seasonal trivalent influenza vaccine, adjuvanted, preservative free Almas Tello Work Phone: [place] [address] DO Work Phone: 07-28-2020 influenza, seasonal, injectable Almas Tello Work Phone: [facility] [address] DO Work Phone: Payers Date Payer Category Payer Medicare [id number] 2008 Managed Care HMO (unspecified) [id number] 2008 Private Health Insurance AEShashiVANESA BE [facility] [id number] 2008-Present [address] [place] [address] [id number] 1959 Medicare [id number] 1959 Private Health Insurance [id number] 1945 Unknown [id number] 2.16.840.1.387931.3.579. 2.593 1945 Unknown [id number] 2.16.840.1.369229.3.579. 2.593 1945 Unknown [id number] 2.16.840.1.510016.3.579. 2.593 1945 Unknown [id number] 2.16.840.1.646841.3.579. 2.593 1945 Unknown [id number] 2.16.840.1.931276.3.579. 2.593 1945 Unknown [id number] 2.16.840.1.428968.3.579. 2.356 1945 Unknown [id number] 2.16.840.1.737505.3.579. 2.356 1945 Unknown [id number] 2.16.840.1.346475.3.579. 2.1244 1945 Unknown [id number] 2.16.840.1.212815.3.579. 2.1245 1945 Unknown [id number] 2.16.840.1.594499.3.579. 2.1245 1945 Unknown [id number] 2.16.840.1.247593.3.579. 2.1245 1945 Unknown [id number] 2.16.840.1.903791.3.579. 2.1259 1945 Unknown [id number] 2.16.840.1.594074.3.579. 2.1259 1945 Unknown [id number] 2.16.840.1.072215.3.579. 2.1259 1945 Unknown [id number] 2.16.840.1.648616.3.579. 2.1259 1945 Unknown [id number] 2.16.840.1.519845.3.579. 2.1259 1945 Unknown [id number] 2.16.840.1.348994.3.579. 2.1259 1945 Unknown [id number] 2.16.840.1.507648.3.579. 2.1259 Self-pay Self Pay [id number] Unknown [employer] Social History Date Type Detail Facility Start: 11-17-2020 End: 10-12-2023 Tobacco smoking status NVIS Ex-smoker (finding) [facility] Start: 1945 Sex Assigned At Male F [facility] Start: 10-03-2023 End: 08-08-2024 Alcohol consumption of one to four drinks per day Alcohol consumption of one to four drinks per day [facility] Comment on above: QUIT 1999; History of tobacco use Current smoker [facility] Work Phone: History of tobacco use Cigarette Smoker [facility] Work Phone: Start: 10-03-2023 End: 10-12-2023 Tobacco use and exposure Smokeless tobacco non-user [facility] Work Phone: Start: 10-03-2023 End: 08-08-2024 Alcohol intake Current drinker of alcohol (finding) [facility] Work Phone: Start: 10-03-2023 End: 08-08-2024 Tobacco use panel [facility] Start: 1945 Sex Assigned At Not on file [facility] Work Phone: Start: 09-23-2023 End: 04-02-2024 Exposure to SARS-CoV-2 (event) Not sure [facility] History of tobacco use Passive smoker [facility] Start: 08-09-2023 Alcohol Comment caffeine:3-4 c ups per day [facility] Start: 02-24-2024 End: 03-05-2024 Exposure to SARS-CoV-2 (event) Unable to assess [facility] Goals Date Patient Goal Desired Activity /State Functional Status Date Assessment Result Facility 01-01-2021 Functional status Patient at Baseline [facility] 12-26-2020 Functional status Patient is Pro gressing Toward [facility] Mental Status Date Assessment Result Facility 01-01-2021 Cognitive function Cognitive Sta tus Patient at Baseline [facility] 12-26-2020 Cognitive function Cognitive Sta tus Patient is Progressing Toward Baseline [facility] Clinical Notes 03-19-2021 to 04-02-2024 Shanti Olmos [...] developed, alert and appropriate, no distress, voice [id number] RESPIRATORY: Breathing quietly, no stridor EYES: Pupils [...] procedure well. ------ Shanti Olmos MD, MAEd Cad Manager [facility] Department of Otolaryngology - Head and Neck Surgery [facility] The total time I spent in care [...] Total: 30 minutes documented in this encounter [facility] Work Phone: 03-05-2024 History of Present [...] developed, alert and appropriate, no distress, voice [id number] RESPIRATORY: Breathing quietly, no stridor Last Recorded Vitals There were no vitals taken for this visit. RESULTS Patient Reported Outcome Measures N/A Laboratory, Radiology, and Pathology I personally reviewed the following results, with the following interpretation: CT neck with contrast, CT chest from 02/08/24 -no visualized masses or lesions -right arytenoid prolapse PROCEDURES Procedures none ------ Shanti Olmos MD, MAEd Cad Manager [facility] Department of Otolaryngology - Head and Neck Surgery [facility] The total time I spent in care [...] Total: 40 minutes documented in this encounter [facility] Work Phone: 02-20-2024 History of Present [...] developed, alert and appropriate, no distress, voice [id number] RESPIRATORY: Breathing quietly, mild stridor on deep [...] good tone ------ Shanti Olmos MD, MAEd Cad Manager [facility] Department of Otolaryngology - Head and Neck Surgery [facility] The total time I spent in care [...] of the procedure(s). documented in this encounter [facility] Work Phone: 12-28-2023 Telephone encounter Note [...] if he is not better after treatment. [facility] 12-28-2023 Miscellaneous Notes I did see him [...] do from here. documented in this encounter [facility] 12-28-2023 Telephone encounter Note He is going to come up here in about 20 minutes. I'll leave note open in case you need it to rx [facility] 12-28-2023 Telephone encounter Note Pt called and stated in VM he wanted to know if he could talk to EH. He states the antibiotic he put him on has helped some but not much and he wanted to know what to do from here. [facility] 12-20-2023 History of Present illness Narrative Patient [...] (BMI) 23.0-23.9, adult documented in this encounter [facility] 10-03-2023 History of Present illness Narrative Subjective Stan Mcdonald is a 77 y.o. male Chief Complaint [facility] in follow-up of problems as [...] Rfl: Assessment/Plan 1. 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 No signs symptoms or manifestations of progression. Surgery was several years ago and he is stable. 2. History of PTCA No recurrence of coronary symptomatology since revascularization 3. S/P CABG (coronary artery bypass graft) As above 4. Mixed hyperlipidemia Well-controlled on current therapy. documented in this encounter [facility] Work Phone: 10-03-2023 Instructions Jesus Evans [...] of your visit. documented in this encounter [facility] Work Phone: 03-23-2021 Note Rounds at this time with Dr Gemma Ashby. Patient is alert & involved in plan of care. Labs & diagnostics reviewed. Contact information provided with white board updated. Patient will discharge home with [facility] & he has a FWW at home already. From home with family who can transport at discharge. Anticipated discharge home 03/23 pending therapy evaluations. CRM to follow. [facility] Comment on above: Result Comment: Elec tronically Signed By: Shayy SCHOFIELD, Leyla Fajardo\.br\Date and Time Signed: 03/23/21 09:24 EDT 03-22-2021 Note PT Evaluation comple dora with an AMPAC score of 17/24. Pt functioning at a CGA level and able to ambulate 32 feet with FWW. Will follow daily. Will provide recommendation on POD # 1 [facility] 03-22-2021 Note Reason for Consultat ion [...] made to ensure accuracy, however, inadvertently computerized office agent mistakes may be present. Estuardo Menendez Hospitalist [...] Osteo Bi-Flex, 2 (more content not included)... [facility] Comment on above: Result Comment: Elec tronically Signed By: GEMMA CHEW, Estuardo Portillo\.br\Date and Time Signed: 03/22/21 12:31 EDT 03-19-2021 Note [id number] [facility] Evaluation note Diagnosis Coronary artery disease involving bear [place] coronary artery of [place] heart without angina pectoris- Primary History of PTCA Postsurgical percutaneous transluminal coronary angioplasty status S/P CABG (coronary artery bypass graft) Postsurgical aortocoronary bypass status Mixed hyperlipidemia documented in this encounter [facility] Work Phone: Evaluation note* Diagnosis Acute non-recurrent maxillary sinusitis- Primary Laryngitis Acute laryngitis, without mention of obstruction Body mass index (BMI) 23.0-23.9, adult documented in this encounter [facility] HealthcareEvaluation note* Diagnosis Dysphonia- Primary Vocal cord paralysis Unspecified paralysis of vocal cords or larynx documented in this encounter [facility] Work Phone: Evaluation note* Diagnosis Dysphonia- Primary Vocal cord paralysis Unspecified paralysis of vocal cords or larynx documented in this encounter [facility] Work Phone: Evaluation note* Diagnosis Dysphonia- Primary Vocal cord paralysis Unspecified paralysis of vocal cords or larynx documented in this encounter [facility] Work Phone: History of Present illness [...] diet lifestyle modification and weight maintenance were discussed.[facility] [employer] Work Phone: History of Present illness NarrativePatient [...] his diet and continued exercise and/or activity level.[facility] [employer] Work Phone: Reason for referral (narrative)* Consultation (Routine) - Authorized Specialty Diagnoses / Procedures Referred By Contac t Referred To Contact Cardiology Diagnoses Coronary artery disease involving bear river coronary artery of [place] heart without angina pectoris History of PTCA S/P CABG (coronary artery bypass graft) Procedures Follow Up In Cardiology Fahad Arce MD [address] [facility] [address], [address] [address] Fahad Arce MD [address] [address] Referral ID Status Reason Start Date Expiration Date V isits Requested Visits Authorized [id number] Authorized 10/03/2023 10/02/2024 1 1 [facility] Work Phone: Summary Purpose Family History Relationship Condition Age at Onset Recorded Date/T [...] pulmonary disease: Father(V17.6, Z82.5) Status:Active Advance Directives Advance Directive Response Recorded Date/ Time Advance Directives No October 29, 2020 9:34am Documents on File Type Date Recorded Patient Crab Fisherman Expl anation Advance Directives and Living Will 01/25/2022 2016-02-23 Power Of Instructional Services Specialist Advance Directives and Living Will 01/25/2022 2016-02-23 Living Wi Chief Complaint and Reason for Visit Chief [...] paralysis Dysphonia [place] [address] [address] Department of [place] [address] Referral ID Status Reason Start Date Expiration Date V isits Requested Visits Authorized [id number] Pending Review 02/23/2024 02/22/2025 1 1 Referral ID Status Reason Start Date Expiration Date V isits Requested Visits Authorized [id number] Pending Review 04/02/2024 04/02/2025 1 1 Additional Source Comments (unrecognized sect ion and content) No Status Records FoundNo Status Records FoundNo Status Records FoundNo Status Records FoundNo Status Records FoundNo Status Records FoundNo Status Records FoundNo Status Records FoundNo Status Records Found INFORMATION SOURCE (unrecogn ized section and content) DATE CREATED AUTHOR 10/28/2020 [facility] DATE CREATED AUTHOR AUTHOR'S ORGANIZ ATION 03/29/2021 [facility] R[facility]con [facility] DATE CREATED AUTHOR AUTHOR'S ORGANIZ ATION 12/29/2021 [facility] DATE CREATED AUTHOR AUTHOR'S ORGANIZ ATION 01/20/[address] [facility] DATE CREATED AUTHOR AUTHOR'S ORGANIZ ATION 09/28/2022 [facility] DATE CREATED AUTHOR AUTHOR'S ORGANIZ ATION 09/28/2022 [facility] DATE CREATED AUTHOR AUTHOR'S ORGANIZ ATION 10/04/2023 [facility] DATE CREATED AUTHOR AUTHOR'S ORGANIZ ATION 04/08/2024 [facility] DATE CREATED AUTHOR AUTHOR'S ORGANIZ ATION 08/10/2024 [facility] EPIC Reason for Visit (unrecogniz ed section and content) Reason Comments Annual Exam 1yr Reason Onset Date Comments Care Coordination 12/28/2023 Reason Comments Dysphonia Reason Comments Follow-up Care Teams (unrecognized sec tion and content) Plumbing Engineer Relationship Specialty Start Date End Date Almas Tello MD [address] [place] [phone] PCP - General 10/27/20 Fahad Acre MD [address] [facility] [address] [place] [address] PCP - MSSP ACO Attributed Provider 11/27/22 Plumbing Engineer Relationship Specialty Start Date End Date Almas Tello MD [address] [facility] [place] [address] (Fax) PCP - General Family Medicine 04/04/23 Plumbing Engineer Relationship Specialty Start Date End Date Almas Tello MD [address] [facility] [place] [address] (Fax) PCP - General Family Medicine 04/04/23 Plumbing Engineer Relationship Specialty Start Date End Date Almas Tello MD [address] [place] [address] PCP - General 10/27/20 Plumbing Engineer Relationship Specialty Start Date End Date Almas Tello MD [address] [place] [address] PCP - General 10/27/20 Plumbing Engineer Relationship Specialty Start Date End Date Almas Tello MD [address] [place] [address] PCP - General 10/27/20 Plumbing Engineer Relationship Specialty Start Date End Date Almas Tello MD [address] [facility] [place] [address] (Fax) PCP - General Family Medicine 04/04/23 Almas Tello MD [address] [facility] [place] [address] (Fax) PCP - ACO Reach 08/27/24 Mika Espinoza MD [address] [address] [place] [address] Referring Physician Dermatology 01/04/24 Jennifer Arce MD [address] [address] Referring Physician Cardiology 01/04/24 FOR RECORDS PERTAINING TO PATIENTS WHO ARE [...] BE BASED ON THE PRIMARY CLINICAL RECORDS. [employer] provides no warranty or guarantee of the accuracy or completeness of information in this document.
== END 2024-09-19 10:17 | disposition home or self-care (01) ==
LOC: LAB 09-24 10:16
PROVIDERS: PCP Family Medicine; Visit Provider Family Medicine
DX: Z13.1 Encounter for screening for diabetes mellitus (principal); I25.10 Atherosclerotic heart disease of native coronary artery without angina pectoris; E78.2 Mixed hyperlipidemia; Z86.2 Personal history of diseases of the blood and blood-forming organs and certain disorders involving the immune mechanism
CPT/HCPCS: 36415; 80053; 80061; 85025

== ENCOUNTER 2024-10-29 10:01 | Observation (INO) | payer OTHER, MEDICARE, SELFPAY ==
[2024-10-29] VITALS (16 sets, daily range): BP systolic 140–183; BP diastolic 70–107; PULSE 58–92; TEMP 36.4–37.2; O2SAT 94–100; BMI 23.6; BMI 21.9
--- NOTE | 2024-10-29 10:13 | CT_ITS ---
The [address] [address] Patient Name: STAN GRACE MRN: [id number] date: 1945 Sex: M Assigned Patient Location: ER Current Patient Location: Accession/Order Number: [id number] Exam Date: 10/29/2024 10:55 Report Date: 10/29/2024 11:47 At the request of: SUDHEER YING Procedure: CT angio head EXAM: CT angio head, CT angio neck HISTORY: headache hx of brain bleed COMPARISON: CT head performed contemporaneously reported separately.. TECHNIQUE: Postcontrast CTA imaging of the head and neck was performed with coronal and sagittal reformats. Maximum intensity projection and 3-D reformats were performed on a separate workstation. NASCET criteria was utilized. This CT exam was performed using one or more of the following dose reduction techniques: Automated exposure control, adjustment of the MA and/or kV according to patient size, or use of iterative reconstruction technique. Please note all images are contained under the CTA HEAD patient's jacket. FINDINGS: Aortic arch: Imaged portion shows no evidence of aneurysm. No significant stenosis of the major origins of the major arch vessels. Right carotid system: No evidence of significant (50% or greater) stenosis or occlusion. Left carotid system: No evidence of significant (50% or greater) stenosis or occlusion. Vertebral arteries: Right vertebral artery dominance. 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 Anterior circulation: No evidence of aneurysm, significant stenosis, or occlusion. Hypoplastic left A1 anterior cerebral artery segment. Vertebrobasilar system: No evidence of aneurysm, significant stenosis, or occlusion. Venous sinuses: Grossly patent. Additional findings: No abnormal intracranial enhancement. The visualized portion of the lungs are clear. 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 Otherwise no significant stenosis, large vessel occlusion or aneurysm involving the remaining neck or intracranial arterial vasculature. Electronically authenticated by: ISAIAH CLEMENS Date: 10/29/2024 11:47
--- NOTE | 2024-10-29 10:13 | XR_ITS ---
The [address] [address] Patient Name: STAN GRACE MRN: [id number] date: 1945 Sex: M Assigned Patient Location: ER Current Patient Location: ER Accession/Order Number: [id number] Exam Date: 10/29/2024 11:07 Report Date: 10/29/2024 12:11 At the request of: SUDHEER YING Procedure: XR chest 1V EXAM: XR chest 1V HISTORY: sob COMPARISON: 02/08/2024 TECHNIQUE: Chest X-ray AP, 1 view FINDINGS: Support devices: Median sternotomy wires are in place. Lungs/pleura: No consolidation, effusion, or pneumothorax. Heart and mediastinum: Normal contours. Status post CABG. Bones: No acute abnormality identified. XR/XR chest 1V Impression: No radiographic evidence of acute cardiopulmonary process. Electronically authenticated by: ESTEPHANIE LOYD Date: 10/29/2024 12:11
--- NOTE | 2024-10-29 10:13 | CT_ITS ---
The [address] [address] Patient Name: STAN GRACE MRN: [id number] date: 1945 Sex: M Assigned Patient Location: ER Current Patient Location: Accession/Order Number: [id number] Exam Date: 10/29/2024 11:07 Report Date: 10/29/2024 11:37 At the request of: SUDHEER YING Procedure: CT head/brain wo con EXAM: CT head/brain wo con HISTORY: headache COMPARISON: CT soft tissue neck 02/08/2024. TECHNIQUE: Axial noncontrast CT imaging of the head was performed with coronal and sagittal reformats. This CT exam was performed using one or more of the following dose reduction techniques: Automated exposure control, adjustment of the MA and/or kV according to patient size, or use of iterative reconstruction technique. FINDINGS: Calvarium/skull base: No evidence of acute fracture or destructive lesion. Paranasal sinuses: Subtotal opacification of the paranasal sinuses greater on the left with grafting material noted within the bilateral sphenoid sinuses and air-fluid levels of the maxillary sinuses. Somewhat expansile appearance of the mucosal thickening along the left ethmoid air cells. Brain: No hyperdense intracranial hemorrhage. No acute large vascular territory infarct. 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 This is greater anteriorly measuring up to 8 mm bilaterally with minimal mass effect on adjacent brain parenchyma. No midline shift. No mass lesion or mass effect. No hydrocephalus. CT/CT head/brain wo con IMPRESSION: 1. No hyperdense intracranial hemorrhage or acute large vascular territory infarct. 2. 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 This is greater anteriorly measuring up to 8 mm bilaterally with minimal mass effect on adjacent brain parenchyma. No midline shift. There comparison with priors would be of benefit to evaluate for interval change. 3. Significant paranasal sinus disease described above. Electronically authenticated by: ISAIAH CLEMENS Date: 10/29/2024 11:37
--- NOTE | 2024-10-29 10:13 | ECG_ITS ---
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
--- NOTE | 2024-10-29 10:13 | CT_ITS ---
The [address] [address] Patient Name: STAN GRACE MRN: [id number] date: 1945 Sex: M Assigned Patient Location: ER Current Patient Location: Accession/Order Number: [id number] Exam Date: 10/29/2024 10:55 Report Date: 10/29/2024 11:47 At the request of: SUDHEER YING Procedure: CT angio neck EXAM: CT angio head, CT angio neck HISTORY: headache hx of brain bleed COMPARISON: CT head performed contemporaneously reported separately.. TECHNIQUE: Postcontrast CTA imaging of the head and neck was performed with coronal and sagittal reformats. Maximum intensity projection and 3-D reformats were performed on a separate workstation. NASCET criteria was utilized. This CT exam was performed using one or more of the following dose reduction techniques: Automated exposure control, adjustment of the MA and/or kV according to patient size, or use of iterative reconstruction technique. Please note all images are contained under the CTA HEAD patient's jacket. FINDINGS: Aortic arch: Imaged portion shows no evidence of aneurysm. No significant stenosis of the major origins of the major arch vessels. Right carotid system: No evidence of significant (50% or greater) stenosis or occlusion. Left carotid system: No evidence of significant (50% or greater) stenosis or occlusion. Vertebral arteries: Right vertebral artery dominance. 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 Anterior circulation: No evidence of aneurysm, significant stenosis, or occlusion. Hypoplastic left A1 anterior cerebral artery segment. Vertebrobasilar system: No evidence of aneurysm, significant stenosis, or occlusion. Venous sinuses: Grossly patent. Additional findings: No abnormal intracranial enhancement. The visualized portion of the lungs are clear. 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 Otherwise no significant stenosis, large vessel occlusion or aneurysm involving the remaining neck or intracranial arterial vasculature. Electronically authenticated by: ISAIAH CLEMENS Date: 10/29/2024 11:47
--- NOTE | 2024-10-29 10:16 | ED.GENADUL1 ---
HPI HPI - General Adult General Chief complaint: Headache Stated complaint: HEADACHE Time Seen by Provider: 10/29/24 10:06 Source: patient Mode of arrival: Wheelchair Limitations: no limitations History of Present Illness HPI narrative: Patient presents to ED complaining of a headache for the past 5 days. Patient reports that he has pain in his head specifically around the left eye and posterior to that. He has seen his primary doctor twice about this and they thought possibly this is a sinus infection because he is also been very congested. He has been on antibiotics twice without any relief of the headache. He does report that a long time ago he had a brain bleed. He is unsure if this was an aneurysm or why he had this brain bleed. He states he is currently not on any blood thinners except for an aspirin. He has had quadruple bypass. His heart rate is irregular when listening on exam, he denies any history of A-fib or a flutter. EKG was ordered. Patient states he has felt generally weak tired fatigued and just unwell. No chest pain no abdominal pain no nausea vomiting. No fevers. Patient does have a black eye on the right, he said he was pulling up a couch cushion to look for his phone his hand slipped and hit himself in the eye. The headache however has started prior to the injury to the eye. No visual changes, no confusion. No neurological deficits specifically no weakness in any extremity, no sensory deficits. Related Data Home Medications ?Medication ?Instructions ?Recorded ?Confirmed albuterol sulfate 90 mcg/actuation 2 puff inhalation Q4H PRN 10/29/24 10/29/24 aerosol inhaler shortness of breath or wheezing levofloxacin 750 mg tablet 750 mg PO DAILY 10/29/24 10/29/24 lisinopril 5 mg tablet 5 mg PO DAILY 10/29/24 10/29/24 ondansetron HCl 4 mg tablet 4 mg PO Q8H PRN nausea and vomiting 10/29/24 10/29/24 prednisone 10 mg tablet 10 mg PO .qd 10/29/24 10/29/24 rosuvastatin 40 mg tablet 40 mg PO DAILY 10/29/24 10/29/24 Allergies Allergy/AdvReac Type Severity Reaction Status Date / Time No Known Drug Allergies Allergy Verified 10/29/24 10:07 Opioid HPI Opioid Management Most Recent Opioid Data: Last Pain Scale 5 10/29/24 14:17 10/29/24 Last Pain Assessment 10/29/24 15:23 Last MAR Pain Assessment 10/29/24 12:14 Last ORT Total Score 3 10/29/24 14:17 10/29/24 Last ORT Risk Category Low Risk 10/29/24 14:17 10/29/24 Review of Systems ROS Status of ROS 10 or more systems reviewed and unremarkable except as noted in history and below PFSH PFSH Medical History (Updated 10/29/24 @ 15:48 by Mali Bowens DO) HLD (hyperlipidemia) ?E78.5 - Hyperlipidemia, unspecified (ICD-10) CAD (coronary artery disease) ?I25.10 - Atherosclerotic heart disease of jamul coronary artery without angina pectoris (ICD-10) Prostate cancer ?C61 - Malignant neoplasm of prostate (ICD-10) Heart attack ?I21.9 - Acute myocardial infarction, unspecified (ICD-10) High cholesterol ?E78.00 - Pure hypercholesterolemia, unspecified (ICD-10) Hypertension ?I10 - Essential (primary) hypertension (ICD-10) Surgical History (Updated 10/29/24 @ 14:13 by Alaina Wilkinson) H/O prostatectomy ?Z90.79 - Acquired absence of other genital organ(s) (ICD-10) H/O craniotomy ?Z98.890 - Other specified postprocedural states (ICD-10) History of knee replacement ?Z96.659 - Presence of unspecified artificial knee joint (ICD-10) Hx of coronary artery bypass surgery ?Z95.1 - Presence of aortocoronary bypass graft (ICD-10) History of heart artery stent ?Z95.5 - Presence of coronary angioplasty implant and graft (ICD-10) Family History (Updated 10/29/24 @ 14:14 by Alaina Wilkinson) Brother Family history of CHF (congestive heart failure) Family history of COPD (chronic obstructive pulmonary disease) Family history of myocardial infarction Father Family history of COPD (chronic obstructive pulmonary disease) Mother Family history of stroke Social History (Updated 10/29/24 @ 14:16 by Alaina Wilkinson) Within the past year, how often did you have a drink containing alcohol: 4 or more times a week Within the past year, how many standard drinks containing alcohol did you have on a typical day: 5 or 6 Within the past year, how often did you have six or more drinks on one occasion: weekly Total score: 7 Score interpretation: A score of 4 or more indicates drinking is likely to affect patient's safety. 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 Highest level of school completed/degree received: Associate degree: occupational, technical, vocational program Are you now , , , , never or living with a partner: In a typical week, how many times do you talk on the telephone with family, friends, or neighbors: twice per week How often do you get together with friends or relatives: twice per week Little interest or pleasure in doing things: not at all Feeling down, depressed, or hopeless: not at all Feel stressed/tense/nervous/anxious/difficulty sleeping: not at all Exam Narrative Exam Narrative: Time Seen: [] Vital Signs: [Per nurse's notes.] General: [Alert] Skin: [Warm, dry, no rash.] Head: [Normocephalic, atraumatic.] Neck: [Supple, trachea midline.] Eye: [Pupils are equal, round and reactive to light, extraocular movements are intact, normal conjunctiva. Periorbital ecchymosis on the right Ears, nose, mouth and throat: oral mucosa moist. Cardiovascular: Irregular rhythm, no murmur.] Respiratory: [Lungs are clear to auscultation, respirations are non-labored, breath sounds are equal.] Chest wall: [No tenderness, no deformity.] Gastrointestinal: [Soft, nontender, non distended, normal bowel sounds.] MSK: 5 out of 5 muscle strength x 4 extremities no calf pain or edema Lymphatics: [No lymphadenopathy.] Psychiatric: [Cooperative, appropriate mood & affect.] Neurological: [Alert and oriented to person, place, time, and situation, no focal neurological deficit observed.] Constitutional Vital Signs, click to edit/add: Last Vital Signs Temp 98.5 F 10/29/24 14:17 Pulse 75 10/29/24 14:17 Resp 18 10/29/24 14:17 BP 170/85 H 10/29/24 14:17 Pulse Ox 97 10/29/24 14:17 O2 Del Method Room Air 10/29/24 14:17 Course Vital Signs Vital signs: Vital Signs Temperature 97.6 F 10/29/24 10:07 Pulse Rate 92 H 10/29/24 10:07 Respiratory Rate 20 10/29/24 10:07 Blood Pressure 174/107 H 10/29/24 10:07 Pulse Oximetry 98 10/29/24 10:07 Oxygen Delivery Method Room Air 10/29/24 10:07 Temperature 98.5 F 10/29/24 14:17 Pulse Rate 75 10/29/24 14:17 Respiratory Rate 18 10/29/24 14:17 Blood Pressure 170/85 H 10/29/24 14:17 Pulse Oximetry 97 10/29/24 14:17 Oxygen Delivery Method Room Air 10/29/24 14:17 Medical Decision Making MDM Narrative Medical decision making narrative: Patient 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 Some stenosis of the vertebral artery. No aneurysm no evidence of bleed. Did have a white blood cell count of almost 18 and a lactate of 2.0. CT scan also showed severe sinus disease consistent with sinusitis. I spoke to Dr. Landeros who wanted me to run it by neurology in [place]. I did speak with neurology about the scan findings and presentation of the patient. They do not think there is any neurology or neurosurgical emergency here and most likely the patient's symptoms are due to the sinusitis. Patient's been on antibiotics outpatient and is failed outpatient therapy. IV antibiotics were ordered, Unasyn was given. Lactate and blood cultures were drawn prior to antibiotic usage. I spoke to Dr. Landeros again and he is agreeable with keeping the patient here for further care. Patient's headache is feeling slightly better with the pain medication and anti-inflammatory. Patient and family are comfortable with care plan for staying here. Differential Diagnosis Differential Diagnosis: Sinusitis, intracranial hemorrhage, meningitis, viral syndrome, migraine Medical Records Medical records reviewed: Yes I reviewed the patient's medical records Lab Data Lab results reviewed: Yes I reviewed the patient's lab results Labs: Lab Results 10/29/24 10/29/24 Range/Units 10:20 10:32 WBC 17.8 H (4.0-11.0) 10^3/uL RBC 4.38 L (4.70-6.10) 10^6/uL Hgb 14.1 (14.0-18.0) g/dL Hct 40.9 L (42.0-54.0) % MCV 93.4 (80.0-94.0) fL MCH 32.2 (25.9-34.0) pg MCHC 34.5 (29.9-35.2) g/dL RDW 14.2 (11.0-15.0) % Plt Count 279 (150-450) 10^3/uL MPV 9.1 L (9.5-13.5) fL Seg Neuts % (Manual) 73.0 (43.0-75.0) Lymphocytes % (Manual) 19.0 L (20.5-60.0) % Monocytes % (Manual) 8.0 (1.7-12.0) % Eosinophils % (Manual) 0.0 L (0.9-7.0) % Basophils % (Manual) 0.0 L (0.2-2.0) % Neutrophils # (Manual) 12.99 H (1.4-6.5) 10^3/uL Lymphocytes # (Manual) 3.38 (1.20-3.80) 10^3/uL Monocytes # (Manual) 1.42 H (0.30-0.80) 10^3/uL Eosinophils # (Manual) 0.00 (0.00-0.70) 10^3/uL Basophils # (Manual) 0.00 (0.00-0.10) 10^3/uL PT 11.3 (9.0-11.6) sec INR 1.07 Sodium 139 (136-145) mmol/L Potassium 3.2 L (3.5-5.1) mmol/L Chloride 99 (98-107) mmol/L Carbon Dioxide 27.7 (21.0-32.0) mmol/L Anion Gap 15.5 BUN 17.0 (7.0-18.0) mg/dL Creatinine 0.99 (0.70-1.30) mg/dL Est GFR ( Amer) >60 (>=60 mL/min/1.73m^2) Est GFR (Non-Af Amer) >60 (>=60 mL/min/1.73m^2) BUN/Creatinine Ratio 17.2 Glucose 116 H (74-106) mg/dL Lactate 2.0 (0.4-2.0) mmol/L Calcium 9.7 (8.5-10.1) mg/dL Total Bilirubin 0.7 (0.2-1.0) mg/dL AST 18 (15-37) U/L ALT 34 (16-63) U/L Alkaline Phosphatase 65 (46-116) U/L Troponin I High Sens 6.9 (4.0-76.1) pg/mL Total Protein 7.2 (6.4-8.2) g/dL Albumin 3.3 L (3.4-5.0) g/dL Globulin 3.9 g/dL Albumin/Globulin Ratio 0.8 Influenza Type A Ag Negative Influenza Type B Ag Negative SARS-CoV-2 Ag (CV2AG) Negative (NEGATIVE) Imaging Data CT scan - head: Radiologist's impression: ITS Impressions Chest X-Ray 10/29/24 10:13 Impression: No radiographic evidence of acute cardiopulmonary process. Electronically authenticated by: ESTEPHANIE LOYD Date: 10/29/2024 12:[address] 10/29/24 10:13 IMPRESSION: 1. No hyperdense intracranial hemorrhage or acute large vascular territory infarct. 2. 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 This is greater anteriorly measuring up to 8 mm bilaterally with minimal mass effect on adjacent brain parenchyma. No midline shift. There comparison with priors would be of benefit to evaluate for interval change. 3. Significant paranasal sinus disease described above. 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 Otherwise no significant stenosis, large vessel occlusion or aneurysm involving the remaining neck or intracranial arterial vasculature. 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 Otherwise no significant stenosis, large vessel occlusion or aneurysm involving the remaining neck or intracranial arterial vasculature. Electronically authenticated by: ISAIAH CLEMENS Date: 10/29/2024 11:47 ECG Data Attestation: I personally reviewed and interpreted this ECG as follows: Interpretation: EKG INTERPRETATION Time: [] 1015 Rate: [] 73 Rhythm: _ [] Sinus rhythm with frequent PVCs ST segments: _ [] No acute ST elevation or depression T waves: _ [] Ectopy: _ [] P wave/GA interval: _ [] QRS interval: _ [] QT interval: _ [] Comparison: _ [] Comparison EKG date: [] Performed by: [self] right bundle branch block left anterior fascicular block Discharge Plan Discharge Chief Complaint: Headache Clinical Impression: Bacterial sinusitis, Headache Patient Disposition: Admitted As Inpatient Time of Disposition Decision: 15:48 Condition: Fair Discharge Date/Time: 10/29/24 13:39 Procedures ED Procedure Instructions Procedures Procedures: NIH scale 0
[2024-10-29] MEDS: 0.9 % SODIUM CHLORIDE 500 ML IV (10:29)
[2024-10-29 10:41] LABS: Hematocrit 40.9 % (42.0-54.0); Hemoglobin 14.1 g/dL (14.0-18.0); Mean Corpuscular HGB Conc 34.5 g/dL (29.9-35.2); Mean Corpuscular Hemoglobin 32.2 pg (25.9-34.0); Mean Corpuscular Volume 93.4 fL (80.0-94.0); Mean Platelet Volume 9.1 fL (9.5-13.5); Platelet Count 279 10^3/uL (150-450); Red Blood Count 4.38 10^6/uL (4.70-6.10); Red Cell Distribution Width 14.2 % (11.0-15.0); White Blood Count 17.8 10^3/uL (4.0-11.0)
[2024-10-29] MEDS: ONDANSETRON PF 4 MG/2 ML VIAL IV ×2 (10:48→17:36)
[2024-10-29] MEDS: METOPROLOL TARTRATE 5 MG/5 ML VIAL IVP (10:48)
[2024-10-29] MEDS: MORPHINE SULFATE 4 MG/ML VIAL IV (10:49)
[2024-10-29 10:56] LABS: INR 1.07; Prothrombin Time 11.3 sec (9.0-11.6)
[2024-10-29 11:01] LABS: Alanine Aminotransferase 34 U/L (16-63); Albumin Globulin Ratio 0.8; Albumin Level 3.3 g/dL (3.4-5.0); Alkaline Phosphatase 65 U/L (46-116); Anion Gap 15.5; Aspartate Amino Transferase 18 U/L (15-37); BUN Creatinine Ratio 17.2; Bilirubin Total 0.7 mg/dL (0.2-1.0); Calcium 9.7 mg/dL (8.5-10.1); Carbon Dioxide 27.7 mmol/L (21.0-32.0); Chloride 99 mmol/L (98-107); Estimated GFR (African America >60 (>=60 mL/min/1.73m^2); Estimated GFR (Non-African Ame >60 (>=60 mL/min/1.73m^2); Globulin 3.9 g/dL; Glucose 116 mg/dL (74-106); Potassium 3.2 mmol/L (3.5-5.1); Sodium 139 mmol/L (136-145); Total Protein 7.2 g/dL (6.4-8.2); Troponin I High Sensitivity 6.9 pg/mL (4.0-76.1)
[2024-10-29 11:04] LABS: Influenza Virus A Antigen Negative; Influenza Virus B Antigen Negative; Internal Control Within Normal Limits; SARS-CoV-2 Ag NEGATIVE (NEGATIVE)
[2024-10-29 11:09] LABS: Lymphocytes Absolute Manual 3.38 10^3/uL (1.20-3.80); Monocytes Absolute Manual 1.42 10^3/uL (0.30-0.80); Segmented Neut Absolute Manual 12.99 10^3/uL (1.4-6.5)
--- OUTSIDE RECORDS SUMMARY | 2024-10-29 11:28 | XMS_ITS | CCD ---
Author Organization [facility] ion [facility] Care Team Providers Care Flute Polisher Name Role Phone Fahad Arce Attending Provider [phone] Almas Tello Primary Care Provider Chi Espinoza Attending Provider Chi Espinoza Admit Provider Betty Wilkinson Admit Provider Betty Wilkinson Attending Provider Almas Tello Unavailable Unavailable Unavailable [...] Referring Unavailable Almas Tello Primary Care UnavailAlmas Miller MD Primary Care Provider Fahad Arce MD Unavailable [phone] Almas Tello MD Primary Care Provider SHANTI OLMOS Attending Unavailable PRETTY ALVAREZ Referring Unavaila ble ALMAS TELLO Primary Care Unavailab SHANTI Mckeon Attending Unavailable ALMAS TELLO Primary Care Unavailab SHANTI Mckeon Attending Unavailable ALMAS TELLO Primary Care Unavailab donato Espinoza MD, Mika Fajardo Unavailable Yazmin CHEW, Jennifer Unavailable Almas Tello MD Unavailable Almas Tello MD Primary Care Provider ROB MERCHANT Attending Unavailable FAHAD ARCE Referring Unavailable ALMAS TELLO Primary Care Unavailable Almas Tello MD Primary Care Provider Almas Tello MD Unavailable ALMAS TELLO Attending Unavailable PRETTY ALVAREZ Attending Unavailable ALMAS TELLO Referring Unavailable MIKA ESPINOZA Attending Unavailable MIKA ESPINOZA Attending Unavailable MIKA ESPINOZA Attending Unavailable HANG PUENTE Attending Unavailable ALMAS TELLO Attending Unavailable ALMAS TELLO Attending Unavailable Unavailable Unavailable Unavailable Medications Current [...] Q4H 30 7 December 31, 2020 10:52am [id number] 200 actuat albuterol 0.09 mg/actuat metered dose inhaler (13 sources) beta2-Adrenergic Agonist Start: 12-28-2023 End: 01-15-2025 take 2 puff(s) by inhalation every four hours for wheezing albuterol HFA 90 mcg/act inhaler Indications: COPD with acute exacerbation (CMS/HCC) Inhale 2 puffs every 4 (four) hours if needed for wheezing 54 g 10/17/2024 01/15/2025 Active Start: 01-01-2021 Albuterol Sulf ate HFA 108 (90 Base) MCG/ACT Inhalation Aerosol Solution Quantity: 18 Refills: 0 Ordered: 01-Jan-2021 DO Start : 01-Jan-2021 Complete Start: 12-31-2020 take 1 puff(s) by in halation every three hours Albuterol Sulfate (Ventolin Hfa) 90 mcg/actuation Hfa Aerosol Inhaler Active 2 PUFF INHALATION Every three hours December 31, 2020 10:55am amoxicillin 500 mg oral capsule (9 sources) Penicillin-class Antibacterial Start: 10-21-2023 take 4 [...] 03, 2020 11:24am January 01, 2021 10:17am cefuroxime 500 mg oral tablet (5 sources) Cephalosporin Antibacterial Start: 10-17-2024 End: 10-28-2024 take 1 tablet by mouth in the morning cefuroxime (Ceftin) 500 MG tablet Indications: Pneumonia of left lower lobe due to infectious organism Take 1 tablet (500 mg) by mouth in the morning and 1 tablet (500 mg) before bedtime. Do all this for 10 days. 20 tablet 10/17/2024 10/28/2024 Discontinued (Therapy completed) Start: 12-20-2023 End: 12-28-2023 take 1 tablet by mouth in the morning cefuroxime (Ceftin) 500 MG tablet Indications: Acute non-recurrent maxillary sinusitis Take 1 tablet (500 mg) by mouth in the morning and 1 tablet (500 mg) before bedtime. Do all this for 10 days. 14 tablet 0 12/20/2023 12/28/2023 Discontinued (Therapy completed) chlorhexidine gluconate 1.2 mg/ml mouthwash (6 sources) [...] 2021 10:17am fluorouracil 50 mg/ml topical cream (7 sources) Nucleoside Metabolic Inhibitor Start: 04-02-2024 fluorouracil (Efudex) [...] PO Q4H 150 December 31, 2020 10:55am levoFLOXacin 750 mg oral tablet (2 sources) Quinolone Antimicrobial Start: 10-28-2024 End: 11-04-2024 take 1 tablet by mouth once daily levoFLOXacin (Levaquin) 750 MG tablet Indications: Pneumonia of left lower lobe due to infectious organism Take 1 tablet (750 mg) by mouth Daily for 7 days 7 tablet 10/28/2024 11/04/2024 Active lisinopril 5 mg oral tablet (1 source) Angiotensin Converting Enzyme Inhibitor Start: 10-03-2024 End: 10-03-2025 take 1 tablet by mouth once daily lisinopril 5 mg tablet Indications: Essential hypertension Take 1 tablet (5 mg) by mouth once daily. 30 tablet 11 10/03/2024 10/03/2025 Active melatonin 5 mg oral tablet (5 sources) [...] mg tablet Indications: Coronary artery disease involving [place] coronary artery of [place] heart without angina pectoris , S/P CABG [...] Active 12.5 MG PO Three times daily December 31, 2020 10:53am milk thistle extract 175 mg oral capsule (1 source) take 1 tablet by mouth once daily milk thistle 175 mg tablet Take 1 tablet (175 mg) by mouth once daily. Active [place]-3 Fatty Acids-Fish Oil (Fish Oil) 340-1,000 mg Capsule (2 sources) Start: take 1 capsule by mouth once daily [place]-3 Fatty Acids-Fish Oil (Fish Oil) 340-1,000 mg Capsule Active 1000 MG PO Daily December 31, 2020 10:53am ondansetron 4 mg oral tablet (3 sources) Serotonin-3 Receptor Antagonist Start: End: take 1 tablet by mouth every eight hours as needed for nausea and vomiting and nausea and nausea ondansetron (Zofran) 4 MG tablet Indications: Nausea Take 1 tablet (4 mg) by mouth every 8 (eight) hours if needed for nausea or vomiting for up to 7 days 20 tablet 10/28/2024 11/04/2024 Active Start: 03-22-2021 take 1 tablet by carolyn th every six hours Ondansetron 8 MG Oral Tablet Disintegrating DISSOLVE ONE TABLET BY MOUTH EVERY 6 HOURS Quantity: 20 Refills: 0 Ordered: 22-Mar-2021 DO Start : 22-Mar-2021 Complete povidone-iodine 0.1 mg/mg topical ointment (10 sources) [...] 2020 10:54am predniSONE 10 mg oral tablet (8 sources) Start: 10-21-2024 predniSONE (Deltasone) 10 MG tablet Indications: Asthma exacerbation in COPD ([facility]/HCC) Every 2 day tapering dose; 5,5,4,4,3,3,2,2,1,1 ,0.5,0.5 31 tablet 10/21/2024 Active Start: 12-28-2023 End: 10-17-2024 predniSONE (Deltasone) 10 MG tablet Indications: COPD with acute exacerbation (CMS/HCC) Every 2 day tapering dose; 5,5,4,4,3,3,2,2,1,1,0.5,0.5 31 tablet 12/28/2023 10/17/2024 Discontinued (Therapy completed) rosuvastatin calcium 40 mg oral tablet (20 sources) HMG-CoA Reductase Inhibitor Start: 10-03-2024 End: 10-03-2025 take 1 tablet by mouth once daily rosuvastatin (Crestor) 40 mg tablet Indications: Mixed hyperlipidemia Take 1 tablet (40 mg) by mouth once daily. 90 tablet 3 10/03/2024 10/03/2025 Active Start: 09-20-2021 End: 10-03-2024 take 1 tablet by mouth in the morning rosuvastatin (Crestor) 20 MG tablet Take 20 mg by mouth in the morning. 10/03/2023 Active Sennosides (Senna Lax) 8.6 mg Tablet (2 sources) Start: 12-31-2020 take 2 tablets by mouth once daily Sennosides (Senna Lax) 8.6 mg Tablet Active 17.2 MG PO DAILY@12 60 December 31, 2020 10:56am Spacer/Aero-Holding Chambers ([facility]heRite Raghu Spacer Adult[facility] ([facility] Start: 12-28-2023 Spacer/Aero-Ho lding Chambers (BreatheRite Raghu Spacer Adult[place] [facility] [place]ications: COPD with acute exacerbation (CMS/HCC) 2 puffs 4 (four) times a day as needed (sob and cough) 1 each 12/28/2023 Active Start: 12-28-2023 Spacer/Aero-Ho lding Chambers (BreatheRite Raghu Spacer Adult[place] [facility] [place]ications: COPD with acute exacerbation (CMS/HCC) 2 puffs 4 (four) times a day as needed (sob and cough) 1 each 0 12/28/2023 Active testosterone cypionate 100 mg/ml injectable solution (1 source) Androgen testosterone cyp ionate (Depo-Testosterone) 100 mg/mL injection Inject into the muscle every 14 (fourteen) days. Active thiamine 100 mg oral tablet (5 [...] Ordered: 05-Nov-2020 DO Start : 05-Nov-2020 Complete celecoxib 200 mg oral capsule (1 source) [...] Indications: Basal cell carcinoma (BCC) of right pentecostal region Take 1 capsule, by mouth, bid [...] take 2 tablets by mouth once daily glucosamine/fitz dr elvin Fajardo sod (OSTEO BI-FLEX ORAL) Take 2 [...] Discontinued 5000 UNIT SUBCUT Every 12 hours 0 December 26, 2020 11:53am January 01, 2021 10:17am losartan potassium 25 mg oral tablet (7 sources) Angiotensin 2 Receptor Barrett Start: 11-03-2020 End: 12-26-2020 take 25 mg by mouth once daily Losartan Discontinued 25 MG PO Daily November 03, 2020 11:24am December 26, 2020 12:07pm niMODipine 30 mg oral capsule (4 sources) Dihydropyridine Calcium Channel Barrett Start: 02-20-2024 End: 10-03-2024 take 1 capsule by mouth three times daily niMODipine (Nimotop) 30 mg capsule Indications: Vocal cord paralysis Take 1 capsule (30 mg) by mouth 3 times a day. 90 capsule 02/20/2024 10/03/2024 Discontinued (Therapy completed) Nirmatrelvir&Rit onavir 300/100 (Paxlovid, 300/100,) 20 x 150 MG & 10 x 100MG tablet therapy pack (1 source) Start: 11-30-2023 End: 12-20-2023 take 3 tablets by mouth in the morning Nirmatrelvir&Rit onavir 300/100 (Paxlovid, 300/100,) 20 x 150 MG & 10 x 100MG tablet therapy pack Indications: Infection caused by 2019 Novel Coronavirus Take 3 tablets by mouth in the morning and 3 tablets before bedtime. 1 each 0 11/30/2023 12/20/2023 Discontinued (Therapy completed) [place] 1-Pkj-Olr-Fish Oil (Fish Oil) 1,000 mg (120 mg-180 mg) Capsule (7 sources) Start: 11-03-2020 End: 01-01-2021 take 1 capsule by mouth once daily [place] 5-Jhz-Vif-Fish Oil (Fish Oil) 1,000 mg (120 mg-180 mg) Capsule Discontinued 1 CAP PO Daily November 03, 2020 11:24am January 01, 2021 10:17am Start: 11-03-2020 take 1 capsule by [facility] once daily [place] 9-Zgd-Ndl-Fish Oil (Fish Oil) 1,000 mg (120 mg-180 mg) Capsule Active 1 CAP PO Daily November 03, 2020 11:24am Osteo Bi-Flex Joint Shield Oral Tablet (5 sources) take 2 tablets by mouth once daily Osteo Bi-Flex Joint Shield Oral Tablet TAKE 2 TABLET Daily Quantity: 0 Refills: 0 Ordered: 20-Sep-2021 DO Active pantoprazole 20 mg delayed release oral tablet (2 sources) Proton Pump Inhibitor Start: take 1 tablet by mouth once daily Pantoprazole Sodium 20 MG Oral Tablet Delayed Release TAKE ONE TABLET BY MOUTH DAILY FOR 14 DAYS Quantity: 14 Refills: 0 Ordered: 20-Apr-2021 DO Start : 20-Apr-2021 Complete Start: 03-22-2021 take 1 tablet by [facility] once daily Pantoprazole Sodium 40 MG Oral Tablet Delayed Release TAKE ONE TABLET BY MOUTH DAILY Quantity: 30 Refills: 0 Ordered: 22-Mar-2021 DO Start : 22-Mar-2021 Complete polyethylene glycol 3350 [id number] mg powder for oral solution (1 source) [...] Chronic Chronic obstructive pulmonary disease and bronchiectasis (19 sources) Chronic obstructive lung disease; Translations: [Chronic obstructive pulmonary disease, unspecified] Onset: 12-19-2023 12-19-2023 Chronic Complications of surgical procedures or medical care (6 sources) Postprocedural respiratory failure; Translations: [Acute postprocedural respiratory failure] Episodic Coronary atherosclerosis and other heart disease (20 sources) Coronary arteriosclerosis; Translations: [Atherosclerotic heart disease of [place] coronary artery without angina pectoris] Onset: 04-15-2021 [...] hyperlipidemia] Onset: 04-22-2021 10-03-2023 Chronic Essential hypertension (16 sources) Hypertensive disorder; Translations: [Essential (primary) hypertension] Onset: 04-22-2021 10-03-2024 Chronic Headache; including migraine (4 sources) Acute posttraumatic headache; Translations: [Acute post-traumatic headache, intractable] 10-28-2024 Episodic Hypertension with complications and secondary hypertension (4 sources) Hypertensive chronic kidney disease with stage 1 through stage 4 chronic kidney disease, or unspecified chronic kidney disease; Translations: [HTN CKD W/STAGE 1-4 CKD/UNS CKD] Onset: 12-24-2021 Chronic Malaise and fatigue (4 sources) Lack of stamina; Translations: [Full-term ] Episodic Nausea and vomiting (2 sources) Nausea; Translations: [Nausea] 10-28-2024 Episodic Osteoarthritis (19 sources) Arthritis; Translations: [Unspecified osteoarthritis, unspecified site] [...] pain ; Translations: [Postoperative pain] Episodic Other nutritional; endocrine; and metabolic disorders (1 source) Weight decreasing; Translations: [Abnormal weight loss] 10-03-2024 Episodic Other nutritional; endocrine; and metabolic disorders (1 source) Unintentional weight loss; Translations: [Abnormal weight loss] Onset: 10-03-2024 10-03-2024 Episodic Other nutritional; endocrine; and metabolic disorders (2 sources) Abnormal weight loss; Translations: [Abnormal weight loss] Onset: 10-03-2024 Episodic Other upper respiratory disease (3 sources) [...] sources) Laryngitis; Translations: [Acute laryngitis] 12-20-2023 Episodic Pneumonia (except that caused by tuberculosis or sexually transmitted disease) (4 sources) Left lower zone pneumonia; Translations: [Pneumonia, unspecified organism] 10-17-2024 Episodic Residual codes; unclassified (2 sources) Idiopathic sleep related nonobstructive alveolar hypoventilation; Translations: [Sleep-related hypoxia] Chronic Residual codes; unclassified (10 sources) H/O: surgery; Translations: [History of brain surgery] Episodic Residual codes; unclassified (5 sources) Disorientation, unspecified; Translations: [Unresponsiveness] Episodic Residual codes; unclassified (3 sources) Delirium; Translations: [Delirium] Episodic Residual codes; unclassified (20 sources) Body mass index 20-24 - normal; Translations: [Body Mass Index between 19-24, adult] Onset: 12-20-2023 12-20-2023 Episodic Residual codes; unclassified (2 sources) Body mass index (BMI) 22.0-22.9, adult; Translations: [Body mass index (BMI) 22.0-22.9, adult] Onset: 10-03-2024 Episodic Screening and history of mental health and substance abuse codes (12 sources) Ex-smoker; Translations: [Personal history of tobacco use] Onset: 04-22-2021 10-03-2024 Episodic Comment on above: QUIT 1999; Superficial injury; contusion (4 sources) Blunt injury of eye; Translations: [Other injuries of right eye and orbit, initial encounter] 10-28-2024 Episodic Syncope (6 sources) Syncope; Translations: [Syncope and collapse] Episodic Viral infection (4 sources) Other specified viral infection; Translations: [Severe acute respiratory syndrome coronavirus 2 (SARS-CoV-2) detected] Episodic Past or Other Problems Problem Classification Problem Date Documented Date Episodic/Chronic Conditions associated with dizziness or vertigo (10 sources) Dizziness; Translations: [Dizziness and giddiness] Onset: 10-02-2023 Resolved: 10-03-2024 10-02-2023 Episodic Other screening for suspected conditions (not mental disorders or infectious disease) (20 sources) Cardiovascular stress test abnormal; Translations: [Abnormal result of other cardiovascular function study] Onset: 04-22-2021 Resolved: 10-03-2024 10-02-2023 Episodic Residual codes; unclassified (6 sources) Other specified postprocedural states; Translations: [History of lingual frenulectomy] Unclassified (5 sources) Onset: 10-03-2023 Resolved: 10-03-2024 10-03-2023 Results Test Name Value Interpretation Reference Range Facility ECG 12 [place] 10-03-2024 Normal sinus rhythm with right bundle branch block [facility] Work Phone: ALL CBC WITH AUTO DIFFon BASOPHILS ABSOLUTE AUTO 0 [facility] Basophils/100 WBC (Bld) 0.4 % 0.2 - 2.0 % [facility] Eosinophils/100 WBC (Bld) 2.7 % 0.9 - 7.0 % [facility] Erythrocyte distribution width (RBC) [Ratio] 14.4 % 11.0 - 15.0 % [facility] Hematocrit (Bld) [Volume fraction] 40.2 % Low 42.0 - 54.0 % [facility] Hemoglobin (Bld) [Mass/Vol] 13.4 g/dL Low 14.0 - 18.0 g/dL [facility] IMMATURE GRANULOCYTES ABS AUTO 0.06 High [facility] Immature granulocytes/100 WBC (Bld) 0.7 % High 0.0 - 0.5 % [facility] Interpretation and review of laboratory results Abnormal [facility] LYMPHOCYTES ABSOLUTE AUTO 2 [facility] Lymphocytes/100 WBC (Bld) 24.1 % 20.5 - 60.0 % [facility] MCH (RBC) [Entitic mass] 31.5 pg 25.9 - 34.0 pg [facility] MCHC (RBC) [Mass/Vol] 33.3 g/dL 29.9 - 35.2 g/dL [facility] MCV (RBC) [Entitic vol] 94.6 fL High 80.0 - 94.0 fL [facility] MONOCYTES ABSOLUTE AUTO 1.1 High [facility] Monocytes/100 WBC (Bld) 13.2 % High 1.7 - 12.0 % [facility] NEUTROPHILS ABSOLUTE AUTO 4.8 [facility] Neutrophils/100 WBC (Bld) 58.9 % 43.0 - 75.0 % [facility] Platelet mean volume (Bld) [Entitic vol] 9.4 fL Low 9.5 - 13.5 fL [facility] TBH EO # 0.2 [facility] TBH PLT 219 [facility] TB RBC 4.25 Low [facility] TBH WBC 8.1 [facility] ALL LIPID PROFILE (FASTING)o n 09-19-2024 CHOL HDL RATIO 2.9 [facility] Comment on above: 3.3 - 4.4 LOW RISK 4.4 - 7.1 AVERAGE RISK 7.1 - 11.0 MODERATE RISK >11.0 HIGH RISK Cholesterol [Mass/Vol] 258 mg/dL High NINF - 200 mg/dL [facility] Cholesterol in HDL [Mass/Vol] 90 mg/dL High 40 - 60 mg/dL [facility] Comment on above: > or =60 mg/dl - LOW CARDIOVASCULAR RISK <40 mg/dl - HIGH CARDIOVASCULAR RISK Interpretation and review of laboratory results Abnormal [facility] Magnesium [Mass/Vol] 149 mg/dL [facility] Comment on above: <100 mg/dl OPTIMAL 100-129 mg/dl NEAR OR ABOVE OPTIMAL 130-159 mg/dl BORDERLINE HIGH 160-189 mg/dl HIGH >190 mg/dl VERY HIGH Magnesium [Mass/Vol] 19.4 mg/dL [facility] Triglyceride [Mass/Vol] 97 mg/dL NINF - 150 mg/dL [facility]CF CMP (CMP) (FOR REMOTE FH C USE)on 09-19-2024 Albumin [Mass/Vol] 3.5 g/dL 3.4 - 5.0 g/dL [facility] ALBUMIN GLOBULIN RATIO 0.9 NO [facility] ALP [Catalytic activity/Vol] 59 U/L 46 - 116 U/L [facility] ALT [Catalytic activity/Vol] 18 U/L 16 - 63 U/L [facility] Anion gap [Moles/Vol] 14.5 mmol/L NO [facility] AST [Catalytic activity/Vol] 22 U/L 15 - 37 U/L [facility] Bilirubin [Mass/Vol] 0.4 mg/dL 0.2 - 1 .0 mg/dL [facility] Calcium [Mass/Vol] 9.2 mg/dL 8.5 - 10. 1 mg/dL [facility] Chloride [Moles/Vol] 101 mmol/L 98 - 10 7 mmol/L [facility] CO2 [Moles/Vol] 29.9 mmol/L 21.0 - 32.0 mmol/L [facility] Creatinine [Mass/Vol] 0.92 mg/dL 0.70 - 1.30 mg/dL [facility] GFR/1.73 sq M.predicted CKD-EPI (S/P/Bld) [Vol rate/Area] >60 >=60 mL/min/1.7 3m 2 [facility] Globulin (S) [Mass/Vol] 3.7 g/dL N [facility] Glucose [Mass/Vol] 78 mg/dL 74 - 106 mg/dL [facility] Potassium [Moles/Vol] 4.4 mmol/L 3.5 - 5.1 mmol/L [facility] Protein [Mass/Vol] 7.2 g/dL 6.4 - 8.2 g/dL [facility] Sodium [Moles/Vol] 141 mmol/L 136 - 145 mmol/L [facility] TBH EGFR-NON AF MONTENEGRIN >60 >=60 mL/min/1.7 3m 2 [facility] Urea nitrogen [Mass/Vol] 11 mg/dL 7.0 - 18.0 mg/dL [facility] Urea nitrogen/Creatinine [Mass ratio] 12 mg/mg [facility] No Panel Informationon 09-19 [facility] Laryngoscopyon 04-02-2024 Shanti Olmos MD 2023 10:00 AM Laryngoscopy Date/Time: 04/02/2024 9:58 AM Performed by: Shanti Olmos MD Authorized by: Shanti Olmos MD [facility] Work Phone: Laryngoscopyon 02-20-2024 Shanti Olmos MD 02/22 2:39 PM Laryngoscopy Date/Time: 02/20/2024 2:35 PM Performed by: Shanti Olmos MD Authorized by: Shanti Olmos MD [facility] Work Phone: Office Visit (Cardiology)on 09-27-2022 Follow-up [...] Recorded: 27Sep2022 10:01AM Heart Rate44, L Radial [id number], LUE, Sitting Vniaxanlo22, LUE, Sitting Height5 ft 8 in [id number] lb BMI Llnhdnfjjt22.63 kg/m2 BSA Calculated1.87 Tobacco Useb) No PHQ-2 [...] Sep 27 2022 4:12PM EST (Author) Normal [facility] Tobacco Screening.on 022 Adult depression screening assessment No [facility] FAGUO 250 DO Work Phone: Fall risk assessment a) No falls within the last year [facility] FAGUO 250 DO Work Phone: Tobacco use status CP b) No M [facility] FAGUO 250 DO Work Phone: LIPID PROFILEon 12-24-2021 CHOL-HDL RATIO NORM SEE BELOW Normal [facility] Comment on above: Result Comment: 3.3 - 4.4 LOW RISK 4.4 - 7.1 AVERAGE RISK 7.1 - 11.0 MODERATE RISK >11.0 HIGH RISK Performed By: #### L IPID, CMP #### [facility] [address] [address] [address] Sage Corbett Cholesterol [Mass/Vol] 178 mg/dL Normal <=200 Th [facility] Comment on above: Performed By: #### L IPID, CMP #### [facility] [address] [address] [address] Sage Corbett Cholesterol in HDL [Mass/Vol] 72 mg/dL Normal [facility] Comment on above: Performed By: #### L IPID, CMP #### [facility] [address] [address] [address] Sage Corbett Cholesterol in LDL [Mass/Vol] 90.8 mg/dL Normal [facility] Comment on above: Performed By: #### L IPID, CMP #### [facility] [address] [place] [address] Dr. Sage Corbett Cholesterol.total/Tarah sterol in HDL [Mass ratio] 2.5 {ratio} Normal [facility] Comment on above: Performed By: #### L IPID, CMP #### [facility] [address] [place] [address] Dr. Sage Corbett HDL NORMAL > or = 60 mg/dl - LO W CARDIOVASCULAR RISK <40 mg/dl - HIGH CARDIOVASCULAR RISK Normal [facility] Comment on above: Performed By: #### L IPID, CMP #### [facility] [address] [place] [address] Dr. Sage Corbett LDL CALC NORMAL SEE BELOW Normal [facility] Comment on above: Result Comment: <100 mg/dl OPTIMAL 100 - 129 mg/dl NEAR OR ABOVE OPTIMAL 130 - 159 mg/dl BORDERLINE HIGH 160 - 189 mg/dl HIGH >190 mg/dl VERY HIGH Performed By: #### L IPID, CMP #### [facility] [address] [place] [address] Dr. Sage Corbett Triglyceride [Mass/Vol] 76 mg/dL Normal <=150 T [facility] Comment on above: Performed By: #### L IPID, CMP #### [facility] [address] [place] [address] Dr. Sage Corbett VLDL CALC 15.2 mg/dL Normal [facility] Comment on above: Performed By: #### L IPID, CMP #### [facility] [address] [place] [address] Dr. Sage Corbett PROF 14(COMP METB)on 022 Albumin [Mass/Vol] 3.9 g/dL Normal 3.5-5.0 [facility] Comment on above: Performed By: #### L IPID, CMP #### [facility] [address] [place] [address] Dr. Sage Corbett Albumin/Globulin [Mass ratio] 1.1 {ratio} Normal [facility] Comment on above: Performed By: #### L IPID, CMP #### [facility] [address] [place] [address] Dr. Sage Corbett ALP [Catalytic activity/Vol] 47 U/L Normal 38-126 [facility] Comment on above: Performed By: #### L IPID, CMP #### [facility] [address] [place] [address] Dr. Sage Corbett ALT [Catalytic activity/Vol] 30 U/L Normal 21-72 [facility] Comment on above: Performed By: #### L IPID, CMP #### [facility] [address] [place] [address] Dr. Sage Corbett Anion gap [Moles/Vol] 11.1 mmol/L Normal [facility] Comment on above: Performed By: #### L IPID, CMP #### [facility] [address] [place] [address] Dr. Sage Corbett AST [Catalytic activity/Vol] 23 U/L Normal 17-59 [facility] Comment on above: Performed By: #### L IPID, CMP #### [facility] [address] [place] [address] Dr. Sage Corbett Bilirubin [Mass/Vol] 0.4 mg/dL Normal 0.2-1.3 [facility] Comment on above: Performed By: #### L IPID, CMP #### [facility] [address] [place] [address] Dr. Sage Corbett Calcium [Mass/Vol] 9.5 mg/dL Normal 8.4-10.2 [facility] Comment on above: Performed By: #### L IPID, CMP #### [facility] [address] [place] [address] Dr. Sage Corbett Chloride [Moles/Vol] 106 mmol/L Normal 98-107 [facility] Comment on above: Performed By: #### L IPID, CMP #### [facility] [address] [place] [address] Dr. Sage Corbett CO2 [Moles/Vol] 28.1 mmol/L Normal 22.0-30.0 [facility] Comment on above: Performed By: #### L IPID, CMP #### [facility] [address] [place] [address] Dr. Sage Corbett Creatinine [Mass/Vol] 0.68 mg/dL Normal 0.66-1.25 [facility] Comment on above: Performed By: #### L IPID, CMP #### [facility] [address] [place] [address] Dr. Sage Corbett EGFR-AF MONTENEGRIN >60 Normal >=60 [facility] Comment on above: Performed By: #### L IPID, CMP #### [facility] [address] [place] [address] Dr. Sage Corbett EGFR-NON AF MONTENEGRIN >60 Normal >=60 [facility] Comment on above: Performed By: #### L IPID, CMP #### [facility] [address] [place] [address] Dr. Sage Corbett Globulin (S) [Mass/Vol] 3.4 g/dL Normal [facility] Comment on above: Performed By: #### L IPID, CMP #### [facility] [address] [place] [address] Dr. Sage Corbett Glucose [Mass/Vol] 81 mg/dL Normal 74-106 [facility] Comment on above: Performed By: #### L IPID, CMP #### [facility] [address] [place] [address] Dr. Sage Corbett Potassium [Moles/Vol] 4.2 mmol/L Normal 3.4-5.0 [facility] Comment on above: Performed By: #### L IPID, CMP #### [facility] [address] [address] [address] Sage Corbett Protein [Mass/Vol] 7.3 g/dL Normal 6.1-8.2 [facility] Comment on above: Performed By: #### L IPID, CMP #### [facility] [address] [address] [address] Sage Corbett Sodium [Moles/Vol] 141 mmol/L Normal 137-145 [facility] Comment on above: Performed By: #### L IPID, CMP #### [facility] [address] [address] [address] Sage Corbett Urea nitrogen [Mass/Vol] 14.0 mg/dL Normal 9.0-20.0 [facility] Comment on above: Performed By: #### L IPID, CMP #### [facility] [address] [address] [address] Sage Corbett Urea nitrogen/Creatinine [Mass ratio] 20.6 mg/mg Normal [facility] Comment on above: Performed By: #### L IPID, CMP #### [facility] [address] [address] [address] Sage Corbett Falls Risk Screeningon 09-20 Fall risk assessment a) No falls within the last year [facility] DO Work Phone: Tobacco use status [facility] b) No M [facility] 250 DO Work Phone: US ABD AORTA [...] by: ROGER TORRES Date: 2021-04-15 10:56 Normal [facility] Coding Summary.on 03-29-2021 Coding Summary. CD:[id number] Gh0bWw +PGhlYWQ+XL0OHLJgW90biESle P8FP3tNJY3UZVXTRFFGUA6MJX4 xtAB5IFjwI0IceoYd NmrpzESfLS37SHa9RMI6rDdnOE pkiG8ikPReG5r8LeVaEK69rL79 IOfwOIWtZrD9McKpycmynDEp K0ctBaTjzLInQen+PHRhYmxlIH nhTKWfBFjyUIQvZgJljGfyHW7q Cx3eZUDaJGYggXmgrGKpTqIx k0dnLZVbMGpyDL1oePuiZ0FakH J7YOBah9e2Kl46hKN+PHRkIHN0 wIcdMAtjw457CzHym0olMST8 kYPaWSxlOQS0G67rj8G8XHYhBH TjWBP6wCY6tA4qgSdlucluW3Me kIPdToV1AGH7yAQydQ0vlWhc xguamR2iZqs+W46FBM4XIYMKZB 3PKzh3N7CvIdcnvKD+CA15OUCv QF41mXPuwQFjl0iflSi0MjSv GZNwQOV9lEylNCyel4TmUVLjG7 1ioLGgv8S0GVVcuOkluWZiEtKe vAA3uE5lUWoivpowu0cpfmhs Jzlgj0ucri42iL06N05hJBqwVA AvSPL5KQGxBWHabJhdqv0pwA5l Ii8+PYwpe6lye2isnQr7CzTt OFZukcDewEbsTIW7p8EzYe08M0 NcwSxcz0LrLsn9qj52dIRqn0P8 uNK3CFooDCZfmU5rLVogCvO6 MHOrTvPogD16uFUyOZepHz9snY cdcOtePK7dFOYkogmtXCOejC1q OHGqcJVauIjeQS2jGILnkrjk e771OnEeQAE9POQsyZHlH3FrxP 1hZkFxBVCsLOFgP3JmgEFzZLci Q910HRljFmE8MAMuvsUyW5Zl YLAsrNqfHzG0n6I8Te2Kt8Zzet jqVZX4ZCfvWAE5KzUrRjTqMyB2 J4EtHbn0CDCdgMcyME1eF4Br ZGZyirmdacvdiAU2WYCmKPTbaN 97vXXcBMpnHv4ga5B4c634NXVk ZDInoE06Br5dpJocCBYdpVJY fK8tuasjq1vqzhixMkHtBBLbGK g0UBc7BAZnyMbtKiHyWIF1JnQ3 RBY0dCYpgQ9hfChgogrjuV5v Oyc+X43vlC1gBIH8DHC3asslMU ScioRwPT13WY26C3ItXcsecGAx bGU+HIIvlgKetAnsEX3jJuHh n9sce9TmNMynE1TgTXNyGQbxTa r5PZGfSMS0hNI0zR4nFHKlZVhr x9J3yUH7Q9CvumUown5gx0uc OGRuFEsuX21wwSRen9E6GKXkjW A7QVVheQihVtZnyW35Eje+PGNv bMscq5NcNdsoh3cti4thvGu4 TwRgQRVwcbZutPfhMLJ2h2VfSg 56N07jSAogRVDgRGLqTCIfVLAs sFobul4auT5kTu2+PGNvbCB3 jYS4zB7eESQnTfQ3ZTwjY476Ze CpjJCoNdvpw7rqb9oqcOb8KgCw PJYucsJcxVycFNJ6v4PwNp08 I41lJWvyFZXxZMFwLJFlEOIzjZ xbhk9meR5vQe7+FV9hf8mtwz84 sV41uLA+KSMrYEO8sZahZSqc MVFdnL5pDOumUnX8MQPsOuOzlG 09eRHpTEgpSp1rwXoolLysEC5y ROMhzwsfo574KdSvl0oiCSEg kEKySThyDWQ7U02xf1N5ZDKjLK ZzPVU3wMA8nO7neEectqqilLZg iXczvcHqkZevIXccSYjvU143 IHRvcDsnPlBhdGllbnQgTmFtZT b5D1FzHoq6EMQoaSvtHK0gxDQw JKdbQb5rmVmwrGgkHK2wERCo ejgxa135OdShl9qwEFJnwGLeRN tkWAC4G58bs9O2KSXvRYXrRMM7 rVN9wC9obBqsfpeazOVlqFjk zsGshBsuKQauPDokZ114IQAnuP jzRuDklqUyVGAujGU8RC42DZ23 xLMpc0H9nAC5F7SsEPXudqzw isodlKL9DPTvPJBniO94Pa1brT eqCs7cPNRjGJB1TMYfnONnD9Vp kS5yAnDpXTBqWMRmU1DzmTHn TOanI858DYueJzL1GTJndrVzC4 CgGMQaaEqfEiK3m9D0Zn6PK5M6 TE88VD14vWZph1J3bLY6L8Br GLGbyzkdbwvggNB2BKVgKGChyO 63Pl5xsOptLg4qUZEcKVI2ULEo wBGjG4AbyO6wGuNaHJIiNDNv C4UppZNmAXxhG366ATwiTvL1NM QpxlHhO9KxWZZihEvhVoO0u9O2 Iq2YRUh1UP71IE07lJSrd7H4 oVM1U8KzEUKatifyudkfsXD0PH PmTLXlxH55Yt0tgBwcKz6cXQVj PVU4FOFrwDZzJ1ApqK6tBxDj RAYoKVYxD9JmfFSvCAqwV888YT loBnU8PZYuelUmC4SuULOzeFtv QlF3l5Z0La6PPKJxDT77KIM6 xPH7TN45UV98R3JaPczeeYHgpA U+PHRhYmxlIHdpZHRoPScxMDAl NfWlqKcyZY0rRa2tRTPuSOSj iZgebNQhTqKdw4gnQZBmCAicNC 6pxAlpZ0IxrUA8XWMaw3b5So87 U65lV4WzyVK+HGNdqRP8cJT0 mY3dCnCqApF5ZKxwC186HsNqyO OuNoqai9daf7xirAd8VrY4SEIu vnCfpFapIRG4k5UhKj60E91e IHdpZHRoPSIxNSUiIHZhbGlnbj 8vkO6fIp0+BDOopPP9mSY7pJ6z TmMyOdV0ELmkW773MaCtxFRr Wdegn9mxy3iuzAd8JlKoZJFgid BqaBkbDEO8u0BrBb31E4RehOxj d8RsJgp2ml57nMAev3K8jWZ2 E5GuACVyebxzqITzwObzAN2bSR PjhjtqIEQuzB6qKZBkD3l3PsGv ViQ5STxlI0UlfcK9USXntYOg SQzzTPO7D65hw4V7USSaDAWbLE L3kFO4xE8yySiarkbfcMHbjRkb lsMekMqeDNalLMxiC883JALm rOdsNBIkjA7dEUDdfKAfsKhdOZ 8jMCRdmubeXzsOB9fDFEiRQsyk Ja0TRMWCRY31PU97kKFwm3Y5 nKY9G6UfAVEproudhromvOK2YX UnSBHoaT90bALnKIqbCh0wd2F6 r893WPMmIHExvX44Ig4tiAgz YNApfKRFvW9wpvnhx4epyxyfOm NiLKKvXBr4VFn0LOEvwItqExEy MIP8DiH0AAW4hGFrcM1gpJid onjnqN2vLla+SQZmCKXcBOm1Sq wvdGQ+KOAeAVW3nRnyCZmuKZIv wV4jYCMiD6i3VxSfRfF8EKtt O9ZqPPLqhfbbSb88qS2yIjBzIv Q5SLntI1TolfH2QHUnyGIyCSbv QEZ2B58tt2X1HVGdRHIpLVI8 fQT2oB8lcZyhfrnndSUjuJzqus DhjZzzWCjrYBcwI931KXAvmWvl Qnm7IFwqYDDxTY31HF87vLCr d2E7rZV7B2IfBLOaklrioeousP T3HSRtGXOazK61lCGySJqeOx6o g8Y0a257ZUSaHJEzpE83Jo1k dRasYLQulLOKrQ6qpolwf4mxbz ngEcZiYUMdHAg4UXn0BFMaoNwx ScJzFVH7WrJ4WBP4xFTgsP7b yDilihgadQ4wGuu+TWFsZTwvdG Q+GWJwLVE5hFccHDcuOSQchU7e RUEnZ1a9SxDbZkO8FCxoU4Ss ZGPgvhzmBq97nU1sSqQaBcA5NO roV2JohrT1DLQklBSqIXfpPPW5 N12uq9R3PJGsRPAoKLA9cOJ4 gH8ycEmpzeeujVAzwUmfznLkbA baQVhoNKyjJ981ENWxfJbnJciy iRB4pMCcvPfgqKR+AO66rz68 Y6RmDsbjZgo2OOFkEJD8vNU7vY 9jKPQwYVtfa5B1wSE5F0MazkQz kn0dv7yxWVFaIAxlA65giANr o2W2KATvhIK8WROvvFsgAnUcvA 93Oyc+ZWMxwAorn8CvDisvo3ji x6qalYm7PjXeYPKiabIyyNzg FRQ7b1KfCt43L79eLIzzLJZzLF ZrSPHeZJKbyVrxck9ouQ8dIo2+ GHQkgAS1mVE6bL3yZsVnGpP4 JEsmC026PqJzuVNlGhcgy3ziv3 adxCv0DhCbTXSrumAhqOlsVXU6 j4VyZz02K9MyiVwkg1XnVkf9 hj49nVCgy3X1bTT9G1YaQPDysx eqjMAzdKuvJB2vVQMgpvfsWPRs vN7lKTTpA3p0UiAhDdR0LTjf V8DyyuN2BOAmmDUzWXDmuBGLzM 5snfxfs0svjopeDsSoVNSqCAz4 JIt1HLHqhDgzBfLyKBO4KhC0 GSB1vIFhxS2ftAjuxhhzsD9fLx c+VPj3q7vurJIaUR9jtTJ8YN93 EX54oOBhq9J5wLY2T8ZySVMy zjaryxhusBR9QWMaHASikC86Zn 7fdPluLw7bZRTaDYH9KEEduHAf V6YvqL7yXaHsYPEzVMQkV1Hi hOQgFVzkA395LWqwUuX8KZSlps UwP9RoNDIctXhySjX1p3A6Xg8E JV02ER54JK14cWCnp6R6vBL3 I7HrGINtokxgzophpHV8QTHvGT FdhH51Yh3wtVwxHi9lNBMwTGN8 JTSqkLLmV7ZlkV0wHnEmHXEc CPOsO0ZeuOHiKTiqJ034TPifWx R4CEXdrwOxD8JoCASbiTsfBwK6 w1L9Bn5DVm99XS16GV23fTDf o5T5uZP5S5YjTJZoqutvclfuyP D7YIXqLPPcxX91Cu4fuGtbCr3t DNLpNPT1TMIjvKOmR1LdlS3e FxGmOOHnAKEcE6LycQDkXZssR4 87QWbrWlR3SXQnrkLqU0CiFIAb sSimKrW0b5O7Zj2MBUnavvt9 R5XxCpybnBP+EU90INYcOP69qK ZrvPUno3oeqSf4SkJhEAChLUO6 sYikXCkzf2CqQOKuA15bhYDy c2U6 (more content not included)... Normal [facility] IntraOperative Documentson 0 03-26-2021 IntraOperative Documents [id number]:127 [facility] Operative Reporton Operative Report Date of Surgery: [...] procedure. Lm Espino M.D. ezekiel Dictated: 03/26/2021 #[id number] Typed: 03/26/2021 #[id number] cc: Lm Espino M.D. [facility] Comment on above: Result Comment: Elec tronically [...] discharged from anesthesia care. Condition stable. Normal [facility] Comment on above: Result Comment: Elec tronically Signed By: Lm Espino MD\.br\Date and Time Signed: 03/25/21 16:51 EDT Auto Diffon 03-23-2021 Basophils/100 WBC (Bld) 0.1 % Normal 0.0-2.0 F [facility] Comment on above: Order Comment: Order Added by Discern Expert. Performed By: #### 2 319819, 4031676, 5038421, 7438731, 98439249, 7415216 ####[address] [place] [address] Basophils/Leukocytes Auto (Bld) [Pure # fraction] 0.0 E9/L Normal 0.0-0.2 [facility] Comment on above: Order Comment: Order Added by Discern Expert. Performed By: #### 2 492857, 5517538, 4342742, 2554891, 76823254, 6368484 ####[address] [address] Eosinophils/100 WBC (Bld) 0.3 % Normal 0.0-8.0 [facility] Comment on above: Order Comment: Order Added by Discern Expert. Performed By: #### 2 703949, 6282567, 9309287, 8550908, 18517638, 8351844 ####[address] [address] Eosinophils/Leukocytes Auto (Bld) [Pure # fraction] 0.0 E9/L Normal 0.0-0.5 [facility] Comment on above: Order Comment: Order Added by Discern Expert. Performed By: #### 2 532892, 4244103, 0686803, 2086845, 81762528, 6497024 ####[address] [address] Lymphocytes/100 WBC (Bld) 13.5 % Low 14.0-50.0 [facility] Comment on above: Order Comment: Order Added by Discern Expert. Performed By: #### 2 768089, 8747140, 5538190, 8457873, 44447006, 0977919 ####[address] [place] [address] Lymphocytes/Leukocytes Auto (Bld) [Pure # fraction] 1.4 E9/L Normal 1.0-4.0 [facility] Comment on above: Order Comment: Order Added by Discern Expert. Performed By: #### 2 474247, 1325218, 6586357, 2343646, 18741118, 8935632 ####[address] [place] [address] Monocytes/100 WBC (Bld) 14.2 % High 4.0-14.0 [facility] Comment on above: Order Comment: Order Added by Discern Expert. Performed By: #### 2 433935, 4282358, 9370393, 2939082, 70745639, 0187121 ####[facility] [address] [place] [address] Monocytes/Leukocytes Auto (Bld) [Pure # fraction] 1.5 E9/L High 0.2-1.0 [facility] Comment on above: Order Comment: Order Added by Discern Expert. Performed By: #### 2 248441, 0944126, 7010463, 6446208, 00715505, 0473275 ####[facility] [address] [place] [address] Neutrophils/100 WBC (Bld) 71.9 % Normal 36.0-75.0 [facility] Comment on above: Order Comment: Order Added by Discern Expert. Performed By: #### 2 278963, 6168353, 4966314, 4794214, 30560986, 1816929 ####[facility] [address] [place] [address] Neutrophils/Leukocytes Auto (Bld) [Pure # fraction] 7.6 E9/L High 2.0-7.5 [facility] Comment on above: Order Comment: Order Added by Discern Expert. Performed By: #### 2 042699, 5680561, 0111725, 1801296, 84604250, 2738464 ####[facility] [address] [place] [address] BUNon 03-23-2021 Urea nitrogen [Mass/Vol] 19 mg/dL Normal 5-21 [facility] Comment on above: Performed By: #### 2 712567, 4878804, 2700462, 8953801, 68528605, 8050452 #### [facility] [address] [place] [address] CBC w/ Auto Diffon Erythrocyte distribution width (RBC) [Ratio] 14.8 % High 10.9-14.2 [facility] Comment on above: Performed By: #### 2 987859, 2257566, 5311915, 8681810, 35450903, 3601844 ####[facility] [address] [place] [address] Hematocrit (Bld) [Volume fraction] 33.0 % Low 37.7-49.0 [facility] Comment on above: Performed By: #### 2 689167, 4868308, 3058391, 1627867, 42167167, 4771628 ####[address] [address] Hemoglobin (Bld) [Mass/Vol] 11.3 g/dL Low 13.5-17.5 [facility] Comment on above: Performed By: #### 2 041448, 7286346, 6613641, 3672050, 21278837, 3051896 ####[address] [address] MCH (RBC) [Entitic mass] 30.9 pg Normal 27.0-34.0 [facility] Comment on above: Performed By: #### 2 446986, 0604620, 3306374, 7371547, 32521565, 3697316 ####[address] [address] MCHC (RBC) [Mass/Vol] 34.2 g/dL Normal 31.4-36.0 [facility] Comment on above: Performed By: #### 2 144854, 4066823, 6178052, 2708871, 74936887, 8597704 ####[address] [address] MCV (RBC) [Entitic vol] 90.4 fL Normal 80.0-100.0 F [facility] Comment on above: Performed By: #### 2 679823, 3347919, 8099910, 6595954, 43693556, 9706804 ####[facility] [address] [place] [address] Platelet mean volume (Bld) [Entitic vol] 8.3 fL Normal 6.4-10.8 [facility] Comment on above: Performed By: #### 2 027766, 7768000, 0108286, 1922391, 90575103, 3983384 ####[address] [place] [address] Platelets (Bld) [#/Vol] 193.0 E9/L Normal 150. 0-500. 0 [facility] Comment on above: Performed By: #### 2 828205, 8101067, 0881639, 5046742, 39182454, 3545590 ####[address] [address] RBC (Bld) [#/Vol] 3.7 E12/L Low 4.3-5.9 [facility] Comment on above: Performed By: #### 2 311390, 8365669, 4059253, 3596613, 80822970, 4099063 ####[address] [address] WBC corrected for nucl RBC Auto (Bld) [#/Vol] 10.6 E9/L Normal 4.0-11.0 [facility] Comment on above: Performed By: #### 2 828811, 3100801, 4710421, 4258880, 41373665, 1191089 ####[address] [place] [address] Consent for Anesthesiaon Consent for Anesthesia [id number]#1.00CD:127 Normal [facility] Creatinineon 03-23-2021 Creatinine [Mass/Vol] 0.9 mg/dL Normal 0.5-1.3 [facility] Comment on above: Performed By: #### 2 309874, 5782516, 8606780, 6588040, 42226621, 8724321 #### [facility] [address] [place] [address] Discharge Instructionson Discharge Instructions [id number]#1.00CD:127 Normal [facility] Inpatient Clinical Summaryon 03-23-2021 Inpatient Clinical Summary [address] [address] Clinical Summary Person Information: Name: STAN MCDONALD Age: 75 Years : 1945 Sex: Male PCP: ALMAS TELLO MD Marital Status: Race: White Ethnicity: Non- or Language: Russian Visit Id: Visit Reason: RIGHT KNEE OA Speciality: Acuity: Enc Type: Inpatient Med Service: Surgery Arrival: 03/22/2021 05:56:03 Discharge: Dispo Type: Address: [address] [place] [phone] Provider Notes: Diagnosis: 2:HTN (hypertension); 3:HLD (hyperlipidemia); [...] Follow up: With: Address: When: George Bustamante [address] [place] [phone] Business (1) 04/13/2021 10:00 AM Comments: Keep scheduled appointment Patient Education Information: Normal [facility] Inpatient Patient Summaryon 03-23-2021 Inpatient Patient Summary [id number] Patient Discharge Instructions PERSON INFORMATION Name: STAN [...] Follow up: With: Address: When: George Bustamante [address] [place] [phone] Business (1) 04/13/2021 10:00 AM Comments: Keep [...] New Medications [facility], [address] [facility] [place], [place] [id number], [phone] acetaminophen-oxycodone (Percocet 5 mg-325 mg oral tablet) [...] Have Changed [facility], [address] [place] [id number], [phone] START: aspirin (aspirin 81 mg Chew Tab) 1 Tablets By Mouth 2 times a day. Refills: 0. Last Dose: N ext Dose: Medications to Continue with No Changes Other Medications acetaminophen (Tylenol Extra Strength 500 mg oral tablet) 2 Tablets By Mouth every 6 hours as needed as needed for pain. Last Dose:____ (more content not included)... [facility] Interdisciplinary Note - Carmela singon 03-23-2021 Interdisciplinary Note - Nursing Jennifer SCHOFIELD updated pts spouse Erma Normal [facility] Interdisciplinary Note - Peg n 03-23-2021 Interdisciplinary Note - OT OT six clicks score = HH services. Pt reports ortho 360 following up at home. Pt has all bathroom dme in place at home and is now knowledgeable about adapted techniques and dme to improve I w/ LE self care. DC inpt OT services, no further OT needs a this time. Normal [facility] IntraOperative Documentson 0 03-23-2021 IntraOperative Documents [id number]#1.00CD:127 [facility] IntraOperative Documents [id number]#1.00CD:127 [facility] Lyteson 03-23-2021 Anion gap [Moles/Vol] 9 mmol/L Normal 6-16 [facility] Comment on above: Performed By: #### 2 579700, 4574511, 5354305, 4256931, 11714962, 5423737 ####[facility] [address] [place] [address] Chloride [Moles/Vol] 104 mmol/L Normal 101-111 [facility] Comment on above: Performed By: #### 2 687670, 2158065, 2760680, 3739337, 66654227, 6253866 ####[facility] [address] [place] [address] CO2 [Moles/Vol] 26 mmol/L Normal 21-31 [facility] Comment on above: Performed By: #### 2 460779, 7899472, 9677679, 5541495, 86259969, 8740292 ####[facility] [address] [place] [address] Potassium [Moles/Vol] 3.9 mmol/L Normal 3.5-5.3 [facility] Comment on above: Performed By: #### 2 240758, 8570507, 6120591, 5827925, 60826670, 4194256 ####[facility] [address] [place] [address] Sodium [Moles/Vol] 135 mmol/L Normal 135-145 [facility] Comment on above: Performed By: #### 2 080707, 5108952, 7014525, 0114401, 15631821, 8540575 ####[facility] [address] [place] [address] Patient Education - Texton 0 03-23-2021 Patient Education - Text Normal [facility] Preoperative Documentson Preoperative Documents [id number]#1.00CD:127 Normal [facility] Preoperative Documents [id number]#1.00CD:127 Normal [facility] Progress Note-Physicianon Progress Note-Physician Assessment/Plan 75-year-old [...] Consult New/Estab Pt Straight Fwd 40 Min [address] 2. HTN (hypertension) (I10: Essential (primary) hypertension) Continue with metoprolol Ordered: Initial IP Consult New/Estab Pt Straight Fwd 40 Min [address]3868 3. HLD (hyperlipidemia) (E78.5: Hyperlipidemia, unspecified) Pravastatin [...] made to ensure accuracy, however, inadvertently computerized heel builder machine mistakes may be present. Estuardo Menendez Hospitalist [...] Lymph Auto: 13.5 % Low (03/23/21 04:43:00) [place] Auto: 14.2 % High (03/23/21 04:43:00) Eos Auto: 0.3 % (03/23/21 04:43:00) Basophil Auto: 0.1 % (03/23/21 04:43:00) Neutro Absolute: 7.6 E9/L High (03/23/21 04:43:00) Lymph Absolute: 1.4 E9/L (03/23/21 04:43:00) [place] Absolute: 1.5 E9/L High (03/23/21 04:43:00) Eos [...] Tab-EC, 1 (more content not included)... Normal [facility] Comment on above: Result Comment: Elec [...] or recorded. Procedure history: Arthroplasty of knee ([id number]) on 03/22/2021 at 75 Years. CABG >5 - Coronary artery bypass grafts greater than five ([id number]) on 12/15/2020 at 75 Years. Prostatectomy ([id number]). Hernia repair (32096448). Subdural hematoma evacuation ([id number]). Social History Social & Psychosocial Habits Alcohol [...] 71.9 % Lymph Auto 13.5 % LOW [place] Auto 14.2 % HI Eos Auto 0.3 % Basophil Auto 0.1 % Neutro Absolute 7.6 E9/L HI Lymph Absolute 1.4 E9/L [place] Absolute 1.5 E9/L HI Eos Absolute 0.0 [...] UA WBC (more content not included)... Normal [facility] Comment on above: Result Comment: Elec tronically Signed By: George Bustamante DO\.cyndy\Date and Time Signed: 03/23/21 07:39 EDT eGFRon 03-23-2021 GFR/1.73 sq M.predicted among blacks MDRD (S/P/Bld) [Vol rate/Area] mL/min/{1.73_m2} Normal >=59 [facility] Comment on above: Order Comment: Order added by Discern Expert. Result Comment: eGFR is race adjusted. AA=. Performed By: #### 2 [id number], [id number], [id number], [id number], [id number], [id number] ####[facility] [address] [place] [address] GFR/1.73 sq M.predicted among non-blacks MDRD (S/P/Bld) [Vol rate/Area] mL/min/{1.73_m2} Normal >=59 [facility] Comment on above: Order Comment: Order added by Discern Expert. Result Comment: Freelance Writer krzysztof kidney disease could be indicated at eGFR's of less than 60 mL/min/1.73m2. Kidney failure is indicated at less than 15 mL/min/1.73m2. Performed By: #### 2 [id number], [id number], [id number], [id number], [id number], [id number] ####[facility] [address] [place] [address] ABO/Rhon 03-22-2021 ABO/Rh Negative Invalid Interpretation Code [facility] Comment on above: Performed By: #### 2 [id number], [id number], [id number], [id number] ####[facility] [address] [place] [address] ABO/Rh History Checkon 03-22 ABO/Rh History Check Verified Hx Blood Type Normal [facility] Comment on above: Performed By: #### 2 [id number], [id number], [id number], [id number] ####[facility] [address] [place] [address] ABSCon 03-22-2021 ABSC Gel Interp Negative Normal [facility] Comment on above: Performed By: #### 2 [id number], [id number], [id number], [id number] ####[facility] [address] [place] [address] Blood Bank ID#on 03-22-2021 BBID# [id number] Invalid Interpretation Code [facility] Comment on above: Performed By: #### 2 [id number], [id number], [id number], [id number] ####[facility] [address] [place] [address] Blood Bank Slipon 03-22-2021 Blood Bank Slip [id number]#1.00CD:127 Normal [facility] Consent for Procedure/Surger yon 03-22-2021 Consent for Procedure/Surgery [id number]#1.00CD:127 Normal [facility] H&P Updateon 03-22-2021 H&P Update [id number]#1.00CD:127 Normal [facility] Main OR Intraoperative Recor don 03-22-2021 Main OR Intraoperative Record IntraOp Document Type FT Summary Primary Physician: George Bustamante DO Finalized Date/Time: 03/24/21 14:32:42 Pt. Name: STAN MCDONALD/Sex: 1945 Male Med Rec #: [id number] Physician: George Bustamante DO Financial #: [id number] Pt. Type: I Room/Bed: [place] [address] Admit/Disch: 03/22/21 05:56:03 - 03/23/21 11:00:00 Institution: Case Times FT Entry 1 Patient Times In Room 03/22/21 07:34:00 Out Room 03/22/21 10:27:00 Procedure Times Start 03/22/21 08:11:00 Stop 03/22/21 10:23:00 Anesthesia Times Start 03/22/21 07:34:00 Stop 03/22/21 10:27:00 Block Timeout w/ 03/22/21 07:05:00 Anesthesia Last Modified By: Hafsa Squires RN 03/22/21 10:27:04 General Comments: [id number] PATIENT TRANSPORTED [...] opened to review and send charges. Tricia MOBILE TESTER. Case Attendance FT Entry 1 Entry 2 Entry 3 Case Attendee Abhishek CAMPOS, Asif Bustamante DO, George ORTIZC, Destin Malcolm Role Performed Anesthesiologist Surgeon - Primary PA/SENIOR GAME DESIGNER [employer] Operator Time In 03/22/21 07:34:00 03/22/21 07:34:00 03/22/21 07:34:00 Time Out 03/22/21 10:27:00 03/22/21 10:27:00 03/22/21 10:27:00 Procedure KNEE TOTAL KNEE TOTAL KNEE TOTAL ARTHROPLASTY(Right) ARTHROPLASTY(Right) ARTHROPLASTY(Right) Comments DR ESPINO SUPERVISING Last Modified By: Tavia RN, Hafsa Squires RN, Hafsa Maldonado RN 03/22/21 10:27:05 03/22/21 10:27:05 03/22/21 10:27:05 Entry 4 Entry 5 Entry 6 Case Attendee Monique MOBILE TESTER, Wesley Adams MOBILE TESTER, Hafsa Squires RN, Hafsa Martinez Role Performed Scrub - Primary Scrub - Primary Professor Of Economics - Primary Time In 03/22/21 07:34:00 03/22/21 07:34:00 03/22/21 07:34:00 Time Out 03/22/21 10:27:00 03/22/21 10:27:00 03/22/21 10:27:00 Procedure KNEE TOTAL KNEE TOTAL KNEE TOTAL ARTHROPLASTY(Right) ARTHROPLASTY(Right) ARTHROPLASTY(Right) Comments Last Modified By: Tavia RN, Hafsa Squires RN, Hafsa Maldonado RN 03/22/21 10:27:05 03/22/21 10:27:05 03/22/21 10:27:05 Entry 7 Entry 8 Case Attendee Jan RN, Lona Oliveira MOBILE TESTERSergio Role Performed Staff - Other Staff - [...] Bustamante DO, Caro GARNER, Destin Malcolm, Monique MOBILE TESTER, Wesley WAngie CST, Tavia De La Rosa RN, Kimberly Y [...] Procedure Yes Primary Surgeon George Bustamante DO 03/22/21 08:11:00 Stop 03/22/21 10:23:00 Anesthesia Type General Surgical Service Orthopedics Wound Class 1 - Clean Last Modified By: Hafsa Squires RN 03/22/21 10:23:40 General Case Data FT Pre-Care Text: Classifies surgical wound, implements aseptic technique, initiates traffic control Entry 1 Case Information OR OR 7 FT Case Level Level 6 W (more content not included)... Normal [facility] Main OR PACU I Recordon 02-26 Main OR PACU I Record PACU Phase I Docum ent Type FT Summary Primary Physician: George Bustamante DO Finalized Date/Time: 03/22/21 11:24:40 Pt. Name: STAN MCDONALD/Sex: 1945 Male Med Rec #: [id number] Physician: George Bustamante DO Financial #: [id number] Pt. Type: I Room/Bed: [place] [address] Admit/Disch: 03/22/21 05:56:03 - Institution: Case Times [...] By: Mai Gan RN 03/22/21 11:24 Normal [facility] Main OR Preoperative Recordo n 03-22-2021 Main OR Preoperative Record PreOp Document Type FT Summary Primary Physician: George Bustamante DO Finalized Date/Time: 03/22/21 08:29:04 Pt. Name: SANJAYSTAN/Sex: 1945 Male Med Rec #: [id number] Physician: George Bustamante DO Financial #: [id number] Pt. Type: A Room/Bed: [place] [address] Admit/Disch: 03/22/21 05:56:03 - Institution: Case Times [...] Hafsa Squires RN Document Signatures Signed By: Hafas Squires RN 03/22/21 08:29 Normal [facility] Message from Medicareon 02-26 Message from Medicare [id number]#[id number]:12 7 Normal [facility] Monitor Recordon 03-22-2021 Monitor Record [id number]#[id number]:127 Normal [facility] Operative Reporton Operative Report Patient: STAN MCDONALD Age: 75 years Sex: Male : 1945 Associated Diagnoses: None Author: George Bustamante DO DATE OF PROCEDURE: 03/22/2021 PREOPERATIVE DIAGNOSIS: Degenerative joint disease, right knee secondary osteoarthritis POSTOPERATIVE DIAGNOSIS: Degenerative joint disease, right knee secondary osteoarthritis PROCEDURE: Primary, caliper-measured kinematically aligned, right total knee arthroplasty utilizing the [employer] sphere total knee arthroplasty system and conventional [...] ensures a reestablishment of the prearthritic and [place] joint line and joint angle. Attention was then turned the completion of the distal femoral preparation. Sizing accomplished with using a standard posterior condylar sizing jig and the appropriate size 4-in-1 cutting blocks chosen. The rotation the femur is set to match the patient's [place] femoral rotation taking a total of 8 mm of bone and cartilage both posterior medially and posterior laterally. Then a caliper was used to carefully measure the posterior sections and make any necessary adjustments to ensure accurate bone resections and anabaptist of [place] femoral rotation. The appropriately sized 4-in-1 cutting [...] the tibia (more content not included)... Normal [facility] Comment on above: Result Comment: Elec tronically Signed By: George Bustamante DO\.br\Date and Time Signed: 03/22/21 10:13 EDT Operative Report Patient: STAN MCDONALD Age: 75 years Sex: Male : 1945 Associated Diagnoses: None Author: George Bustamante DO Postoperative Information Procedure: Right Total Knee Arthroplasty Date/ Time: 03/22/2021 09:58:00 Preoperative Diagnosis: Osteoarthritis of right knee joint (MRF58-MP M17.11, Final, Medical), M17.11. Postoperative Diagnosis: Osteoarthritis of right knee joint (VGR22-KA M17.11, Final, Medical), M17.11. Performed by: George Bustamante DO. Metal Rolling Mill Operator: Destin Elizondo PA-C Findings: Degenerative osteoarthrosis of [...] canal block. Special techniques: Warming device. Normal [facility] Comment on above: Result Comment: Elec tronically Signed By: George uBstamante DO\.br\Date and Time Signed: 03/22/21 09:59 EDT Outpatient Surgery Discharge Instructionon 03-22-2021 Outpatient Surgery Discharge Instruction [place] [id number] Patient Discharge Instructions PERSON INFORMATION Name: STAN [...] Date Follow up: With: Address: When: George [address] [phone] [facility] (1) 04/13/2021 10:00 AM Comments: Keep scheduled appointment Pharmacy Information: You may receive a survey from Virgilio Rosado asking you to rate your care experience. Your feedback is important and will help us understand what we do well and how we can improve the quality of care we provide to you, your loved ones and our community. It?s an honor to serve you. Thank you for choosing [facility] HERE ARE THE MEDICATION CHANGES THAT [...] Mouth every day. 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 [...] discussed anticipate will discharge home tomorrow. Normal [facility] Progress Note-Physicianon Progress Note-Physician Patient: STAN [...] Coronary artery bypass grafts greater than five ([id number]) on 12/15/2020 at 75 Years. Prostatectomy (099244370). Hernia repair (98470048). Subdural hematoma evacuation (188678046). Social History Social & Psychosocial Habits Alcohol [...] home tomorrow (more content not included)... Normal [facility] Comment on above: Result Comment: Elec [...] Coronary artery bypass grafts greater than five ([id number]) on 12/15/2020 at 75 Years. Prostatectomy (126478194). Hernia repair (52187934). Subdural hematoma evacuation (865681087). Social History Social & Psychosocial Habits Alcohol [...] review: No qualifying data available . Plan [place] Society of Anesthesiologists (ASA) physical status classification: [...] allergic reactions, failed block and .. Normal [facility] Comment on above: Result Comment: Elec tronically Signed By: Srinivas CHEW, Lm\.br\Date and Time Signed: 03/22/21 07:51 EDT UA With Cult Reflexon 2020 Bilirubin Ql (U) Negative Normal Negative [facility] Comment on above: Performed By: #### 1 [id number] #### [facility] Laboratory [address] [place] [address] Clarity (U) CLEAR Normal Clear [facility] Comment on above: Performed By: #### 1 [id number] #### [facility] [address] [place] [address] Color (U) YELLOW Normal Yellow [facility] Comment on above: Performed By: #### 1 [id number] #### [facility] [address] [place] [address] Epithelial cells.squamous LM.HPF (Urine sed) [#/Area] 0-2 Normal 0-2 [facility] Comment on above: Performed By: #### 1 [id number] #### [facility] [address] [place] [address] Glucose Test strip (U) [Mass/Vol] Negative Normal Negative [facility] Comment on above: Performed By: #### 1 [id number] #### [facility] [address] [place] [address] Hemoglobin Ql (U) Negative Normal Negative [facility] Comment on above: Performed By: #### 1 [id number] #### [facility] [address] [place] [address] Ketones (U) [Mass/Vol] Negative Normal Negative [facility] Comment on above: Performed By: #### 1 [id number] #### [facility] [address] [place] [address] [place].plasma/[place]. RBC (Bld) [Mass ratio] 0-3 Normal 0-3 [facility] Comment on above: Performed By: #### 1 [id number] #### [facility] [address] [place] [address] Nitrite Ql (U) Negative Normal Negative [facility] Comment on above: Performed By: #### 1 [id number] #### [facility] [address] [place] [address] pH (U) 6.0 [pH] Invalid Interpretation Code 5.0-9.0 [facility] Comment on above: Performed By: #### 1 [id number] #### [facility] [address] [place] [address] Protein (U) [Mass/Vol] Negative Normal Negative [facility] Comment on above: Performed By: #### 1 [id number] #### [facility] [address] [place] [address] Specific gravity (U) [Rel density] 1.020 Invalid Interpretation Code 1.005-1.03 0 [facility] Comment on above: Performed By: #### 1 [id number] #### [facility] [address] [place] [address] Type of Urine collection method Cano Normal [facility] Comment on above: Performed By: #### 1 [id number] #### [facility] [address] [place] [address] Urobilinogen Qn (U) 0.2 {Kayli'U}/dL Normal 0.0-1.0 [facility] Comment on above: Performed By: #### 1 [id number] #### [facility] [address] [place] [address] WBC Auto Ql (U) Negative Normal Negative [facility] Comment on above: Performed By: #### 1 [id number] #### [facility] [address] [place] [address] WBC LM.HPF (Urine sed) [#/Area] 0-5 Normal 0-5 [facility] Comment on above: Performed By: #### 1 [id number] #### [facility] [address] [place] [address] XR Knee 1 or 2 Views Righton [...] Transcribed by: HAROON Technologist: JUAN JOSE Normal [facility] Consent for Procedure/Surger yon 03-19-2021 Consent for Procedure/Surgery [id number]#[id number]:127 Normal [facility] Outside Recordson 03-19-2021 Outside Records [id number]#[id number]:127 Normal [facility] Coding Summary.on 03-09-2021 Coding Summary. 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 [...] CphT Date Saved: 03/09/2021 05:57 am Normal [facility] XR bonelength lower extremit yon 03-09-2021 XR bonelength lower extremity [facility] [place] [address] XRay Report Signed Patient: Stan Mcdonald MR#: [id number] : 1945 Acct:[id number] Age/Sex: 75 / M ADM Date: 03/09/21 Loc: ICXD Room: Type: [facility] Attending Dr: George Bustamante DO Ordering Provider: [...] Lona Rashid M.D.03/09/2021 11:47 AM Dictation Location: [place] [address] Transcribed By: FABRICE 03/09/21 1147 Dictated By: Lona Rashid MD 03/09/21 1138 Signed By: 03/09/21 1147 Normal [facility] Pre-Certification Formon Pre-Certification Form [id number]#[id number]:127 Normal [facility] Outside Radiologyon 03-05-20 Outside Radiology [id number]#[id number]:127 Normal [facility] ABO/Rh Retypeon 03-04-2021 ABO/Rh Retype Interp Negative Invalid Interpretation Code [facility] Comment on above: Performed By: #### 1 [id number] ####[facility] [address] [place] [address] BUNon 03-04-2021 Urea nitrogen [Mass/Vol] 16 mg/dL Normal 5-21 [facility] Comment on above: Performed By: #### 2 958155, 0350879, 69735988, 5024682, 3763595, 6979126 ####[facility] [address] [place] [address] CBC w/Indiceson 03-04-2021 Erythrocyte distribution width (RBC) [Ratio] 14.8 % High 10.9-14.2 [facility] Comment on above: Performed By: #### 2 857576, 6479400, 28198182, 3428354, 9148421, 1468576 ####[facility] [address] [place] [address] Hematocrit (Bld) [Volume fraction] 40.0 % Normal 37.7-49.0 [facility] Comment on above: Performed By: #### 2 409257, 3306801, 06499183, 8646447, 9393547, 6233444 ####[facility] [address] [place] [address] Hemoglobin (Bld) [Mass/Vol] 13.2 g/dL Low 13.5-17.5 [facility] Comment on above: Performed By: #### 2 664189, 7621096, 60446591, 5413642, 2017454, 5750233 ####[facility] [address] [place] [address] MCH (RBC) [Entitic mass] 30.0 pg Normal 27.0-34.0 [facility] Comment on above: Performed By: #### 2 771757, 5555655, 19687484, 7220448, 1769599, 4406848 ####[facility] [address] [place] [address] MCHC (RBC) [Mass/Vol] 32.9 g/dL Normal 31.4-36.0 [facility] Comment on above: Performed By: #### 2 272059, 2182758, 72184144, 3471641, 6851046, 1295107 ####[address] [address] MCV (RBC) [Entitic vol] 91.2 fL Normal 80.0-100.0 [facility] Comment on above: Performed By: #### 2 315901, 2423308, 68714133, 6587852, 3535294, 0913542 ####[place] [address] [place] [address] Platelet mean volume (Bld) [Entitic vol] 8.5 fL Normal 6.4-10.8 [facility] Comment on above: Performed By: #### 2 073919, 9149707, 05542480, 8209456, 5941045, 3611036 ####[facility] [address] [place] [address] Platelets (Bld) [#/Vol] 197.0 E9/L Normal 150. 0-500. 0 [facility] Comment on above: Performed By: #### 2 470132, 2348052, 53568754, 8656065, 1116507, 0195604 ####[facility] [address] [place] [address] RBC (Bld) [#/Vol] 4.4 E12/L Normal 4.3-5.9 [facility] Comment on above: Performed By: #### 2 230400, 2376238, 59481525, 7053706, 8008027, 0848493 ####[facility] [address] [place] [address] WBC corrected for nucl RBC Auto (Bld) [#/Vol] 7.3 E9/L Normal 4.0-11.0 [facility] Comment on above: Performed By: #### 2 859112, 6337283, 20097896, 2828552, 3677834, 8263870 ####[facility] [address] [place] [address] Consent for Treatmenton Consent for Treatment [id number]#[id number]:127 Normal [facility] Creatinineon 03-04-2021 Creatinine [Mass/Vol] 0.8 mg/dL Normal 0.5-1.3 [facility] Comment on above: Performed By: #### 2 784396, 4316050, 62834007, 1408512, 2421471, 6051297 ####[facility] [address] [place] [address] Glucoseon 03-04-2021 Glucose [Mass/Vol] 103 mg/dL Normal 55-199 [facility] Comment on above: Performed By: #### 2 962921, 4722503, 60649564, 2917365, 0485038, 8306634 ####[facility] [address] [place] [address] Lyteson 03-04-2021 Anion gap [Moles/Vol] 11 mmol/L Normal 6-16 [facility] Comment on above: Performed By: #### 2 562726, 9978599, 38968680, 3885024, 3573188, 8714346 ####[facility] [address] [place] [place] [address] Chloride [Moles/Vol] 104 mmol/L Normal 101-111 [facility] Comment on above: Performed By: #### 2 674238, 2453669, 30429666, 7664342, 4776460, 9843336 ####[facility] [address] [place] [address] CO2 [Moles/Vol] 26 mmol/L Normal 21-31 [facility] Comment on above: Performed By: #### 2 960192, 8170424, 81802223, 3594221, 2477259, 7199357 ####[facility] [address] [place] [address] Potassium [Moles/Vol] 4.1 mmol/L Normal 3.5-5.3 [facility] Comment on above: Performed By: #### 2 298074, 2778086, 92872893, 1178768, 7754655, 4598760 ####[facility] [address] [place] [address] Sodium [Moles/Vol] 137 mmol/L Normal 135-145 [facility] Comment on above: Performed By: #### 2 910448, 6997819, 15145163, 1525232, 1358410, 9163772 ####[facility] [address] [place] [address] eGFRon 03-04-2021 GFR/1.73 sq M.predicted among blacks MDRD (S/P/Bld) [Vol rate/Area] mL/min/{1.73_m2} Normal >=59 [facility] Comment on above: Order Comment: Order added by Discern Expert. Result Comment: eGFR is race adjusted. AA=. Performed By: #### 2 489384, 9415977, 45957179, 4352111, 0820084, 1583074 ####[facility] [address] [place] [address] GFR/1.73 sq M.predicted among non-blacks MDRD (S/P/Bld) [Vol rate/Area] mL/min/{1.73_m2} Normal >=59 [facility] Comment on above: Order Comment: Order added by Discern Expert. Result Comment: Freelance Writer krzysztof kidney disease could be indicated at eGFR's of less than 60 mL/min/1.73m2. Kidney failure is indicated at less than 15 mL/min/1.73m2. Performed By: #### 2 248526, 6180193, 63113296, 1484602, 6815250, 2087413 ####[facility] [address] [place] [address] Physician Orderon 02-22-2021 Physician Order [id number]#[id number]:127 Normal [facility] Automated basophil %on 01-07 Basophils/100 WBC (Bld) 0.1 % [facility] Automated basophil counton 0 01-07-2021 Basophils (Bld) [#/Vol] 0.0 10*3/uL 0.0-0.2 [facility] Automated blood lymphocyte c ount (number/volume)on 01-07-2021 Lymphocytes (Bld) [#/Vol] 1.3 10*3/uL 1.00-4.8 [facility] Automated blood lymphocyte c ount as percentage of total leukocyteson 01-07-2021 Lymphocytes/100 WBC (Bld) 12.1 % [facility] Automated blood monocyte cou nton 01-07-2021 Monocytes (Bld) [#/Vol] 1.3 10*3/uL 0.0-0.8 [facility] Automated blood platelet cou nt (count/volume)on 01-07-2021 Platelets (Bld) [#/Vol] 332 10*3/uL 150-450 [facility] Automated blood platelet darrius n volume measurementon 01-07-2021 Platelet mean volume (Bld) [Entitic vol] 8.0 fL 6.6-10.1 [facility] Automated eosinophil %on Eosinophils/100 WBC (Bld) 1.6 % [facility] Automated eosinophil counton 01-07-2021 Eosinophils (Bld) [#/Vol] 0.2 10*3/uL 0.0-0.45 [facility] Automated erythrocyte distri bution width ratioon 01-07-2021 Erythrocyte distribution width (RBC) [Ratio] 15.3 % 12.0-14.8 [facility] Automated erythrocyte mean c orpuscular hemoglobin (mass per erythrocyte)on 01-07-2021 MCH (RBC) [Entitic mass] 31.8 pg 27.5-35.2 [facility] Automated erythrocyte mean c orpuscular hemoglobin concentration measurement (mass/volon 01-07-2021 MCHC (RBC) [Mass/Vol] 34.5 g/dL 32.5-35.6 [facility] Automated erythrocyte mean c orpuscular volumeon 01-07-2021 MCV (RBC) [Entitic vol] 92.2 fL 83.5-101 F [facility] Automated monocyte %on 01-07 Monocytes/100 WBC (Bld) 12.1 % F [facility] Automated neutrophil %on Neutrophils/100 WBC (Bld) 74.1 % [facility] Blood erythrocytes automated count (number/volume)on 01-07-2021 RBC (Bld) [#/Vol] 3.77 10*6/uL 3.90-5.60 [facility] Blood hemoglobin measurement (mass/volume)on 01-07-2021 Hemoglobin (Bld) [Mass/Vol] 12.0 g/dL 13.0-17.0 [facility] Blood leukocytes automated c ount (number/volume)on 01-07-2021 WBC (Bld) [#/Vol] 10.6 10*3/uL 4.1-10.5 [facility] Blood neutrophil count by au tomated method (number/volume)on 01-07-2021 Neutrophils (Bld) [#/Vol] 7.9 10*3/uL 1.8-7.7 [facility] Estimated glomerular filtrat ion rate (GFR) non- Americanon 01-07-2021 GFR/1.73 sq M predicted among non-blacks MDRD (S/P/Bld) [Vol rate/Area] mL/min/{1.73_m2} [facility] Hematocrit [Volume Fraction] of Blood by Automated counton 01-07-2021 Hematocrit (Bld) [Volume fraction] 34.8 % 38.8-50.0 [facility] Metabolic Panelon 01-07-2021 Magnesium [Mass/Vol] 1.8 mg/dL 1.6-2.6 [facility] Otheron 01-07-2021 GFR/1.73 sq M.predicted MDRD (S/P/Bld) [Vol rate/Area] mL/min/{1.73_m2} [facility] Comment on above: GFR estimated refere nce range: According to KDOQI guidelines, <60 ml/min/1.73m2 is sufficient to diagnose a patient with chronic kidney disease. Nucleated RBC/100 WBC (Bld) [Ratio] 0.1 % 0-0.5 [facility] Creatinine Clearance (Chem N/A [facility] Serum or plasma calcium jordan urement (mass/volume)on 01-07-2021 Calcium [Mass/Vol] 9.8 mg/dL 8.2-10.2 [facility] Serum or plasma chloride darrius surement (moles/volume)on 01-07-2021 Chloride [Moles/Vol] 97 mmol/L 95-114 [facility] Serum or plasma creatinine m easurement with calculation of estimated glomerular filtron 01-07-2021 Creatinine [Mass/Vol] 0.67 mg/dL 0.64-1.27 [facility] Serum or plasma glucose jordan urement (mass/volume)on 01-07-2021 Glucose [Mass/Vol] 109 mg/dL 70-100 [facility] Comment on above: ADA recommended refe rence rangeRandom Glucose Reference Range is dependent on time and content of last meal. Glucose of more than 200 mg/dL in a nonstressed, ambulatory subject supports the diagnosis of Diabetes Mellitus. Serum or plasma potassium me asurement (moles/volume)on 01-07-2021 Potassium [Moles/Vol] 4.5 mmol/L 3.5-5.1 [facility] Serum or plasma sodium measu rement (moles/volume)on 01-07-2021 Sodium [Moles/Vol] 134 mmol/L 136-146 [facility] Serum or plasma total carbon dioxide measurement (moles/volume)on 01-07-2021 CO2 [Moles/Vol] 25.7 mmol/L 22.0-30.0 [facility] Serum or plasma urea nitroge n measurement (mass/volume)on 01-07-2021 Urea nitrogen [Mass/Vol] 11 mg/dL 9-23 [facility] Automated basophil %on 01-01 Basophils/100 WBC (Bld) 1.2 % [facility] Automated basophil counton 0 01-01-2021 Basophils (Bld) [#/Vol] 0.1 10*3/uL 0.0-0.2 [facility] Automated blood lymphocyte c ount (number/volume)on 01-01-2021 Lymphocytes (Bld) [#/Vol] 1.4 10*3/uL 1.00-4.8 [facility] Automated blood lymphocyte c ount as percentage of total leukocyteson 01-01-2021 Lymphocytes/100 WBC (Bld) 17.5 % [facility] Automated blood monocyte cou nton 01-01-2021 Monocytes (Bld) [#/Vol] 0.9 10*3/uL 0.0-0.8 [facility] Automated blood platelet cou nt (count/volume)on 01-01-2021 Platelets (Bld) [#/Vol] 384 10*3/uL 150-450 [facility] Automated blood platelet darrius n volume measurementon 01-01-2021 Platelet mean volume (Bld) [Entitic vol] 8.4 fL 6.6-10.1 [facility] Automated eosinophil %on Eosinophils/100 WBC (Bld) 3.6 % [facility] Automated eosinophil counton 01-01-2021 Eosinophils (Bld) [#/Vol] 0.3 10*3/uL 0.0-0.45 [facility] Automated erythrocyte distri bution width ratioon 01-01-2021 Erythrocyte distribution width (RBC) [Ratio] 15.4 % 12.0-14.8 [facility] [facility] Automated erythrocyte mean c orpuscular hemoglobin (mass per erythrocyte)on 01-01-2021 MCH (RBC) [Entitic mass] 31.1 pg 27.5-35.2 [facility] Automated erythrocyte mean c orpuscular hemoglobin concentration measurement (mass/volon 01-01-2021 MCHC (RBC) [Mass/Vol] 33.6 g/dL 32.5-35.6 [facility] Automated erythrocyte mean c orpuscular volumeon 01-01-2021 MCV (RBC) [Entitic vol] 92.4 fL 83.5-101 F [facility] Automated monocyte %on 01-01 Monocytes/100 WBC (Bld) 11.7 % F [facility] Automated neutrophil %on Neutrophils/100 WBC (Bld) 66.0 % [facility] Blood erythrocytes automated count (number/volume)on 01-01-2021 RBC (Bld) [#/Vol] 3.14 10*6/uL 3.90-5.60 [facility] Blood hemoglobin measurement (mass/volume)on 01-01-2021 Hemoglobin (Bld) [Mass/Vol] 9.8 g/dL 13.0-17.0 [facility] Blood leukocytes automated c ount (number/volume)on 01-01-2021 WBC (Bld) [#/Vol] 8.0 10*3/uL 4.5-11.0 [facility] Blood neutrophil count by au tomated method (number/volume)on 01-01-2021 Neutrophils (Bld) [#/Vol] 5.3 10*3/uL 1.8-7.7 [facility] Estimated glomerular filtrat ion rate (GFR) non- Americanon 01-01-2021 GFR/1.73 sq M predicted among non-blacks MDRD (S/P/Bld) [Vol rate/Area] mL/min/{1.73_m2} [facility] Hematocrit [Volume Fraction] of Blood by Automated counton 01-01-2021 Hematocrit (Bld) [Volume fraction] 29.0 % 38.8-50.0 [facility] Metabolic Panelon 01-01-2021 Magnesium [Mass/Vol] 2.0 mg/dL 1.6-2.6 [facility] Otheron 01-01-2021 GFR/1.73 sq M.predicted MDRD (S/P/Bld) [Vol rate/Area] mL/min/{1.73_m2} [facility] Comment on above: GFR estimated refere nce range: According to KDOQI guidelines, <60 ml/min/1.73m2 is sufficient to diagnose a patient with chronic kidney disease. Nucleated RBC/100 WBC (Bld) [Ratio] 0.0 % 0-0.5 [facility] Creatinine Clearance (Chem 79.78 [facility] Serum or plasma calcium jordan urement (mass/volume)on 01-01-2021 Calcium [Mass/Vol] 9.0 mg/dL 8.2-10.2 [facility] Serum or plasma chloride darrius surement (moles/volume)on 01-01-2021 Chloride [Moles/Vol] 106 mmol/L 95-114 [facility] Serum or plasma creatinine m easurement with calculation of estimated glomerular filtron 01-01-2021 Creatinine [Mass/Vol] 0.71 mg/dL 0.64-1.27 [facility] Serum or plasma glucose jordan urement (mass/volume)on 01-01-2021 Glucose [Mass/Vol] 88 mg/dL 70-100 [facility] Comment on above: ADA recommended refe rence rangeRandom Glucose Reference Range is dependent on time and content of last meal. Glucose of more than 200 mg/dL in a nonstressed, ambulatory subject supports the diagnosis of Diabetes Mellitus. Serum or plasma potassium me asurement (moles/volume)on 01-01-2021 Potassium [Moles/Vol] 3.8 mmol/L 3.5-5.1 [facility] Serum or plasma sodium measu rement (moles/volume)on 01-01-2021 Sodium [Moles/Vol] 140 mmol/L 136-146 [facility] Serum or plasma total carbon dioxide measurement (moles/volume)on 01-01-2021 CO2 [Moles/Vol] 25.6 mmol/L 22.0-30.0 [facility] Serum or plasma urea nitroge n measurement (mass/volume)on 01-01-2021 Urea nitrogen [Mass/Vol] 14 mg/dL 9-23 [facility] Albumin [Mass/volume] in Ser um or Plasmaon 12-27-2020 Albumin [Mass/Vol] 3.4 g/dL 3.2-5.5 [facility] Automated erythrocytes count in urine sediment (number/area)on 12-27-2020 RBC Auto (Urine sed) [#/Area] 3-4 [HPF] [facility] Automated leukocytes count i n urine sediment (number/area)on 12-27-2020 WBC Auto (Urine sed) [#/Area] 0-1 [HPF] [facility] Automated urine color determ inationon 12-27-2020 Color (U) Yellow Yellow [facility] Blood anisocytosis detection on 12-27-2020 Anisocytosis Ql (Bld) Slight [facility] Folate [Mass/volume] in Seru m or Plasmaon 12-27-2020 Folate [Mass/Vol] 13.2 ng/mL [facility] Comment on above: Folate reference ran ge: >5.9 ng/mlThe WHO technical consultation on folate and vitamin [id number] has determined that folate concentrations lessthan 4 ng/ml are considered deficient. Hematologyon 12-27-2020 Platelets (Bld) [#/Vol] Normal Normal F [facility] Otheron 12-27-2020 Cobalamin (Vitamin B12) [Mass/Vol] 535 pg/mL 180-914 [facility] Platelet Morphology Comment Normal Normal [facility] Protein [Mass/volume] in Ser um or Plasmaon 12-27-2020 Protein [Mass/Vol] 6.1 g/dL 6.1-7.9 [facility] RBC morphologyon 01-31-2021 RBC morphology finding Nom (Bld) N/A [facility] Serum globulin measurement b y calculation (mass/volume)on 12-27-2020 Globulin (S) [Mass/Vol] 2.7 g/dL F [facility] Serum or plasma alanine clark otransferase measurement without P-5'-P (enzymatic activion 12-27-2020 ALT No additional P-5'-P [Catalytic activity/Vol] 38 U/L 10-60 [facility] Serum or plasma albumin/glob ulin mass ratioon 12-27-2020 Albumin/Globulin [Mass ratio] 1.3 {ratio} [facility] Serum or plasma alkaline matt sphatase measurement (enzymatic activity/volume)on 12-27-2020 ALP [Catalytic activity/Vol] 62 U/L 32-92 [facility] Serum or plasma aspartate am inotransferase measurement (enzymatic activity/volume)on 12-27-2020 AST [Catalytic activity/Vol] 30 U/L 10-42 [facility] Serum or plasma prealbumin m easurement (mass/volume)on 12-27-2020 Prealbumin [Mass/Vol] 17.2 mg/dL 18.0-38.0 [facility] Serum or plasma total biliru bin measurement (mass/volume)on 12-27-2020 Bilirubin [Mass/Vol] 1.0 mg/dL 0.3-1.2 [facility] Specific gravity of Urine by Automated test stripon 12-27-2020 Specific gravity (U) [Rel density] 1.019 1.001-1.03 0 [facility] Squamous epithelial cells de tection in urine sediment by light microscopyon 12-27-2020 Epithelial cells.squamous LM Ql (Urine sed) 0-1 [HPF] [facility] Urinalysison 12-27-2020 Hyaline casts LM Ql (Urine sed) 0-8 [LPF] [facility] Urine bacteria detection by automated methodon 12-27-2020 Bacteria Auto Ql (U) None seen None Seen [facility] Urine clarity by refractomet ry automatedon 12-27-2020 Clarity Refractometry automated (U) Clear Clear [facility] Urine glucose measurement by automated test strip (mass/volume)on 12-27-2020 Glucose Auto test strip (U) [Mass/Vol] Normal mg/dL Normal [facility] Urine hemoglobin detection b y automated test stripon 12-27-2020 Hemoglobin Auto test strip Ql (U) Negative Negative [facility] Urine ketones measurement by automated test strip (mass/volume)on 12-27-2020 Ketones (U) [Mass/Vol] Trace Negative [facility] Urine leukocyte esterase det ection by automated test stripon 12-27-2020 Leukocyte esterase Auto test strip Ql (U) 1+ Negative [facility] Urine nitrite detection by t est stripon 12-27-2020 Nitrite Ql (U) Negative Negative [facility] Urine pH measurement by auto mated test stripon 12-27-2020 pH (U) 7.5 [pH] 5.0-9.0 [facility] Urine protein measurement by automated test strip (mass/volume)on 12-27-2020 Protein (U) [Mass/Vol] Negative Negative [facility] Urine total bilirubin detect ion by test stripon 12-27-2020 Bilirubin Ql (U) Negative Negative [facility] Urine urobilinogen measureme nt by automated test strip (mass/volume)on 12-27-2020 Urobilinogen (U) [Mass/Vol] Normal mg/dL Normal [facility] Automated basophil %on 12-26 Basophils/100 WBC (Bld) 0.4 % [facility] Automated basophil counton 0 12-26-2020 Basophils (Bld) [#/Vol] 0.0 10*3/uL 0.0-0.2 [facility] Automated blood lymphocyte c ount (number/volume)on 12-26-2020 Lymphocytes (Bld) [#/Vol] 1.6 10*3/uL 1.00-4.8 [facility] Automated blood lymphocyte c ount as percentage of total leukocyteson 12-26-2020 Lymphocytes/100 WBC (Bld) 16.1 % [facility] Automated blood monocyte cou nton 12-26-2020 Monocytes (Bld) [#/Vol] 1.3 10*3/uL 0.0-0.8 [facility] Automated blood platelet cou nt (count/volume)on 12-26-2020 Platelets (Bld) [#/Vol] 353 10*3/uL 150-450 [facility] Automated blood platelet darrius n volume measurementon 12-26-2020 Platelet mean volume (Bld) [Entitic vol] 7.9 fL 6.6-10.1 [facility] Automated eosinophil %on Eosinophils/100 WBC (Bld) 4.1 % [facility] Automated eosinophil counton 12-26-2020 Eosinophils (Bld) [#/Vol] 0.4 10*3/uL 0.0-0.45 [facility] Automated erythrocyte distri bution width ratioon 12-26-2020 Erythrocyte distribution width (RBC) [Ratio] 15.3 % 12.0-14.8 [facility] Automated erythrocyte mean c orpuscular hemoglobin (mass per erythrocyte)on 12-26-2020 MCH (RBC) [Entitic mass] 30.6 pg 27.5-35.2 [facility] Automated erythrocyte mean c orpuscular hemoglobin concentration measurement (mass/volon 12-26-2020 MCHC (RBC) [Mass/Vol] 33.3 g/dL 32.5-35.6 [facility] Automated erythrocyte mean c orpuscular volumeon 12-26-2020 MCV (RBC) [Entitic vol] 92.0 fL 83.5-101 F [facility] Automated monocyte %on 12-26 Monocytes/100 WBC (Bld) 13.1 % F [facility] Automated neutrophil %on Neutrophils/100 WBC (Bld) 66.3 % [facility] Blood erythrocytes automated count (number/volume)on 12-26-2020 RBC (Bld) [#/Vol] 3.35 10*6/uL 3.90-5.60 [facility] Blood hemoglobin measurement (mass/volume)on 12-26-2020 Hemoglobin (Bld) [Mass/Vol] 10.3 g/dL 13.0-17.0 [facility] Blood leukocytes automated c ount (number/volume)on 12-26-2020 WBC (Bld) [#/Vol] 9.7 10*3/uL 4.1-10.5 [facility] Blood neutrophil count by au tomated method (number/volume)on 12-26-2020 Neutrophils (Bld) [#/Vol] 6.4 10*3/uL 1.8-7.7 [facility] Estimated glomerular filtrat ion rate (GFR) non- Americanon 12-26-2020 GFR/1.73 sq M predicted among non-blacks MDRD (S/P/Bld) [Vol rate/Area] mL/min/{1.73_m2} [facility] Hematocrit [Volume Fraction] of Blood by Automated counton 12-26-2020 Hematocrit (Bld) [Volume fraction] 30.8 % 38.8-50.0 [facility] Metabolic Panelon 12-26-2020 Magnesium [Mass/Vol] 2.4 mg/dL 1.6-2.6 [facility] Otheron 12-26-2020 GFR/1.73 sq M.predicted MDRD (S/P/Bld) [Vol rate/Area] mL/min/{1.73_m2} [facility] Comment on above: GFR estimated refere nce range: According to KDOQI guidelines, <60 ml/min/1.73m2 is sufficient to diagnose a patient with chronic kidney disease. Nucleated RBC/100 WBC (Bld) [Ratio] 0.0 % 0-0.5 [facility] Creatinine Clearance (Chem 76.23 [facility] Serum or plasma calcium jordan urement (mass/volume)on 12-26-2020 Calcium [Mass/Vol] 8.9 mg/dL 8.2-10.2 [facility] Serum or plasma chloride darrius surement (moles/volume)on 12-26-2020 Chloride [Moles/Vol] 103 mmol/L 95-114 [facility] Serum or plasma creatinine m easurement with calculation of estimated glomerular filtron 12-26-2020 Creatinine [Mass/Vol] 0.81 mg/dL 0.64-1.27 [facility] Serum or plasma glucose jordan urement (mass/volume)on 12-26-2020 Glucose [Mass/Vol] 109 mg/dL 70-100 [facility] Comment on above: ADA recommended refe rence rangeRandom Glucose Reference Range is dependent on time and content of last meal. Glucose of more than 200 mg/dL in a nonstressed, ambulatory subject supports the diagnosis of Diabetes Mellitus. Serum or plasma potassium me asurement (moles/volume)on 12-26-2020 Potassium [Moles/Vol] 4.0 mmol/L 3.5-5.1 [facility] Serum or plasma sodium measu rement (moles/volume)on 12-26-2020 Sodium [Moles/Vol] 139 mmol/L 136-146 [facility] Serum or plasma total carbon dioxide measurement (moles/volume)on 12-26-2020 CO2 [Moles/Vol] 26.6 mmol/L 22.0-30.0 [facility] Serum or plasma urea nitroge n measurement (mass/volume)on 12-26-2020 Urea nitrogen [Mass/Vol] 11 mg/dL 9-23 [facility] Blood thiamine measurement ( moles/volume)on 12-24-2020 Thiamine (Bld) [Moles/Vol] 80.0 nmol/L [facility] Comment on above: Performed at: - [facility] [address] [id number] Director: Genesis David MD, Phone: [phone] Body fluid albumin measureme nt (mass/volume)on 12-24-2020 Albumin (Body fld) [Mass/Vol] 3.4 g/dL 3.2-5.5 [facility] Capillary blood glucose jordan urement by glucometer (mass/volume)on 12-24-2020 Glucose [Mass/Vol] 94 mg/dL [facility] Comment on above: Random Glucose Refer ence Range is dependent on time and content of last meal. Glucose of more than 200 mg/dL in a nonstressed, ambulatory subject supports the diagnosis of Diabetes Mellitus. Folate [Mass/volume] in Seru m or Plasmaon 12-24-2020 Folate [Mass/Vol] 7.9 ng/mL [facility] Comment on above: Folate reference ran ge: >5.9 ng/mlThe WHO technical consultation on folate and vitamin [id number] has determined that folate concentrations lessthan 4 ng/ml are considered deficient. Metabolic Panelon 12-24-2020 Glucose [Mass/Vol] Glu2: cleaned meter [facility] Otheron 12-24-2020 Cobalamin (Vitamin B12) [Mass/Vol] 443 pg/mL 180-914 [facility] Protein [Mass/volume] in Ser um or Plasmaon 12-24-2020 Protein [Mass/Vol] 6.2 g/dL 6.1-7.9 [facility] Serum globulin measurement b y calculation (mass/volume)on 12-24-2020 Globulin (S) [Mass/Vol] 2.8 g/dL F [facility] Serum or plasma alanine clark otransferase measurement without P-5'-P (enzymatic activion 12-24-2020 ALT No additional P-5'-P [Catalytic activity/Vol] 38 U/L 10-60 [facility] Serum or plasma albumin/glob ulin mass ratioon 12-24-2020 Albumin/Globulin [Mass ratio] 1.2 {ratio} [facility] Serum or plasma alkaline matt sphatase measurement (enzymatic activity/volume)on 12-24-2020 ALP [Catalytic activity/Vol] 51 U/L 32-92 [facility] Serum or plasma aspartate am inotransferase measurement (enzymatic activity/volume)on 12-24-2020 AST [Catalytic activity/Vol] 43 U/L 10-42 [facility] Serum or plasma thyroid stim ulating hormone (TSH) measurement by high sensitivity meton 12-24-2020 TSH Qn 3.59 u[iU]/mL 0.45-5.33 [facility] Serum or plasma total biliru bin measurement (mass/volume)on 12-24-2020 Bilirubin [Mass/Vol] 0.8 mg/dL 0.3-1.2 [facility] Monocyte %on 12-18-2020 Monocytes/100 WBC (Bld) 19 umol/L 11-35 F [facility] Creatine kinase [Enzymatic a ctivity/volume] in Serum or Plasmaon 12-17-2020 CK [Catalytic activity/Vol] 1788 U/L 22-269 [facility] Otheron 12-17-2020 Arterial Blood Base Excess 2.5 mmol/L -3.0-3.0 [facility] Arterial Blood HCO3 26.0 mmol/L 23.0-29.0 [facility] Arterial Blood Oxygen Content 6.3 mmol/L 6.6-9.7 [facility] Arterial Blood Oxygen Saturation 98.8 % 95.0-100.0 [facility] Arterial Blood Partial Pressure CO2 35.7 mm[Hg] 35.0-45.0 [facility] Arterial Blood Partial Pressure O2 143.5 mm[Hg] 80.0-100.0 [facility] Arterial Blood pH 7.48 7.35-7.45 [facility] Arterial Blood Total CO2 27.1 mmol/L 23.0-27.0 [facility] Blood Gas Critical Value See comment [facility] Comment on above: Critical Value mckinley d on: 12/17/2020 at 04:21 Blood Gas PEEP 5 cmH2O [facility] Blood Gas Sample Site Artline [facility] Blood Gas Set Respiration Rate 14 [facility] Blood Gas Tidal Volume 500 mL [facility] FiO2 40 % [facility] Phosphate [Mass/volume] in S brandee or Plasmaon 12-17-2020 Phosphate [Mass/Vol] 4.1 mg/dL 2.5-4.6 [facility] Serum or plasma creatine kin ase MB (CKMB)/total creatine kinase (CK) ratio by calculaon 12-17-2020 CK.MB Calc [Catalytic fraction] 2.5 0.00-2.50 [facility] Serum or plasma creatine kin ase MB measurement (mass/volume)on 12-17-2020 CK.MB [Mass/Vol] 45.2 ng/mL 0.6-6.3 [facility] Activated partial thrombopla stin time (aPTT) in platelet poor plasma by coagulation aon 12-16-2020 aPTT Coag (PPP) [Time] 32.6 s 23.0-35.0 [facility] Alpha angle parameter of thr omboelastogram (TEG)on 12-16-2020 Clot angle TEG (Bld) [Angle] 48.4 deg 53-72 [facility] Arterial blood standard base excess determination by calculationon 12-16-2020 Base excess standard Calc (BldA) [Moles/Vol] 3 mmol/L -2-3 [facility] Blood activated clotting anuja e by coagulation assayon 12-16-2020 ACT Coag (Bld) 103 s 90-139 [facility] Comment on above: Reference Range: 90- 139 (Non-heparinized) Blood carbon dioxide, total measurement by calculation (moles/volume)on 12-16-2020 CO2 Calc (Bld) [Moles/Vol] 28 mmol/L 23-29 [facility] Blood coagulation index dete rmination by thromboelastographyon 12-16-2020 Coagulation index TEG Qn (Bld) -11.4 -3.0-3.0 [facility] Blood hemoglobin measurement by calculation (mass/volume)on 12-16-2020 Hemoglobin (Bld) [Mass/Vol] 9.5 g/dL 12.0-17.[address] [facility] [address] biopsyon 12-16-2020 Hematocrit (Bld) [Volume fraction] 28.0 % 38.0-51.0 [facility] Capillary blood glucose jordan urement by glucometer (mass/volume)on 12-16-2020 Glucose [Mass/Vol] 108 mg/dL 70-105 [facility] Determination of maximum amp litude of thromboelastography curveon 12-16-2020 Maximum clot firmness TEG (Bld) [Length] 53.7 mm 50-70 [facility] Fibrinogen measurement in pl atelet poor plasma by coagulation assay (mass/volume)on 12-16-2020 Fibrinogen Coag (PPP) [Mass/Vol] 157 mg/dL 150-400 [facility] Hematologyon 12-16-2020 PT Coag (PPP) [Time] 16.9 s 9.0-12.9 [facility] Monocyte %on 12-16-2020 Monocytes/100 WBC (Bld) 40.6 mm[Hg] 35-51 [facility] Monocytes/100 WBC (Bld) 468 mm[Hg] 80-105 F [facility] Platelet poor plasma interna tional normalized ratio (INR) by coagulation assay (relaton 12-16-2020 INR Coag (PPP) [Relative time] 1.5 {INR} [facility] Comment on above: INR Therapeutic Rang [...] time TEG (Bld) 19.5 min 5-10 F [facility] Clotting time TEG (Bld) 3.1 min 1-3 F [facility] Whole blood bicarbonate jordan urementon 12-16-2020 HCO3 (Bld) [Moles/Vol] 27.0 mmol/L 22.0-28.0 F [facility] Whole blood ionized calcium measurement (moles/volume)on 12-16-2020 Calcium.ionized (Bld) [Moles/Vol] 1140 mmol/L 1.12-1.32 [facility] Whole blood oxygen saturatio n measurementon 12-16-2020 Oxygen saturation in Blood 100 % 95-98 [facility] Comment on above: Reference ranges ref lect baseline specimens only Whole blood pHon 12-16-2020 pH (Bld) 7.431 Units 7.31-7.45 [facility] Whole blood potassium measur ementon 12-16-2020 Potassium [Moles/Vol] 3.7 mmol/L 3.5-4.9 [facility] Whole blood sodium measureme nton 12-16-2020 Sodium [Moles/Vol] 140 mmol/L 138-146 [facility] Activated partial thrombopla stin time (aPTT) in platelet poor plasma by coagulation aon 12-14-2020 aPTT Coag (PPP) [Time] 28.7 s 23.0-35.0 Fi [facility] Automated basophil %on 12-14 Basophils/100 WBC (Bld) 0.2 % F [facility] Automated basophil counton 0 12-14-2020 Basophils (Bld) [#/Vol] 0.0 10*3/uL 0.0-0.2 [facility] Automated blood lymphocyte c ount (number/volume)on 12-14-2020 Lymphocytes (Bld) [#/Vol] 1.6 10*3/uL 1.00-4.8 [facility] Automated blood lymphocyte c ount as percentage of total leukocyteson 12-14-2020 Lymphocytes/100 WBC (Bld) 17.4 % [facility] Automated blood monocyte cou nton 12-14-2020 Monocytes (Bld) [#/Vol] 0.9 10*3/uL 0.0-0.8 [facility] Automated blood platelet cou nt (count/volume)on 12-14-2020 Platelets (Bld) [#/Vol] 208 10*3/uL 150-450 [facility] Automated blood platelet darrius n volume measurementon 12-14-2020 Platelet mean volume (Bld) [Entitic vol] 7.8 fL 6.6-10.1 [facility] Automated eosinophil %on Eosinophils/100 WBC (Bld) 1.3 % [facility] Automated eosinophil counton 12-14-2020 Eosinophils (Bld) [#/Vol] 0.1 10*3/uL 0.0-0.45 [facility] Automated erythrocyte distri bution width ratioon 12-14-2020 Erythrocyte distribution width (RBC) [Ratio] 13.7 % 12.0-14.8 [facility] Automated erythrocyte mean c orpuscular hemoglobin (mass per erythrocyte)on 12-14-2020 MCH (RBC) [Entitic mass] 32.0 pg 27.5-35.2 [facility] Automated erythrocyte mean c orpuscular hemoglobin concentration measurement (mass/volon 12-14-2020 MCHC (RBC) [Mass/Vol] 33.9 g/dL 32.5-35.6 [facility] Automated erythrocyte mean c orpuscular volumeon 12-14-2020 MCV (RBC) [Entitic vol] 94.4 fL 83.5-101 F [facility] Automated monocyte %on 12-14 Monocytes/100 WBC (Bld) 9.9 % F [facility] Automated neutrophil %on Neutrophils/100 WBC (Bld) 71.2 % [facility] Automated urine color determ inationon 12-14-2020 Color (U) Yellow Yellow [facility] Blood erythrocytes automated count (number/volume)on 12-14-2020 RBC (Bld) [#/Vol] 4.17 10*6/uL 3.90-5.60 [facility] Blood hemoglobin measurement (mass/volume)on 12-14-2020 Hemoglobin (Bld) [Mass/Vol] 13.3 g/dL 13.0-17.0 [facility] Blood leukocytes automated c ount (number/volume)on 12-14-2020 WBC (Bld) [#/Vol] 9.0 10*3/uL 4.5-11.0 [facility] Blood neutrophil count by au tomated method (number/volume)on 12-14-2020 Neutrophils (Bld) [#/Vol] 6.5 10*3/uL 1.8-7.7 [facility] Body fluid albumin measureme nt (mass/volume)on 12-14-2020 Albumin (Body fld) [Mass/Vol] 4.6 g/dL 3.2-5.5 [facility] Estimated glomerular filtrat ion rate (GFR) non- Americanon 12-14-2020 GFR/1.73 sq M predicted among non-blacks MDRD (S/P/Bld) [Vol rate/Area] mL/min/{1.73_m2} [facility] Fibrinogen measurement in pl atelet poor plasma by coagulation assay (mass/volume)on 12-14-2020 Fibrinogen Coag (PPP) [Mass/Vol] 218 mg/dL 150-400 [facility] Hematocrit [Volume Fraction] of Blood by Automated counton 12-14-2020 Hematocrit (Bld) [Volume fraction] 39.4 % 38.8-50.0 [facility] Hematologyon 12-14-2020 PT Coag (PPP) [Time] 10.7 s 9.0-12.9 [facility] Otheron 12-14-2020 GFR/1.73 sq M.predicted MDRD (S/P/Bld) [Vol rate/Area] mL/min/{1.73_m2} [facility] Comment on above: GFR estimated refere nce range: According to KDOQI guidelines, <60 ml/min/1.73m2 is sufficient to diagnose a patient with chronic kidney disease. Nucleated RBC/100 WBC (Bld) [Ratio] 0.1 % 0-0.5 [facility] Creatinine Clearance (Chem N/A [facility] Platelet poor plasma interna tional normalized ratio (INR) by coagulation assay (relaton 12-14-2020 INR Coag (PPP) [Relative time] 1.0 {INR} [facility] Comment on above: INR Therapeutic Rang [...] Plasmaon 12-14-2020 Protein [Mass/Vol] 7.2 g/dL 6.1-7.9 [facility] Serum globulin measurement b y calculation (mass/volume)on 12-14-2020 Globulin (S) [Mass/Vol] 2.6 g/dL F [facility] Serum or plasma alanine clark otransferase measurement without P-5'-P (enzymatic activion 12-14-2020 ALT No additional P-5'-P [Catalytic activity/Vol] 20 U/L 10-60 [facility] Serum or plasma albumin/glob ulin mass ratioon 12-14-2020 Albumin/Globulin [Mass ratio] 1.8 {ratio} [facility] Serum or plasma alkaline matt sphatase measurement (enzymatic activity/volume)on 12-14-2020 ALP [Catalytic activity/Vol] 45 U/L 32-92 [facility] Serum or plasma aspartate am inotransferase measurement (enzymatic activity/volume)on 12-14-2020 AST [Catalytic activity/Vol] 25 U/L 10-42 [facility] Serum or plasma calcium jordan urement (mass/volume)on 12-14-2020 Calcium [Mass/Vol] 9.9 mg/dL 8.2-10.2 [facility] Serum or plasma chloride darrius surement (moles/volume)on 12-14-2020 Chloride [Moles/Vol] 95 mmol/L 95-114 [facility] Serum or plasma creatinine m easurement with calculation of estimated glomerular filtron 12-14-2020 Creatinine [Mass/Vol] 0.78 mg/dL 0.64-1.27 [facility] Serum or plasma glucose jordan urement (mass/volume)on 12-14-2020 Glucose [Mass/Vol] 90 mg/dL 70-100 [facility] Comment on above: ADA recommended refe rence rangeRandom Glucose Reference Range is dependent on time and content of last meal. Glucose of more than 200 mg/dL in a nonstressed, ambulatory subject supports the diagnosis of Diabetes Mellitus. Serum or plasma potassium me asurement (moles/volume)on 12-14-2020 Potassium [Moles/Vol] 4.3 mmol/L 3.5-5.1 [facility] Serum or plasma sodium measu rement (moles/volume)on 12-14-2020 Sodium [Moles/Vol] 136 mmol/L 136-146 [facility] Serum or plasma total biliru bin measurement (mass/volume)on 12-14-2020 Bilirubin [Mass/Vol] 0.7 mg/dL 0.3-1.2 [facility] Serum or plasma total carbon dioxide measurement (moles/volume)on 12-14-2020 CO2 [Moles/Vol] 26.4 mmol/L 22.0-30.0 [facility] Serum or plasma urea nitroge n measurement (mass/volume)on 12-14-2020 Urea nitrogen [Mass/Vol] 15 mg/dL 9-23 [facility] Specific gravity of Urine by Automated test stripon 12-14-2020 Specific gravity (U) [Rel density] 1.011 1.001-1.03 0 [facility] Urine clarity by refractomet ry automatedon 12-14-2020 Clarity Refractometry automated (U) Clear Clear [facility] Urine culture routineon 11-27 Bacteria identified Cx Nom (U) No Growth 2 Days [facility] Urine glucose measurement by automated test strip (mass/volume)on 12-14-2020 Glucose Auto test strip (U) [Mass/Vol] Normal mg/dL Normal [facility] Urine hemoglobin detection b y automated test stripon 12-14-2020 Hemoglobin Auto test strip Ql (U) Negative Negative [facility] Urine ketones measurement by automated test strip (mass/volume)on 12-14-2020 Ketones (U) [Mass/Vol] Negative Negative [facility] Urine leukocyte esterase det ection by automated test stripon 12-14-2020 Leukocyte esterase Auto test strip Ql (U) Negative Negative [facility] Urine nitrite detection by t est stripon 12-14-2020 Nitrite Ql (U) Negative Negative [facility] Urine pH measurement by auto mated test stripon 12-14-2020 pH (U) 7.0 [pH] 5.0-9.0 [facility] Urine protein measurement by automated test strip (mass/volume)on 12-14-2020 Protein (U) [Mass/Vol] Negative Negative [facility] Urine total bilirubin detect ion by test stripon 12-14-2020 Bilirubin Ql (U) Negative Negative [facility] Urine urobilinogen measureme nt by automated test strip (mass/volume)on 12-14-2020 Urobilinogen (U) [Mass/Vol] Normal mg/dL Normal [facility] COVID-19 Positive/Negativeon 11-26-2020 COVID-19 Positive/Negative Positive Negative [facility] Comment on above: Testing for SARS-CoV -2 by RT-PCRThis test was developed and its performance characteristics determined by [employer] ([employer]) and validated at the [facility]. This test has not been FDA cleared [...] Otheron 11-26-2020 Coronavirus 2019 PCR Interp N/A [facility] Urine culture routineon 10-28 Bacteria identified Cx Nom (U) No Growth 2 Days [facility] Activated partial thrombopla stin time (aPTT) in platelet poor plasma by coagulation aon 11-17-2020 aPTT Coag (PPP) [Time] 25.9 s 23.0-35.0 Fi [facility] Albumin [Mass/volume] in Ser um or Plasmaon 11-17-2020 Albumin [Mass/Vol] 4.3 g/dL 3.2-5.5 [facility] Automated basophil %on 11-17 Basophils/100 WBC (Bld) 0.4 % F [facility] Automated basophil counton 1 01-18-2020 Basophils (Bld) [#/Vol] 0.0 10*3/uL 0.0-0.2 [facility] Automated blood lymphocyte c ount (number/volume)on 11-17-2020 Lymphocytes (Bld) [#/Vol] 1.3 10*3/uL 1.00-4.8 [facility] Automated blood lymphocyte c ount as percentage of total leukocyteson 11-17-2020 Lymphocytes/100 WBC (Bld) 17.5 % [facility] Automated blood monocyte cou nton 11-17-2020 Monocytes (Bld) [#/Vol] 0.8 10*3/uL 0.0-0.8 [facility] Automated blood platelet cou nt (count/volume)on 11-17-2020 Platelets (Bld) [#/Vol] 182 10*3/uL 150-450 [facility] Automated blood platelet darrius n volume measurementon 11-17-2020 Platelet mean volume (Bld) [Entitic vol] 8.1 fL 6.6-10.1 [facility] Automated eosinophil %on Eosinophils/100 WBC (Bld) 2.0 % [facility] Automated eosinophil counton 11-17-2020 Eosinophils (Bld) [#/Vol] 0.1 10*3/uL 0.0-0.45 [facility] Automated erythrocyte distri bution width ratioon 11-17-2020 Erythrocyte distribution width (RBC) [Ratio] 13.8 % 12.0-14.8 [facility] Automated erythrocyte mean c orpuscular hemoglobin (mass per erythrocyte)on 11-17-2020 MCH (RBC) [Entitic mass] 32.9 pg 27.5-35.2 [facility] Automated erythrocyte mean c orpuscular hemoglobin concentration measurement (mass/volon 11-17-2020 MCHC (RBC) [Mass/Vol] 34.7 g/dL 32.5-35.6 [facility] Automated erythrocyte mean c orpuscular volumeon 11-17-2020 MCV (RBC) [Entitic vol] 94.9 fL 83.5-101 F [facility] Automated erythrocytes count in urine sediment (number/area)on 11-17-2020 RBC Auto (Urine sed) [#/Area] 3-4 [HPF] [facility] Automated leukocytes count i n urine sediment (number/area)on 11-17-2020 WBC Auto (Urine sed) [#/Area] 1-2 [HPF] [facility] Automated monocyte %on 11-17 Monocytes/100 WBC (Bld) 11.5 % F [facility] Automated neutrophil %on Neutrophils/100 WBC (Bld) 68.6 % [facility] Automated urine color determ inationon 11-17-2020 Color (U) Yellow Yellow [facility] Automated urine hyaline cast s count (number/volume)on 11-17-2020 Hyaline casts Auto (U) [#/Vol] 50-100 [LPF] [facility] Blood erythrocytes automated count (number/volume)on 11-17-2020 RBC (Bld) [#/Vol] 3.99 10*6/uL 3.90-5.60 [facility] Blood hemoglobin measurement (mass/volume)on 11-17-2020 Hemoglobin (Bld) [Mass/Vol] 13.1 g/dL 13.0-17.0 [facility] Blood leukocytes automated c ount (number/volume)on 11-17-2020 WBC (Bld) [#/Vol] 7.3 10*3/uL 4.1-10.5 [facility] Blood neutrophil count by au tomated method (number/volume)on 11-17-2020 Neutrophils (Bld) [#/Vol] 5.0 10*3/uL 1.8-7.7 [facility] COVID-19 Positive/Negativeon 11-17-2020 COVID-19 Positive/Negative Negative Negative [facility] Comment on above: Testing for SARS-CoV -2 by RT-PCRThis test was developed and its performance characteristics determined by [employer] ([employer]) and validated at the [facility]. This test has not been FDA cleared [...] (Urine sed) None seen [LPF] None Seen [facility] Estimated glomerular filtrat ion rate (GFR) non- Americanon 11-17-2020 GFR/1.73 sq M predicted among non-blacks MDRD (S/P/Bld) [Vol rate/Area] mL/min/{1.73_m2} [facility] Fibrinogen measurement in pl atelet poor plasma by coagulation assay (mass/volume)on 11-17-2020 Fibrinogen Coag (PPP) [Mass/Vol] 197 mg/dL 150-400 [facility] Hematocrit [Volume Fraction] of Blood by Automated counton 11-17-2020 Hematocrit (Bld) [Volume fraction] 37.9 % 38.8-50.0 [facility] Hematologyon 11-17-2020 PT Coag (PPP) [Time] 10.4 s 9.0-12.9 [facility] Otheron 11-17-2020 GFR/1.73 sq M.predicted MDRD (S/P/Bld) [Vol rate/Area] mL/min/{1.73_m2} [facility] Comment on above: GFR estimated refere nce range: According to KDOQI guidelines, <60 ml/min/1.73m2 is sufficient to diagnose a patient with chronic kidney disease. Nucleated RBC/100 WBC (Bld) [Ratio] 0.1 % 0-0.5 [facility] Creatinine Clearance (Chem N/A [facility] Coronavirus 2019 PCR Interp N/A [facility] Platelet poor plasma interna tional normalized ratio (INR) by coagulation assay (relaton 11-17-2020 INR Coag (PPP) [Relative time] 0.9 {INR} [facility] Comment on above: INR Therapeutic Rang [...] Plasmaon 11-17-2020 Protein [Mass/Vol] 6.7 g/dL 6.1-7.9 [facility] Serum globulin measurement b y calculation (mass/volume)on 11-17-2020 Globulin (S) [Mass/Vol] 2.4 g/dL F [facility] Serum or plasma alanine clark otransferase measurement without P-5'-P (enzymatic activion 11-17-2020 ALT No additional P-5'-P [Catalytic activity/Vol] 22 U/L 10-60 [facility] Serum or plasma albumin/glob ulin mass ratioon 11-17-2020 Albumin/Globulin [Mass ratio] 1.8 {ratio} [facility] Serum or plasma alkaline matt sphatase measurement (enzymatic activity/volume)on 11-17-2020 ALP [Catalytic activity/Vol] 47 U/L 32-92 [facility] Serum or plasma aspartate am inotransferase measurement (enzymatic activity/volume)on 11-17-2020 AST [Catalytic activity/Vol] 25 U/L 10-42 [facility] Serum or plasma calcium jordan urement (mass/volume)on 11-17-2020 Calcium [Mass/Vol] 10.0 mg/dL 8.2-10.2 [facility] Serum or plasma chloride darrius surement (moles/volume)on 11-17-2020 Chloride [Moles/Vol] 99 mmol/L 95-114 [facility] Serum or plasma creatinine m easurement with calculation of estimated glomerular filtron 11-17-2020 Creatinine [Mass/Vol] 0.97 mg/dL 0.64-1.27 [facility] Serum or plasma glucose jordan urement (mass/volume)on 11-17-2020 Glucose [Mass/Vol] 95 mg/dL 70-100 [facility] Comment on above: ADA recommended refe rence rangeRandom Glucose Reference Range is dependent on time and content of last meal. Glucose of more than 200 mg/dL in a nonstressed, ambulatory subject supports the diagnosis of Diabetes Mellitus. Serum or plasma potassium me asurement (moles/volume)on 11-17-2020 Potassium [Moles/Vol] 4.3 mmol/L 3.5-5.1 [facility] Serum or plasma sodium measu rement (moles/volume)on 11-17-2020 Sodium [Moles/Vol] 136 mmol/L 136-146 [facility] Serum or plasma total biliru bin measurement (mass/volume)on 11-17-2020 Bilirubin [Mass/Vol] 0.8 mg/dL 0.3-1.2 [facility] Serum or plasma total carbon dioxide measurement (moles/volume)on 11-17-2020 CO2 [Moles/Vol] 24.0 mmol/L 22.0-30.0 [facility] Serum or plasma urea nitroge n measurement (mass/volume)on 11-17-2020 Urea nitrogen [Mass/Vol] 17 mg/dL 08-19 [facility] Specific gravity of Urine by Automated test stripon 11-17-2020 Specific gravity (U) [Rel density] 1.019 1.001-1.03 0 [facility] Squamous epithelial cells de tection in urine sediment by light microscopyon 11-17-2020 Epithelial cells.squamous LM Ql (Urine sed) 0-1 [HPF] [facility] Urine bacteria detection by automated methodon 11-17-2020 Bacteria Auto Ql (U) None seen None Seen [facility] Urine clarity by refractomet ry automatedon 11-17-2020 Clarity Refractometry automated (U) Clear Clear [facility] Urine culture routineon 10-28 Bacteria identified Cx Nom (U) 2 Days [facility] Urine glucose measurement by automated test strip (mass/volume)on 11-17-2020 Glucose Auto test strip (U) [Mass/Vol] Normal mg/dL Normal [facility] Urine hemoglobin detection b y automated test stripon 11-17-2020 Hemoglobin Auto test strip Ql (U) Negative Negative [facility] Urine ketones measurement by automated test strip (mass/volume)on 11-17-2020 Ketones (U) [Mass/Vol] Trace Negative [facility] Urine leukocyte esterase det ection by automated test stripon 11-17-2020 Leukocyte esterase Auto test strip Ql (U) Negative Negative [facility] Urine nitrite detection by t est stripon 11-17-2020 Nitrite Ql (U) Negative Negative [facility] Urine pH measurement by auto mated test stripon 11-17-2020 pH (U) 5.5 [pH] 5.0-9.0 [facility] Urine protein measurement by automated test strip (mass/volume)on 11-17-2020 Protein (U) [Mass/Vol] Trace mg/dL Negative F [facility] Urine total bilirubin detect ion by test stripon 11-17-2020 Bilirubin Ql (U) Negative Negative [facility] Urine urobilinogen measureme nt by automated test strip (mass/volume)on 11-17-2020 Urobilinogen (U) [Mass/Vol] Normal mg/dL Normal [facility] Activated partial thrombopla stin time (aPTT) in platelet poor plasma by coagulation aon 11-03-2020 aPTT Coag (PPP) [Time] 26.1 s 23.0-[facility].0 [facility] bas[facility] %on 11-03 Basophils/100 WBC (Bld) 0.7 % F [facility] Automated basophil counton 1 01-04-2020 Basophils (Bld) [#/Vol] 0.1 10*3/uL 0.0-0.2 [facility] Automated blood lymphocyte c ount (number/volume)on 11-03-2020 Lymphocytes (Bld) [#/Vol] 1.5 10*3/uL 1.00-4.8 [facility] Automated blood lymphocyte c ount as percentage of total leukocyteson 11-03-2020 Lymphocytes/100 WBC (Bld) 22.6 % [facility] Automated blood monocyte cou nton 11-03-2020 Monocytes (Bld) [#/Vol] 0.8 10*3/uL 0.0-0.8 [facility] Automated blood platelet cou nt (count/volume)on 11-03-2020 Platelets (Bld) [#/Vol] 196 10*3/uL 150-450 [facility] Automated blood platelet darrius n volume measurementon 11-03-2020 Platelet mean volume (Bld) [Entitic vol] 8.0 fL 6.6-10.1 [facility] Automated eosinophil %on Eosinophils/100 WBC (Bld) 3.1 % [facility] Automated eosinophil counton 11-03-2020 Eosinophils (Bld) [#/Vol] 0.2 10*3/uL 0.0-0.45 [facility] Automated erythrocyte distri bution width ratioon 11-03-2020 Erythrocyte distribution width (RBC) [Ratio] 13.6 % 12.0-14.8 [facility] Automated erythrocyte mean c orpuscular hemoglobin (mass per erythrocyte)on 11-03-2020 MCH (RBC) [Entitic mass] 32.1 pg 27.5-35.2 [facility] Automated erythrocyte mean c orpuscular hemoglobin concentration measurement (mass/volon 11-03-2020 MCHC (RBC) [Mass/Vol] 33.8 g/dL 32.5-35.6 [facility] Automated erythrocyte mean c orpuscular volumeon 11-03-2020 MCV (RBC) [Entitic vol] 95.1 fL 83.5-101 F [facility] Automated monocyte %on 11-03 Monocytes/100 WBC (Bld) 11.2 % F [facility] Automated neutrophil %on Neutrophils/100 WBC (Bld) 62.4 % [facility] Blood erythrocytes automated count (number/volume)on 11-03-2020 RBC (Bld) [#/Vol] 4.24 10*6/uL 3.90-5.60 [facility] Blood hemoglobin measurement (mass/volume)on 11-03-2020 Hemoglobin (Bld) [Mass/Vol] 13.6 g/dL 13.0-17.0 [facility] Blood leukocytes automated c ount (number/volume)on 11-03-2020 WBC (Bld) [#/Vol] 6.9 10*3/uL 4.1-10.5 [facility] Blood neutrophil count by au tomated method (number/volume)on 11-03-2020 Neutrophils (Bld) [#/Vol] 4.3 10*3/uL 1.8-7.7 [facility] Cholesterol [Mass/volume] in Serum or Plasmaon 11-03-2020 Cholesterol [Mass/Vol] 249 mg/dL 140-200 Fi [facility] Comment on above: Chol less than 200 m g/dl low riskChol 201-239 mg/dl borderline riskChol 240 mg/dl and greater high risk Cholesterol in LDL [Mass/vol ume] in Serum or Plasma by calculationon 11-03-2020 Cholesterol in LDL [Mass/Vol] 152 mg/dL 0-100 [facility] Comment on above: LDL ATP III CLASSIFI CATIONLDL less than 100 mg/dL OptimalLDL 100-129 mg/dL Near or above optimalLDL 130-159 mg/dL Borderline highLDL 160-189 mg/dL HighLDL greater than 189 mg/dL Very high Cholesterol in VLDL [Mass/vo lume] in Serum or Plasma by calculationon 11-03-2020 Cholesterol in VLDL [Mass/Vol] 13 mg/dL [facility] Estimated glomerular filtrat ion rate (GFR) non- Americanon 11-03-2020 GFR/1.73 sq M predicted among non-blacks MDRD (S/P/Bld) [Vol rate/Area] mL/min/{1.73_m2} [facility] Hematocrit [Volume Fraction] of Blood by Automated counton 11-03-2020 Hematocrit (Bld) [Volume fraction] 40.3 % 38.8-50.0 [facility] Hematologyon 11-03-2020 PT Coag (PPP) [Time] 11.2 s 9.0-12.9 [facility] Otheron 11-03-2020 GFR/1.73 sq M.predicted MDRD (S/P/Bld) [Vol rate/Area] mL/min/{1.73_m2} [facility] Comment on above: GFR estimated refere nce range: According to KDOQI guidelines, <60 ml/min/1.73m2 is sufficient to diagnose a patient with chronic kidney disease. Nucleated RBC/100 WBC (Bld) [Ratio] 0.0 % 0-0.5 [facility] Creatinine Clearance (Chem 78.38 [facility] Platelet poor plasma interna tional normalized ratio (INR) by coagulation assay (relaton 11-03-2020 INR Coag (PPP) [Relative time] 1.0 {INR} [facility] Comment on above: INR Therapeutic Rang [...] (moles/volume)on 11-03-2020 Chloride [Moles/Vol] 102 mmol/L 95-114 [facility] Serum or plasma creatinine m easurement with calculation of estimated glomerular filtron 11-03-2020 Creatinine [Mass/Vol] 0.68 mg/dL 0.64-1.27 [facility] Serum or plasma high density lipoprotein (HDL) cholesterol measurementon 11-03-2020 Cholesterol in HDL [Mass/Vol] 83 mg/dL 29-71 [facility] Comment on above: HDL CHOL ATP-III CLA SSIFICATION Cardiovascular RiskHDL > or equal to 60 mg/dL LOWHDL < 40 mg/dL HIGH Serum or plasma potassium me asurement (moles/volume)on 11-03-2020 Potassium [Moles/Vol] 3.8 mmol/L 3.5-5.1 [facility] Serum or plasma sodium measu rement (moles/volume)on 11-03-2020 Sodium [Moles/Vol] 138 mmol/L 136-146 [facility] Serum or plasma total carbon dioxide measurement (moles/volume)on 11-03-2020 CO2 [Moles/Vol] 22.4 mmol/L 22.0-30.0 [facility] Serum or plasma total choles terol/high density lipoprotein (HDL) cholesterol mass romy 11-03-2020 Cholesterol.total/Tarah sterol in HDL [Mass ratio] 3.0 {ratio} [facility] Serum or plasma urea nitroge n measurement (mass/volume)on 11-03-2020 Urea nitrogen [Mass/Vol] 12 mg/dL 9- [facility] Triglyceride [Mass/volume] i n Serum or Plasmaon 11-03-2020 Triglyceride [Mass/Vol] 68 mg/dL 35-149 F [facility] Comment on above: TRIG ATP III CLASSIF ICATIONTRIG less than 150 mg/dL NormalTRIG 150-199 mg/dL Borderline highTRIG 200-500 mg/dL High TRIG greater than 500 mg/dL Very highStandard traceable to the Center for Disease Conrtrol and Prevention (CDC) test method. [facility] CARDIAC STRESS/REST (LOUIE CARDIAL PERFUSION/MIBI)on 10-27-2020 [facility] CARDIAC STRESS/REST (MYOCARDIAL PERFUSION/MIBI) Patient Name: STAN MCDONALD STUDY: MYOCARDIAL PERFUSION STRESS TEST WITH LEXISCDOMI Performing facility: [facility], [address] [place] [address], [address], [place] [address] [facility] Provider: WP ARCE PCP: Dr. Taurus ZABALA SURGEON: DR Kraig POTTER Supervising provider: WP ARCE INDICATION: HX PTCA CAD HYPER LIPID Pre-operative risk assessment for KNEE [place] [facility] HISTORY: Gender: M; Age: 74 y/o ; Height: 172.72 cm; Weight: 75.3685720 kg. HTN High Cholesterol; CAD RBBB Family HX CAD; Quit smoking REMOTE years ago. PTCA on 2008. COMPARISON: Previous nuclear testing completed at [place]. ACCESSION NUMBER(S): [id number] ORDERING CLINICIAN: FAHAD ARCE TECHNIQUE: ONE DAY [...] Electronically signed by: ROB MERCHANT MD Normal [facility] CARDIAC STRESS/REST INJE CTIONon 10-27-2020 [facility] CARDIAC STRESS/REST INJECTION Patient Name: STAN MCDONALD STUDY: MYOCARDIAL PERFUSION STRESS TEST WITH LEXISCAN Performing facility: [facility], [address], [address], [place] [address] [facility] Provider: WP ARCE PCP: Dr. Taurus ZABALA SURGEON: DR Kraig POTTER Supervising provider: WP ARCE INDICATION: HX PTCA CAD HYPER LIPID Pre-operative risk assessment for KNEE scheduled at [facility] [place] [facility]. HISTORY: Gender: M; Age: 74 y/o ; Height: 172.72 cm; Weight: 75.4897201 kg. HTN High Cholesterol; CAD RBBB Family HX CAD; Quit smoking REMOTE years ago. PTCA on 2008. COMPARISON: Previous nuclear testing completed at [place]. ACCESSION NUMBER(S): [id number] ORDERING CLINICIAN: FAHAD ARCE TECHNIQUE: ONE DAY [...] Electronically signed by: ROB MERCHANT MD Normal [facility] PART 2 STRESS OR REST (N O CHARGE)on 10-27-2020 [facility] PART 2 STRESS OR REST (NO CHARGE) Patient Name: STAN MCDONALD STUDY: MYOCARDIAL PERFUSION STRESS TEST WITH LEXISCAN Performing facility: [facility], [address] [place] [address], [address], [place] [address] [facility] Provider: WP ARCE PCP: Dr. Taurus ZABALA SURGEON: DR Kraig POTTER Supervising provider: WP ARCE INDICATION: HX PTCA CAD HYPER LIPID Pre-operative risk assessment for KNEE scheduled at [facility] [facility] [place] [facility]ISTORY: Gender: M; Age: 74 y/o ; Height: 172.72 cm; Weight: 75.2022884 kg. HTN High Cholesterol; CAD RBBB Family HX CAD; Quit smoking REMOTE years ago. PTCA on 2008. COMPARISON: Previous nuclear testing completed at [place]. ACCESSION NUMBER(S): [id number] ORDERING CLINICIAN: FAHAD ARCE TECHNIQUE: ONE DAY [...] earlier. Electronically signed by: ROB MERCHANT MD [facility] Vital Signs Date Time Vital Sign Value Performing Clinician Facility 10-28-2024 10:23-0500 Body height 172.7 cm Almas Tello MD Work Phone: [facility] 10-28-2024 10:23-0500 Body mass index (BMI) [Ratio] 23.72 kg/m2 Almas Tello MD Work Phone: [facility] 10-28-2024 10:23-0500 Body weight 70.76 kg Almas Tello MD Work Phone: [facility] 10-28-2024 10:23-0500 Heart rate 68 /min Almas Tello MD Work Phone: [facility] 10-28-2024 10:23-0500 SaO2% (BldA) [Mass fraction] 99 % Almas Tello MD Work Phone: [facility] 10-17-2024 08:44-0500 Body height 172.7 cm Almas Tello MD Work Phone: [facility] 10-17-2024 08:44-0500 Body mass index (BMI) [Ratio] 23.72 kg/m2 Almas Tello MD Work Phone: [facility] 10-17-2024 08:44-0500 Body weight 70.76 kg Almas Tello MD Work Phone: [facility] 10-17-2024 08:44-0500 Heart rate 50 /min Almas Tello MD Work Phone: [facility] 10-17-2024 08:44-0500 SaO2% (BldA) [Mass fraction] 96 % Almas Tello MD Work Phone: [facility] 10-03-2024 15:14-0500 Diastolic blood pressure 88 mm[Hg] Rob Merchant MD Work Phone: [facility] 10-03-2024 15:14-0500 Systolic blood pressure 158 mm[Hg] Rob Merchant MD Work Phone: [facility] 10-03-2024 15:11-0500 Body height 172.7 cm Rob Merchant MD Work Phone: [facility] 10-03-2024 15:11-0500 Body mass index (BMI) [Ratio] 22.81 kg/m2 Rob Merchant MD Work Phone: [facility] 10-03-2024 15:11-0500 Body weight 68.04 kg Rob Merchant MD Work Phone: [facility] 10-03-2024 15:11-0500 Heart rate 61 /min Rob Merchant MD Work Phone: [facility] 04-02-2024 09:34-0400 Body height 172.7 cm Shanti Olmos MD Work Phone: [facility] 04-02-2024 09:34-0400 Body mass index (BMI) [Ratio] 23.73 kg/m2 Shanti Olmos MD Work Phone: [facility] 04-02-2024 09:34-0400 Body temperature 96.6 [degF] Shanti Olmos MD Work Phone: [facility] 04-02-2024 09:34-0400 Body weight 70.8 kg Shanti Olmos MD Work Phone: [facility] 02-20-2024 09:17-0400 Body height 172.7 cm Shanti Olmos MD Work Phone: [facility] 02-20-2024 09:17-0400 Body mass index (BMI) [Ratio] 23.72 kg/m2 Shanti Olmos MD Work Phone: [facility] 02-20-2024 09:17-0400 Body temperature 96.4 [degF] Shanti Olmos MD Work Phone: [facility] 02-20-2024 09:17-0400 Body weight 70.76 kg Shanti Olmos MD Work Phone: [facility] 12-20-2023 15:01-0500 Body height 172.7 cm Almas Tello MD Work Phone: [facility] 12-20-2023 15:01-0500 Body mass index (BMI) [Ratio] 23.57 kg/m2 Almas Tello MD Work Phone: [facility] 12-20-2023 15:01-0500 Body weight 70.31 kg Almas Tello MD Work Phone: [facility] 10-03-2023 09:40-0500 Body height 172.7 cm Fahad Arce MD Work Phone: [facility] 10-03-2023 09:40-0500 Body mass index (BMI) [Ratio] 23.84 kg/m2 Fahad Arce MD Work Phone: [facility] 10-03-2023 09:40-0500 Body weight 71.12 kg Fahad Arce MD Work Phone: [facility] 10-03-2023 09:40-0500 Diastolic blood pressure 88 mm[Hg] Fahad Arce MD Work Phone: [facility] 10-03-2023 09:40-0500 Heart rate 52 /min Fahad Arce MD Work Phone: [facility] 10-03-2023 09:40-0500 Systolic blood pressure 142 mm[Hg] Fahad Arce MD Work Phone: [facility] 09-27-2022 10:01-0400 Body height 172.72 cm Almas Tello Work Phone: [facility] [address] DO Work Phone: 09-27-2022 10:01-0400 Body mass index (BMI) [Ratio] 24.63 kg/m2 Almas Tello Work Phone: [facility] [address] DO Work Phone: 09-27-2022 10:01-0400 Body surface area Derived from formula 1.87 m2 Almas Tlelo Work Phone: [facility] [address] DO Work Phone: 09-27-2022 10:01-0400 Body weight 73.48 kg Almas Tello Work Phone: [facility] [address] DO Work Phone: 09-27-2022 10:01-0400 Diastolic blood pressure 60 mm[Hg] Almas Tello Work Phone: [facility] [address] DO Work Phone: 09-27-2022 10:01-0400 Heart rate 44 /min Almas Tello Work Phone: [facility] [address] DO Work Phone: 09-27-2022 10:01-0400 Systolic blood pressure 138 mm[Hg] Almas Tello Work Phone: [facility] [address] DO Work Phone: 11-17-2021 13:51-0500 Body height 172.72 cm Almas Tello Work Phone: [facility] [address] DO Work Phone: 11-17-2021 13:51-0500 Body mass index (BMI) [Ratio] 24.78 kg/m2 Almas Tello Work Phone: [facility] [address] DO Work Phone: 11-17-2021 13:51-0500 Body surface area Derived from formula 1.87 m2 Almas Deanyer Work Phone: [facility] [address] DO Work Phone: 11-17-2021 13:51-0500 Body weight 73.94 kg Almas Deanyer Work Phone: [facility] [address] DO Work Phone: 11-17-2021 13:51-0500 Diastolic blood pressure 84 mm[Hg] Almas Deanyer Work Phone: [facility] [address] DO Work Phone: 11-17-2021 13:51-0500 Heart rate 56 /min Eddavid Deanyer Work Phone: [facility] [address] DO Work Phone: 11-17-2021 13:51-0500 Systolic blood pressure 172 mm[Hg] Almas Deanyer Work Phone: [facility] [address] DO Work Phone: 11-17-2021 13:45-0500 Body height 20.32 cm Almas Deanyer Work Phone: [facility] [address] DO Work Phone: 11-17-2021 13:45-0500 Body mass index (BMI) [Ratio] 1790.67 kg/m2 Almas Deanyer Work Phone: [facility] [address] DO Work Phone: 11-17-2021 13:45-0500 Body surface area Derived from formula 0.4 m2 Almas Deanyer Work Phone: [facility] [address] DO Work Phone: 11-17-2021 13:45-0500 Body weight 73.94 kg Edward J Hemeyer Work Phone: [facility] [address] DO Work Phone: 11-17-2021 13:45-0500 Diastolic blood pressure 84 mm[Hg] Edward J Hemeyer Work Phone: [facility] [address] DO Work Phone: 11-17-2021 13:45-0500 Heart rate 56 /min Edward J Hemeyer Work Phone: [facility] [address] DO Work Phone: 11-17-2021 13:45-0500 Systolic blood pressure 172 mm[Hg] Edward J Hemeyer Work Phone: [facility] [address] DO Work Phone: 11-17-2021 13:40-0500 Diastolic blood pressure 78 mm[Hg] Edward J Hemeyer Work Phone: [facility] [facility] DO Work Phone: 11-17-2021 13:40-0500 Diastolic blood pressure 84 mm[Hg] Edward J Hemeyer Work Phone: [facility] [facility] DO Work Phone: 11-17-2021 13:40-0500 Diastolic blood pressure 76 mm[Hg] Edward J Hemeyer Work Phone: [facility] [address] DO Work Phone: 11-17-2021 13:40-0500 Systolic blood pressure 162 mm[Hg] Edward J Hemeyer Work Phone: [facility] [facility] DO Work Phone: 11-17-2021 13:40-0500 Systolic blood pressure 172 mm[Hg] Eddavid Deanyer Work Phone: [facility] [address] DO Work Phone: 11-17-2021 13:40-0500 56 1 Eddavid Deanyer Work Phone: [facility] [facility] DO Work Phone: Comment on above: [employer]UL[employer] 09-20-2021 08:24-0400 Body height 172.72 cm Eddavid Deanyer Work Phone: [facility] [facility] DO Work Phone: 09-20-2021 08:24-0400 Body mass index (BMI) [Ratio] 24.94 kg/m2 Almas Deanyer Work Phone: [facility] [facility] DO Work Phone: 09-20-2021 08:24-0400 Body surface area Derived from formula 1.88 m2 Almas Deanyer Work Phone: [facility] [facility] DO Work Phone: 09-20-2021 08:24-0400 Body weight 74.39 kg Almas Deanyer Work Phone: [facility] [facility] DO Work Phone: 09-20-2021 08:24-0400 Diastolic blood pressure 60 mm[Hg] Eddavid Ruiz Hemeyer Work Phone: [facility] [facility] DO Work Phone: 09-20-2021 08:24-0400 Heart rate 52 /min Eddavid Deanyer Work Phone: [facility] [facility] DO Work Phone: 09-20-2021 08:24-0400 Systolic blood pressure 130 mm[Hg] Edward Joseph Hemeyer Work Phone: -Located [facility] [facility] DO Work Phone: 01-01-2021 11:21-0500 Body Temperature 98.1 [degF] [facility] 01-01-2021 11:21-0500 Pulse (Heart Rate) 79 /min [facility] 01-01-2021 11:21-0500 Pulse Oximetry 96 % [facility] 01-01-2021 11:21-0500 Respiratory Rate 16 /min [facility] 01-01-2021 04:24-0500 BP Diastolic 80 mm[Hg] [facility] 01-01-2021 04:24-0500 BP Systolic 147 mm[Hg] [facility] 12-28-2020 12:10-0500 Height 175.26 cm [facility] 12-27-2020 04:15-0500 Body weight 75.6 kg [facility] 12-26-2020 16:15-0500 BMI (Body Mass Index) 24.9 kg/m2 [facility] 12-26-2020 11:46-0500 Pulse (Heart Rate) 101 /min [facility] 12-26-2020 11:46-0500 Respiratory Rate 20 /min [facility] 12-26-2020 11:21-0500 Body Temperature 98.3 [degF] [facility] 12-26-2020 11:21-0500 BP Diastolic 76 mm[Hg] [facility] 12-26-2020 11:21-0500 BP Systolic 146 mm[Hg] [facility] 12-26-2020 11:21-0500 Pulse Oximetry 93 % [facility] 12-26-2020 05:46-0500 Body weight 76.2 kg [facility] 12-24-2020 12:05-0500 Height 172.72 cm [facility] 12-17-2020 20:00-0500 Inhaled oxygen concentration 30 % [facility] 12-16-2020 11:47-0500 BMI (Body Mass Index) 25 kg/m2 [facility] 11-03-2020 15:18-0500 BP Diastolic 90 mm[Hg] [facility] 11-03-2020 15:18-0500 BP Systolic 156 mm[Hg] [facility] 11-03-2020 15:18-0500 Pulse (Heart Rate) 62 /min [facility] 11-03-2020 15:18-0500 Pulse Oximetry 100 % [facility] 11-03-2020 15:18-0500 Respiratory Rate 18 /min [facility] 11-03-2020 11:11-0500 BMI (Body Mass Index) 25.4 kg/m2 [facility] 11-03-2020 11:11-0500 Body Temperature 97.9 [degF] [facility] 11-03-2020 11:11-0500 Body weight 75.74 kg [facility] 11-03-2020 11:11-0500 Height 172.72 cm [facility] Encounters Encounter Date Encounter Type Care Provider Facility Start: 10-28-2024 End: 10-28-2024 Bamboo flowsheet Almas Tello MD Work Phone: [facility] Start: 10-28-2024 End: 10-28-2024 Bamboo flowsheet Almas Tello MD Work Phone: [facility] Start: 10-28-2024 End: 10-28-2024 Office outpatient visit 25 minutes Almas Tello MD Work Phone: [facility] Comment on above: Nausea (Primary Dx); Intractable acute post-traumatic headache; Blunt trauma of right eye, initial encounter; BMI 23.0-23.9, adult; Pneumonia of left lower lobe due to infectious organism Start: 10-28-2024 End: 10-28-2024 ambulatory ALMAS TELLO Not Available Start: 10-17-2024 End: 10-17-2024 Harmeetboo flowsheet Almas Tello MD Work Phone: [facility] Start: 10-17-2024 End: 10-17-2024 Bamboo flowsheet Almas Tello MD Work Phone: [facility] Start: 10-17-2024 End: 10-17-2024 Office outpatient visit 15 minutes Almas Tello MD Work Phone: [facility] Comment on above: Pneumonia of left lo wer lobe due to infectious organism (Primary Dx); COPD with acute exacerbation ([facility] Start: 10-17-2024 End: 10-17-2024 ambulatory ALMAS TELLO Not Available Start: 10-03-2024 End: 10-03-2024 Office outpatient visit 25 minutes Rob Merchant MD Work Phone: [facility] Comment on above: Coronary artery dise ase involving [place] coronary artery of [place] heart without angina pectoris (Primary Dx); History of PTCA; S/P CABG (coronary artery bypass graft); Mixed hyperlipidemia; Essential hypertension; Weight decreasing; BMI 22.0-22.9, adult; Former smoker Start: 10-03-2024 End: 10-03-2024 ambulatory [facility] Start: 09-19-2024 End: 09-19-2024 Clinisync Result Encounter [...] Available Start: 04-02-2024 End: 04-03-2024 ambulatory SHANTI Kaye OLMOS [facility] Start: 04-02-2024 End: 04-02-2024 Office outpatient visit 25 minutes Shanti Olmos MD Work Phone: [facility] Comment on above: Dysphonia (Primary D x); Vocal cord paralysis Start: 03-05-2024 End: 03-05-2024 Phys/qhp telephone evaluation 21-30 min Shanti Olmos MD Work Phone: [facility] Comment on above: Dysphonia (Primary D x); Vocal cord paralysis Start: 03-05-2024 End: 03-06-2024 ambulatory SHANTI Kaye IDALIA [facility] Start: 02-20-2024 End: 02-21-2024 ambulatory SAHNTI OLMOS [facility] Start: 02-20-2024 End: 02-20-2024 Office outpatient new 45 minutes Shanti Olmos MD Work Phone: [facility] Comment on above: Dysphonia (Primary D x); Vocal cord paralysis Start: 01-24-2024 End: 01-24-2024 ambulatory PRETTY ALVAREZ Not Available Start: 12-28-2023 Telephone encounter February Xochitl [facility] Comment on above: Care Coordination Start: 12-20-2023 End: 12-20-2023 Office outpatient visit 15 minutes Almas Tello MD Work Phone: [facility] Comment on above: Acute non-recurrent maxillary sinusitis (Primary Dx); Laryngitis; Body mass index (BMI) 23.0-23.9, adult Start: 12-20-2023 End: 12-20-2023 ambulatory ALMAS TELLO Not Available Start: 10-03-2023 End: 11-07-2023 Office outpatient visit 25 minutes Fahad Arce MD Work Phone: [facility] Comment on above: Coronary artery dise ase involving [place] coronary artery of [place] heart without angina pectoris (Primary Dx); History of PTCA; S/P CABG (coronary artery bypass graft); Mixed hyperlipidemia Start: 10-10-2022 Rx Renewal Almas Draper er Work Phone: [facility] [facility] DO Work Phone: Start: 09-27-2022 Office outpatient vi sit 25 minutes Almas Tello Work Phone: [facility] [facility] DO Work Phone: Start: 09-27-2022 ambulatory Almas Darby acility: Start: 12-24-2021 End: 12-25-[address] ALMAS TELLO Facility: Start: 11-17-2021 EKG, Provider: JESSICA BARTHOLOMEW SALES LEADER 1,[id number], Status: Pen, Time: 1:30 PM Almas Tello Work Phone: [facility] [facility] DO Work Phone: Start: 11-17-2021 NURSEVST, Provider: JESSICA BARTHOLOMEW SALES LEADER 1,[id number], Status: Pen, Time: 1:15 PM Almas Tello Work Phone: [facility] [facility] DO Work Phone: Start: 11-17-2021 Office outpatient vi sit 5 minutes Almas Tello Work Phone: [facility] [facility] DO Work Phone: Start: 11-17-2021 ambulatory YANETH Herrera y: Start: 11-16-2021 Patient encounter procedure Almas Tello Work Phone: [facility] [facility] DO Work Phone: Start: 10-11-2021 Rx Renewal Almas Draper er Work Phone: -Located [facility] [facility] DO Work Phone: Start: 09-20-2021 Office outpatient vi sit 25 minutes Almas Tello Work Phone: -Located [facility] [facility] DO Work Phone: Start: 04-15-2021 End: 04-16-[address] FAHAD ARCE Facility:[facility]1 Start: 01-13-2021 End: 07-14-2021 ambulatory [facility] Facility:[facility] Start: 01-07-2021 End: 01-07-2021 Patient encounter procedure Fahad Anguianopb -Lab [facility] Start: 01-07-2021 ambulatory [facility] Facility :[facility]1 Start: 12-26-2020 End: 01-01-2021 Evaluation and management of inpatient Fahad Arce -5 [facility] Start: 12-16-2020 End: 12-26-2020 Evaluation and management of inpatient Fahad Beytim -4 [facility] Start: 12-14-2020 End: 12-14-2020 Patient encounter procedure Fahad Arce -Electrodiagnostics Start: 11-26-2020 End: 11-26-2020 Patient encounter procedure Fahad Arce -Pre-Surgical Testing Start: 11-23-2020 End: 11-23-2020 Patient encounter procedure Fahad Anguianopb -Lab [facility] Start: 11-17-2020 End: 11-17-2020 Patient encounter procedure Fahad Arce -Pre-Surgical Testing Start: 11-03-2020 End: 11-03-2020 Admission to day surgery Fahad Anguianopb -[employer] Person Procedures Date Procedure Procedure Detail Performing Clinician Start: 10-03-2024 Ecg routine ecg w/least 12 lds w/i&r Rob Merchant MD Work Phone: Start: 09-19-2024 ALL CBC WITH AUTO DIFF Almas Tello MD Work Phone: Start: 09-19-2024 ALL LIPID PROFILE (FASTING) Almas ernandez MD Work Phone: Start: 09-19-2024 [facility] CMP (CMP) (FOR REMOTE [facility] USE) Almas Tello MD Work Phone: Start: [...] Phone: Start: 01-07-2021 Plain chest X-ray Fahad Arce Start: 01-01-2021 Plain chest X-ray Fahad Arce Start: 12-31-2020 Plain chest X-ray Fahad Arce Start: 12-28-2020 Plain chest X-ray Fahad Arce Start: 12-27-2020 Plain chest X-ray Fahad Arce Start: 12-26-2020 Plain chest X-ray Fahad Arce Start: 12-25-2020 Plain chest X-ray Fahad Arce Start: 12-24-2020 Plain chest X-ray Fahad Arce Start: 12-23-2020 Plain chest X-ray Fahad Arce Start: 12-22-2020 Plain chest X-ray Fahad Arce Start: 12-21-2020 End: 12-21-2020 Plain chest X-ray Fahad Arce Start: 12-20-2020 End: 12-20-2020 Plain chest X-ray Fahad Arce Start: 12-19-2020 Plain chest X-ray Fahad Arce Start: 12-18-2020 Plain chest X-ray Fahad Arce Start: 12-17-2020 Plain chest X-ray Fahad Arce Start: 12-16-2020 Plain chest X-ray Fahad Arce Start: 12-16-2020 Coronary artery bypass graft Fahad ambriz Start: 12-16-2020 CT head/brain wo con Fahad Arce Start: 12-14-2020 Bacteria identified Cx Nom (U) Fahad Baker Start: 12-14-2020 Urine culture Fahad Arce Start: 12-14-2020 Plain chest X-ray Fahad Arce Start: 11-23-2020 Bacteria identified Cx Nom (U) Fahad Baker Start: 11-23-2020 Urine culture Fahad Arce Start: 11-17-2020 Bacteria identified Cx Nom (U) Fahad Baker Start: 11-17-2020 Urine culture Fahad Arce Start: 11-17-2020 CT chest wo con Fahad Arce Start: 11-17-2020 Doppler ultrasonography of bilateral carotid arteries Fahad Arce Start: 11-17-2020 Plain chest X-ray Fahad Arce Start: 11-17-2020 Pulse volume recorder pneumoplethysmography Fahad Arce Start: 11-17-2020 Ultrasound peripheral vascular flow study Fahad Arce Start: 11-03-2020 [facility] Angio Fahad Beytim Cardiac catheterization Edwa maximo Tello Work Phone: [facility] Right Eye Almas Tello Work Phone: Coronary artery bypass graft Almas Tello Work Phone: Hernia repair Almas breen Work Phone: History of coronary artery bypass grafting S/P CABG (coronary artery bypass graft) Almas Tello Work Phone: History of coronary artery bypass grafting S/P CABG (coronary artery bypass graft) Fahad Arce MD Work Phone: History of coronary artery bypass grafting S/P CABG (coronary artery bypass graft) Rob Merchant MD Work Phone: History of percutane ous transluminal coronary angioplasty History of PTCA Almas Tello Work Phone: History of percutane ous transluminal coronary angioplasty History of PTCA Fahad Arce MD Work Phone: History of percutane ous transluminal coronary angioplasty History of PTCA Rob Merchant MD Work Phone: Operation on brain Almas Tello Work Phone: Procedure on prostate Almas Tello Work Phone: Plan of Treatment Date Care Activity Detail Author Start: 05-05-2029 DTaP/Tdap/Td Vaccines (2 - Td or Tdap) DTaP/Tdap/Td Vaccines (2 - Td or Tdap) [facility] Start: 10-03-2025 End: 10-03-2025 Patient encounter procedure 10/03/2025 10:50 AM EST Office Visit [facility] [address] [facility] [address] [place] [address] Rob Merchant MD [address] [facility] [address] [place] [address] [facility] Start: 05-29-2025 End: 05-29-2025 Patient encounter procedure 05/29/2025 8:30 AM EDT Office Visit [facility] [address] [place] [address] Mika Espinoza MD [address] [place] [address] [facility] Start: 01-14-2025 End: 01-14-2025 Patient encounter procedure 01/14/2025 8:50 AM EST Office Visit [facility] [address] [place] [address] Mika Espinoza MD [address] [place] [address] [facility] Start: 12-13-2024 End: 12-13-2024 Patient encounter procedure 12/13/2024 10:30 AM EST Office Visit [facility] [address] [facility] [address] [place] [address] Rob Merchant MD [address] [facility] [address] [place] [address] [facility] Start: 10-28-2024 End: 10-28-2025 CT Head WO contrast CT head wo IV contrast Imaging Routine Intractable acute post-traumatic headache Blunt trauma of right eye, initial encounter Expected: 10/28/2024, Expires: 10/28/2025 [facility] Work Phone: Comment on above: Expected: 10/28/2024, Expires: Start: 10-28-2024 End: 10-28-2024 Patient encounter procedure 10/28/2024 10:30 AM EST Office Visit [facility] [address] [place] [address] Almas Tello MD [address] [place] [address] (Fax) Arrived [facility] Comment on above: Arrived Start: 10-17-2024 End: 10-17-2024 Patient encounter procedure 10/17/2024 9:00 AM EST Office Visit [facility] [address] [place] [address] Almas Tello MD [address] [place] [address] (Fax) Arrived [facility] Comment on above: Arrived Start: 10-03-2024 End: 10-03-2025 Alanine aminotransferase [Enzymatic activity/volume] in Serum or Plasma by With P-5'-P Alanine Aminotransferase Lab Routine Mixed hyperlipidemia Expected: 10/03/2024 (Approximate), Expires: 10/03/2025 [facility] Work Phone: Comment on above: Expected: 10/03/2024 (Approximate), Expi res: 10/03/2025 Start: 10-03-2024 End: 10-03-2025 Aspartate aminotransferase [Enzymatic activity/volume] in Serum or Plasma by With P-5'-P Aspartate Aminotransferase Lab Routine Mixed hyperlipidemia Expected: 10/03/2024 (Approximate), Expires: 10/03/2025 [facility] Work Phone: Comment on above: Expected: 10/03/2024 (Approximate), Expi res: 10/03/2025 Start: 10-03-2024 End: 10-03-2025 Basic metabolic 2000 panel - Serum or Plasma Basic Metabolic Panel Lab Routine Essential hypertension Expected: 10/03/2024 (Approximate), Expires: 10/03/2025 [facility] Work Phone: Comment on above: Expected: 10/03/2024 (Approximate), Expi res: 10/03/2025 Start: 10-03-2024 End: 10-03-2025 Lipid 1996 panel - Serum or Plasma Lipid Panel Lab Routine Mixed hyperlipidemia Expected: 10/03/2024 (Approximate), Expires: 10/03/2025 [facility] Service [facility] Work Phone: Comment on above: Expected: 10/03/2024 (Approximate), Expi res: 10/03/2025 Start: 10-03-2024 End: 10-03-2025 Thyrotropin [Units/volume] in Serum or Plasma Thyroid Stimulating Hormone Lab Routine Coronary artery disease involving [place] coronary artery of [place] heart without angina pectoris History of PTCA Mixed hyperlipidemia Essential hypertension Weight decreasing Expected: 10/03/2024 (Approximate), Expires: 10/03/2025 [facility] Work Phone: Comment on above: Expected: 10/03/2024 (Approximate), Expi res: 10/03/2025 Start: 10-01-2024 End: 10-01-2024 Patient encounter procedure 10/01/2024 9:50 AM EST Office Visit [facility] [address] [place] [address] Fahad Arce MD [address] [place] [address] [facility] Start: 07-28-2024 COVID-19 Vaccine (3 - 2024-25 season) COVID-19 Vaccine ( season) [facility] Start: 07-28-[address] [facility] Start: 04-02-2024 End: 04-02-2024 Patient encounter procedure 04/02/2024 9:30 AM EDT Office Visit [facility] [address] [place] [id number] [place] [address] [address] [place] [address] [facility] Start: 03-05-2024 End: 03-05-2024 Telemedicine consultation with patient 03/05/2024 3:30 PM EDT Telemedicine [facility] [address] [phone] [place] [address] [address] Department [place] [address] [facility] Start: 02-20-2024 End: 02-20-2024 Patient encounter procedure 02/20/2024 9:15 AM EDT Office Visit [facility] [address] [place] [address] Mika Espinoza MD [address] [place], [place] [id number] [facility] Start: 10-03-2023 FUV, Provider: Fahad Arce, Status: Pen, Time: 9:30 AM FUV, Provider: Fahad Arce, Status: Pen, Time: 9:30 AM [facility] 250 DO Work Phone: Start: 07-28-2023 COVID-19 Vaccine ( season) COVID-19 Vacc[address] () [facility] Start: 07-28-2023 Influenza vaccination Influenza Vaccine (#1) [facility] Start: 09-27-2022 FUV, Provider: Fahad Arce, Status: Pen, Time: 9:40 AM FUV, Provider: Fahad Arce, Status: Pen, Time: 9:40 AM -[facility] 250 DO Work Phone: Start: 10-08-2021 Pneumococcal Vaccine: 65+ Years (2 - PCV) Pneumococcal Vaccine: 65+ Years (2 - PCV) [facility] Start: 10-08-2021 Pneumococcal Vaccine: 65+ Years (2 of 2 - PCV) Pneumococcal Vaccine: 65+ Years (2 of 2 - PCV) [facility] Start: 04-22-2021 COVID-19 Vaccine (3 - Pfizer series) COVID-19 Vaccine (3 - Pfizer series) [facility] Start: 2020 RSV High Risk: (Elderly (60+) or Population) (1 - 1-dose 75+ series) RSV High Risk: (Elderly (60+) or Population) (1 - 1-dose 75+ series) [facility] Start: 2005 RSV patients and/or patients aged 60+ years (1 - 1-dose 60+ series) RSV patients and/or patients aged 60+ years (1 - 1-dose 60+ series) [facility] Start: 1995 Zoster Vaccines (1 of 2) Zoster Vaccines (1 of 2) [facility] Start: 1967 DTaP/Tdap/Td Vaccines (1 - Tdap) DTaP/Tdap/Td Vaccines (1 - Tdap) [facility] Start: 1963 Hepatitis C screening Hepatitis C Screening [facility] Start: 1945 Lip[address] Lipid Panel [facility] Start: 1945 Yearly Adult Physical Yearly Adult Physical [facility] Patient Education Soft Diet (DC) Abuse of Alcohol (DC) CABG (Coronary Artery Bypass Graft) (DC) [facility] Patient referral [facility] Immunizations Immunization Date Immunization Notes Care Provider Fa cili 09-09-2022 Seasonal trivalent influenza vaccine, adjuvanted, preservative free Almas Ruiz Dianneyer Work Phone: [facility] 250 DO Work Phone: 09-09-2022 influenza virus vacc ine, unspecified formulation Fahad Arce MD Work Phone: [facility] Work Phone: 09-14-2021 Seasonal trivalent influenza vaccine, adjuvanted, preservative free Almas Ruiz Hemeyer Work Phone: [facility] 250 DO Work Phone: 02-25-2021 Pfizer-BioNTech COVI D-19 Vacc 30 MCG/0.3ML Intramuscular Suspension Almas Ruiz [employer] Work Phone: [facility] 250 DO Work Phone: 02-04-2021 Pfizer-BioNTech COVI D-19 Vacc 30 MCG/0.3ML Intramuscular Suspension Almas Ruiz Hemeyer Work Phone: [facility] 250 DO Work Phone: 10-08-2020 pneumococcal polysaccharide vaccine, 23 valent Fahad Arce MD Work Phone: [facility] Work Phone: 10-02-2020 pneumococcal polysaccharide vaccine, 23 valent Almas Ruiz Dianneyer Work Phone: [facility] 250 DO Work Phone: 08-21-2020 Seasonal trivalent influenza vaccine, adjuvanted, preservative free Almas Ruiz Hemeyer Work Phone: [facility] 250 DO Work Phone: 07-28-2020 influenza, seasonal, injectable Almas Deanyer Work Phone: [facility] 250 DO Work Phone: Payers Date Payer Category Payer Medicare [id number] 2008 Managed Care (Private) [facility] [id number] 2008 Managed Care HMO (unspecified) [id number] 2008 Private Health Insurance [employer] [facility] [id number] 2008-Present [address] [place] [address] [id number] 1959 Medicare [id number] 1959 Private Health Insurance [id number] 1945 Unknown [id number] 9.2.593 1945 Unknown [id number] 2.16.840.1.445473.3.57 9.2.593 1945 Unknown [id number] 2.16.840.1.582723.3.57 9.2.593 1945 Unknown [id number] 2.16.840.1.691496.3.57 9.2.593 1945 Unknown [id number] 2.16.840.1.488116.3.57 9.2.593 1945 Unknown [id number] 2.16.840.1.512175.3.57 9.2.356 1945 Unknown [id number] 2.16.840.1.191932.3.57 9.2.356 1945 Unknown [id number] 2.16.840.1.873095.3.57 9.2.1245 1945 Unknown [id number] 2.16.840.1.413417.3.57 9.2.1245 1945 Unknown [id number] 2.16.840.1.214298.3.57 9.2.1245 1945 Unknown [id number] 2.16.840.1.523044.3.57 9.2.1244 1945 Unknown [id number] 2.16.840.1.866509.3.57 9.2.1259 1945 Unknown [id number] 2.16.840.1.446313.3.57 9.2.1259 1945 Unknown [id number] 2.16.840.1.168794.3.57 9.2.1259 1945 Unknown [id number] 2.16.840.1.871413.3.57 9.2.1259 1945 Unknown [id number] 2.16.840.1.716385.3.57 9.2.1259 1945 Unknown [id number] 2.16.840.1.071224.3.57 9.2.1259 1945 Unknown [id number] 2.16.840.1.319258.3.57 9.2.1259 1945 Unknown [id number] 2.16.840.1.933475.3.57 9.2.1259 Self-pay Self Pay [id number] Unknown [employer] Social History Date Type Detail Facility Start: 11-17-2020 End: 10-12-2023 Tobacco smoking status NHIS Ex-smoker (finding) [facility] Start: 1945 Sex Assigned At Male F [facility] Start: 10-03-2023 End: 10-28-2024 Alcohol consumption of one to four drinks per day Alcohol consumption of one to four drinks per day [facility] Comment on above: QUIT 1999; History of tobacco use Current smoker [facility] Work Phone: History of tobacco use Cigarette Smoker [facility] Work Phone: Start: 10-03-2023 End: 10-12-2023 Tobacco use and exposure Smokeless tobacco non-user [facility] Work Phone: Start: 10-03-2023 End: 10-28-2024 Alcohol intake Current drinker of alcohol (finding) [facility] Work Phone: Start: 10-03-2023 End: 10-28-[address] [facility] Start: 1945 Sex Assigned At Not on file [facility] Work Phone: Start: 09-23-2023 End: 10-03-2024 Exposure to SARS-CoV-2 (event) Not sure [facility] History of tobacco use Passive smoker [facility] Start: 08-09-2023 Alcohol Comment caffeine:3-4 c ups per day [facility] Start: 02-24-2024 End: 03-05-2024 Exposure to SARS-CoV-2 (event) Unable to assess [facility] Goals Date Patient Goal Desired Activity /State Functional Status Date Assessment Result Facility 01-01-2021 Functional status Patient at Baseline [facility] 12-26-2020 Functional status Patient is Pro gressing Toward Baseline [facility] Mental Status Date Assessment Result Facility 01-01-2021 Cognitive function Cognitive Sta tus Patient at Baseline [facility] 12-26-2020 Cognitive function Cognitive Sta tus Patient is Progressing Toward Baseline [facility] Clinical Notes 03-19-2021 to 10-28-2024 Almas Tello MD - 10/28/2024 10:30 AM Scarlet Tello MD - 10/17/2024 9:00 AM Marcos Merchant MD - 10/03/2024 3:30 PM ESTPatient Chiara Olmos MD - 04/02/2024 9:30 AM EDT Note Date & Type Note Facility 10-28-2024 History of Present illness Narrative Images from the original note were not included. Patient ID: Stan Mcdonald is a 78 y.o. male who presents for: Pt states he still is not feeling well. He is still coughing some and getting bloody mucous up. He states he has bad headaches still. He started with nausea yesterday and vomited 1 time this morning while taking medication. Review of Systems Constitutional: Negative for chills and fever. HENT: Positive for congestion. Negative for ear pain, sinus pressure, sinus pain and sore throat. Respiratory: Positive for cough. Negative for shortness of breath and wheezing. Gastrointestinal: Positive for nausea and vomiting. Negative for abdominal pain. Neurological: Positive for headaches. Negative for light-headedness. He states he got the bruise over his right when he was trying to get a pillow out of the couch and it popped out in his hand came up and hit him in the face. He denied loss of consciousness. He denies any falls. He believes he had the headache prior to this event which was several days ago. Objective In general the patient is in no acute distress, But obviously struggling with the pain. Bilateral ears, canals are within normal limits. Right TM is transparent and somewhat retracted. Left TM is transparent and somewhat retracted. No fluid layer. Bilateral nares demonstrate inflamed mucosa. Oropharynx has moist mucosa there is no specific evidence of thrush. There is mild erythema of the pharynx. Shoddy bilateral anterior cervical adenopathy. No signs of respiratory distress. Patient is speaking full sentences. There are Diffusely decreased but symmetrical breath sounds. No rhonchi or rales are appreciated. No wheezes. Skin is warm and dry Neurologic screening examination the patient is alert and oriented x3. Pupils are equal round reactive to light. Screening exams demonstrate all 4 extremities to be symmetrical in strength and coordination. He easily gets in and out of the chair and on and off the exam table. His gait is fairly normal for him which is just slightly wide-based as usual. He does have some paracervical hypertonicity extending up into the suboccipital region. The suboccipital notches are not tender. The spinous processes are not tender. Visit Vitals Pulse 68 Ht 5' 8 Wt 156 lb SpO2 99% BMI 23.72 kg/m Smoking Status Former BSA 1.84 m No Known Allergies Current Outpatient Medications on File Prior to Visit Medication Sig Dispense Refill albuterol HFA 90 mcg/act inhaler Inhale 2 puffs every 4 (four) hours if needed for wheezing 54 g 0 amoxicillin (Amoxil) 500 MG capsule Take by mouth See administration instructions TAKE 4 CAPSULES BY MOUTH 1 HOUR PRIOR TO DENTAL APPOINTMENT aspirin 81 MG EC tablet Take 81 mg by mouth in the morning. fluorouracil (Efudex) 5 % cream Apply to directed areas on the scalp and sides of face twice a day x 14 days. Dispense 30 day supply but only use for 14 days. 40 g 0 metoprolol tartrate (Lopressor) 25 MG tablet Take 12.5 mg by mouth in the morning and 12.5 mg in the evening. predniSONE (Deltasone) 10 MG tablet Every 2 day tapering dose; 5,5,4,4,3,3,2,2,1,1,0.5,0.5 31 tablet 0 rosuvastatin (Crestor) 20 MG tablet Take 20 mg by mouth in the morning. Spacer/Aero-Holding Chambers (BreatheRite Raghu Spacer Adult) misc 2 puffs 4 (four) times a day as needed (sob and cough) 1 each 0 [DISCONTINUED] cefuroxime (Ceftin) 500 MG tablet Take 1 tablet (500 mg) by mouth in the morning and 1 tablet (500 mg) before bedtime. Do all this for 10 days. 20 tablet 0 No current facility-administered medications on file prior to visit. 1. Intractable acute post-traumatic headache I do think he seems to be in more pain than I would expect from a sinus infection which is what he is attributing this to. I did question him a 2nd time any still states the bruise came after the headache. Due to the amount of pain he is having we are going to order a CT scan. This would also visualize the sinuses. - CT head wo IV contrast; Future 2. Blunt trauma of right eye, initial encounter As noted above. Vision is grossly intact. - CT head wo IV contrast; Future 3. BMI 23.0-23.9, adult 4. Pneumonia of left lower lobe due to infectious organism The airways actually sound better than I remember them. He distinctly had localization in the left lower lung field at the last visit which I am unable to reproduce today. With the possibility that the pneumonia still resolving in the possibility of a sinus infection we are going to change in extend his antibiotic. - levoFLOXacin (Levaquin) 750 MG tablet; Take 1 tablet (750 mg) by mouth Daily for 7 days Dispense: 7 tablet; Refill: 0 5. Nausea (Primary) He just had the 1 episode of vomiting. It was during pill swallowing with orange juice. I discussed with him that I would send in nausea medication but if he begins to have more frequent vomiting or change in his mentation than he is present to the [facility] room instead of waiting for outpatient CT scan. - ondansetron (Zofran) 4 MG tablet; Take 1 tablet (4 mg) by mouth every 8 (eight) hours if needed for nausea or vomiting for up to 7 days Dispense: 20 tablet; Refill: 0 documented in this encounter [facility] 10-17-2024 History of Present illness Narrative Images from the original note were not included. Patient ID: Stan Mcdonald is a 78 y.o. male who presents for: Upper Respiratory Infection Patient complains of symptoms of a URI. Symptoms include achiness, congestion, headache described as sinus headache, nasal congestion, productive cough with green colored sputum, and sinus pressure. Onset of symptoms was 5 days ago, and has been gradually worsening since that time. Treatment to date: sudafed but not helping . Review of Systems Constitutional: Negative for chills and fever. HENT: Positive for congestion, sinus pressure and sinus pain. Negative for ear pain and sore throat. Respiratory: Positive for cough. Negative for shortness of breath and wheezing. Neurological: Positive for headaches. Negative for light-headedness. Objective In general the patient is pleasant and in no acute distress. Bilateral ears, canals are within normal limits. Right TM is transparent and somewhat retracted. Left TM is transparent and somewhat retracted. No fluid layer. Bilateral nares demonstrate inflamed mucosa. Oropharynx has moist mucosa there is no specific evidence of thrush. There is mild erythema of the pharynx. Shoddy bilateral anterior cervical adenopathy. No signs of respiratory distress. Patient is speaking full sentences. There are asymmetrical breath sounds With a decreased but still present in the left lower lung field. No rales are appreciated. He does have some rhonchi in the left lower lung field. Diffuse and mild inspiratory wheezes. Skin is warm and dry Visit Vitals Pulse 50 Ht 5' 8 Wt 156 lb SpO2 96% BMI 23.72 kg/m Smoking Status Former BSA 1.84 m No Known Allergies Current Outpatient Medications on File Prior to Visit Medication Sig Dispense Refill albuterol HFA 90 mcg/act inhaler Inhale 2 puffs every 4 (four) hours if needed for wheezing 18 g 0 amoxicillin (Amoxil) 500 MG capsule Take by mouth See administration instructions TAKE 4 CAPSULES BY MOUTH 1 HOUR PRIOR TO DENTAL APPOINTMENT aspirin 81 MG EC tablet Take 81 mg by mouth in the morning. fluorouracil (Efudex) 5 % cream Apply to directed areas on the scalp and sides of face twice a day x 14 days. Dispense 30 day supply but only use for 14 days. 40 g 0 metoprolol tartrate (Lopressor) 25 MG tablet Take 12.5 mg by mouth in the morning and 12.5 mg in the evening. rosuvastatin (Crestor) 20 MG tablet Take 20 mg by mouth in the morning. Spacer/Aero-Holding Chambers (BreatheRite Raghu Spacer Adult) misc 2 puffs 4 (four) times a day as needed (sob and cough) 1 each 0 [DISCONTINUED] predniSONE (Deltasone) 10 MG tablet Every 2 day tapering dose; 5,5,4,4,3,3,2,2,1,1,0.5,0.5 31 tablet 0 No current facility-administered medications on file prior to visit. 1. Pneumonia of left lower lobe due to infectious organism (Primary) Acute problem. No signs respiratory distress. In prescribing a new medication consideration of the following encompasses moderate decision making: the current prescriptions and supplements, the current allergies and medication intolerances, the current medical conditions, and potential drug interactions. Risks, benefits, and reason for starting their medication were discussed. The patient was given a chance to ask questions today and all questions were answered. The patient is to contact us if any other questions arise or if any problems occur with the adjustment in their medication. - cefuroxime (Ceftin) 500 MG tablet; Take 1 tablet (500 mg) by mouth in the morning and 1 tablet (500 mg) before bedtime. Do all this for 10 days. Dispense: 20 tablet; Refill: 0 2. COPD with acute exacerbation ([facility]) Chronic problem with acute exacerbation. He has not been using his albuterol as he states he is out. - albuterol HFA 90 mcg/act inhaler; Inhale 2 puffs every 4 (four) hours if needed for wheezing Dispense: 54 g; Refill: 0 documented in this encounter [facility] 10-03-2024 History of Present illness Narrative Subjective Stan Mcdonald is a 78 y.o. male Chief Complaint Annual Exam HPI Patient is here for follow-up continue management for coronary arteries and hyperlipidemia. He is a former patient of Dr. Arce. He is known to have history of coronary artery disease. He underwent bypass surgery back in 2020 which including JARQUIN to the LAD and sequential to diagonal, sequential vein graft to OM1 and OM 2, and sequential vein graft to the right coronary artery and PDA. Since the last time he was seen he denies any cardiac complaints chest pain, palpitation, lightheadedness, dizziness or syncope. He has noticed unexplained weight loss a little bit of tremor and excessive sweating. His recent laboratory data noted and reviewed with him. His lipid is suboptimally controlled. Assessment 1. Coronary artery disease with prior 6 vessel bypass surgery back in 2020 including JARQUIN to the LAD and sequential to diagonal, vein graft to OM1 and sequential to OM 2-1/3 vein graft sequential to the RCA and PDA. Patient is stable with functional class I 2. Hyperlipidemia not well-controlled 3. Hypertension not well-controlled 4. Patient reports symptoms of excessive sweating and unintentional weight loss rule out hypothyroidism Plan 1. I advised the patient to start lisinopril 5 mg daily and I advised him in regards to nonpharmacologic approach for management for hypertension 2. I advised the patient to increase his Crestor to 40 mg daily 3. I advised him to repeat his lab work including TSH to rule out hyperthyroidism 4. I advised him to have a blood pressure check in 6 weeks and follow-up in 6-month Review of Systems All other systems reviewed and are negative. Vitals: 10/03/24 1511 10/03/24 1514 BP: 172/86 158/88 BP Location: Left arm Right arm Patient Position: Sitting Sitting Pulse: 61 Weight: 68 kg (150 lb) Height: 1.727 m (5' 8 ) EKG done in office today Objective Physical Exam Constitutional: Appearance: Normal appearance. HENT: Nose: Nose normal. Neck: Vascular: No carotid bruit. Cardiovascular: Rate and Rhythm: Normal rate. Pulses: Normal pulses. Heart sounds: Normal heart sounds. Pulmonary: Effort: Pulmonary effort is normal. Abdominal: General: Bowel sounds are normal. Palpations: Abdomen is soft. Musculoskeletal: General: Normal range of motion. Cervical back: Normal range of motion. Right lower leg: No edema. Left lower leg: No edema. Skin: General: Skin is warm and dry. Neurological: General: No focal deficit present. Mental Status: He is alert. Psychiatric: Mood and Affect: Mood normal. Behavior: Behavior normal. Thought Content: Thought content normal. Judgment: Judgment normal. Allergies Patient has no known allergies. Current Medications Current Outpatient Medications: aspirin 81 mg EC tablet, Take 1 tablet (81 mg) by mouth once daily., Disp: , Rfl: metoprolol tartrate (Lopressor) 25 mg tablet, Take 0.5 tablets (12.5 mg) by mouth 2 times a day., Disp: 180 tablet, Rfl: 3 milk thistle 175 mg tablet, Take 1 tablet (175 mg) by mouth once daily., Disp: , Rfl: testosterone cypionate (Depo-Testosterone) 100 mg/mL injection, Inject into the muscle every 14 (fourteen) days., Disp: , Rfl: lisinopril 5 mg tablet, Take 1 tablet (5 mg) by mouth once daily., Disp: 30 tablet, Rfl: 11 rosuvastatin (Crestor) 40 mg tablet, Take 1 tablet (40 mg) by mouth once daily., Disp: 90 tablet, Rfl: 3 Assessment/Plan 1. Coronary artery disease involving [place] coronary artery of [place] heart without angina pectoris Follow Up In Cardiology ECG 12 Lead Thyroid Stimulating Hormone Follow Up In Cardiology Thyroid Stimulating Hormone 2. History of PTCA Follow Up In Cardiology Thyroid Stimulating Hormone Thyroid Stimulating Hormone 3. S/P CABG (coronary artery bypass graft) Follow Up In Cardiology 4. Mixed hyperlipidemia rosuvastatin (Crestor) 40 mg tablet Lipid Panel Aspartate Aminotransferase Alanine Aminotransferase Thyroid Stimulating Hormone Lipid Panel Aspartate Aminotransferase Alanine Aminotransferase Thyroid Stimulating Hormone 5. Essential hypertension Follow Up In Cardiology lisinopril 5 mg tablet Basic Metabolic Panel Thyroid Stimulating Hormone Basic Metabolic Panel Thyroid Stimulating Hormone 6. Weight decreasing Thyroid Stimulating Hormone Thyroid Stimulating Hormone 7. BMI 22.0-22.9, adult 8. Former smoker Scribe Attestation By signing my name below, I, Brigitte Ruma DUBOSE , Scribe attest that this documentation has been prepared under the direction and in the presence of Rob Merchant MD. Provider Attestation - Scribe documentation All medical record entries made by the Scribe were at my direction and personally dictated by me. I have reviewed the chart and agree that the record accurately reflects my personal performance of the history, physical exam, discussion and plan. documented in this encounter [facility] Work Phone: 10-03-2024 Instructions Toya Sanchez LPN - 10/03/2024 3:30 PM EST Please bring all medicines, vitamins, and herbal supplements with you when you come to the office. Prescriptions will not be filled unless you are compliant with your follow up appointments or have a follow up appointment scheduled as per instruction of your physician. Refills should be requested at the time of your visit. documented in this encounter [facility] Work Phone: 04-02-2024 History of Present illness Narrative Associated [...] developed, alert and appropriate, no distress, voice [id number] RESPIRATORY: Breathing quietly, no stridor EYES: Pupils [...] procedure well. ------ Shanti Olmos MD, MAEd Document Review Specialist [facility] Department of Otolaryngology - Head and Neck Surgery [facility] The total time I spent in [...] Total: 30 minutes documented in this encounter [facility] Work Phone: 03-05-2024 History of Present illness [...] developed, alert and appropriate, no distress, voice [id number] RESPIRATORY: Breathing quietly, no stridor Last Recorded Vitals There were no vitals taken for this visit. RESULTS Patient Reported Outcome Measures N/A Laboratory, Radiology, and Pathology I personally reviewed the following results, with the following interpretation: CT neck with contrast, CT chest from 02/08/24 -no visualized masses or lesions -right arytenoid prolapse PROCEDURES Procedures none ------ Shanti Olmos MD, MAEd Document Review Specialist [facility] Department of Otolaryngology - Head and Neck Surgery [facility] The total time I spent in [...] Total: 40 minutes documented in this encounter [facility] Work Phone: 02-20-2024 History of Present illness [...] developed, alert and appropriate, no distress, voice [id number] RESPIRATORY: Breathing quietly, mild stridor on deep [...] fold hypomobility, but with good tone ------ Shanit Olmos MD, MAEd Document Review Specialist [facility] Department of Otolaryngology - Head and Neck Surgery [facility] The total time I spent in [...] of the procedure(s). documented in this encounter [facility] Work Phone: 12-28-2023 Telephone encounter Note I [...] if he is not better after treatment. [facility] 12-28-2023 Miscellaneous Notes I did [...] do from here. documented in this encounter [facility] 12-28-2023 Telephone encounter Note He is going to come up here in about 20 minutes. I'll leave note open in case you need it to rx [facility] 12-28-2023 Telephone encounter Note Pt called and stated in VM he wanted to know if he could talk to EH. He states the antibiotic he put him on has helped some but not much and he wanted to know what to do from here. [facility] 12-20-2023 History of Present illness Narrative Patient [...] (BMI) 23.0-23.9, adult documented in this encounter [facility] 10-03-2023 History of Present illness Narrative Subjective Stan Waskielis is a 77 y.o. male Chief Complaint Annual Exam [facility] Patient returns in follow-up of problems as [...] Rfl: Assessment/Plan 1. Coronary artery disease involving [place] coronary artery of [place] heart without angina pectoris Asymptomatic ever since revascularization. No signs symptoms or manifestations of progression. Surgery was several years ago and he is stable. 2. History of PTCA No recurrence of coronary symptomatology since revascularization 3. S/P CABG (coronary artery bypass graft) As above 4. Mixed hyperlipidemia Well-controlled on current therapy. documented in this encounter [facility] Work Phone: 10-03-2023 Instructions Jesus Evans MA [...] of your visit. documented in this encounter [facility] Work Phone: 03-23-2021 Note Rounds at this time with RAVINDER Mayer, Dr Menendez. Patient is alert & involved in plan of care. Labs & diagnostics reviewed. Contact information provided with white board updated. Patient will discharge home with [facility] & he has a FWW at home already. From home with family who can transport at discharge. Anticipated discharge home 03/23 pending therapy evaluations. CRM to follow. [facility] Comment on above: Result Comment: Elec tronically Signed By: Shayy SCHOFIELD, Leyla Fajardo\.br\Date and Time Signed: 03/23/21 09:24 EDT 03-22-2021 Note PT Evaluation comple dora with an AMPAC score of 17/24. Pt functioning at a CGA level and able to ambulate 32 feet with FWW. Will follow daily. Will provide recommendation on POD # 1 [facility] 03-22-2021 Note Reason for Consultat ion [...] made to ensure accuracy, however, inadvertently computerized heel builder machine mistakes may be present. Estuardo Menendez Hospitalist [...] Osteo Bi-Flex, 2 (more content not included)... [facility] Comment on above: Result Comment: Elec tronically Signed By: GEMMA CHEW, Estuardo Portillo\.br\Date and Time Signed: 03/22/21 12:31 EDT 03-19-2021 Note [id number] [facility] Evaluation note Diagnosis Coronary artery disease involving [place] coronary artery of [place] heart without angina pectoris- Primary History of PTCA Postsurgical percutaneous transluminal coronary angioplasty status S/P CABG (coronary artery bypass graft) Postsurgical aortocoronary bypass status Mixed hyperlipidemia documented in this encounter [facility] Work Phone: Evaluation note* Diagnosis Acute non-recurrent maxillary sinusitis- Primary Laryngitis Acute laryngitis, without mention of obstruction Body mass index (BMI) 23.0-23.9, adult documented in this encounter [facility] HealthcareEvaluation [facility]* Diagnosis Dysphonia- Primary Vocal cord paralysis Unspecified paralysis of vocal cords or larynx documented in this encounter [facility] Work Phone: Evaluation note* Diagnosis Dysphonia- Primary Vocal cord paralysis Unspecified paralysis of vocal cords or larynx documented in this encounter [facility] Work Phone: Evaluation note* Diagnosis Dysphonia- Primary Vocal cord paralysis Unspecified paralysis of vocal cords or larynx documented in this encounter [facility] Work Phone: Evaluation note* Diagnosis Coronary artery disease involving [place] coronary artery of [place] heart without angina pectoris- Primary History of PTCA Postsurgical percutaneous transluminal coronary angioplasty status S/P CABG (coronary artery bypass graft) Postsurgical aortocoronary bypass status Mixed hyperlipidemia Essential hypertension Unspecified essential hypertension Weight decreasing Loss of weight BMI 22.0-22.9, adult Former smoker Personal history of tobacco use, presenting hazards to health documented in this encounter [facility] Work Phone: Evaluation note* Diagnosis Pneumonia of left lower lobe due to infectious organism- Primary COPD with acute exacerbation (CMS/HCC) documented [facility] Diagnosis Nausea- Primary Nausea alone Intractable acute post-traumatic headache Blunt trauma of right eye, initial encounter BMI 23.0-23.9, adult Pneumonia of left lower lobe due to infectious organism documented [facility] encounter [facility] HealthcareHistory of Present illness NarrativePatient returns in follow-up [...] diet lifestyle modification and weight maintenance were discussed.-Located [facility] Work Phone: History of Present illness NarrativePatient [...] his diet and continued exercise and/or activity level.-[facility] Constant Contact DO Work Phone: Reason for referral (narrative)* Consultation (Routine) - Authorized Specialty Diagnoses / Procedures Referred By Contac t Referred To Contact Cardiology Diagnoses Coronary artery disease involving [place] coronary artery of [place] heart without angina pectoris History of PTCA S/P CABG (coronary artery bypass graft) Procedures Follow Up In Cardiology Fahad Arce MD [address] [facility] 2, [address] [address] Fahad Arce MD [address] [facility] 2, [address] [address] Referral ID Status Reason Start Date Expiration Date V isits Requested Visits Authorized [id number] Authorized 10/03/2023 10/02/[address] 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 * to Dr. Fahad Arec MD for review * to Barbara Franco [...] paralysis Dysphonia [place] [address] Department of Otolaryngology [place] [id number] Referral ID Status Reason Start Date Expiration Date V isits Requested Visits Authorized [id number] Pending Review 02/23/2024 02/22/2025 1 1 Referral ID Status Reason Start Date Expiration Date V isits Requested Visits Authorized [id number] Pending Review 04/02/2024 04/02/2025 1 1 Additional Source Comments (unrecognized sect ion and content) No Status Records FoundNo Status Records FoundNo Status Records FoundNo Status Records FoundNo Status Records FoundNo Status Records FoundNo Status Records FoundNo Status Records FoundNo Status Records Found INFORMATION SOURCE (unrecogn ized section and content) DATE CREATED AUTHOR 10/28/2020 [facility] DATE CREATED AUTHOR AUTHOR'S ORGANIZ ATION 03/29/2021 [facility] DATE CREATED AUTHOR AUTHOR'S ORGANIZ ATION 12/29/2021 [facility] DATE CREATED AUTHOR AUTHOR'S ORGANIZ ATION 01/20/2022 [facility] DATE CREATED AUTHOR AUTHOR'S ORGANIZ ATION 09/28/2022 [facility] DATE CREATED AUTHOR AUTHOR'S ORGANIZ ATION 09/28/2022 [facility] DATE CREATED AUTHOR AUTHOR'S ORGANIZ ATION 04/08/[address] [facility] DATE CREATED AUTHOR AUTHOR'S ORGANIZ ATION 10/05/2024 [facility] DATE CREATED AUTHOR AUTHOR'S ORGANIZ ATION 10/29/2024 [facility] dical Specialists EPIC Reason for Visit (unrecogniz ed section and content) Reason Comments Annual Exam 1yr Reason Onset Date Comments Care Coordination 12/28/2023 Reason Comments Dysphonia Reason Comments Follow-up Reason Comments Annual Exam [facility] ptWith EKG Specialty Diagnoses / Procedures Referred By Contac t Referred To Contact Cardiology Diagnoses Coronary artery disease involving [place] coronary artery of [place] heart without angina pectoris History of PTCA S/P CABG (coronary artery bypass graft) Procedures Follow Up In Cardiology Fahad Arce MD McGuinn, William P, MD Retired From Practice Referral ID Status Reason Start Date Expiration Date V isits Requested Visits Authorized [id number] Authorized 10/03/2023 10/02/2024 1 1 Reason Comments URI Reason Comments URI Care Teams (unrecognized sec tion and content) Flute Polisher Relationship Specialty Start Date End Date Almas Tello MD [address] [place] [address] PCP - General 10/27/20 Fahad Arce MD [address] [facility] [address] [place] [address] PCP - MSSP ACO Attributed Provider 11/27/22 Flute Polisher Relationship Specialty Start Date End Date Almas Tello MD [address] [place] [address] PCP - General Family Medicine 04/04/23 Flute Polisher Relationship Specialty Start Date End Date Almas Tello MD [address] [place] [address] PCP - General Family Medicine 04/04/23 Flute Polisher Relationship Specialty Start Date End Date Almas Tello MD [address] [place] [phone] PCP - General 10/27/20 Flute Polisher Relationship Specialty Start Date End Date Almas Tello MD [facility] [address] [place] [phone] PCP - General 10/27/20 Flute Polisher Relationship Specialty Start Date End Date Almas Tello MD [address] [phone] PCP - General 10/27/20 Flute Polisher Relationship Specialty Start Date End Date Almas Tello MD [address] [place] [address] (Fax) PCP - General Family Medicine 04/04/23 Almas Tello MD [address] [place] [address] (Fax) PCP - ACO Reach 08/27/24 Mika Espinoza MD [address] [place] [address] Referring Physician Dermatology 01/04/24 Jennifer Arce MD [address] [facility] [address] [place] [address] Referring Physician Cardiology 01/04/24 Flute Polisher Relationship Specialty Start Date End Date Almas Tello MD [facility] [address] [place] [phone] PCP - General 10/27/20 Flute Polisher Relationship Specialty Start Date End Date Almas Tello MD [address] [address] (Fax) PCP - General Family Medicine 04/04/23 Almas Tello MD [address] [address] (Fax) PCP - ACO Reach 08/27/24 Mika Espinoza MD [address] [place] [address] Referring Physician Dermatology 01/04/24 Jennifer Arce MD [address] [place] [address] Referring Physician Cardiology 01/04/24 Flute Polisher Relationship Specialty Start Date End Date Almas Tello MD [address] [address] (Fax) PCP - General Family Medicine 04/04/23 Almas Tello MD [address] [address] (Fax) PCP - ACO Reach 08/27/24 Mika Espinoza MD [address] [place] [address] Referring Physician Dermatology 01/04/24 Jennifer Arce MD [address] [place] [address] Referring Physician Cardiology 01/04/24 Flute Polisher Relationship Specialty Start Date End Date Almas Tello MD [address] [address] (Fax) PCP - General Family Medicine 04/04/23 Almas Tello MD [address] [facility] [address] [place] [address] PCP - ACO Reach 08/27/24 Mika Espinoza MD [address] [place], [place] [phone] Referring Physician Dermatology 01/04/24 Jennifer Arce MD [address] [facility] [address] [place] [address] Referring Physician Cardiology 01/04/24 FOR RECORDS PERTAINING [...] BE BASED ON THE PRIMARY CLINICAL RECORDS. [facility]. provides no warranty or guarantee of the accuracy or completeness of information in this document.
[2024-10-29] MEDS: POTASSIUM CHLORIDE 10 MEQ ER TABLET 40 MEQ PO (11:31)
[2024-10-29] MEDS: HYDRALAZINE HCL 20 MG/ML VIAL 10 MG IVP (12:14)
[2024-10-29] MEDS: KETOROLAC TROMETHAMINE 30 MG/ML VIAL IVP (12:14)
[2024-10-29] MEDS: AMPICILLIN SODIUM/SULBACTAM NA 3 GM in 0.9 % SODIUM CHLORIDE 100 ML IV ×2 (13:29→21:16)
[2024-10-29] MEDS: LACTATED RINGER'S SOLUTION 1,000 ML 100 ML IV ×2 (14:08→23:41)
--- NOTE | 2024-10-29 14:09 | P.HP_ITS ---
HPI H&P: HPI History of Present Illness Chief complaint: HEADACHE, SINUSITIS, FAILED OP, HTN, HEADACHE Narrative: 78 y o male, presented with Left sided CASTAÑEDA X 1-2 weeks. Patient reports that for past 1-2 weeks, he has been experiencing left sided retro orbital and temporal headache, that is associated with nasal congestion and productive cough. His PCP prescribed him an abx that he had almost finished and subsequently tapering dose of steroids that he has been using for past 3-4 days. He reports that his CASTAÑEDA responds to tylenol but returns within a few hours. Denies ear pain. Denies hx of chronic headaches. Denies any neurological symptoms but was a little unsteady on his feet. Patient also reports nausea and 1-2 episodes of vomiting since yesterday. Denies fever/chills. Patient has right black eye and he said that he was pulling on something and hit himself in his eye inadvertently resulting in a black eye. Denies head trauma, LOC. Work up in ED revealed leukocytosis, lactic acidosis, hypokalemia and his CT Imaging revealed chronic hygroma, no acute intracranial pathology. Neurology consulted in ED and felt these findings were chronic and unchanged. Opioid HPI Opioid Management Most Recent Pain and Opioid Data: Last Pain Scale 5 10/29/24 14:17 10/29/24 Last Pain Assessment 10/29/24 14:17 Last MAR Pain Assessment 10/29/24 12:14 Last ORT Total Score 3 10/29/24 14:17 10/29/24 Last ORT Risk Category Low Risk 10/29/24 14:17 10/29/24 Review of Systems ROS Status of ROS 10 or more systems reviewed and unremark able except as noted in history and below [facility] Medical History (Updated 10/29/24 @ 14:18 by Shaikh Gregorio MD) HLD (hyperlipidemia) ?E78.5 - Hyperlipidemia, unspecified (ICD-10) CAD (coronary artery disease) ?I25.10 - Atherosclerotic heart disease of [place] coronary artery without angina pectoris (ICD-10) Prostate cancer ?C61 - Malignant neoplasm of prostate (ICD-10) Heart attack ?I21.9 - Acute myocardial infarction, unspecified (ICD-10) High cholesterol ?E78.00 - Pure hypercholesterolemia, unspecified (ICD-10) Hypertension ?I10 - Essential (primary) hypertension (ICD-10) Surgical History (Updated 10/29/24 @ 14:13 by Alaina Wilkinson) H/O prostatectomy ?Z90.79 - Acquired absence of other genital organ(s) (ICD-10) H/O craniotomy ?Z98.890 - Other specified postprocedural states (ICD-10) History of knee replacement ?Z96.659 - Presence of unspecified artificial knee joint (ICD-10) Hx of coronary artery bypass surgery ?Z95.1 - Presence of aortocoronary bypass graft (ICD-10) History of heart artery stent ?Z95.5 - Presence of coronary angioplasty implant and graft (ICD-10) Family History (Updated 10/29/24 @ 14:14 by Alaina Wilkinson) Brother Family history of CHF (congestive heart failure) Family history of COPD (chronic obstructive pulmonary disease) Family history of myocardial infarction Father Family history of COPD (chronic obstructive pulmonary disease) Mother Family history of stroke Social History (Updated 10/29/24 @ 14:15 by Shaikh Gregorio MD) Within the past year, how often did you have a drink containing alcohol: 4 or more times a week Within the past year, how many standard drinks containing alcohol did you have on a typical day: 5 or 6 Within the past year, how often did you have six or more drinks on one occasion: weekly Total score: 7 Score interpretation: A score of 4 or more indicates drinking is likely to affect patient's safety. 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 Highest level of school completed/degree received: Associate degree: academic program Are you now , , , , never or living with a partner: In a typical week, how many times do you talk on the telephone with family, friends, or neighbors: twice per week How often do you get together with friends or relatives: twice per week Little interest or pleasure in doing things: not at all Feeling down, depressed, or hopeless: not at all Feel stressed/tense/nervous/anxious/difficulty sleeping: not at all Meds Home Medications and Allergies Home Medications ?Medication ?Instructions ?Recorded ?Confirmed ?Type albuterol sulfate 90 mcg/actuation 2 puff inhalation Q4H PRN 10/29/24 10/29/24 History aerosol inhaler shortness of breath or wheezing levofloxacin 750 mg tablet 750 mg PO DAILY 10/29/24 10/29/24 History lisinopril 5 mg tablet 5 mg PO DAILY 10/29/24 10/29/24 History ondansetron HCl 4 mg tablet 4 mg PO Q8H PRN nausea and vomiting 10/29/24 10/29/24 History prednisone 10 mg tablet 10 mg PO .qd 10/29/24 10/29/24 History rosuvastatin 40 mg tablet 40 mg PO DAILY 10/29/24 10/29/24 History Allergies Allergy/AdvReac Type Severity Reaction Status Date / Time No Known Drug Allergies Allergy Verified 10/29/24 10:07 Exam Constitutional Vital Signs, click to edit/add: Last Vital Signs Temp 97.6 F 10/29/24 10:07 Pulse 72 10/29/24 13:00 Resp 16 10/29/24 13:00 BP 173/86 H 10/29/24 13:00 Pulse Ox 98 10/29/24 13:00 O2 Del Method Room Air 10/29/24 10:07 Documenting provider has reviewed patient's vital signs: yes Common normals: no apparent distress and oriented x3 General appearance: cooperative HENMT Other: Right black eye Eye Common normals: conjunctivae normal and no scleral icterus Conjunctiva: conjunctiva(e) normal Respiratory Common normals: normal respiratory effort and clear to auscultation bilaterally Effort & inspection: able to speak in complete sentences Auscultation: clear to auscultation bilaterally Cardio Common normals: regular rate, S1 normal heart sound and S2 normal heart sound Rate: regular rate Heart sounds: S1 normal and S2 normal GI Common normals: Normal to inspection, nondistended, normoactive bowel sounds present, soft to palpation, non-tender and no hepatosplenomegaly Palpation: soft and no hepatosplenomegaly Extremity Common normals: no clubbing, cyanosis or edema Neuro Common normals: oriented x3, moves all extremities and no focal motor deficits Meningeal signs: no meningeal signs Coordination/balance: [id number] test normal Speech: speech normal Psych Common normals: mental status grossly normal, denies hallucinations, denies homicidal ideation and denies suicidal ideation Results Labs Labs: Short CBC 10/29/24 Range/Units 10:20 WBC 17.8 H (4.0-11.0) 10^3/uL Hgb 14.1 (14.0-18.0) g/dL Hct 40.9 L (42.0-54.0) % Plt Count 279 (150-450) 10^3/uL BMP 10/29/24 10:20 Sodium 139 Potassium 3.2 L Chloride 99 Carbon Dioxide 27.7 BUN 17.0 Creatinine 0.99 Glucose 116 H Calcium 9.7 Liver Function 10/29/24 Range/Units 10:20 Total Bilirubin 0.7 (0.2-1.0) mg/dL AST 18 (15-37) U/L ALT 34 (16-63) U/L Alkaline Phosphatase 65 (46-116) U/L Albumin 3.3 L (3.4-5.0) g/dL Assessment and Plan Assessment and Plan (1) Bacterial sinusitis: Assessment and Plan: bilateral sinusitis on CTH. Started on IV Unasyn. Added flonase, afrin for nasal congestion/improve sinus drainage. (2) Intractable headache: Assessment and Plan: Improved. Likely due to sinusitis. Added IV Toradol q6 Treat underlying bacterial sinusitis. on IV Unasyn for it. Qualifiers: Headache type: unspecified Headache chronicity pattern: acute headache Qualified Code(s): R51.9 - Headache, unspecified (3) Leukocytosis: Assessment and Plan: Likely steroid induced. Monitor. Qualifiers: Leukocytosis type: leukemoid reaction Qualified Code(s): D72.823 - Leukemoid reaction (4) CAD (coronary artery disease): Assessment and Plan: s/p CABG about 6 years ago. C/w ASA, statin Qualifiers: Coronary Disease-Associated Artery/Lesion type: [place] artery [place] vs. transplanted heart: [place] heart Associated angina: without angina Qualified Code(s): I25.10 - Atherosclerotic heart disease of [place] coronary artery without angina pectoris (5) Hypertension: Assessment and Plan: Elevated on arrival. likely due to pain. IV hydralazine as needed. C/w lisinopril Qualifiers: Hypertension type: primary hypertension Qualified Code(s): I10 - Essential (primary) hypertension (6) HLD (hyperlipidemia): Assessment and Plan: c/w crestor Qualifiers: Hyperlipidemia type: unspecified Qualified Code(s): E78.5 - Hyperlipidemia, unspecified
[2024-10-29] MEDS: KETOROLAC TROMETHAMINE 30 MG/ML VIAL 15 MG IVP ×2 (17:36→23:41)
[2024-10-29 17:37] LABS: Bilirubin Urine NEGATIVE (NEGATIVE); Blood Urine NEGATIVE (NEGATIVE); Clarity Urine CLEAR (CLEAR); Color Urine LT. YELLOW (YELLOW); Glucose Urine UA NEGATIVE (NEGATIVE); Ketones Urine 15 mg/dL (NEGATIVE); Leukocyte Esterase Urine NEGATIVE (NEGATIVE); Nitrite Urine NEGATIVE (NEGATIVE); Protein Urine 30 mg/dL (NEG/TRACE); Urobilinogen Urine 0.2 EU/dL (0.2-1.0); pH Urine 7.5 (5.0-9.0)
[2024-10-29 17:44] LABS: Urine Microscopic Indicated YES
[2024-10-29 17:47] LABS: Bacteria Urine TRACE #/HPF (NONE SEEN); Crystals Seen? None Seen #/HPF (None Seen); Mucus Urine NONE SEEN (NONE SEEN); RBC Urine NONE SEEN #/HPF (0-2); Squamous Epithelial Cell Urine RARE #/LPF (NONE/RARE); WBC Urine NONE SEEN #/HPF (NONE SEEN)
[2024-10-29 17:48] LABS: Cast Seen? NONE SEEN #/LPF (NONE SEEN); Urine Culture Indicated NO
[2024-10-30] MEDS: AMPICILLIN SODIUM/SULBACTAM NA 3 GM in 0.9 % SODIUM CHLORIDE 100 ML IV ×2 (04:25→09:35)
[2024-10-30] MEDS: KETOROLAC TROMETHAMINE 30 MG/ML VIAL 15 MG IVP ×2 (05:09→11:27)
[2024-10-30 05:12] VITALS: BP 160/67; PULSE 50; TEMP 36.8; O2SAT 94
[2024-10-30 06:24] LABS: Basophils Percent Auto 0.2 % (0.2-2.0); Eosinophils Absolute Auto 0.1 10^3/uL (0.0-0.7); Eosinophils Percent Auto 0.5 % (0.9-7.0); Hemoglobin 12.2 g/dL (14.0-18.0); Immature Granulocytes Abs Auto 0.07 10^3/uL (0.00-0.03); Immature Granulocytes Pct Auto 0.7 % (0.0-0.5); Lymphocytes Absolute Auto 1.9 10^3/uL (1.2-3.8); Lymphocytes Percent Auto 17.9 % (20.5-60.0); Mean Corpuscular HGB Conc 33.9 g/dL (29.9-35.2); Mean Corpuscular Volume 94.5 fL (80.0-94.0); Mean Platelet Volume 9.3 fL (9.5-13.5); Monocytes Absolute Auto 1.3 10^3/uL (0.3-0.8); Monocytes Percent Auto 12.5 % (1.7-12.0); Neutrophils Absolute Auto 7.2 10^3/uL (1.4-6.5); Neutrophils Percent Auto 68.2 % (43.0-75.0); Platelet Count 211 10^3/uL (150-450); Red Blood Count 3.81 10^6/uL (4.70-6.10); Red Cell Distribution Width 14.5 % (11.0-15.0); White Blood Count 10.6 10^3/uL (4.0-11.0)
[2024-10-30 06:43] LABS: Alanine Aminotransferase 30 U/L (16-63); Albumin Globulin Ratio 0.8; Albumin Level 2.6 g/dL (3.4-5.0); Alkaline Phosphatase 52 U/L (46-116); Anion Gap 12.1; Aspartate Amino Transferase 19 U/L (15-37); BUN Creatinine Ratio 23.3; Bilirubin Total 0.5 mg/dL (0.2-1.0); Calcium 8.3 mg/dL (8.5-10.1); Carbon Dioxide 28.6 mmol/L (21.0-32.0); Chloride 106 mmol/L (98-107); Estimated GFR (African America >60 (>=60 mL/min/1.73m^2); Estimated GFR (Non-African Ame >60 (>=60 mL/min/1.73m^2); Globulin 3.1 g/dL; Glucose 92 mg/dL (74-106); Potassium 3.7 mmol/L (3.5-5.1); Sodium 143 mmol/L (136-145); Total Protein 5.7 g/dL (6.4-8.2)
[2024-10-30 09:21] VITALS: BP 130/64; PULSE 75; TEMP 36.7; O2SAT 94
[2024-10-30 09:26] VITALS: O2SAT 94
[2024-10-30] MEDS: FLUTICASONE PROPIONATE 50 MCG NASAL SPRAY 2 SPRAY NS (09:34)
[2024-10-30] MEDS: LISINOPRIL 5 MG TABLET 10 MG PO (09:35)
--- NOTE | 2024-10-30 10:02 | P.DS_ITS ---
DS: Providers Provider Date of admission: 10/29/24 13:39 Primary care physician: PB TELLO Admitting clinician: Shaikh Gregorio Attending physician on admission: Shaikh Gregorio Consults: 10/29/24 12:53 Physical Therapy Eval and Treat Routine Reason for consultation: Ambulatory dysfunction/weakness Attending physician on discharge: Shaikh Gregorio Discharging clinician: Shaikh Gregorio Anticipated date of discharge: 10/30/24 DS: Diagnosis Discharge Diagnosis (1) Bacterial sinusitis: (2) Intractable headache: Qualifiers: Headache type: unspecified Headache chronicity pattern: acute headache Qualified Code(s): R51.9 - Headache, unspecified (3) Leukocytosis: Qualifiers: Leukocytosis type: leukemoid reaction Qualified Code(s): D72.823 - Leukemoid reaction (4) CAD (coronary artery disease): Qualifiers: Coronary Disease-Associated Artery/Lesion type: [place] artery [place] vs. transplanted heart: [place] heart Associated angina: without angina Qualified Code(s): I25.10 - Atherosclerotic heart disease of [place] coronary artery without angina pectoris (5) Hypertension: Qualifiers: Hypertension type: primary hypertension Qualified Code(s): I10 - Essential (primary) hypertension (6) HLD (hyperlipidemia): Qualifiers: Hyperlipidemia type: unspecified Qualified Code(s): E78.5 - Hyperlipidemia, unspecified DS: Summary Hospital Course Hospital Course: 78 y o male, presented with Left sided CASTAÑEDA X 1-2 weeks. Patient reported that for past 1-2 weeks, he was experiencing left sided retro orbital and temporal headache. He also had nasal congestion and productive cough. His PCP prescribed him an abx and tapering dose of steroids that he had been using for past 3-4 days. Patient also reported nausea and 1-2 episodes of vomiting. Work up in ED revealed leukocytosis, lactic acidosis, hypokalemia and his CT Imaging revealed chronic hygroma, no acute intracranial pathology. He was also noted to have bilateral sinusitis on CTH. Patient was admitted for IV abx and overnight treated with IVF and IV unasyn. He was seen today and felt better and at his baseline. He had no active complaints to offer. He is medically stable for discharge. F/u with PCP in one week Status at Discharge Functional status at discharge: independent ambulation Overall status at discharge: patient is back to baseline Time Spent with Patient Time attestation: Total time spent providing and/or coordinating discharge services: Exam Constitutional Vital Signs, click to edit/add: Last Vital Signs Temp 98.0 F 10/30/24 09:21 Pulse 75 10/30/24 09:21 Resp 16 10/30/24 09:21 BP 130/64 10/30/24 09:21 Pulse Ox 94 L 10/30/24 09:26 O2 Del Method Room Air 10/30/24 09:26 Documenting provider has reviewed patient's vital signs: yes Common normals: no apparent distress and oriented x3 General appearance: cooperative HENMT Other: Right black eye Respiratory Common normals: normal respiratory effort and clear to auscultation bilaterally Effort & inspection: able to speak in complete sentences Auscultation: clear to auscultation bilaterally Cardio Common normals: regular rate, S1 normal heart sound and S2 normal heart sound Rate: regular rate Heart sounds: S1 normal and S2 normal Extremity Common normals: no clubbing, cyanosis or edema Neuro Common normals: oriented x3, moves all extremities and no focal motor deficits Meningeal signs: no meningeal signs Coordination/balance: [id number] test normal Speech: speech normal Psych Common normals: mental status grossly normal, denies hallucinations, denies homicidal ideation and denies suicidal ideation DS: Data Data Completed and Pending Labs on day of discharge: Labs from last 24 hours 10/30/24 10/29/24 10/29/24 05:54 16:40 10:32 WBC 10.6 RBC 3.81 L Hgb 12.2 L Hct 36.0 L MCV 94.5 H MCH 32.0 MCHC 33.9 RDW 14.5 Plt Count 211 MPV 9.3 L Neut % (Auto) 68.2 Lymph % (Auto) 17.9 L [place] % (Auto) 12.5 H Eos % (Auto) 0.5 L Baso % (Auto) 0.2 Neut # (Auto) 7.2 H Lymph # (Auto) 1.9 [place] # (Auto) 1.3 H Eos # (Auto) 0.1 Baso # (Auto) 0.0 Abs Immat Gran (auto) 0.07 H Seg Neuts % (Manual) Lymphocytes % (Manual) Monocytes % (Manual) Eosinophils % (Manual) Basophils % (Manual) Imm/Tot Granulo (auto) 0.7 H Neutrophils # (Manual) Lymphocytes # (Manual) Monocytes # (Manual) Eosinophils # (Manual) Basophils # (Manual) PT INR Sodium 143 Potassium 3.7 Chloride 106 Carbon Dioxide 28.6 Anion Gap 12.1 BUN 20.0 H Creatinine 0.86 Est GFR ( Amer) >60 Est GFR (Non-Af Amer) >60 BUN/Creatinine Ratio 23.3 Glucose 92 Lactate Calcium 8.3 L Total Bilirubin 0.5 AST 19 ALT 30 Alkaline Phosphatase 52 Troponin I High Sens Total Protein 5.7 L Albumin 2.6 L Globulin 3.1 Albumin/Globulin Ratio 0.8 Urine Color Lt. yellow Urine Clarity Clear Urine pH 7.5 Ur Specific [place] 1.010 Urine Protein 30 A Urine Glucose (UA) Negative Urine Ketones 15 A Urine Occult Blood Negative Urine Nitrite Negative Urine Bilirubin Negative Urine Urobilinogen 0.2 Ur Leukocyte Esterase Negative Urine RBC None seen Urine WBC None seen Ur Squamous Epith Cells Rare Urine Crystals None seen Urine Bacteria Trace A Urine Casts None seen Urine Mucus None seen Ur Culture Indicated? No Influenza Type A Ag Negative Influenza Type B Ag Negative SARS-CoV-2 Ag (CV2AG) Negative 10/29/24 10:20 WBC 17.8 H RBC 4.38 L Hgb 14.1 Hct 40.9 L MCV 93.4 MCH 32.2 MCHC 34.5 RDW 14.2 Plt Count 279 MPV 9.1 L Neut % (Auto) Lymph % (Auto) [place] % (Auto) Eos % (Auto) Baso % (Auto) Neut # (Auto) Lymph # (Auto) [place] # (Auto) Eos # (Auto) Baso # (Auto) Abs Immat Gran (auto) Seg Neuts % (Manual) 73.0 Lymphocytes % (Manual) 19.0 L Monocytes % (Manual) 8.0 Eosinophils % (Manual) 0.0 L Basophils % (Manual) 0.0 L Imm/Tot Granulo (auto) Neutrophils # (Manual) 12.99 H Lymphocytes # (Manual) 3.38 Monocytes # (Manual) 1.42 H Eosinophils # (Manual) 0.00 Basophils # (Manual) 0.00 PT 11.3 INR 1.07 Sodium 139 Potassium 3.2 L Chloride 99 Carbon Dioxide 27.7 Anion Gap 15.5 BUN 17.0 Creatinine 0.99 Est GFR ( Amer) >60 Est GFR (Non-Af Amer) >60 BUN/Creatinine Ratio 17.2 Glucose 116 H Lactate 2.0 Calcium 9.7 Total Bilirubin 0.7 AST 18 ALT 34 Alkaline Phosphatase 65 Troponin I High Sens 6.9 Total Protein 7.2 Albumin 3.3 L Globulin 3.9 Albumin/Globulin Ratio 0.8 Urine Color Urine Clarity Urine pH Ur Specific [place] Urine Protein Urine Glucose (UA) Urine Ketones Urine Occult Blood Urine Nitrite Urine Bilirubin Urine Urobilinogen Ur Leukocyte Esterase Urine RBC Urine WBC Ur Squamous Epith Cells Urine Crystals Urine Bacteria Urine Casts Urine Mucus Ur Culture Indicated? Influenza Type A Ag Influenza Type B Ag SARS-CoV-2 Ag (CV2AG) Discharge Plan Discharge Disposition: Home, Self-Care Condition: Fair Discharge Medications: New amoxicillin-pot clavulanate 875-125 mg tablet 1 tab PO BID Qty: 20 0RF fluticasone propionate [Flonase Allergy Relief] 50 mcg/actuation spray,suspension 2 spray intranasal DAILY Qty: 16 0RF Rx Instructions: administer into each nostril Continued prednisone 10 mg tablet 10 mg PO .qd Rx Instructions: Taper for 12 days that started 10-21-24 ondansetron HCl 4 mg tablet 4 mg PO Q8H PRN (Reason: nausea and vomiting) lisinopril 5 mg tablet 5 mg PO DAILY albuterol sulfate 90 mcg/actuation HFA aerosol inhaler 2 puff INHALATION Q4H PRN (Reason: shortness of breath or wheezing) rosuvastatin 40 mg tablet 40 mg PO DAILY Discontinued levofloxacin 750 mg tablet 750 mg PO DAILY Activity: increase activity as tolerated Diet: advance to your usual diet Print Language: Afghan Forms: Portal Instructions Follow Up Appointments: F/u with PCP in one week
--- NOTE | 2024-10-30 10:13 | SWNOTE1 ---
SW spoke to case management and pt does still work and has [employer] primary, Medicare secondary. Pt will be discharged later today.
--- NOTE | 2024-10-30 10:14 | SWNOTE1 ---
SW checked therapy note and pt was up and independent in room per nurse, no anticipated discharge needs at this time. SW to follow as needed.
[2024-10-30 11:24] VITALS: BP 145/83; PULSE 60; TEMP 36.9; O2SAT 94
--- NOTE | 2024-10-30 12:08 | CM.NOTE ---
Rounds made with Dr. Perkins. Dr. Perkins discussed discharge plan. Ritesh states feeling much better. Plan is for discharge today on po antibiotic.
--- NOTE | 2024-11-01 12:54 | CM.DCFOLLOWU ---
Person spoke with: Ritesh How are you feeling? Better How is your pain? still having slight headache but better Did you understand your discharge instructions? Yes Do you have any questions about your discharge instructions? No Were you given any prescriptions at discharge? Yes Were you able to get your prescriptions filled? Yes Do you understand how to take your medications as ordered? Yes Do you have any questions about your follow up appointment and do you plan to keep your follow up appointment? No questions and yes keeping appt Is there anything else that you would like to discuss? No Questions/Comments/Concerns/Other:
== END 2024-10-30 12:21 | disposition home or self-care (01) ==
LOC: ER 11:06 → MS 13:55
PROVIDERS: Admitting Provider Internal Medicine; Emergency Provider Emergency Medicine; PCP Family Medicine; Visit Provider Internal Medicine
DX: J32.9 Chronic sinusitis, unspecified (principal); R51.9 Headache, unspecified; D72.823 Leukemoid reaction; I25.10 Atherosclerotic heart disease of native coronary artery without angina pectoris; I10 Essential (primary) hypertension; E78.5 Hyperlipidemia, unspecified; E87.20 Acidosis, unspecified; E87.6 Hypokalemia; D18.1 Lymphangioma, any site; Z87.891 Personal history of nicotine dependence; Z95.1 Presence of aortocoronary bypass graft; Z79.899 Other long term (current) drug therapy; Z79.82 Long term (current) use of aspirin; Z20.822 Contact with and (suspected) exposure to COVID-19
CPT/HCPCS: 36415; 70450; 70496; 70498; 71045; 80053; 81001; 83605; 84484; 85007; 85025; 85027; 85610; 87040; 87804; 87811; 93005; 94761; 96361; 96365; 96366; 96375; 96376; 99285; G0378; J0295; J0360; J1885; J2270; J2405; Q9967

== ENCOUNTER 2024-12-04 08:24 | Outpatient (OUT) | payer OTHER, MEDICARE, SELFPAY ==
[2024-12-04 09:27] LABS: Alanine Aminotransferase 21 U/L (16-63); Anion Gap 11.2; Aspartate Amino Transferase 18 U/L (15-37); BUN Creatinine Ratio 18.2; Calcium 8.9 mg/dL (8.5-10.1); Carbon Dioxide 32.3 mmol/L (21.0-32.0); Chloride 105 mmol/L (98-107); Chol HDL Ratio 2.6; Cholesterol 182 mg/dL (<=200); Estimated GFR (African America >60 (>=60 mL/min/1.73m^2); Estimated GFR (Non-African Ame >60 (>=60 mL/min/1.73m^2); Glucose 86 mg/dL (74-106); HDL Cholesterol 70 mg/dL (40-60); Potassium 4.5 mmol/L (3.5-5.1); Sodium 144 mmol/L (136-145); Thyroid Stimulating Hormone 2.313 uIU/mL (0.358-3.740); Triglycerides 76 mg/dL (<=150); VLDL CHOLESTEROL 15.2 mg/dL
== END 2024-12-04 08:25 | disposition home or self-care (01) ==
LOC: LAB 08:26
PROVIDERS: PCP Family Medicine; Visit Provider Internal Medicine Cardiovascular Disease
DX: E78.2 Mixed hyperlipidemia (principal); I10 Essential (primary) hypertension; I25.10 Atherosclerotic heart disease of native coronary artery without angina pectoris; Z98.61 Coronary angioplasty status; R63.4 Abnormal weight loss
CPT/HCPCS: 36415; 80048; 80061; 84443; 84450; 84460